=== PATIENT | female | born 1975 | race Caucasian/White ===

== ENCOUNTER 2019-11-19 06:47 | Outpatient (CLI) | payer MEDICARE, MEDICAID, SELFPAY ==
[2019-11-19 08:00] LABS: Cholesterol 189 mg/dL (0-200); HDL Direct 72 mg/dL; Triglycerides 141 mg/dL (<150)
[2019-11-19 08:11] LABS: LDL Cholesterol Direct 95 mg/dL
[2019-11-19 08:58] LABS: Free T4 Free Thyroxine 1.19 ng/mL (0.78-2.19)
== END 2019-11-19 06:48 | disposition home or self-care (01) ==
PROVIDERS: PCP Internal Medicine; Visit Provider Internal Medicine
DX: E03.9 Hypothyroidism, unspecified (principal)
CPT/HCPCS: 36415; 80061; 84439; 84443

== ENCOUNTER 2020-02-21 06:44 | Outpatient (CLI) | payer MEDICARE, MEDICAID, SELFPAY ==
--- NOTE | 2020-02-21 07:00 | NEURO_ITS ---
TEST: ELECTROENCEPHALOGRAM DIAGNOSIS: SEIZURES PATIENT NUMBER: [id number] EEG NUMBER: [id number] RECORDING DATE: 02/21/20 CLINICAL HISTORY: Patient reports she has had seizures since she was a baby. CONDITION OF RECORDING: Awake, drowsy and sleep EEG DESCRIPTION: The whole record consists of diffused low to medium voltage 5- 7theta and mixed with intermittent 3-4hz delta activity and superimposed by low voltage beta activity. Bilateral symmetrical sleep activity is seen during sleep. Tracing is compromised with eyes fluttering artifact throughout the tracing. Photic stimulation produced poor drive. Nonparoxysmal. Nonfocal. Nonlateralizing. IMPRESSION: Abnormal record due to bi-hemispheric theta and delta activity with absence of normal background rhythms. The findings could be suggestive of underlying organic or metabolic encephalopathy. There is no evidence of any paroxysmal discharge. MTDD
[2020-02-21 08:51] LABS: Basophils Percent Auto 0.3 % (0.2-1.2); Eosinophils Percent Auto 0.5 % (0-4.4); Hemoglobin 13.2 g/dL (12.0-15.0); Immature Granulocyte Absolute 0.04 K/mm3 (0.00-0.031); Immature Granulocyte Percent A 0.5 % (0-0.5); Lymphocytes Absolute Auto 1.87 K/mm3 (0.9-3.2); Lymphocytes Percent Auto 24.5 % (18.3-44.2); Mean Corpuscular Volume 97.1 fl (80-100); Mean Platelet Volume 9.4 fl (7.4-10.4); Monocytes Absolute Auto 0.7 K/mm3 (0.1-0.6); Monocytes Percent Auto 9.4 % (2.6-8.5); Neutrophils Absolute Auto 4.9 K/mm3 (1.3-6.7); Neutrophils Percent Auto 64.8 % (45.5-73.1); Platelet Count Result 182 k/mm3 (150-375); Red Blood Count 4.12 M/mm3 (4.2-5.4); Red Cell Distribution Width 13.4 % (11.5-14.5); White Blood Count 7.6 K/mm3 (4.5-10.0)
[2020-02-21 09:03] LABS: Alanine Aminotransferase 8 U/L (4-35); Albumin Level 3.9 g/dL (3.5-5.1); Alkaline Phosphatase 71 U/L (38-126); Aspartate Amino Transferase 14 U/L (14-36); Bilirubin,Total 0.2 mg/dL (0.2-1.3); Blood Urea Nitrogen 18 mg/dL (7-17); Calcium 8.9 mg/dL (8.4-10.2); Carbon Dioxide 30 mmol/L (22-30); Chloride 106 mmol/L (98-107); Estimated Glomerular Filt Rate > 60; Glucose 86 mg/dL (65-105); Potassium 4.6 mmol/L (3.4-5.0); Sodium 141 mmol/L (137-145)
[2020-02-21 09:40] LABS: Valproic Acid 83.7 ug/mL (50-120)
[2020-02-21 10:42] LABS: Folic Acid 4.5 ng/mL (2.76->20)
[2020-02-24 07:12] LABS: Carbamazepine Tegretol 8.9 mcg/mL (4.0-12.0)
[2020-02-24 09:34] LABS: Vitamin B6 3.1 ng/mL (2.1-21.7)
== END 2020-02-21 06:45 | disposition home or self-care (01) ==
PROVIDERS: PCP Internal Medicine; Visit Provider Psychiatry & Neurology Neurology
DX: R56.9 Unspecified convulsions (principal); R94.01 Abnormal electroencephalogram [EEG]
CPT/HCPCS: 36415; 80053; 80156; 80164; 82607; 82746; 84207; 85025; 95816

== ENCOUNTER 2020-03-28 14:11 | Outpatient (CLI) | payer MEDICARE, MEDICAID, SELFPAY ==
--- NOTE | ~2020-03-28 | CT_ITS ---
EXAMINATION: CT brain wo con DATE: 03/28/2020 15:02 INDICATION: Seizure TECHNIQUE: Computed tomography (CT) of the head was performed without intravenous contrast. Sagittal and coronal reconstructions were performed. The mA was adjusted according to patient size. Iterative reconstruction technique was employed. The dose-length product was 605.33 mGy-cm. 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 There is chronic encephalomalacia in the r ight frontal lobe along the tract of a right frontal ventricular shunt with distal tip in the anterio r horn of the right lateral ventricle. There is a short residual retained shunt fragment in the left lateral ventricle. No acute intracranial hemorrhage, acute infarction or abnormal extra axial fluid c ollection. Ventricles remain normal in size and unchanged in configuration. Basal cisterns are patent . No mass/mass effect. The orbits, paranasal sinuses and mastoid air cells are normal. IMPRESSION: 1. Agenesis of the corpus callosum with no change in a right frontal ventricular shunt and retained s balbuena fragment at the left lateral ventricle. 2. No acute intracranial process. Reviewed, dictated and finalized at location A. IMPRESSION: 1. Agenesis of the corpus callosum with no change in a right frontal ventricula r shunt and retained shunt fragment at the left lateral ventricle. 2. No acute intracranial process.
== END 2020-03-28 14:12 | disposition home or self-care (01) ==
PROVIDERS: PCP Internal Medicine; Visit Provider Psychiatry & Neurology Neurology
DX: R56.9 Unspecified convulsions (principal)
CPT/HCPCS: 70450

== ENCOUNTER 2020-05-07 06:34 | Outpatient (CLI) | payer MEDICARE, MEDICAID, SELFPAY ==
[2020-05-07 07:36] LABS: Basophils Percent Auto 0.5 % (0.2-1.2); Eosinophils Absolute Auto 0.1 K/mm3 (0-0.3); Eosinophils Percent Auto 0.6 % (0-4.4); Hemoglobin 14.1 g/dL (12.0-15.0); Immature Granulocyte Absolute 0.04 K/mm3 (0.00-0.031); Immature Granulocyte Percent A 0.5 % (0-0.5); Lymphocytes Absolute Auto 2.24 K/mm3 (0.9-3.2); Lymphocytes Percent Auto 27.3 % (18.3-44.2); Mean Corpuscular HGB Conc 32.8 g/dl (32-36); Mean Corpuscular Hemoglobin 32.4 pg (26-34); Mean Corpuscular Volume 98.9 fl (80-100); Mean Platelet Volume 9.9 fl (7.4-10.4); Monocytes Absolute Auto 0.8 K/mm3 (0.1-0.6); Monocytes Percent Auto 9.8 % (2.6-8.5); Neutrophils Percent Auto 61.3 % (45.5-73.1); Platelet Count Result 151 k/mm3 (150-375); Red Blood Count 4.35 M/mm3 (4.2-5.4); Red Cell Distribution Width 13.2 % (11.5-14.5); White Blood Count 8.2 K/mm3 (4.5-10.0)
[2020-05-07 07:46] LABS: Alanine Aminotransferase 12 U/L (4-35); Albumin Level 3.9 g/dL (3.5-5.1); Alkaline Phosphatase 115 U/L (38-126); Anion Gap 10.1 mmol/L (7-16); Aspartate Amino Transferase 24 U/L (14-36); Bilirubin,Total 0.4 mg/dL (0.2-1.3); Blood Urea Nitrogen 17 mg/dL (7-17); Calcium 9.2 mg/dL (8.4-10.2); Carbon Dioxide 33 mmol/L (22-30); Chloride 101 mmol/L (98-107); Cholesterol 189 mg/dL (0-200); Estimated Glomerular Filt Rate > 60; Glucose 90 mg/dL (65-105); HDL Direct 72 mg/dL; Potassium 4.1 mmol/L (3.4-5.0); Sodium 140 mmol/L (137-145); Triglycerides 198 mg/dL (<150)
[2020-05-07 07:57] LABS: LDL Cholesterol Direct 71 mg/dL
[2020-05-07 08:23] LABS: Valproic Acid 111.1 ug/mL (50-120)
[2020-05-07 08:35] LABS: Free T4 Free Thyroxine 1.16 ng/mL (0.78-2.19)
[2020-05-07 08:55] LABS: Erythrocyte Sedimentation Rate 19 mm/hr (0-20)
[2020-05-12 06:56] LABS: Carbamazepine Tegretol 9.9 mcg/mL (4.0-12.0)
== END 2020-05-07 06:35 | disposition home or self-care (01) ==
PROVIDERS: PCP Internal Medicine; Visit Provider Internal Medicine
DX: G40.801 Other epilepsy, not intractable, with status epilepticus (principal); R53.83 Other fatigue; E03.9 Hypothyroidism, unspecified; R63.4 Abnormal weight loss
CPT/HCPCS: 36415; 80053; 80061; 80156; 80164; 82607; 82746; 84439; 84443; 85025; 85652

== ENCOUNTER 2020-06-04 10:36 | Outpatient (CLI) | payer MEDICARE, MEDICAID, SELFPAY ==
--- NOTE | ~2020-06-04 | XR_ITS ---
EXAMINATION: XR chest 2V DATE: 06/04/2020 11:11 INDICATION: Cough. Chest pain. TECHNIQUE: Frontal and lateral views of the chest were obtained. COMPARISON: None. FINDINGS: The chest demonstrates clear lungs without pneumonia, pleural effusion, or pneumothorax. Th e heart size is normal. Tubing overlies right neck and chest. There is anterior wedging of T12 verteb ral body, likely chronic. There is a compression fracture of T11. IMPRESSION: 1. No acute cardiopulmonary disease. 2. Compression fracture of T11, most likely chronic. Reviewed, dictated and finalized at location B.
== END 2020-06-04 10:37 | disposition home or self-care (01) ==
PROVIDERS: PCP Internal Medicine; Visit Provider Physician Assistant
DX: R05 Cough (principal); M48.54XA Collapsed vertebra, not elsewhere classified, thoracic region, initial encounter for fracture
CPT/HCPCS: 71046

== ENCOUNTER 2021-03-08 08:56 | Outpatient (CLI) | payer MEDICARE, MEDICAID, SELFPAY ==
--- NOTE | ~2021-03-08 | MM_ITS ---
EXAMINATION: MM screening mammo BI HISTORY: Screening mammogram TECHNIQUE: Craniocaudal and mediolateral oblique 3-D tomosynthesis images were obtained and synthetic 2-D images were generated. CAD analysis was submitted and interpreted. COMPARISON: 08/25/2019, 08/12/2018, 12/14/2014 bilateral digital screening mammogram examinations BREAST PARENCHYMAL COMPOSITION: The breasts are heterogeneously dense, which may obscure small masses . FINDINGS: Again noted is prominent calcification in the posterior right breast. There are bilateral mammographic asymmetries. Bilateral diagnostic mammography is recommended, with u ltrasound if required. IMPRESSION: 1. Incomplete; need additional imaging evaluation for bilateral mammographic asymmetries 2. Bilateral diagnostic mammography is recommended, with ultrasound if required BI-RADS Category 0: Incomplete: Needs additional imaging evaluation. Reviewed, dictated and finalized at location A. IMPRESSION: 1. Incomplete; need additional imaging evaluation for bilateral mammographic as ymmetries 2. Bilateral diagnostic mammography is recommended, with ultrasound if required BI-RADS Category 0: Incomplete: Needs additional imaging evaluation.
== END 2021-03-08 08:57 | disposition home or self-care (01) ==
PROVIDERS: PCP Internal Medicine; Visit Provider Obstetrics & Gynecology
DX: Z12.31 Encounter for screening mammogram for malignant neoplasm of breast (principal); R92.8 Other abnormal and inconclusive findings on diagnostic imaging of breast
CPT/HCPCS: 77067

== ENCOUNTER 2021-05-20 08:23 | Outpatient (CLI) | payer MEDICARE, MEDICAID, SELFPAY ==
[2021-05-20 09:30] LABS: Basophils Percent Auto 0.3 % (0.2-1.2); Eosinophils Percent Auto 0.1 % (0-4.4); Hemoglobin 11.5 g/dL (12.0-15.0); Immature Granulocyte Absolute 0.01 K/mm3 (0.00-0.031); Immature Granulocyte Percent A 0.1 % (0-0.5); Lymphocytes Absolute Auto 1.63 K/mm3 (0.9-3.2); Lymphocytes Percent Auto 24.4 % (18.3-44.2); Mean Corpuscular HGB Conc 31.1 g/dl (32-36); Mean Corpuscular Hemoglobin 31.7 pg (26-34); Mean Corpuscular Volume 101.9 fl (80-100); Mean Platelet Volume 9.6 fl (7.4-10.4); Monocytes Absolute Auto 0.6 K/mm3 (0.1-0.6); Monocytes Percent Auto 8.5 % (2.6-8.5); Neutrophils Absolute Auto 4.4 K/mm3 (1.3-6.7); Neutrophils Percent Auto 66.6 % (45.5-73.1); Platelet Count Result 246 k/mm3 (150-375); Red Blood Count 3.63 M/mm3 (4.2-5.4); Red Cell Distribution Width 14.2 % (11.5-14.5); White Blood Count 6.7 K/mm3 (4.5-10.0)
[2021-05-20 09:55] LABS: Erythrocyte Sedimentation Rate 36 mm/hr (0-20)
[2021-05-20 09:56] LABS: Cholesterol 222 mg/dL (0-200); HDL Direct 92 mg/dL; Triglycerides 196 mg/dL (<150)
[2021-05-20 10:07] LABS: LDL Cholesterol Direct 84 mg/dL
[2021-05-20 10:36] LABS: Iron 74 ug/dL (37-170)
[2021-05-20 10:41] LABS: Alanine Aminotransferase 8 U/L (4-35); Albumin Level 3.8 g/dL (3.5-5.1); Alkaline Phosphatase 104 U/L (38-126); Anion Gap 7 mmol/L (8-16); Aspartate Amino Transferase 18 U/L (14-36); Bilirubin,Total 0.1 mg/dL (0.2-1.3); Blood Urea Nitrogen 15 mg/dL (7-17); Calcium 9.2 mg/dL (8.4-10.2); Carbon Dioxide 28 mmol/L (22-30); Chloride 103 mmol/L (98-107); Estimated Glomerular Filt Rate > 60; Glucose 84 mg/dL (65-110); Potassium 3.9 mmol/L (3.4-5.0); Sodium 138 mmol/L (137-145)
[2021-05-20 10:44] LABS: Iron 80 ug/dL (37-170)
[2021-05-20 10:47] LABS: Percent Iron Saturation 24 % (20-50)
[2021-05-20 14:11] LABS: Free T4 Free Thyroxine 0.86 ng/mL (0.78-2.19)
[2021-05-20 16:00] LABS: Percent Iron Saturation 25 % (20-50)
[2021-05-20 19:31] LABS: Folic Acid 5.8 ng/mL (2.76->20)
[2021-05-23 09:28] LABS: Carbamazepine Tegretol 9.2 mcg/mL (4.0-12.0)
[2021-05-23 21:54] LABS: Anti Nuclear Antibody Pattern Nuclear, Speckled
== END 2021-05-20 08:24 | disposition home or self-care (01) ==
PROVIDERS: PCP Internal Medicine; Visit Provider Internal Medicine
DX: D64.9 Anemia, unspecified (principal); M79.10 Myalgia, unspecified site; E03.9 Hypothyroidism, unspecified; G40.802 Other epilepsy, not intractable, without status epilepticus
CPT/HCPCS: 36415; 80053; 80061; 80156; 80164; 82607; 82746; 83540; 83550; 84439; 84443; 85025; 85652; 86038; 86039

== ENCOUNTER 2021-06-04 11:01 | Emergency (ER) | payer MEDICARE, MEDICAID, SELFPAY ==
--- NOTE | ~2021-06-04 | XR_ITS ---
EXAMINATION: XR humerus LT DATE: 06/04/2021 12:07 INDICATION: Left upper arm pain and bruising post fall TECHNIQUE: AP, lateral and transthoracic lateral views of the left humerus were obtained. COMPARISON: Chest radiograph dated 06/04/20 FINDINGS: Acute transverse fracture to surgical neck of the proximal left humerus with 1 cm medial displacement consistent with a 2 part fracture. Spotty osteopenia at the proximal metaphyseal region of the humer us. No other fractures identified. Mild osteoarthritis at the left shoulder and elbow. Chronic T10 co mpression fracture with one fourth anterior vertebral body height loss. Anterior plate and screw fixa tion for mid to lower cervical anterior spinal fusion. Catheter tubing projecting across the anterior chest and extending into the abdomen consistent most likely representing a ventricular peritoneal sh unt. IMPRESSION: 1. 2 part fracture of the proximal left humerus with 1 cm medial displacement of a transverse fractur e to surgical neck. Reviewed, dictated and finalized at location B. IMPRESSION: 1. 2 part fracture of the proximal left humerus with 1 cm medial displacement o f a transverse fracture to surgical neck.
[2021-06-04 11:41] VITALS: BP 128/92; PULSE 62; RESP 16; TEMP 36.7; O2SAT 100
--- NOTE | 2021-06-04 12:08 | ED.UPPEXIN ---
HPI - Extremity Injury (Upper) General Chief Complaint: Extremity Injury, Upper Stated Complaint: left arm injury Time Seen by Provider: 06/04/21 11:38 Source: patient and family (mother) Mode of arrival: wheelchair Limitations: physical limitation History of Present Illness HPI narrative: This is a 45 year old female who presents for evaluation of left arm injury. PAtient is unable to give complete history due to cognitive impairment. Her mother is at bedside . She states patient last went to physical therapy on . She noticed on thursday that patient was complaining of left arm pain. She will only move arm by using her right arm. Her mother noticed that patient had bruising to her arm yesterday. She has been taking tylenol for her pain but her pain is not getting better. PAtient has abrasion to left forehead from the fall but she denies headache, nausea, vomiting. PAtient also denies neck pain. Patient has chronic left side paralysis Related Data Home Medications Medication Instructions Recorded Confirmed omega-3 fatty acids 1,000 mg 1,000 mg PO DAILY 01/15/21 05/22/21 capsule Allergies Allergy/AdvReac Type Severity Reaction Status Date / Time caffeine Allergy Severe dizzy Verified 05/20/21 09:46 guaifenesin [From Mucinex] Allergy Unknown unknown Verified 05/20/21 09:46 zonisamide Allergy Unknown Unknown Verified 05/20/21 09:46 Review of Systems Review of Systems: All systems reviewed & are unremarkable except as noted in HPI and below PMFSH Past Medical History Medical History (Updated 06/04/21 @ 15:58 by Lila Holland MD) Congenital hydrocephalus, unspecified Other epilepsy, not intractable, with status epilepticus Surgical History Surgical History (Updated 06/04/21 @ 12:20 by Lila Holland MD) 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 Family History Family History Father Family history of diabetes mellitus in first degree relative Diabetes mellitus Social History Social History Smoking status: Never smoker Second hand tobacco smoke exposure: No Alcohol intake: never Exam Const: General: no acute distress and alert HENMT: Other: small abrasion to left forehead Eyes: Pupils: Equal, round and reactive pupils present Neck: Lymphatic: no lymphadenopathy noted Resp: Effort & Inspection: normal respiratory effort and no retractions Auscultation: clear to auscultation bilaterally Cardio: Rate: regular rate Rhythm: regular rhythm Heart sounds: no murmurs Skin: Other: ecchymosis noted to left upper arm Extrem: Other: TTP left shoulder shoulder, unable to abduct, no deformity but there is bruising to lower upper arm, able to move hand and fingers distal, strong left radial pulse Psych: Mental Status: mental status grossly normal Affect: normal affect Course Reevaluation(s) Reevaluation #1: I discussed with patient's mother and she states she does not want to have to go to [facility] . She request I try a different orthopedic surgeon Date: 06/04/21 Time: 12:35 Reevaluation #2: I explained to patient's mother that our orthopedic surgeons recommended a different view to make sure their is no dislocation. Her family states she already made an appointment with ortho at [facility]. She states she is not going to [facility] or [place]. She is eager to leave Date: 06/04/21 Time: 14:51 Consultations Consultation #1: I spoke with Dr. New's nurse about patient's injury and xray. He states patient needs to be sent to [facility] for evaluation. Date: 06/04/21 Time: 12:30 Consultation #2: Dr. Daniels reviewed the xray. He recommends patient be referred or transfer to [place] as it may been repair due to displacement Date: 06/04/21 Time: 14:15 Consultation #3: Dr Finley of [facility] ortho states patient needs axillary view of xray before she can be dispo. Date: 06/04/21 Time: 15:02 Vit
[2021-06-04] MEDS: ONDANSETRON HCL ODT 4 MG TABLET PO (12:24)
[2021-06-04] MEDS: HYDROcodone/acetaminophen (*CRX) 5-325 MG TABLET 1 TAB PO (12:24)
[2021-06-04 12:54] VITALS: TEMP 36.7
--- NOTE | 2021-06-04 15:10 | PC.NURSE ---
Patient to radiology.
[2021-06-04 15:32] VITALS: BP 132/78; PULSE 87; RESP 18; O2SAT 98
== END 2021-06-04 16:23 | disposition home or self-care (01) ==
PROVIDERS: Emergency Provider General Practice; PCP Internal Medicine
DX: S42.212A Unspecified displaced fracture of surgical neck of left humerus, initial encounter for closed fracture (principal); S00.81XA Abrasion of other part of head, initial encounter; X58.XXXA Exposure to other specified factors, initial encounter
CPT/HCPCS: 73060; 99284; A9270

== ENCOUNTER 2022-04-23 11:26 | Outpatient (CLI) | payer MEDICARE, MEDICAID, SELFPAY ==
--- NOTE | ~2022-04-23 | US_ITS ---
EXAMINATION: US soft tissue abdomen DATE: 04/23/2022 11:57 INDICATION: Soft tissue lump at the left flank TECHNIQUE: Multiple grayscale and Doppler ultrasound images of the region of concern at the left flan k were obtained. COMPARISON: None FINDINGS/IMPRESSION: 6.1 x 5.1 x 1.7 cm ovoid hypoechoic mass within the deep subcutaneous fat at the region of concern wh ich is isoechoic with similar echogenicity and internal septated architecture as the surrounding fat which would be most consistent and statistically most likely to represent a lipoma. No other masses o r fluid collection is identified. Reviewed, dictated and finalized at location B.
== END 2022-04-23 11:27 | disposition home or self-care (01) ==
PROVIDERS: PCP Internal Medicine; Visit Provider Physician Assistant
DX: R19.09 Other intra-abdominal and pelvic swelling, mass and lump (principal)
CPT/HCPCS: 76705

== ENCOUNTER 2022-08-15 06:53 | Outpatient (CLI) | payer MEDICARE, MEDICAID, SELFPAY ==
[2022-08-15 08:12] LABS: Basophils Percent Auto 0.7 % (0.2-1.2); Eosinophils Percent Auto 0.9 % (0-4.4); Hematocrit 38.9 % (37.0-47.0); Hemoglobin 12.2 g/dL (12.0-15.0); Immature Granulocyte Absolute 0.07 K/mm3 (0.00-0.031); Immature Granulocyte Percent A 1.6 % (0-0.5); Lymphocytes Absolute Auto 2.34 K/mm3 (0.9-3.2); Lymphocytes Percent Auto 54.4 % (18.3-44.2); Mean Corpuscular HGB Conc 31.4 g/dl (32-36); Mean Corpuscular Hemoglobin 31.9 pg (26-34); Mean Corpuscular Volume 101.6 fl (80-100); Monocytes Absolute Auto 0.3 K/mm3 (0.1-0.6); Monocytes Percent Auto 7.9 % (2.6-8.5); Neutrophils Absolute Auto 1.5 K/mm3 (1.3-6.7); Neutrophils Percent Auto 34.5 % (45.5-73.1); Platelet Count Result 162 k/mm3 (150-375); Red Blood Count 3.83 M/mm3 (4.2-5.4); Red Cell Distribution Width 14.4 % (11.5-14.5); White Blood Count 4.3 K/mm3 (4.5-10.0)
[2022-08-15 08:24] LABS: Potassium 4.1 mmol/L (3.4-5.0)
[2022-08-15 08:25] LABS: Alanine Aminotransferase 9 U/L (6-35); Albumin Level 3.4 g/dL (3.5-5.1); Alkaline Phosphatase 77 U/L (38-126); Anion Gap 7 mmol/L (8-16); Aspartate Amino Transferase 21 U/L (14-36); Bilirubin,Total 0.3 mg/dL (0.2-1.3); Blood Urea Nitrogen 19 mg/dL (7-17); Calcium 8.6 mg/dL (8.4-10.2); Carbon Dioxide 33 mmol/L (22-30); Chloride 105 mmol/L (98-107); Cholesterol 188 mg/dL (0-200); Estimated Glomerular Filt Rate > 60; Glucose 75 mg/dL (65-110); HDL Direct 79 mg/dL; Sodium 145 mmol/L (137-145); Triglycerides 206 mg/dL (<150)
[2022-08-15 08:36] LABS: LDL Cholesterol Direct 56 mg/dL
[2022-08-15 09:29] LABS: Free T4 Free Thyroxine 0.82 ng/mL (0.78-2.19)
[2022-08-15 09:31] LABS: Folic Acid 3.2 ng/mL (2.76->20)
== END 2022-08-15 06:54 | disposition home or self-care (01) ==
PROVIDERS: PCP Internal Medicine; Visit Provider Internal Medicine
DX: R74.8 Abnormal levels of other serum enzymes (principal); R53.83 Other fatigue; E03.9 Hypothyroidism, unspecified
CPT/HCPCS: 36415; 80053; 80061; 82607; 82746; 84439; 84443; 85025

== ENCOUNTER 2022-09-01 08:09 | Outpatient (CLI) | payer MEDICARE, MEDICAID, SELFPAY ==
--- NOTE | 2022-09-01 10:02 | WPDNEUROLOGY ---
Neurology EEG Report General Information Date of Study: 09/01/22 TEST Routine EEG DIAGNOSIS Epilepsy CONDITION OF RECORDING Awake and drowsy EEG NUMBER [id number] CLINICAL HISTORY Patient is mentally and physically disabled. She reports having grand mal seizures since she was a baby. She recently had a seizure that resulted in her falling and hitting her head. EEG DESCRIPTION During the awake state there is no well defined posterior dominant rhythm or anterior-posterior gradient. The recording is continuous. During the wake state the background consists of mostly diffuse delta range activity with bifrontal predominance. With drowsiness the delta range activity becomes more generalized. Normal sleep architecture was not visualized. Photic stimulation did not elicit any abnormal photoparoxysmal response. There were occasional epileptiform discharges originating from the left frontotemporal region (F3, F7, C3, T3). There were no electrographic seizures noted during the recording. IMPRESSION This is an abnormal routine EEG during awake and drowsy state due to the presence of predominantly bifrontal slowing and lack of well defined posterior dominant rhythm, as well as epileptiform features originating from the left frontotemporal region. These findings may be suggestive of focal as well as generalized cerebral dysfunction indicative of encephalopathy, and decreased threshold to have seizure from a focal onset mechanism.
== END 2022-09-01 08:10 | disposition home or self-care (01) ==
LOC: ANHNEURO 08:11
PROVIDERS: PCP Internal Medicine; Visit Provider Psychiatry & Neurology Neurology
DX: G40.909 Epilepsy, unspecified, not intractable, without status epilepticus (principal); R94.01 Abnormal electroencephalogram [EEG]
CPT/HCPCS: 95816

== ENCOUNTER 2022-10-04 17:07 | Inpatient (IN) | payer MEDICARE, MEDICAID, SELFPAY ==
[2022-10-04] VITALS (26 sets, daily range): BP systolic 105–165; BP diastolic 76–106; PULSE 89–106; RESP 13–24; TEMP 36.4; O2SAT 95–100
--- NOTE | ~2022-10-04 | XR_ITS ---
EXAM: XR humerus LT DATE: 10/05/2022 15:17 HISTORY: left arm pain . COMPARISON: 06/04/2021. FINDINGS: Decreased mineralization. Old proximal left humeral fracture, healed in slight deformity N o acute fracture or dislocation. No lytic or blastic lesion. Mild scattered degenerative change. No e rosion or periosteal change. Soft tissues within normal limits. IMPRESSION: No acute osseous finding in the left humerus. Reviewed, dictated and finalized at location K. N CHAIN PULLER
--- NOTE | ~2022-10-04 | XR_ITS ---
EXAMINATION: XR abdomen/kub 1V DATE: 10/09/2022 17:57 INDICATION: Vomiting. TECHNIQUE: A supine view of the abdomen on 2 radiographs was obtained. COMPARISON: CT abdomen and pelvis 10/04/2022 FINDINGS: There are no dilated loops of bowel. There is a paucity of stool in the colon. A ventriculo peritoneal shunt is noted. IMPRESSION: 1. Normal bowel gas pattern. Reviewed, dictated and finalized at location A. STERED RESPIRATORY TECHNICIAN
--- NOTE | ~2022-10-04 | XR_ITS ---
EXAMINATION: XR chest 2V DATE: 10/13/2022 10:42 INDICATION: Shortness of breath. TECHNIQUE: Frontal and lateral views of the chest were obtained. COMPARISON: Chest single view 10/09/2022, CT abdomen and pelvis 10/13/22 FINDINGS: The lung volumes are small. There are small pleural effusions. There is mild atelectasis at left lung base. No pneumothorax. The heart size is normal. There are changes of anterior fusion proc edure in cervical spine. A left-sided ventriculoperitoneal shunt is noted. There is retained tubing i n right chest wall. There is an old healed fracture of proximal left humerus. IMPRESSION: 1. Small pleural effusions. Reviewed, dictated and finalized at location A. IL LINK ANALYST IMPRESSION: 1. Small pleural effusions.
--- NOTE | ~2022-10-04 | CT_ITS ---
EXAMINATION: CT abdomen pelvis wo/w con DATE: 10/13/2022 10:33 INDICATION: Hematuria. TECHNIQUE: Computed tomography (CT) of the abdomen and pelvis was performed without and with intraven ous contrast using a total of 130 mL Omnipaque-350 intravenous contrast with a double-bolus technique for simultaneous opacification of the renal parenchyma and renal collecting system. Automated exposu re control and iterative reconstruction technique were employed. The dose-length product was 942.74 m Gy-cm. COMPARISON: CT abdomen and pelvis 10/11/2022 FINDINGS: The visualized portions of the lung bases demonstrate mild atelectasis. There are small pleural effus ions. The heart size is normal. No pericardial effusion. There is a small sliding hiatal hernia conta ining ascites. The liver, gallbladder, spleen, pancreas, adrenal glands, and kidneys are normal. Ther e is no urolithiasis. The ureters are well opacified and are normal. The bladder is normal. There are no dilated loops of bowel. The appendix is normal. There is a small volume of ascites. A ventriculop eritoneal shunt is noted. There is wall thickening of multiple loops of jejunum. Body wall edema is n oted. There is a 4.9 x 4.3 x 2.4 cm subcutaneous lipoma in left lateral body wall. There is moderate lumbar spondylosis. There is a chronic compression fracture of T10. IMPRESSION: 1. No etiology for hematuria. 2. Small pleural effusions. 3. Small volume of ascites. 4. Small sliding hiatal hernia containing ascites. 5. Wall thickening of multiple loops of jejunum, consistent with interstitial edema or less likely en teritis. Reviewed, dictated and finalized at location A. ONAL LOSS PREVENTION MANAGER IMPRESSION: 1. No etiology for hematuria. 2. Small pleural effusions. 3. Small volume of ascites. 4. Small sliding hiatal hernia containing ascites. 5. Wall thickening of multiple loops of jejunum, consistent with interstitial e fritz or less likely enteritis.
--- NOTE | ~2022-10-04 | CT_ITS ---
EXAMINATION: CT facial & cervical spine wo DATE: 10/04/2022 19:58 INDICATION: fall with facial contusion TECHNIQUE: Computed tomography (CT) of the maxillofacial region and cervical spine was performed with out intravenous contrast. Automated exposure control and iterative reconstruction technique were empl oyed. The dose-length product was 133.47 mGy-cm. COMPARISON: None FINDINGS: CERVICAL: Vertebral Body Alignment: Intact. Craniocervical and atlantoaxial alignment: Moderate degenerative change. Alignment intact. Osseous structures/fracture: No evidence of a lytic or blastic process in the visualized spine. No e vidence of acute fracture. ACDF spanning C4-C7, with intact hardware and interbody devices. Cervical soft tissues: The paraspinal soft tissues planes are maintained. Degenerative changes: Multilevel degenerative disc disease and facet arthropathy. No severe central c anal or neural foraminal narrowing.. FACE: Soft Tissues: No significant superficial soft tissue swelling. Facial bones: Mild flattening and irregularity of the anterior nasal bones, otherwise no acute fract ure. No lytic or blastic process. Eyes: The globes are intact. The soft tissue planes of the orbits are maintained. Paranasal Sinuses: The visualized aerated spaces are clear. Foreign Bodies: No radiopaque foreign bodies. Other Findings: None. IMPRESSION: No acute fracture or traumatic malalignment in the cervical spine. Mild flattening and irregularity o f the anterior nasal bones, correlate with pain/point tenderness, otherwise no acute facial bone frac ture. Reviewed, dictated and finalized at location K. LLURGICAL ANALYST IMPRESSION: No acute fracture or traumatic malalignment in the cervical spine. Mild flatten ing and irregularity of the anterior nasal bones, correlate with pain/point ten derness, otherwise no acute facial bone fracture.
--- NOTE | ~2022-10-04 | XR_ITS ---
EXAMINATION: XR abdomen/kub 1V INDICATION: Vomiting TECHNIQUE: Supine views of the abdomen were obtained on 2 radiographs. COMPARISON: None FINDINGS: Ventriculoperitoneal shunt catheter tubing courses over the left hemithorax and coils in th e left abdomen. There are no dilated loops of bowel. No free intraperitoneal gas is identified. The v isualized lung bases are clear. IMPRESSION: 1. No radiographic correlate for the patient's symptoms. Reviewed, dictated and finalized at location B. ATRIC SPORTS MEDICINE SPECIALIST
--- NOTE | ~2022-10-04 | XR_ITS ---
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 Lungs remain clear, without focal consolidation or pleural effusion. Cardiomediastinal silhouette is stable. Bones and soft tissues are unremarkable. Impression: Clear lungs. LAUNDRY PRICING CLERK shunt Reviewed, dictated and finalized at [facility]. & OWNER Impression: Clear lungs. LAUNDRY PRICING CLERK shunt
--- NOTE | ~2022-10-04 | CT_ITS ---
EXAMINATION: CT abdomen pelvis w con DATE: 10/04/2022 22:55 INDICATION: Confusion. Possible sepsis. TECHNIQUE: Computed tomography (CT) of the abdomen and pelvis was performed with 100 mL Omnipaque-350 intravenous contrast. Automated exposure control and iterative reconstruction technique were employe d. The dose-length product was 398.26 mGy-cm. COMPARISON: None FINDINGS: Patchy groundglass opacities in the right lower lobe concerning for aspiration or pneumonia. No geogr aphic groundglass opacities in the left lower lobe and lingula with similar differential but also inc luding atelectasis. Heart size is normal. No pericardial effusion. Small amount of ascites in the abd omen and pelvis with additional small amount of ascites along side a small sliding-type hiatal hernia . Liver, gallbladder, spleen, pancreas, bilateral adrenal glands and kidneys are normal. Likely left- sided ventriculoperitoneal shunt extending caudally along the anterior left chest wall and coils in t he intraperitoneal space in the left hemipelvis. Additional likely older and discontinuous retained v entriculoperitoneal shunt catheter tubing at the right side of the anterior chest wall with distal ti p of the tubes remain in the subcutaneous tissues in the second extending into the peritoneal cavity anterior to the caudal tip of the liver. Moderate amount stool in the distal colon. Normal small ernesto l and appendix. Bladder and bilateral adnexa are unremarkable. 1.5 cm likely uterine fibroid. No absc ess or free intraperitoneal gas. Moderate thoracic and moderate to severe lower lumbar spondylosis. C hronic T10 compression fracture and Schmorl's node along the superior endplate of T11. IMPRESSION: 1. Groundglass opacities at the bilateral lung bases with more patchy appearance in the right lower l obe which is suspicious for aspiration or pneumonia. 2. Small amount of nonspecific ascites. 3. 1.5 cm uterine fibroid. Reviewed, dictated and finalized at location A. ORK SYSTEMS OPERATOR IMPRESSION: 1. Groundglass opacities at the bilateral lung bases with more patchy appearanc e in the right lower lobe which is suspicious for aspiration or pneumonia. 2. Small amount of nonspecific ascites. 3. 1.5 cm uterine fibroid.
--- NOTE | ~2022-10-04 | XR_ITS ---
EXAM: XR knee RT 2V DATE: 10/06/2022 13:04 HISTORY: pain and swelling, right knee . COMPARISON: None available. FINDINGS: Decreased mineralization. No fracture or dislocation. No lytic or blastic lesion. Mild tri compartmental osteoarthritis. No erosion or periosteal change. Soft tissues within normal limits. IMPRESSION: No acute osseous finding in the right knee. Reviewed, dictated and finalized at location K. CTOR STYLE
--- NOTE | ~2022-10-04 | CT_ITS ---
EXAMINATION: CT abdomen pelvis wo con DATE: 10/11/2022 16:03 INDICATION: possible kidney stone TECHNIQUE: Computed tomography (CT) of the abdomen and pelvis was performed without intravenous contr ast. Automated exposure control and iterative reconstruction technique were employed. The dose-length product was 233.93 mGy-cm. COMPARISON: 08/04/2022. FINDINGS: Lower thorax: Small bilateral pleural effusions. Bibasilar atelectasis, greater on the left. Motion a rtifact. Liver: Normal. Biliary/Gallbladder: Gallbladder is collapsed. No bile duct dilation. Pancreas: No mass or duct dilation. Spleen: Normal. Adrenals:No mass. Kidneys: No mass, stone, or hydronephrosis. GI tract: No small or large bowel dilation. Normal appendix. Mesentery/Peritoneum: No free air or mass. Small volume ascites. Retroperitoneum: No mass. Pelvis: Pelvic organs are within normal limits. Soft Tissues: Diffuse subcutaneous edema. Multiple shunt tubes in the anterior abdominal wall. Bones: No acute osseous finding. IMPRESSION: Small bilateral pleural effusions with adjacent atelectasis/consolidation. Small volume ascites. Diff use subcutaneous edema in the trunk. No kidney stone detected. Reviewed, dictated and finalized at location K. IC PHYSICIAN IMPRESSION: Small bilateral pleural effusions with adjacent atelectasis/consolidation. Smal l volume ascites. Diffuse subcutaneous edema in the trunk. No kidney stone dete cted.
--- NOTE | ~2022-10-04 | XR_ITS ---
EXAMINATION: XR chest 1V portable DATE: 10/05/2022 00:12 INDICATION: Possible pneumonia TECHNIQUE: frontal view of the chest was obtained. COMPARISON: Chest radiograph dated 06/04/[address] dated 10/04/2022 FINDINGS: The patchy groundglass opacities evident at the basilar right lower lobe and concerning for pneumonia on prior CT are indiscernible on the provided radiographs. No other airspace opacities, pulmonary ed suzie, pleural effusion or pneumothorax. The cardiomediastinal silhouette is normal. Bilateral cranioca udally directed catheter tubing extending from the base of the neck across the left and right hemitho races into the visualized left and right abdomen likely reflecting ventriculoperitoneal shunts. The c atheter tubing on the right appears discontinuous and is likely more chronic with suggestion of some associated calcification. Excreted contrast from the earlier CT opacifies the bilateral renal collect ing systems. IMPRESSION: 1. No evident acute cardiopulmonary disease. The subtle opacities in the basilar right lower lobe see n on prior CT and concerning for pneumonia are indiscernible on the current study. Reviewed, dictated and finalized at location A. CT OF REAL ESTATE IMPRESSION: 1. No evident acute cardiopulmonary disease. The subtle opacities in the basila r right lower lobe seen on prior CT and concerning for pneumonia are indiscerni ble on the current study.
--- NOTE | ~2022-10-04 | XR_ITS ---
MODIFIED ESOPHAGRAM HISTORY: Dysphagia. TECHNIQUE: Modified barium esophagram was performed on 10/05/2022. I administered fluoroscopy and per formed the exam with speech pathologist. Patient was seated for lateral fluoroscopic imaging for ing estion of thin liquids, pudding, solids and quantified amounts, followed by thin liquids in uncontrol led amounts. This was recorded on tape. A single fluoroscopic spot image was also recorded. The DAP f or this procedure was 0.769 Gycm2. The amount of fluoroscopy time used during this procedure was 1.1 minutes. FINDINGS: Oral stage: Adequate function. Pharyngeal stage: Adequate function. Cervical/esophageal stage: Adequate function. IMPRESSION: Patient tolerated regular consistency oral feedings in the upright position. Please [place] with speech pathologist findings and specific feeding recommendations. Reviewed, dictated and finalized at location A. INTERPRETIVE SPECIALIST IMPRESSION: Patient tolerated regular consistency oral feedings in the upright position. Please correlate with speech pathologist findings and specific feedi ng recommendations.
--- NOTE | ~2022-10-04 | US_ITS ---
EXAMINATION: US pelvic complete DATE: 10/10/2022 15:20 INDICATION: Postmenopausal bleeding TECHNIQUE: Multiple transabdominal sonographic images of the pelvis were obtained. COMPARISON: CT, 10/04/2022 FINDINGS: The uterus measures 6.3 x 2 x 4.3 cm. There is an 11 mm intramural hypoechoic area of the u terine fundus which appears to correspond to the CT finding in question. The endometrial complex brenden ures 2 mm. The ovaries are not visualized however no adnexal abnormality is seen. There is a moderate volume of free fluid in the pelvis. IMPRESSION: 1. 11 mm hypoechoic area of the uterine fundus likely reflecting a small intramural fibroid. Reviewed, dictated and finalized at location B. LATOR ATTENDANT IMPRESSION: 1. 11 mm hypoechoic area of the uterine fundus likely reflecting a small intram ural fibroid.
--- NOTE | ~2022-10-04 | CT_ITS ---
EXAMINATION: CT brain wo con DATE: 10/04/2022 19:58 INDICATION: confusion, frequent fall recently, bruise to R side of face . TECHNIQUE: Computed tomography (CT) of the head was performed without intravenous contrast. The mA wa s adjusted according to patient size. Iterative reconstruction technique was employed. The dose-lengt h product was 756.67 mGy-cm. COMPARISON: 03/28/2020. FINDINGS: Exam limited by motion No acute intracranial hemorrhage or extra-axial fluid collection. No hydrocephalus, mass, or herniation. No acute ischemic infarct. Unremarkable dural venous sinus attenuation. No acute osseous abnormality. The aerated spaces are clear. Left parietal approach EQUIPMENT INSTALLATION PROFESSIONAL shunt terminating over the midline ventricles. Retained shunt fragment in t he left lateral ventricle. Right frontal encephalomalacia. Agenesis of the corpus callosum. IMPRESSION: Severely motion limited examination. Within that constraint, no definite acute intracranial process. Reviewed, dictated and finalized at location K. RING AND EVENTS MANAGER
[2022-10-04 18:15] LABS: Basophils Percent Auto 0.4 % (0.2-1.2); Hematocrit 44.1 % (37.0-47.0); Hemoglobin 14.6 g/dL (12.0-15.0); Immature Granulocyte Absolute 0.09 K/mm3 (0.00-0.031); Immature Platelet Fraction Pct 5.8 % (0.9-11.2); Lymphocytes Absolute Auto 1.68 K/mm3 (0.9-3.2); Lymphocytes Percent Auto 18.2 % (18.3-44.2); Mean Corpuscular HGB Conc 33.1 g/dl (32-36); Mean Corpuscular Hemoglobin 31.8 pg (26-34); Mean Corpuscular Volume 96.1 fl (80-100); Mean Platelet Volume 10.2 fl (7.4-10.4); Monocytes Absolute Auto 1.4 K/mm3 (0.1-0.6); Monocytes Percent Auto 15.6 % (2.6-8.5); Neutrophils Percent Auto 64.8 % (45.5-73.1); Platelet Count Result 102 k/mm3 (150-375); Red Blood Count 4.59 M/mm3 (4.2-5.4); Red Cell Distribution Width 13.8 % (11.5-14.5); White Blood Count 9.2 K/mm3 (4.5-10.0)
[2022-10-04 18:24] LABS: Alanine Aminotransferase 13 U/L (6-35); Albumin Level 3.8 g/dL (3.5-5.1); Alkaline Phosphatase 88 U/L (38-126); Anion Gap 7 mmol/L (8-16); Aspartate Amino Transferase 29 U/L (14-36); Bilirubin,Total 0.4 mg/dL (0.2-1.3); Blood Urea Nitrogen 27 mg/dL (7-17); Carbon Dioxide 32 mmol/L (22-30); Chloride 91 mmol/L (98-107); Estimated CRCL calculation 48 ml/min; Estimated Glomerular Filt Rate > 60; Glucose 113 mg/dL (65-110); Potassium 4.2 mmol/L (3.4-5.0); Sodium 130 mmol/L (137-145)
--- NOTE | 2022-10-04 19:26 | ED.GENADULT ---
HPI - General Adult General Chief complaint: Weakness Stated complaint: UTI? Time Seen by Provider: 10/04/22 19:14 History of Present Illness HPI narrative: 47-year-old female with history of seizure, hydrocephalus, shunt malfunction, frequent fall presented the emergency department for evaluation of change in mental status. Family states that approximately 3 weeks ago patient had follow-up with Dr. Robb and patient was started on Keppra. Patient had decreased mental status after starting the Keppra so after 1 week the Keppra was stopped. Family states that over the last 2 weeks she has had continuing declining mental function. Per states that the patient does have frequent falls. Patient does have multiple bruises. Mother states that the patient has gone from 4 months. Nonverbal within a single day. At this time patient is responsive but is nonverbal. Related Data Home Medications Medication Instructions Recorded Confirmed omega-3 fatty acids 1,000 mg 1,000 mg PO DAILY 01/15/21 10/05/22 capsule (Fish Oil Concentrate) mecobalamin (vitamin B12) 1,000 1,000 mcg PO DAILY 08/22/22 10/05/22 mcg chewable tablet (B12 Active) ciprofloxacin HCl 0.3 % eye drops 1 drp ophthalmic (eye) Q4H PRN Eye 10/05/22 10/05/22 (Ciloxan) Irritation fluticasone propionate 50 2 spray intranasal DAILY PRN 10/05/22 10/05/22 mcg/actuation nasal Allergy Symptoms spray,suspension (Flonase Allergy Relief) Allergies Allergy/AdvReac Type Severity Reaction Status Date / Time caffeine Allergy Severe dizzy Verified 08/22/22 10:31 guaifenesin [From Mucinex] Allergy Unknown unknown Verified 08/22/22 10:31 zonisamide Allergy Unknown Unknown Verified 08/22/22 10:31 Review of Systems Review of Systems: ROS unobtainable: Yes unobtainable due to mental status PMFSH Past Medical History Medical History (Updated 10/05/22 @ 07:37 by Edita Lamas DO) Agenesis of corpus callosum Congenital hydrocephalus, unspecified Esophageal reflux disease Other epilepsy, not intractable, with status epilepticus Pure hypercholesterolemia Surgical History Surgical History H/O Spinal surgery Hx of brain surgery 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 She lives with her mother. She can ambulate with a walker or otherwise uses a wheelchair. Smoking status: Never smoker Second hand tobacco smoke exposure: No Alcohol intake: never Lack of Transportation: No Lack of Food: Never True Current Housing: I Have Housing Concerned About Future Housing: No Difficulty Paying Gas/Electric Bills: YES Difficulty Paying for Meds: No Currently Unemployed: No Education: High School Diploma/GED Difficulty w/ Childcare or Family Care: No Spiritual care concerns: No Exam Narrative: APPEARANCE: No distress but nonverbal HEAD: normocephalic, right-sided facial contusion with ecchymosis EYES: PERRLA/EOMI, conjunctivae clear. NOSE: Normal no drainage EARS:TMS clear with good light reflex. THROAT: Pharynx clear, no exudate. NECK: Supple. No adenopathy, no masses. RESPIRATORY: Airway patent, respirations nonlabored. Clear to auscultation bilaterally, no rales, rhonchi, wheezing. CARDIOVASCULAR: Regular rate and rhythm without murmurs rubs or gallops. ABDOMINAL: Soft, nontender, nondistended, normal bowel sounds MUSCULOSKELETAL: Moves all extremities. Strength/ROM intact, No edema, No calf tenderness. NEURO: Alert. Moves lower legs spontaneously SKIN: Warm, dry. Normal Color Course Course Emergency Course: Patient has had a change in her mental status over the last few weeks. Mother reports that patient has also chahal
[2022-10-04] MEDS: SODIUM CHLORIDE 0.9% IV 1,000 ML 999 ML IV CONT (20:44)
[2022-10-04] MEDS: carBAMazepine 200 MG TABLET 400 MG PO (20:46)
[2022-10-04] MEDS: DIVALPROEX SODIUM DR 250 MG TABEC 1000 MG PO (20:46)
[2022-10-04 20:52] LABS: Appearance Urine Clear (Clear); Bilirubin Urine 2+ (Negative); Blood Urine Negative (Negative); Glucose Urine UA Negative (Negative); Ketones Urine 1+ mg/dL (Negative); Leukocyte Esterase Ur Negative LEU/UL (Negative); Nitrate Urine Positive (Negative); Protein Urine 1+ mg/dL (Negative); Specific Grav Ur >= 1.030 (1.001-1.035); pH Urine 6.5 (5.0-9.0)
[2022-10-04 20:56] LABS: Mucus Urine Rare /lpf; WBC Urine 0-3 /hpf
[2022-10-04 21:09] LABS: Add Urine Microscopic? YES; Color Urine Dark Orange (Yellow)
[2022-10-04 21:20] LABS: Influenza A QL RT-PCR Negative (Negative); Influenza B QL RT-PCR Negative (Negative); RSV RNA, RT-PCR Negative (Negative); SARS-CoV-2 RNA PCR Negative
[2022-10-05] VITALS (25 sets, daily range): BP systolic 95–124; BP diastolic 60–101; PULSE 70–88; RESP 13–24; TEMP 36.4–36.6; O2SAT 95–100; BMI 22.1
[2022-10-05] MEDS: metroNIDAZOLE 500 MG/ISO 100ML 500 MG/100 ML BAG 100 MG IVPB (01:21)
--- NOTE | 2022-10-05 04:37 | ADMGEN ---
This patient, Christi Azevedo, was admitted to 2 Medical Room 242-01. Patient/family oriented to hospital policies and general routines including ID bracelet, bed and alarms, visiting hours, pain management, procedures, bathroom and other care routines, personal items, smoking policy, room service/diet, and visiting hours. Information on how to activate the Rapid Response Team has been discussed. Patient/Family are encouraged to report perceived risks to care and to ask questions if they do not understand what they are told or what they should do.
--- NOTE | 2022-10-05 04:37 | PC.NURSE ---
0430 ATTEMPTED TO CALL MOTHER/GUARDIAN TO COMPLETE ADMISSION. NO ANSWER LEFT MESSAGE WITH INSTRUCTIONS TO CALL BACK. WILL ATTEMPT AGAIN BEFORE SHIFT ENDS
--- NOTE | 2022-10-05 04:59 | PC.NURSE ---
PT HAS HANDWRITTEN MED LIST FROM MOTHER. LIST ONLY INCLUDES 5 MEDICATIONS. COULD NOT REACH MOTHER TO CONFIRM THE REST OF THE MEDICATIONS ON THE LIST. STILL WAITING ON HER TO RETURN MY PHONE CALL.
[2022-10-05] MEDS: SODIUM CHLORIDE 0.9% IV 1,000 ML 100 ML IV CONT ×2 (05:21→20:35)
--- NOTE | 2022-10-05 05:36 | PC.NURSE ---
0536 ATTEMPTED TO CALL MOTHER AGAIN TO COMPLETE ADMISSION. CALL WENT STRAIGHT TO VOICEMAIL
--- NOTE | 2022-10-05 07:00 | PM.IMHP ---
H&P: HPI History of Present Illness Date/Time: 10/05/22 07:00 Chief Complaint: Increased weakness, unable to talk Narrative: 47-year-old female with past medical history of hyperlipidemia, hydrocephalus BSA/AML COMPLIANCE OFFICER shunt and seizure disorder who presented to the ER via private vehicle due to increased weakness and change in her mental status. Source of information is from ER records only as the nursing staff as the patient's mother went home and has not answer calls from multiple staff members. The patient is alert and answers yes or no questions but states that she does not know where she is or what the month it is. She denies complaints but is having active coughing. ER note states that approximately 3 weeks ago the patient had a follow-up with Dr. Robb when the patient was started on Keppra. After she was started on Keppra she had decreased in her mental status. They stopped the Keppra 2 weeks ago but she has had continued decline. The patient has had any increase in number of falls over recent months. In the ER the patient was alert with open her eyes but was nonverbal. At the time of my evaluation the patient is slow to respond but does say yes and no in shakes her head yes and no to questions. The patient has chronic extension of bilateral upper extremities with flexion contractures at the wrist and increased tone. During conversation with the patient she seemed to have moments where her visual gaze drips upward when she is not responsive for 10-20 seconds. At other times her eyes longer to the right for 1 or 2 seconds there was no waste missed tonic clonic activity. The patient is chronically incontinent of urine. She denies having any pain. The patient has no grimacing or discomfort on palpation of abdomen chest or back. She is able to shrug her shoulders and was able to weakly lift her right arm and squeeze my hand with right hand. She was following simple commands. Review of Systems Review of Systems: Meaningful review of systems was unobtainable due to the patient's baseline intellectual disability and cognitive deficits. [facility] Past Medical History Medical History (Updated 10/05/22 @ 07:47 by Edita Lamas DO) Agenesis of corpus callosum Congenital hydrocephalus, unspecified Esophageal reflux disease Other epilepsy, not intractable, with status epilepticus Pure hypercholesterolemia Surgical History Surgical History H/O Spinal surgery Hx of brain surgery S/P BSA/AML COMPLIANCE OFFICER shunt Family History Family History Father Family history of diabetes mellitus in first degree relative Diabetes mellitus Social History Social History (Updated 10/05/22 @ 07:38 by Edita Lamas DO) Social History: The patient is disabled. She lives with her mother. She can ambulate with a walker or otherwise uses a wheelchair. Smoking status: Never smoker Second hand tobacco smoke exposure: No Alcohol intake: never Lack of Transportation: No Lack of Food: Never True Current Housing: I Have Housing Concerned About Future Housing: No Difficulty Paying Gas/Electric Bills: YES Difficulty Paying for Meds: No Currently Unemployed: No Education: High School Diploma/GED Difficulty w/ Childcare or Family Care: No Spiritual care concerns: No Meds Home Medications and Allergies Home Medications Medication Instructions Recorded Confirmed Type loratadine 10 mg tablet 10 mg PO DAILY #30 tabs 06/04/20 08/22/22 Rx omega-3 fatty acids 1,000 mg 1,000 mg PO DAILY 01/15/21 08/22/22 History capsule (Fish Oil Concentrate) levothyroxine 50 mcg tablet 50 mcg PO DAILY #90 tabs 06/18/22 10/05/22 Rx mecobalamin (vitamin B12) 1,000 1,000 mcg PO DAILY 08/22/22 08/22/22 History mcg chewable tablet atorvastatin 20 mg tablet 20 mg PO DAILY #90 tabs 09/16/22 10/05/22 Rx carbamazepine 200 mg tablet 200 mg PO .COMPLEX #90
[2022-10-05 08:38] LABS: Basophils Percent Auto 0.6 % (0.2-1.2); Hematocrit 34.2 % (37.0-47.0); Hemoglobin 11.1 g/dL (12.0-15.0); Immature Granulocyte Absolute 0.08 K/mm3 (0.00-0.031); Immature Granulocyte Percent A 1.6 % (0-0.5); Immature Platelet Fraction Pct 6.1 % (0.9-11.2); Lymphocytes Absolute Auto 1.43 K/mm3 (0.9-3.2); Lymphocytes Percent Auto 28.1 % (18.3-44.2); Mean Corpuscular HGB Conc 32.5 g/dl (32-36); Mean Corpuscular Hemoglobin 31.6 pg (26-34); Mean Corpuscular Volume 97.4 fl (80-100); Mean Platelet Volume 10.5 fl (7.4-10.4); Monocytes Absolute Auto 0.5 K/mm3 (0.1-0.6); Neutrophils Percent Auto 59.7 % (45.5-73.1); Platelet Count Result 77 k/mm3 (150-375); Red Blood Count 3.51 M/mm3 (4.2-5.4); Red Cell Distribution Width 14.1 % (11.5-14.5); White Blood Count 5.1 K/mm3 (4.5-10.0)
[2022-10-05] MEDS: CYANOCOBALAMIN 1,000 MCG TABLET 1000 MCG PO (10:21)
[2022-10-05] MEDS: LORATADINE 10 MG TABLET PO (10:21)
[2022-10-05] MEDS: ATORVASTATIN 20 MG TABLET PO (10:21)
[2022-10-05] MEDS: OMEGA 3 POLYUNSAT FATTY ACIDS 1 GM CAP PO (10:21)
[2022-10-05] MEDS: carBAMazepine 200 MG TABLET 600 MG PO ×2 (10:22→20:41)
[2022-10-05] MEDS: LEVOTHYROXINE SODIUM 50 MCG TABLET PO (10:22)
[2022-10-05] MEDS: PANTOPRAZOLE 40 MG TABLET PO (10:24)
[2022-10-05] MEDS: ENOXAPARIN 40 MG/0.4 ML SYRINGE SUB-Q (10:24)
--- NOTE | 2022-10-05 12:47 | PM.IMPN ---
Progress Note: A&P Assessment and Plan (1) Altered mental state: Qualifiers: Altered mental status type: unspecified Qualified Code(s): R41.82 - Altered mental status, unspecified Code(s): R41.82 - Altered mental status, unspecified Status: Acute (2) Abnormal urinalysis: Code(s): R82.90 - Unspecified abnormal findings in urine Status: Acute (3) Pneumonia: Qualifiers: Pneumonia type: aspiration pneumonia Aspiration pneumonia type: unspecified Laterality: bilateral Lung location: lower lobe of lung Qualified Code(s): J69.0 - Pneumonitis due to inhalation of food and vomit Code(s): J18.9 - Pneumonia, unspecified organism Status: Acute (4) Seizure disorder: Code(s): G40.909 - Epilepsy, unspecified, not intractable, without status epilepticus Status: Acute Plan The patient has altered mental status is unclear if the patient is having changes in her mental status due to acute infection verses breakthrough seizure. Patient does have evidence of bilateral lower lobe infiltrates on her CT of the abdomen pelvis. She does have a cough at the time of my evaluation in some crackles on exam. Given her altered mental status and history of seizures she is certainly a increased risk for aspiration pneumonia. The patient was given Rocephin and Flagyl in the ER and his ER provider was concerned that the patient may have a UTI given she had positive nitrates. The patient is chronically incontinent urine in the rest of her UA does not overly suggest UTI and CT does not mention any bladder wall thickening. At this time will change the patient's antibiotic therapy to Unasyn to more adequately target anaerobes. This would also cover common urinary tract pathogens. Urine cultures pending. Will add blood cultures at this time. Given that the patient may be having some breakthrough seizures especially with the patient having variable responsiveness at the time of my evaluation with I deviation I am concerned the patient may be having some breakthrough partial seizures. Neurology was consulted in the ER and the patient's Depakote was increased to 1 g twice daily. Will resume the patient's home carbamazepine. Patient has been admitted as observation status. 10/05/2022 interval history: patient remains clinically stable unfortunately unable to provide any review of symptom, her mother is present in the room, UA analysis suspicious for UTI, patient is empirically treated with ampicillin will follow-up on culture, patient had been taking Tegretol and valproic acid no levels are done recently mother is concerned will do levels of these medications, patient CT scan of the head did not show any acute injury. will continue to monitor patient be seen by neurologist and further recommendation to follow. 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 Source of information is from ER records only as the nursing staff as the patient's mother went home and has not answer calls from multiple staff members.? The patient is alert and answers yes or no questions but states that she does not know where she is or what the month it is.? She denies complaints but is having active coughing.? ER note states that approximately 3 weeks ago the patient had a follow-up with Dr. Robb when the patient was started on Keppra.? After she was started on Keppra she had decreased in her mental status.? They stopped the Keppra 2 weeks ago but she has had continued decline.? The patient has had any increase in number of falls over recent months.? In the ER the patient was alert with open her eyes but was nonverbal.? At the time of my evaluation the patient is slow to respond bu
[2022-10-05 14:19] LABS: Valproic Acid 68.4 ug/mL (50-120)
--- NOTE | 2022-10-05 14:30 | PCSTNOTE ---
Patient seen for modified barium swallow study. Trials of thin liquids, pureed, mixed, and solid consistencies presented. Trace residue in pyriform sinuses with liquids. Patient has difficulty with saliva management resulting in drooling, but this is a stable and ongoing condition. Patient needs to be fed or assisted with eating. No aspiration or penetrated observed. Recommendation: minced/moist diet (level 5) and thin liquids. Swallowing precaution recommendations posted in chart. No speech therapy recommended. Thank you for the referral of this patient.
[2022-10-05] MEDS: carBAMazepine 200 MG TABLET 400 MG PO ×2 (16:34→19:22)
[2022-10-05] MEDS: AMPICILLIN SULB 3 GM/NS 100 ML 3 GM/100 ML VIAL IVPB ×3 (16:34→23:18)
[2022-10-05] MEDS: DIVALPROEX SODIUM DR 250 MG TABEC 1000 MG PO (17:23)
[2022-10-05] MEDS: DIVALPROEX SODIUM DR 250 MG TABEC 1500 MG PO (20:41)
[2022-10-06] VITALS (9 sets, daily range): BP systolic 103–119; BP diastolic 51–65; PULSE 57–91; RESP 12–20; TEMP 36.7–37; O2SAT 95–97
[2022-10-06] MEDS: AMPICILLIN SULB 3 GM/NS 100 ML 3 GM/100 ML VIAL IVPB ×4 (05:32→23:27)
[2022-10-06] MEDS: DIVALPROEX SODIUM DR 250 MG TABEC 1000 MG PO ×2 (05:33→18:15)
[2022-10-06] MEDS: carBAMazepine 200 MG TABLET 600 MG PO ×2 (05:34→20:34)
[2022-10-06] MEDS: LEVOTHYROXINE SODIUM 50 MCG TABLET PO (05:34)
[2022-10-06 05:51] LABS: Hematocrit 31.5 % (37.0-47.0); Hemoglobin 10.2 g/dL (12.0-15.0); Immature Platelet Fraction Pct 5.7 % (0.9-11.2); Mean Corpuscular HGB Conc 32.4 g/dl (32-36); Mean Corpuscular Hemoglobin 32.1 pg (26-34); Mean Corpuscular Volume 99.1 fl (80-100); Mean Platelet Volume 10.8 fl (7.4-10.4); Platelet Count Result 72 k/mm3 (150-375); Red Blood Count 3.18 M/mm3 (4.2-5.4); Red Cell Distribution Width 14.2 % (11.5-14.5); White Blood Count 3.4 K/mm3 (4.5-10.0)
[2022-10-06 05:57] LABS: Anion Gap 2 mmol/L (8-16); Blood Urea Nitrogen 18 mg/dL (7-17); Calcium 7.8 mg/dL (8.4-10.2); Carbon Dioxide 32 mmol/L (22-30); Chloride 102 mmol/L (98-107); Estimated CRCL calculation 86 ml/min; Estimated Glomerular Filt Rate > 60; Glucose 84 mg/dL (65-110); Magnesium 1.8 mg/dL (1.6-2.3); Potassium 3.7 mmol/L (3.4-5.0); Sodium 136 mmol/L (137-145)
[2022-10-06] MEDS: FLUTICASONE PROPIONATE 0.05% NA SPR 16 GM BTL (*BKC) 2 SPRAY NASAL (09:23)
[2022-10-06] MEDS: PANTOPRAZOLE 40 MG TABLET PO (09:23)
[2022-10-06] MEDS: LORATADINE 10 MG TABLET PO (09:23)
[2022-10-06] MEDS: OMEGA 3 POLYUNSAT FATTY ACIDS 1 GM CAP PO (09:23)
[2022-10-06] MEDS: CYANOCOBALAMIN 1,000 MCG TABLET 1000 MCG PO (09:23)
[2022-10-06] MEDS: ATORVASTATIN 20 MG TABLET PO (09:23)
--- NOTE | 2022-10-06 11:54 | PM.IMPN ---
Progress Note: A&P Assessment and Plan (1) Altered mental state: Qualifiers: Altered mental status type: unspecified Qualified Code(s): R41.82 - Altered mental status, unspecified Code(s): R41.82 - Altered mental status, unspecified Status: Acute (2) Abnormal urinalysis: Code(s): R82.90 - Unspecified abnormal findings in urine Status: Acute (3) Pneumonia: Qualifiers: Pneumonia type: aspiration pneumonia Aspiration pneumonia type: unspecified Laterality: bilateral Lung location: lower lobe of lung Qualified Code(s): J69.0 - Pneumonitis due to inhalation of food and vomit Code(s): J18.9 - Pneumonia, unspecified organism Status: Acute (4) Seizure disorder: Code(s): G40.909 - Epilepsy, unspecified, not intractable, without status epilepticus Status: Acute Plan The patient has altered mental status is unclear if the patient is having changes in her mental status due to acute infection verses breakthrough seizure. Patient does have evidence of bilateral lower lobe infiltrates on her CT of the abdomen pelvis. She does have a cough at the time of my evaluation in some crackles on exam. Given her altered mental status and history of seizures she is certainly a increased risk for aspiration pneumonia. The patient was given Rocephin and Flagyl in the ER and his ER provider was concerned that the patient may have a UTI given she had positive nitrates. The patient is chronically incontinent urine in the rest of her UA does not overly suggest UTI and CT does not mention any bladder wall thickening. At this time will change the patient's antibiotic therapy to Unasyn to more adequately target anaerobes. This would also cover common urinary tract pathogens. Urine cultures pending. Will add blood cultures at this time. Given that the patient may be having some breakthrough seizures especially with the patient having variable responsiveness at the time of my evaluation with I deviation I am concerned the patient may be having some breakthrough partial seizures. Neurology was consulted in the ER and the patient's Depakote was increased to 1 g twice daily. Will resume the patient's home carbamazepine. Patient has been admitted as observation status. 10/06/2022 interval history: patient remains clinically stable unfortunately unable to provide any review of symptom, her mother is present in the room, UA analysis suspicious for UTI, patient is empirically treated with ampicillin, urine culture no growth so far, blood culture is pending, patient had been taking Tegretol and valproic acid no levels are done recently mother is concerned will do levels of these medications, valproic acid levels are normal and Tegretol levels are pending, patient CT scan of the head did not show any acute injury. will continue to monitor patient be seen by neurologist and further recommendation to follow. Subjective Date/time seen: 10/06/22 11:54 10/06/2022 interval history: patient remains clinically stable unfortunately unable to provide any review of symptom, her mother is present in the room, UA analysis suspicious for UTI, patient is empirically treated with ampicillin, urine culture no growth so far, blood culture is pending, patient had been taking Tegretol and valproic acid no levels are done recently mother is concerned will do levels of these medications, valproic acid levels are normal and Tegretol levels are pending, patient CT scan of the head did not show any acute injury. will continue to monitor patient be seen by neurologist and further recommendation to follow. Review of Systems Review of Systems: ROS unobtainable: Yes unobtainable due to medical condition Exam Narrative: Patient is comfortable, NAD HEENT: eyes are clear and none icteric LUNGS: normal respiratory effort ABD: not distended Lower extremities: no edema SKIN: nonjaundiced Neuro: grossly intact. Object
--- NOTE | 2022-10-06 12:17 | PC.NURSE ---
call to pharm for missing tegretol dose due at [id number]
--- NOTE | 2022-10-06 12:22 | WPDNEURCNPN ---
Assessment and Plan Assessment and plan (1) Seizure disorder: Code(s): G40.909 - Epilepsy, unspecified, not intractable, without status epilepticus Status: Acute (2) Congenital hydrocephalus, unspecified: Code(s): Q03.9 - Congenital hydrocephalus, unspecified Status: Acute (3) Shunt malfunction: Code(s): T85.618A - Breakdown (mechanical) of other specified internal prosthetic devices, implants and grafts, initial encounter Status: Acute (4) Weakness of both lower extremities: Code(s): R29.898 - Other symptoms and signs involving the musculoskeletal system Status: Acute Plan 1. UTI documented during this hospitalization 2. Aspiration pneumonia 3. Epilepsy 4. Nonfunctioning shunt with history of hydrocephalus 5 recent history of frequent seizures for which medication was added with subsequently discontinued but at present she is taking 2 anticonvulsants that is Depakote and carbamazepine adjustment will be made accordingly she has been taken off the levetiracetam Consult date: 10/06/22 HPI: Christi Azevedo is a 47 year old female admitted to the hospital through the emergency room for the complaints of change in the mental status in addition to the ongoing history of recent initiation and subsequently discontinuation of the Keppra for the better control of the cyst frequent seizures though patient had been taking valproic acid and carbamazepine. Initially patient has ongoing diagnosis of hydrocephalus with shunt but also shunt malfunction. 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 Has undergone spinal surgeries and also shunt surgeries. He does not drink or smoke and initial examination was consistent with her ability to move all 4 extremities. On initial evaluation in the ER she was afebrile with respiration of 22 per minute blood pressure 138/99 on room air with pulse ox 97, routine lab normal except sodium of 130 and his studies for influenza a and B an RSV as well as starts COVID negative, CT of the head with no acute bleed or hydrocephalus Review of Systems Review of Systems: All systems reviewed & are unremarkable except as noted in HPI and below PMFSH Past Medical History Medical History (Updated 10/06/22 @ 12:31 by Elmer Robb MD) Agenesis of corpus callosum Congenital hydrocephalus, unspecified Esophageal reflux disease Other epilepsy, not intractable, with status epilepticus Pure hypercholesterolemia Surgical History Surgical History H/O Spinal surgery Hx of brain surgery S/P [employer] 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 She lives with her mother. She can ambulate with a walker or otherwise uses a wheelchair. Smoking status: Never smoker Second hand tobacco smoke exposure: No Alcohol intake: never Lack of Transportation: No Lack of Food: Never True Current Housing: I Have Housing Concerned About Future Housing: No Difficulty Paying Gas/Electric Bills: YES Difficulty Paying for Meds: No Currently Unemployed: No Education: High School Diploma/GED Difficulty w/ Childcare or Family Care: No Spiritual care concerns: No Meds Home Medications and Allergies Home Medications Medication Instructions Recorded Confirmed Type loratadine 10 mg tablet 10 mg PO DAILY #30 tabs 06/04/20 10/05/22 Rx omega-3 fatty acids 1,000 mg 1,000 mg PO DAILY 01/15/21 10/05/22 History capsule (Fish Oil Concentrate) levothyroxine 50 mcg tablet 50 mcg PO DAILY #90 tabs 06/18/22 10/05/22 Rx mecobalamin (vitamin B12) 1
[2022-10-06] MEDS: carBAMazepine 200 MG TABLET 400 MG PO ×2 (12:29→18:14)
[2022-10-06] MEDS: SODIUM CHLORIDE 0.9% IV 1,000 ML 100 ML IV CONT ×2 (18:17→20:34)
[2022-10-06] MEDS: DIVALPROEX SODIUM DR 250 MG TABEC 1500 MG PO (20:35)
[2022-10-07] VITALS (9 sets, daily range): BP systolic 98–123; BP diastolic 51–66; PULSE 61–101; RESP 12–18; TEMP 36.4–36.9; O2SAT 94–100
[2022-10-07] MEDS: AMPICILLIN SULB 3 GM/NS 100 ML 3 GM/100 ML VIAL IVPB ×3 (05:21→17:32)
[2022-10-07] MEDS: DIVALPROEX SODIUM DR 250 MG TABEC 1000 MG PO ×2 (05:34→16:22)
[2022-10-07] MEDS: carBAMazepine 200 MG TABLET 600 MG PO ×2 (05:34→20:28)
[2022-10-07] MEDS: LEVOTHYROXINE SODIUM 50 MCG TABLET PO (05:34)
[2022-10-07 06:10] LABS: Hematocrit 31.8 % (37.0-47.0); Hemoglobin 10.3 g/dL (12.0-15.0); Immature Platelet Fraction Pct 6.5 % (0.9-11.2); Mean Corpuscular HGB Conc 32.4 g/dl (32-36); Mean Corpuscular Hemoglobin 32.5 pg (26-34); Mean Corpuscular Volume 100.3 fl (80-100); Mean Platelet Volume 10.7 fl (7.4-10.4); Platelet Count Result 73 k/mm3 (150-375); Red Blood Count 3.17 M/mm3 (4.2-5.4); Red Cell Distribution Width 14.7 % (11.5-14.5); White Blood Count 3.7 K/mm3 (4.5-10.0)
[2022-10-07 06:19] LABS: Anion Gap 0 mmol/L (8-16); Blood Urea Nitrogen 13 mg/dL (7-17); Calcium 7.6 mg/dL (8.4-10.2); Carbon Dioxide 32 mmol/L (22-30); Chloride 108 mmol/L (98-107); Estimated CRCL calculation 86 ml/min; Estimated Glomerular Filt Rate > 60; Glucose 79 mg/dL (65-110); Magnesium 1.7 mg/dL (1.6-2.3); Potassium 3.5 mmol/L (3.4-5.0); Sodium 140 mmol/L (137-145)
[2022-10-07] MEDS: ATORVASTATIN 20 MG TABLET PO (08:18)
[2022-10-07] MEDS: CYANOCOBALAMIN 1,000 MCG TABLET 1000 MCG PO (08:18)
[2022-10-07] MEDS: LORATADINE 10 MG TABLET PO (08:19)
[2022-10-07] MEDS: PANTOPRAZOLE 40 MG TABLET PO (08:19)
[2022-10-07] MEDS: OMEGA 3 POLYUNSAT FATTY ACIDS 1 GM CAP PO (08:19)
--- NOTE | 2022-10-07 08:37 | PC.NURSE ---
Platelets 73,000. Lovenox held per order to hold for platelets <100,000.
[2022-10-07] MEDS: SODIUM CHLORIDE 0.9% IV 1,000 ML 100 ML IV CONT ×2 (09:09→20:27)
[2022-10-07] MEDS: carBAMazepine 200 MG TABLET 400 MG PO ×2 (11:53→16:22)
[2022-10-07] MEDS: FLUTICASONE PROPIONATE 0.05% NA SPR 16 GM BTL (*BKC) 2 SPRAY NASAL (16:23)
--- NOTE | 2022-10-07 17:47 | PM.IMPN ---
Progress Note: A&P Assessment and Plan (1) Altered mental state: Qualifiers: Altered mental status type: unspecified Qualified Code(s): R41.82 - Altered mental status, unspecified Code(s): R41.82 - Altered mental status, unspecified Status: Acute (2) Abnormal urinalysis: Code(s): R82.90 - Unspecified abnormal findings in urine Status: Acute (3) Pneumonia: Qualifiers: Aspiration pneumonia type: unspecified Laterality: bilateral Lung location: lower lobe of lung Pneumonia type: aspiration pneumonia Qualified Code(s): J69.0 - Pneumonitis due to inhalation of food and vomit Code(s): J18.9 - Pneumonia, unspecified organism Status: Acute (4) Seizure disorder: Code(s): G40.909 - Epilepsy, unspecified, not intractable, without status epilepticus Status: Acute Plan The patient has altered mental status is unclear if the patient is having changes in her mental status due to acute infection verses breakthrough seizure. Patient does have evidence of bilateral lower lobe infiltrates on her CT of the abdomen pelvis. She does have a cough at the time of my evaluation in some crackles on exam. Given her altered mental status and history of seizures she is certainly a increased risk for aspiration pneumonia. The patient was given Rocephin and Flagyl in the ER and his ER provider was concerned that the patient may have a UTI given she had positive nitrates. The patient is chronically incontinent urine in the rest of her UA does not overly suggest UTI and CT does not mention any bladder wall thickening. At this time will change the patient's antibiotic therapy to Unasyn to more adequately target anaerobes. This would also cover common urinary tract pathogens. Urine cultures pending. Will add blood cultures at this time. Given that the patient may be having some breakthrough seizures especially with the patient having variable responsiveness at the time of my evaluation with I deviation I am concerned the patient may be having some breakthrough partial seizures. Neurology was consulted in the ER and the patient's Depakote was increased to 1 g twice daily. Will resume the patient's home carbamazepine. Patient has been admitted as observation status. 10/07/2022 interval history: patient remains clinically stable unfortunately unable to provide any review of symptom, her mother is present in the room, UA analysis suspicious for UTI, patient is empirically treated with ampicillin, urine culture no growth so far, blood culture is pending, patient had been taking Tegretol and valproic acid no levels are done recently mother is concerned will do levels of these medications, valproic acid levels are normal and Tegretol levels are pending, patient CT scan of the head did not show any acute injury. patient was seen by neurologist and EEG is ordered, patient is more interactive and talktive, however mother stats she normally walks at home, has not been able to walk here, will have PT/OT to work with the patient, will continue to monitor patient will be seen by neurologist and further recommendation to follow. Subjective Date/time seen: 10/07/22 17:47 The patient has altered mental status is unclear if the patient is having changes in her mental status due to acute infection verses breakthrough seizure. Patient does have evidence of bilateral lower lobe infiltrates on her CT of the abdomen pelvis. She does have a cough at the time of my evaluation in some crackles on exam. Given her altered mental status and history of seizures she is certainly a increased risk for aspiration pneumonia. The patient was given Rocephin and Flagyl in the ER and his ER provider was concerned that the patient may have a UTI given she had positive nitrates. The patient is chronically incontinent urine in the rest of her UA does not overly suggest UTI and CT does not mention any bladder wall thickening. At this jewel
[2022-10-07] MEDS: DIVALPROEX SODIUM DR 250 MG TABEC 1500 MG PO (20:29)
[2022-10-08] VITALS (9 sets, daily range): BP systolic 100–105; BP diastolic 55–62; PULSE 55–75; RESP 17–18; TEMP 36.1–36.7; O2SAT 93–100; BMI 11.0
[2022-10-08] MEDS: AMPICILLIN SULB 3 GM/NS 100 ML 3 GM/100 ML VIAL IVPB ×5 (00:01→23:57)
[2022-10-08] MEDS: carBAMazepine 200 MG TABLET 600 MG PO ×2 (05:50→21:34)
[2022-10-08] MEDS: LEVOTHYROXINE SODIUM 50 MCG TABLET PO (05:51)
[2022-10-08] MEDS: DIVALPROEX SODIUM DR 250 MG TABEC 1000 MG PO ×2 (05:51→16:34)
[2022-10-08] MEDS: SODIUM CHLORIDE 0.9% IV 1,000 ML 100 ML IV CONT ×2 (05:53→17:35)
[2022-10-08 05:56] LABS: Hematocrit 30.2 % (37.0-47.0); Hemoglobin 9.6 g/dL (12.0-15.0); Immature Platelet Fraction Pct 5.1 % (0.9-11.2); Mean Corpuscular HGB Conc 31.8 g/dl (32-36); Mean Corpuscular Hemoglobin 31.6 pg (26-34); Mean Corpuscular Volume 99.3 fl (80-100); Mean Platelet Volume 10.3 fl (7.4-10.4); Platelet Count Result 62 k/mm3 (150-375); Red Blood Count 3.04 M/mm3 (4.2-5.4); Red Cell Distribution Width 14.8 % (11.5-14.5); White Blood Count 3.9 K/mm3 (4.5-10.0)
[2022-10-08 06:05] LABS: Anion Gap -2 mmol/L (8-16); Blood Urea Nitrogen 10 mg/dL (7-17); Calcium 7.2 mg/dL (8.4-10.2); Carbon Dioxide 29 mmol/L (22-30); Chloride 108 mmol/L (98-107); Estimated CRCL calculation 104 ml/min; Estimated Glomerular Filt Rate > 60; Glucose 78 mg/dL (65-110); Magnesium 1.6 mg/dL (1.6-2.3); Potassium 3.4 mmol/L (3.4-5.0); Sodium 135 mmol/L (137-145)
[2022-10-08] MEDS: ATORVASTATIN 20 MG TABLET PO (09:38)
[2022-10-08] MEDS: OMEGA 3 POLYUNSAT FATTY ACIDS 1 GM CAP PO (09:38)
[2022-10-08] MEDS: PANTOPRAZOLE 40 MG TABLET PO (09:39)
[2022-10-08] MEDS: CYANOCOBALAMIN 1,000 MCG TABLET 1000 MCG PO (09:39)
[2022-10-08] MEDS: ENOXAPARIN 40 MG/0.4 ML SYRINGE SUB-Q (09:39)
[2022-10-08] MEDS: LORATADINE 10 MG TABLET PO (09:39)
[2022-10-08] MEDS: FLUTICASONE PROPIONATE 0.05% NA SPR 16 GM BTL (*BKC) 2 SPRAY NASAL (09:40)
[2022-10-08] MEDS: ONDANSETRON INJ 4 MG/2 ML VIAL IV PUSH (12:13)
[2022-10-08] MEDS: POTASSIUM CHLORIDE 20 MEQ PACKET (FOR LIQUID) 40 MEQ PO (12:39)
[2022-10-08] MEDS: MAGNESIUM OXIDE 400 MG TABLET PO (12:40)
[2022-10-08] MEDS: carBAMazepine 200 MG TABLET 400 MG PO ×2 (12:40→16:33)
--- NOTE | 2022-10-08 16:21 | PM.IMPN ---
Progress Note: A&P Assessment and Plan (1) Altered mental state: Qualifiers: Altered mental status type: unspecified Qualified Code(s): R41.82 - Altered mental status, unspecified Code(s): R41.82 - Altered mental status, unspecified Status: Acute (2) Abnormal urinalysis: Code(s): R82.90 - Unspecified abnormal findings in urine Status: Acute (3) Pneumonia: Qualifiers: Pneumonia type: aspiration pneumonia Aspiration pneumonia type: unspecified Laterality: bilateral Lung location: lower lobe of lung Qualified Code(s): J69.0 - Pneumonitis due to inhalation of food and vomit Code(s): J18.9 - Pneumonia, unspecified organism Status: Acute (4) Seizure disorder: Code(s): G40.909 - Epilepsy, unspecified, not intractable, without status epilepticus Status: Acute Plan The patient has altered mental status is unclear if the patient is having changes in her mental status due to acute infection verses breakthrough seizure. Patient does have evidence of bilateral lower lobe infiltrates on her CT of the abdomen pelvis. She does have a cough at the time of my evaluation in some crackles on exam. Given her altered mental status and history of seizures she is certainly a increased risk for aspiration pneumonia. The patient was given Rocephin and Flagyl in the ER and his ER provider was concerned that the patient may have a UTI given she had positive nitrates. The patient is chronically incontinent urine in the rest of her UA does not overly suggest UTI and CT does not mention any bladder wall thickening. At this time will change the patient's antibiotic therapy to Unasyn to more adequately target anaerobes. This would also cover common urinary tract pathogens. Urine cultures pending. Will add blood cultures at this time. Given that the patient may be having some breakthrough seizures especially with the patient having variable responsiveness at the time of my evaluation with I deviation I am concerned the patient may be having some breakthrough partial seizures. Neurology was consulted in the ER and the patient's Depakote was increased to 1 g twice daily. Will resume the patient's home carbamazepine. Patient has been admitted as observation status. 10/08/2022 interval history: patient remains clinically stable unfortunately unable to provide any review of symptom, her mother is present in the room, UA analysis suspicious for UTI, patient is empirically treated with ampicillin, urine culture no growth so far, blood culture is pending, patient had been taking Tegretol and valproic acid no levels are done recently mother is concerned will do levels of these medications, valproic acid levels are normal and Tegretol levels are pending, patient CT scan of the head did not show any acute injury. patient was seen by neurologist and EEG is ordered, patient is more interactive and talktive, however mother stats she normally walks at home, has not been able to walk here, will have PT/OT to work with the patient, upon arrival chest x-ray was suspicious for pneumonia patient is being treated with Unasyn, repeat chest x-ray, will continue to monitor patient will be seen by neurologist and further recommendation to follow. Subjective Date/time seen: 10/08/22 16:21 The patient has altered mental status is unclear if the patient is having changes in her mental status due to acute infection verses breakthrough seizure. Patient does have evidence of bilateral lower lobe infiltrates on her CT of the abdomen pelvis. She does have a cough at the time of my evaluation in some crackles on exam. Given her altered mental status and history of seizures she is certainly a increased risk for aspiration pneumonia. The patient was given Rocephin and Flagyl in the ER and his ER provider was concerned that the patient may have a UTI given she had positive nitrates. The patient is chronically incontinent urine in the
[2022-10-08] MEDS: DIVALPROEX SODIUM DR 250 MG TABEC 1500 MG PO (21:34)
[2022-10-09] VITALS (9 sets, daily range): BP systolic 115–151; BP diastolic 77–89; PULSE 80–115; RESP 17–18; TEMP 36.2–36.9; O2SAT 90–100
[2022-10-09] MEDS: SODIUM CHLORIDE 0.9% IV 1,000 ML 100 ML IV CONT ×2 (03:25→16:08)
[2022-10-09] MEDS: ONDANSETRON INJ 4 MG/2 ML VIAL IV PUSH ×2 (04:46→12:21)
[2022-10-09 06:12] LABS: Hematocrit 42.5 % (37.0-47.0); Hemoglobin 13.6 g/dL (12.0-15.0); Immature Platelet Fraction Pct 4.2 % (0.9-11.2); Mean Corpuscular Hemoglobin 32.2 pg (26-34); Mean Corpuscular Volume 100.5 fl (80-100); Mean Platelet Volume 9.8 fl (7.4-10.4); Platelet Count Result 140 k/mm3 (150-375); Red Blood Count 4.23 M/mm3 (4.2-5.4); Red Cell Distribution Width 15.1 % (11.5-14.5); White Blood Count 8.3 K/mm3 (4.5-10.0)
[2022-10-09] MEDS: LEVOTHYROXINE SODIUM 50 MCG TABLET PO (06:13)
[2022-10-09] MEDS: AMPICILLIN SULB 3 GM/NS 100 ML 3 GM/100 ML VIAL IVPB ×3 (06:13→17:43)
[2022-10-09] MEDS: carBAMazepine 200 MG TABLET 600 MG PO ×2 (06:13→21:13)
[2022-10-09] MEDS: DIVALPROEX SODIUM DR 250 MG TABEC 1000 MG PO ×2 (06:13→16:09)
[2022-10-09 06:20] LABS: Anion Gap 2 mmol/L (8-16); Blood Urea Nitrogen 6 mg/dL (7-17); Calcium 8.1 mg/dL (8.4-10.2); Carbon Dioxide 35 mmol/L (22-30); Chloride 108 mmol/L (98-107); Estimated CRCL calculation 104 ml/min; Estimated Glomerular Filt Rate > 60; Glucose 95 mg/dL (65-110); Magnesium 1.6 mg/dL (1.6-2.3); Potassium 3.6 mmol/L (3.4-5.0); Sodium 145 mmol/L (137-145)
[2022-10-09] MEDS: FLUTICASONE PROPIONATE 0.05% NA SPR 16 GM BTL (*BKC) 2 SPRAY NASAL (09:20)
[2022-10-09] MEDS: ENOXAPARIN 40 MG/0.4 ML SYRINGE SUB-Q (09:20)
[2022-10-09] MEDS: PANTOPRAZOLE 40 MG TABLET PO (12:24)
[2022-10-09] MEDS: carBAMazepine 200 MG TABLET 400 MG PO ×2 (12:25→16:09)
[2022-10-09] MEDS: ATORVASTATIN 20 MG TABLET PO (12:25)
[2022-10-09] MEDS: MAGNESIUM OXIDE 400 MG TABLET PO (12:25)
[2022-10-09] MEDS: CYANOCOBALAMIN 1,000 MCG TABLET 1000 MCG PO (12:25)
[2022-10-09] MEDS: OMEGA 3 POLYUNSAT FATTY ACIDS 1 GM CAP PO (12:25)
[2022-10-09] MEDS: LORATADINE 10 MG TABLET PO (12:25)
--- NOTE | 2022-10-09 12:27 | WPDNEUROPN ---
Subjective Date/time seen: 10/09/22 12:27 Interval history: 47 years old admitted to the hospital for the ongoing history of epilepsy with the recurrence of the generalized seizures in addition to the history of underlying congenital hydrocephalus with shunt malfunction and additional complaints of weakness of both lower extremities. During the hospitalization she has been found to have urinary tract infection and being treated accordingly. She was taken off the Keppra which was making her behave somewhat abnormal but since the admission she has been continued and carbamazepine 200 mg tablet 3223 in addition to divalproex 500 mg she has been completely taken off the Keppra that is levetiracetam Review of Systems Review of Systems: All systems reviewed & are unremarkable except as noted in HPI and below Exam Narrative: on today's visit she is complaining of mild discomfort because most of the time she stays in the bed as per the conversation with the nurse she has been taken off the bed and has been ambulated as well her speech remains hesitant but she is able to follow the verbal commands appropriately and there is no change otherwise in a neurological finding her heart regular lungs clear abdomen is soft she was encouraged to involve any therapy and continue the medication as such Objective Data Vital Signs Vital Signs: Vital Signs - 24 hr 10/08/22 16:00 10/08/22 16:24 10/08/22 21:37 Temperature 36.1 C L 36.7 C Pulse Rate 75 74 71 Respiratory Rate 18 17 Blood Pressure 105/55 L 100/60 Pulse Oximetry 95 93 10/08/22 20:00 10/09/22 00:00 10/09/22 04:00 Temperature Pulse Rate 66 85 84 Respiratory Rate Blood Pressure Pulse Oximetry 10/09/22 05:38 Temperature 36.7 C Pulse Rate 91 Respiratory Rate 17 Blood Pressure 150/89 H Pulse Oximetry 92 Intake/Output Intake/Output: Intake & Output 10/06/22 10/07/22 10/08/22 10/09/22 23:59 23:59 23:59 23:59 Intake Total 3800 2810 3360 1560 Output Total 40 Balance 3760 2810 3360 1560 Meds/Results Medications: Active Medications Generic Name Dose Route Start Last Admin Trade Name Freq PRN Reason Stop Dose Admin Acetaminophen 1,000 mg 10/09/22 11:08 Acetaminophen 500 Mg Tablet PO Q6H PRN Pain Atorvastatin Calcium 20 mg 10/05/22 09:00 10/09/22 12:25 Atorvastatin 20 Mg Tablet PO 20 mg DAILY ISAEL Administration Carbamazepine 400 mg 10/05/22 11:30 10/09/22 12:25 Carbamazepine 200 Mg Tablet PO 400 mg BID@1130,1630 ISAEL Administration Carbamazepine 600 mg 10/05/22 07:35 10/09/22 06:13 Carbamazepine 200 Mg Tablet PO 600 mg BID@0630,2130 ISAEL Administration Cyanocobalamin 1,000 mcg 10/05/22 09:00 10/09/22 12:25 Cyanocobalamin 1,000 Mcg Tablet PO 11/04/22 08:59 1,000 mcg DAILY ISAEL Administration Divalproex Sodium 1,000 mg 10/05/22 17:20 10/09/22 06:[address] 250 Mg Tabec PO 1,000 mg 0630,1630 ISAEL Administration Divalproex Sodium 1,500 mg 10/05/22 21:30 10/08/22 21:[address] 250 Mg Tabec PO 1,500 mg 0 ISAEL Administration Enoxaparin Sodium 40 mg 10/05/22 09:00 10/09/22 09:20 Enoxaparin 40 Mg/0.4 Ml Syringe SUB-Q 40 mg DAILY ISAEL Administration Fish Oil 1 gm 10/05/22 09:00 10/09/22 12:25 [place] 3 Polyunsat Fatty Acids 1 Gm Cap PO 1 gm DAILY ISAEL Administration Fluticasone Propionate 2 spray 10/07/22 16:00 10/09/22 09:20 Fluticasone Propionate 0.05% Na Spr 16 Gm Btl (*Bkc) NASAL 2 spray DAILY ISAEL Administration Sodium Chloride 1,000 mls @ 100 mls/hr 10/05/22 00:15 10/09/22 03:25 Normal Saline Iv IV CONT 100 mls/hr .Q10H ISAEL Administration Ampicillin Sodium/Sulbactam Sodium 3 gm in 100 mls @ 200 mls/hr 10/05/22 12:00 10/09/22 12:22 Unasyn 3 Gm/Ns 100 Ml IVPB 200 mls/hr Q6HR ISAEL Administration Levothyroxine Sodium 50 mcg 10/05/22 06:30 10/09/22 06:13 Levothyroxine Sodium 50 Mcg Tab
--- NOTE | 2022-10-09 18:30 | PM.IMPN ---
Progress Note: A&P Assessment and Plan (1) Altered mental state: Qualifiers: Altered mental status type: unspecified Qualified Code(s): R41.82 - Altered mental status, unspecified Code(s): R41.82 - Altered mental status, unspecified Status: Acute (2) Abnormal urinalysis: Code(s): R82.90 - Unspecified abnormal findings in urine Status: Acute (3) Pneumonia: Qualifiers: Aspiration pneumonia type: unspecified Laterality: bilateral Lung location: lower lobe of lung Pneumonia type: aspiration pneumonia Qualified Code(s): J69.0 - Pneumonitis due to inhalation of food and vomit Code(s): J18.9 - Pneumonia, unspecified organism Status: Acute (4) Seizure disorder: Code(s): G40.909 - Epilepsy, unspecified, not intractable, without status epilepticus Status: Acute Plan The patient has altered mental status is unclear if the patient is having changes in her mental status due to acute infection verses breakthrough seizure. Patient does have evidence of bilateral lower lobe infiltrates on her CT of the abdomen pelvis. She does have a cough at the time of my evaluation in some crackles on exam. Given her altered mental status and history of seizures she is certainly a increased risk for aspiration pneumonia. The patient was given Rocephin and Flagyl in the ER and his ER provider was concerned that the patient may have a UTI given she had positive nitrates. The patient is chronically incontinent urine in the rest of her UA does not overly suggest UTI and CT does not mention any bladder wall thickening. At this time will change the patient's antibiotic therapy to Unasyn to more adequately target anaerobes. This would also cover common urinary tract pathogens. Urine cultures pending. Will add blood cultures at this time. Given that the patient may be having some breakthrough seizures especially with the patient having variable responsiveness at the time of my evaluation with I deviation I am concerned the patient may be having some breakthrough partial seizures. Neurology was consulted in the ER and the patient's Depakote was increased to 1 g twice daily. Will resume the patient's home carbamazepine. Patient has been admitted as observation status. 10/09/2022 interval history: patient remains clinically stable unfortunately unable to provide any review of symptom, her mother is present in the room, UA analysis suspicious for UTI, patient is empirically treated with ampicillin, urine culture no growth so far, blood culture is pending, patient had been taking Tegretol and valproic acid no levels are done recently mother is concerned will do levels of these medications, valproic acid levels are normal and Tegretol levels are pending, patient CT scan of the head did not show any acute injury. patient was seen by neurologist and EEG is ordered, patient is more interactive and talktive, however mother stats she normally walks at home, has not been able to walk here, will have PT/OT to work with the patient, upon arrival chest x-ray was suspicious for pneumonia patient is being treated with Unasyn, repeat chest x-ray today shows clear lungs, urine and blood culture clear, will stop abx, will continue to monitor, today patient is vomiting suspect due to congestion as her mother had been giving psuedophd, will give 30mg q6 as needed, patient will be seen by neurologist and further recommendation to follow. Subjective Date/time seen: 10/09/22 18:30 10/09/2022 interval history: patient remains clinically stable unfortunately unable to provide any review of symptom, her mother is present in the room, UA analysis suspicious for UTI, patient is empirically treated with ampicillin, urine culture no growth so far, blood culture is pending, patient had been taking Tegretol and valproic acid no levels are done recently mother is concerned will do levels of these medications, valproic acid levels are nor
[2022-10-09 20:40] LABS: Legionella pneumophila Ag Ur Not Detected (Not Detected)
[2022-10-09] MEDS: PSEUDOEPHEDRINE HCL 30 MG TABLET PO (21:12)
[2022-10-09] MEDS: DIVALPROEX SODIUM DR 250 MG TABEC 1500 MG PO (21:13)
[2022-10-10] VITALS (9 sets, daily range): BP systolic 96–112; BP diastolic 45–63; PULSE 64–92; RESP 18; TEMP 35.9–36.5; O2SAT 93–97
[2022-10-10] MEDS: AMPICILLIN SULB 3 GM/NS 100 ML 3 GM/100 ML VIAL IVPB ×4 (00:19→18:30)
[2022-10-10] MEDS: SODIUM CHLORIDE 0.9% IV 1,000 ML 100 ML IV CONT ×2 (03:26→18:31)
[2022-10-10 05:57] LABS: Hematocrit 31.9 % (37.0-47.0); Hemoglobin 10.1 g/dL (12.0-15.0); Immature Platelet Fraction Pct 4.3 % (0.9-11.2); Mean Corpuscular HGB Conc 31.7 g/dl (32-36); Mean Corpuscular Hemoglobin 32.5 pg (26-34); Mean Corpuscular Volume 102.6 fl (80-100); Mean Platelet Volume 9.7 fl (7.4-10.4); Platelet Count Result 96 k/mm3 (150-375); Red Blood Count 3.11 M/mm3 (4.2-5.4); Red Cell Distribution Width 15.7 % (11.5-14.5); White Blood Count 5.3 K/mm3 (4.5-10.0)
[2022-10-10] MEDS: DIVALPROEX SODIUM DR 250 MG TABEC 1000 MG PO ×2 (06:05→18:28)
[2022-10-10] MEDS: LEVOTHYROXINE SODIUM 50 MCG TABLET PO (06:05)
[2022-10-10] MEDS: carBAMazepine 200 MG TABLET 600 MG PO ×2 (06:05→22:13)
[2022-10-10 06:09] LABS: Anion Gap -1 mmol/L (8-16); Blood Urea Nitrogen 4 mg/dL (7-17); Calcium 7.4 mg/dL (8.4-10.2); Carbon Dioxide 36 mmol/L (22-30); Chloride 107 mmol/L (98-107); Estimated CRCL calculation 104 ml/min; Estimated Glomerular Filt Rate > 60; Glucose 73 mg/dL (65-110); Magnesium 1.6 mg/dL (1.6-2.3); Potassium 3.4 mmol/L (3.4-5.0); Sodium 142 mmol/L (137-145)
[2022-10-10] MEDS: ONDANSETRON INJ 4 MG/2 ML VIAL IV PUSH (09:53)
[2022-10-10] MEDS: PSEUDOEPHEDRINE HCL 30 MG TABLET PO (09:54)
[2022-10-10] MEDS: MAGNESIUM OXIDE 400 MG TABLET PO (09:54)
[2022-10-10] MEDS: PANTOPRAZOLE 40 MG TABLET PO (09:55)
[2022-10-10] MEDS: FLUTICASONE PROPIONATE 0.05% NA SPR 16 GM BTL (*BKC) 2 SPRAY NASAL (09:55)
[2022-10-10] MEDS: CYANOCOBALAMIN 1,000 MCG TABLET 1000 MCG PO (09:55)
[2022-10-10] MEDS: OMEGA 3 POLYUNSAT FATTY ACIDS 1 GM CAP PO (09:55)
[2022-10-10] MEDS: LORATADINE 10 MG TABLET PO (09:55)
[2022-10-10] MEDS: ATORVASTATIN 20 MG TABLET PO (09:55)
[2022-10-10] MEDS: ENOXAPARIN 40 MG/0.4 ML SYRINGE SUB-Q (09:55)
[2022-10-10] MEDS: carBAMazepine 200 MG TABLET 400 MG PO ×2 (12:13→18:28)
--- NOTE | 2022-10-10 12:36 | WPDCN ---
Assessment and Plan Assessment and plan (1) Vaginal bleeding: Code(s): N93.9 - Abnormal uterine and vaginal bleeding, unspecified Status: Acute Assessment and Plan: On examination the blood does not appear to be vaginal but appears to be in the patient's urine. As discussed with the patient's mother, I will order a pelvic ultrasound abdominal views only to look at the uterus further. In addition I will order an LH and FSH to verify menopausal status. HPI Data of Consult Date/Time: 10/10/22 12:36 Requesting Physician: Edita Lamas DO Primary Care Provider: Nikunj Sow DO Family Provider: Pao Lorenzo Consult Narrative Reason for consult: vaginal bleeding Narrative: Christi Azevedo is a 47 year old female who is 2 years postmenopausal per mother. Staff saw bleeding on her diaper this morning and was concerned for vaginal bleeding therefore I was consulted. Patient's intramural director who was her mother states the patient has not had a cycle and to years or more. In addition prior to that the patient has had irregular cycles throughout her entire life. Patient sees Pao Lorenzo for gynecological care in [place]. [facility] Past Medical History Medical History (Updated 10/10/22 @ 12:42 by Ora Pfeiffer MD) Agenesis of corpus callosum Congenital hydrocephalus, unspecified Esophageal reflux disease Other epilepsy, not intractable, with status epilepticus Pure hypercholesterolemia Surgical History Surgical History H/O Spinal surgery Hx of brain surgery S/P [employer]PER[employer]OR shunt Family History Family History Father Family history of diabetes mellitus in first degree relative Diabetes mellitus Social History Social History (Updated 10/05/22 @ 07:38 by Edita Lamas DO) Social History: The patient is disabled. She lives with her mother. She can ambulate with a walker or otherwise uses a wheelchair. Smoking status: Never smoker Second hand tobacco smoke exposure: No Alcohol intake: never Lack of Transportation: No Lack of Food: Never True Current Housing: I Have Housing Concerned About Future Housing: No Difficulty Paying Gas/Electric Bills: YES Difficulty Paying for Meds: No Currently Unemployed: No Education: High School Diploma/GED Difficulty w/ Childcare or Family Care: No Spiritual care concerns: No Meds Home Medications and Allergies Home Medications Medication Instructions Recorded Confirmed Type loratadine 10 mg tablet 10 mg PO DAILY #30 tabs 06/04/20 10/05/22 Rx omega-3 fatty acids 1,000 mg 1,000 mg PO DAILY 01/15/21 10/05/22 History capsule (Fish Oil Concentrate) levothyroxine 50 mcg tablet 50 mcg PO DAILY #90 tabs 06/18/22 10/05/22 Rx mecobalamin (vitamin B12) 1,000 1,000 mcg PO DAILY 08/22/22 10/05/22 History mcg chewable tablet (B12 Active) atorvastatin 20 mg tablet 20 mg PO DAILY #90 tabs 09/16/22 10/05/22 Rx carbamazepine 200 mg tablet 200 mg PO .COMPLEX #900 tabs 09/16/22 10/05/22 Rx divalproex 500 mg tablet,delayed 500 mg PO DIRECTED #630 tabs 09/16/22 10/05/22 Rx release (Depakote) omeprazole 40 mg capsule,delayed 40 mg PO DAILY #90 caps 09/16/22 10/05/22 Rx release ciprofloxacin HCl 0.3 % eye drops 1 drp ophthalmic (eye) Q4H PRN Eye 10/05/22 10/05/22 History (Ciloxan) Irritation fluticasone propionate 50 2 spray intranasal DAILY PRN 10/05/22 10/05/22 History mcg/actuation nasal Allergy Symptoms spray,suspension (Flonase Allergy Relief) Allergies Allergy/AdvReac Type Severity Reaction Status Date / Time caffeine Allergy Severe dizzy Verified 08/22/22 10:31 guaifenesin [From Mucinex] Allergy Unknown unknown Verified 08/22/22 10:31 zonisamide Allergy Unknown Unknown Verified 08/22/22 10:31 Vital Signs Vital Signs - 24 hr 10/09/22 14:00 10/09/22 19:59 10/09/22 16:00 Temperur
--- NOTE | 2022-10-10 14:06 | WPDNEUROLOGY ---
Neurology EEG Report General Information Date of Study: 10/09/22 TEST eeg DIAGNOSIS seizures CONDITION OF RECORDING drowsy and sleep EEG NUMBER [id number] CLINICAL HISTORY patient is not sure why she is here in the hospital. Denies any loss of consciousness. Patient is physically and mentally disabled. Has a shunt in left side of the head around the T5 electrode EEG DESCRIPTION background rhythm consists of low to medium voltage 3 to 4 hertz per 2nd delta activity with no mark posterior gradient and also with no evidence of any paroxysmal activity. Hyperventilation not done. Photic stimulation not done. Non paroxysmal. Nonfocal. Nonlateralizing. IMPRESSION Abnormal record due to the presence of bihemispheric slow activity without evidence of any paroxysmal discharge throughout the tracing. These abnormalities are suggestive of underlying organic or metabolic encephalopathy or postictal state clinical correlation recommended there is no evidence of any active seizure discharge
[2022-10-10 15:04] LABS: Add Urine Microscopic? YES; Appearance Urine Clear (Clear); Bilirubin Urine Negative (Negative); Blood Urine 1+ (Negative); Color Urine Yellow (Yellow); Glucose Urine UA Negative (Negative); Ketones Urine Trace mg/dL (Negative); Leukocyte Esterase Ur Negative LEU/UL (Negative); Nitrate Urine Positive (Negative); Protein Urine Negative (Negative); Urobilinogen Urine 0.2 mg/dL (<2.0); pH Urine 6.5 (5.0-9.0)
[2022-10-10 15:11] LABS: Mucus Urine Rare /lpf; Squamous Epithelial Cell Urine Rare /hpf (Few); WBC Urine 0-3 /hpf
--- NOTE | 2022-10-10 17:46 | PM.IMPN ---
Progress Note: A&P Assessment and Plan (1) Altered mental state: Qualifiers: Altered mental status type: unspecified Qualified Code(s): R41.82 - Altered mental status, unspecified Code(s): R41.82 - Altered mental status, unspecified Status: Acute (2) Abnormal urinalysis: Code(s): R82.90 - Unspecified abnormal findings in urine Status: Acute (3) Pneumonia: Qualifiers: Aspiration pneumonia type: unspecified Laterality: bilateral Lung location: lower lobe of lung Pneumonia type: aspiration pneumonia Qualified Code(s): J69.0 - Pneumonitis due to inhalation of food and vomit Code(s): J18.9 - Pneumonia, unspecified organism Status: Acute (4) Seizure disorder: Code(s): G40.909 - Epilepsy, unspecified, not intractable, without status epilepticus Status: Acute Plan The patient has altered mental status is unclear if the patient is having changes in her mental status due to acute infection verses breakthrough seizure. Patient does have evidence of bilateral lower lobe infiltrates on her CT of the abdomen pelvis. She does have a cough at the time of my evaluation in some crackles on exam. Given her altered mental status and history of seizures she is certainly a increased risk for aspiration pneumonia. The patient was given Rocephin and Flagyl in the ER and his ER provider was concerned that the patient may have a UTI given she had positive nitrates. The patient is chronically incontinent urine in the rest of her UA does not overly suggest UTI and CT does not mention any bladder wall thickening. At this time will change the patient's antibiotic therapy to Unasyn to more adequately target anaerobes. This would also cover common urinary tract pathogens. Urine cultures pending. Will add blood cultures at this time. Given that the patient may be having some breakthrough seizures especially with the patient having variable responsiveness at the time of my evaluation with I deviation I am concerned the patient may be having some breakthrough partial seizures. Neurology was consulted in the ER and the patient's Depakote was increased to 1 g twice daily. Will resume the patient's home carbamazepine. Patient has been admitted as observation status. 10/10/2022 interval history: patient remains clinically stable unfortunately unable to provide any review of symptom, her mother is present in the room, UA analysis suspicious for UTI, patient is empirically treated with ampicillin, urine culture no growth so far, blood culture is pending, patient had been taking Tegretol and valproic acid no levels are done recently mother is concerned will do levels of these medications, valproic acid levels are normal and Tegretol levels are pending, patient CT scan of the head did not show any acute injury. patient was seen by neurologist and EEG is ordered, patient is more interactive and talktive, however mother stats she normally walks at home, has not been able to walk here, will have PT/OT to work with the patient, upon arrival chest x-ray was suspicious for pneumonia patient is being treated with Unasyn, repeat chest x-ray showed clear lungs, urine and blood culture clear, stopped abx, today patient had vomiting suspect due to congestion, mother stated had been giving psuedophd, will give 30mg q6 as needed, today again patient worked with PT and was not able to ambulate as her mother had expected to do her ADL, will need PT at home or got acute rehab, also patient had pelvic bleeding, will have PENSION AGENT to evaluate, will collect urine for further evaluation, patient will be seen by neurologist and further recommendation to follow. Subjective Date/time seen: 10/10/22 17:46 10/10/2022 interval history: patient remains clinically stable unfortunately unable to provide any review of symptom, her mother is present in the room, UA analysis suspicious for UTI, patient is empirically treated with ampicillin,
[2022-10-10] MEDS: DIVALPROEX SODIUM DR 250 MG TABEC 1500 MG PO (22:13)
[2022-10-10 22:40] LABS: Carbamazepine Tegretol 9.7 mcg/mL (4.0-12.0)
[2022-10-11] VITALS (9 sets, daily range): BP systolic 98–118; BP diastolic 48–92; PULSE 63–99; RESP 18; TEMP 36–36.4; O2SAT 96–98
[2022-10-11] MEDS: AMPICILLIN SULB 3 GM/NS 100 ML 3 GM/100 ML VIAL IVPB ×4 (00:29→17:27)
[2022-10-11] MEDS: LEVOTHYROXINE SODIUM 50 MCG TABLET PO (05:38)
[2022-10-11] MEDS: carBAMazepine 200 MG TABLET 600 MG PO ×2 (05:38→21:42)
[2022-10-11] MEDS: DIVALPROEX SODIUM DR 250 MG TABEC 1000 MG PO ×2 (05:39→16:30)
[2022-10-11 05:58] LABS: Hematocrit 31.7 % (37.0-47.0); Hemoglobin 9.8 g/dL (12.0-15.0); Immature Platelet Fraction Pct 3.9 % (0.9-11.2); Mean Corpuscular HGB Conc 30.9 g/dl (32-36); Mean Corpuscular Hemoglobin 31.8 pg (26-34); Mean Corpuscular Volume 102.9 fl (80-100); Mean Platelet Volume 9.8 fl (7.4-10.4); Platelet Count Result 111 k/mm3 (150-375); Red Blood Count 3.08 M/mm3 (4.2-5.4); White Blood Count 5.3 K/mm3 (4.5-10.0)
[2022-10-11 06:10] LABS: Anion Gap 0 mmol/L (8-16); Blood Urea Nitrogen 8 mg/dL (7-17); Calcium 7.6 mg/dL (8.4-10.2); Carbon Dioxide 35 mmol/L (22-30); Chloride 106 mmol/L (98-107); Estimated CRCL calculation 86 ml/min; Estimated Glomerular Filt Rate > 60; Glucose 70 mg/dL (65-110); Magnesium 1.7 mg/dL (1.6-2.3); Potassium 3.3 mmol/L (3.4-5.0); Sodium 141 mmol/L (137-145)
[2022-10-11] MEDS: SODIUM CHLORIDE 0.9% IV 1,000 ML 100 ML IV CONT ×2 (06:46→23:54)
[2022-10-11] MEDS: OMEGA 3 POLYUNSAT FATTY ACIDS 1 GM CAP PO (09:26)
[2022-10-11] MEDS: CYANOCOBALAMIN 1,000 MCG TABLET 1000 MCG PO (09:26)
[2022-10-11] MEDS: LORATADINE 10 MG TABLET PO (09:26)
[2022-10-11] MEDS: MAGNESIUM OXIDE 400 MG TABLET PO (09:26)
[2022-10-11] MEDS: PANTOPRAZOLE 40 MG TABLET PO (09:26)
[2022-10-11] MEDS: ATORVASTATIN 20 MG TABLET PO (09:26)
[2022-10-11] MEDS: FLUTICASONE PROPIONATE 0.05% NA SPR 16 GM BTL (*BKC) 2 SPRAY NASAL (09:27)
[2022-10-11] MEDS: POTASSIUM CHLORIDE 20 MEQ PACKET (FOR LIQUID) 40 MEQ PO (09:28)
[2022-10-11] MEDS: PSEUDOEPHEDRINE HCL 30 MG TABLET PO (09:34)
--- NOTE | 2022-10-11 10:46 | PM.GYNPNOP ---
WINDING OPERATOR - A/P Assessment and plan (1) Vaginal bleeding: Code(s): N93.9 - Abnormal uterine and vaginal bleeding, unspecified Status: Acute Assessment and Plan: very doubtful if bleeding is vaginal pelvic u/s normal for post menopause with endometrium at 2 mm LH/FSH drawn but pending follow up in office or with Dr. Lorenzo for well care will sign off Time Spent With Patient Time: Total time spent is greater than 50% in coordination of care (as documented) at patient's floor/unit and/or counseling patient: Time with patient: less than 15 minutes WINDING OPERATOR- PN:Subj Post-Op Subjective Date/time seen: 10/11/22 10:46 Interval history: no ob/gyn physician complaints mother at bedside WINDING OPERATOR - PN: Obj Data Vital Signs Vital Signs: Vital Signs - 24 hr 10/10/22 14:00 10/10/22 12:00 10/10/22 16:00 Temperature 97.7 F Pulse Rate 92 81 76 Respiratory Rate 18 Blood Pressure 112/45 L Pulse Oximetry 97 Oxygen Delivery 10/10/22 21:09 10/10/22 20:00 10/11/22 00:00 Temperature 96.8 F L Pulse Rate 85 72 69 Respiratory Rate 18 Blood Pressure 103/63 Pulse Oximetry 96 Oxygen Delivery 10/10/22 22:00 10/11/22 04:44 10/11/22 04:00 Temperature 96.8 F L Pulse Rate 73 63 Respiratory Rate 18 Blood Pressure 112/65 Pulse Oximetry 96 Oxygen Delivery Room Air Intake/Output Intake/Output: Intake & Output 10/08/22 10/09/22 10/10/22 10/11/22 23:59 23:59 23:59 23:59 Intake Total 3360 3388 3540 1200 Output Total 200 200 100 Balance 3360 3188 3340 1100 Meds/Results Medications: Active Medications Generic Name Dose Route Start Last Admin Trade Name Freq PRN Reason Stop Dose Admin Acetaminophen 1,000 mg 10/09/22 11:08 Acetaminophen 500 Mg Tablet PO Q6H PRN Pain Atorvastatin Calcium 20 mg 10/05/22 09:00 10/11/22 09:26 Atorvastatin 20 Mg Tablet PO 20 mg DAILY ISAEL Administration Carbamazepine 400 mg 10/05/22 11:30 10/10/22 18:28 Carbamazepine 200 Mg Tablet PO 400 mg BID@1130,1630 ISAEL Administration Carbamazepine 600 mg 10/05/22 07:35 10/11/22 05:38 Carbamazepine 200 Mg Tablet PO 600 mg BID@0630,2130 ISAEL Administration Cyanocobalamin 1,000 mcg 10/05/22 09:00 10/11/22 09:26 Cyanocobalamin 1,000 Mcg Tablet PO 11/04/22 08:59 1,000 mcg DAILY ISAEL Administration Divalproex Sodium 1,000 mg 10/05/22 17:20 10/11/22 05:[address] 250 Mg Tabec PO 1,000 mg 0630,1630 ISAEL Administration Divalproex Sodium 1,500 mg 10/05/22 21:30 10/10/22 22:[address] 250 Mg Tabec PO 1,500 mg 2129 ISAEL Administration Enoxaparin Sodium 40 mg 10/05/22 09:00 10/11/22 09:53 Enoxaparin 40 Mg/0.4 Ml Syringe SUB-Q Not Given DAILY ISAEL Fish Oil 1 gm 10/05/22 09:00 10/11/22 09:26 [place] 3 Polyunsat Fatty Acids 1 Gm Cap PO 1 gm DAILY ISAEL Administration Fluticasone Propionate 2 spray 10/07/22 16:00 10/11/22 09:27 Fluticasone Propionate 0.05% Na Spr 16 Gm Btl (*Bkc) NASAL 2 spray DAILY ISAEL Administration Sodium Chloride 1,000 mls @ 100 mls/hr 10/05/22 00:15 10/11/22 06:46 Normal Saline Iv IV CONT 100 mls/hr .Q10H ISAEL Administration Ampicillin Sodium/Sulbactam Sodium 3 gm in 100 mls @ 200 mls/hr 10/05/22 12:00 10/11/22 06:34 Unasyn 3 Gm/Ns 100 Ml IVPB Infused Q6HR ISAEL Infusion Levothyroxine Sodium 50 mcg 10/05/22 06:30 10/11/22 05:38 Levothyroxine Sodium 50 Mcg Tablet PO 50 mcg DAILY@0630 ISAEL Administration Loratadine 10 mg 10/05/22 09:00 10/11/22 09:26 Loratadine 10 Mg Tablet PO 10 mg DAILY ISAEL Administration Magnesium Oxide 400 mg 10/08/22 10:00 10/11/22 09:27 Magnesium Oxide 400 Mg Tablet PO Not Given QAM ISAEL Magnesium Oxide 400 mg 10/11/22 09:00 10/11/22 09:26 Magnesium Oxide 400 Mg Tablet PO 400 mg QAM ON LICENSE OF [facility] Administration Ondansetron HCl 4 mg 10/08/22 11:54 10/10/22 09:53 Ondansetron Inj 4 Mg/2 Ml Vial IV PUSH
[2022-10-11] MEDS: carBAMazepine 200 MG TABLET 400 MG PO ×2 (12:11→16:30)
[2022-10-11 15:23] LABS: Iron 73 ug/dL (37-170)
[2022-10-11 15:32] LABS: Percent Iron Saturation 33 % (20-50)
[2022-10-11 16:29] LABS: Folic Acid 2.4 ng/mL (2.76->20)
--- NOTE | 2022-10-11 18:32 | PM.IMPN ---
Progress Note: A&P Assessment and Plan (1) Altered mental state: Qualifiers: Altered mental status type: unspecified Qualified Code(s): R41.82 - Altered mental status, unspecified Code(s): R41.82 - Altered mental status, unspecified Status: Acute (2) Abnormal urinalysis: Code(s): R82.90 - Unspecified abnormal findings in urine Status: Acute (3) Pneumonia: Qualifiers: Pneumonia type: aspiration pneumonia Aspiration pneumonia type: unspecified Laterality: bilateral Lung location: lower lobe of lung Qualified Code(s): J69.0 - Pneumonitis due to inhalation of food and vomit Code(s): J18.9 - Pneumonia, unspecified organism Status: Acute (4) Seizure disorder: Code(s): G40.909 - Epilepsy, unspecified, not intractable, without status epilepticus Status: Acute Plan The patient has altered mental status is unclear if the patient is having changes in her mental status due to acute infection verses breakthrough seizure. Patient does have evidence of bilateral lower lobe infiltrates on her CT of the abdomen pelvis. She does have a cough at the time of my evaluation in some crackles on exam. Given her altered mental status and history of seizures she is certainly a increased risk for aspiration pneumonia. The patient was given Rocephin and Flagyl in the ER and his ER provider was concerned that the patient may have a UTI given she had positive nitrates. The patient is chronically incontinent urine in the rest of her UA does not overly suggest UTI and CT does not mention any bladder wall thickening. At this time will change the patient's antibiotic therapy to Unasyn to more adequately target anaerobes. This would also cover common urinary tract pathogens. Urine cultures pending. Will add blood cultures at this time. Given that the patient may be having some breakthrough seizures especially with the patient having variable responsiveness at the time of my evaluation with I deviation I am concerned the patient may be having some breakthrough partial seizures. Neurology was consulted in the ER and the patient's Depakote was increased to 1 g twice daily. Will resume the patient's home carbamazepine. Patient has been admitted as observation status. 10/11/2022 interval history: patient remains clinically stable unfortunately unable to provide any review of symptom, her mother is present in the room, UA analysis suspicious for UTI, patient is empirically treated with ampicillin, urine culture no growth so far, blood culture is pending, patient had been taking Tegretol and valproic acid no levels are done recently mother is concerned will do levels of these medications, valproic acid levels are normal and Tegretol levels are pending, patient CT scan of the head did not show any acute injury. patient was seen by neurologist and EEG is ordered, patient is more interactive and talktive, however mother stats she normally walks at home, has not been able to walk here, will have PT/OT to work with the patient, upon arrival chest x-ray was suspicious for pneumonia patient is being treated with Unasyn, repeat chest x-ray showed clear lungs, urine and blood culture clear, stopped abx, patient had vomiting suspect due to congestion, mother stated had been giving psuedophd, will give 30mg q6 as needed, again patient worked with PT and was not able to ambulate as her mother had expected to do her ADL, will need PT at home or got acute rehab, also patient had pelvic bleeding, had SHIFT MGR to evaluation, suspect hematuria, ordered pelvic US which showed uterine fibroid, today patient stats there is long history of kidney stone in the family to further evaluate hematuria CT scan of abdomen and pelvic was ordred and negative to kidney stones, will collect urine for further evaluation, patient will be seen by neurologist and further recommendation to follow. Subjective Date/time seen: 10/11/22 18:32
[2022-10-11] MEDS: DIVALPROEX SODIUM DR 250 MG TABEC 1500 MG PO (21:42)
[2022-10-12] VITALS (10 sets, daily range): BP systolic 93–110; BP diastolic 49–60; PULSE 52–100; RESP 14–17; TEMP 36.1–36.6; O2SAT 93–100
[2022-10-12] MEDS: AMPICILLIN SULB 3 GM/NS 100 ML 3 GM/100 ML VIAL IVPB ×2 (00:01→05:47)
[2022-10-12] MEDS: carBAMazepine 200 MG TABLET 600 MG PO ×2 (05:48→20:36)
[2022-10-12] MEDS: LEVOTHYROXINE SODIUM 50 MCG TABLET PO (05:48)
[2022-10-12] MEDS: DIVALPROEX SODIUM DR 250 MG TABEC 1000 MG PO ×2 (05:48→17:32)
[2022-10-12 08:07] LABS: Hematocrit 36.7 % (37.0-47.0); Hemoglobin 11.5 g/dL (12.0-15.0); Immature Platelet Fraction Pct 4.2 % (0.9-11.2); Mean Corpuscular HGB Conc 31.3 g/dl (32-36); Mean Corpuscular Hemoglobin 32.4 pg (26-34); Mean Corpuscular Volume 103.4 fl (80-100); Mean Platelet Volume 9.4 fl (7.4-10.4); Platelet Count Result 148 k/mm3 (150-375); Red Blood Count 3.55 M/mm3 (4.2-5.4); Red Cell Distribution Width 16.2 % (11.5-14.5); White Blood Count 5.6 K/mm3 (4.5-10.0)
[2022-10-12 08:20] LABS: Anion Gap 1 mmol/L (8-16); Blood Urea Nitrogen 8 mg/dL (7-17); Calcium 8.2 mg/dL (8.4-10.2); Carbon Dioxide 36 mmol/L (22-30); Chloride 108 mmol/L (98-107); Estimated CRCL calculation 86 ml/min; Estimated Glomerular Filt Rate > 60; Glucose 79 mg/dL (65-110); Magnesium 1.7 mg/dL (1.6-2.3); Potassium 4.2 mmol/L (3.4-5.0); Sodium 145 mmol/L (137-145)
[2022-10-12] MEDS: ENOXAPARIN 40 MG/0.4 ML SYRINGE SUB-Q (08:25)
[2022-10-12] MEDS: CYANOCOBALAMIN 1,000 MCG TABLET 1000 MCG PO (08:25)
[2022-10-12] MEDS: ATORVASTATIN 20 MG TABLET PO (08:25)
[2022-10-12] MEDS: OMEGA 3 POLYUNSAT FATTY ACIDS 1 GM CAP PO (08:26)
[2022-10-12] MEDS: MAGNESIUM OXIDE 400 MG TABLET PO (08:26)
[2022-10-12] MEDS: LORATADINE 10 MG TABLET PO (08:26)
[2022-10-12] MEDS: PANTOPRAZOLE 40 MG TABLET PO (08:26)
[2022-10-12] MEDS: FLUTICASONE PROPIONATE 0.05% NA SPR 16 GM BTL (*BKC) 2 SPRAY NASAL (08:26)
--- NOTE | 2022-10-12 09:36 | PM.IMPN ---
Progress Note: A&P Assessment and Plan (1) Altered mental state: Qualifiers: Altered mental status type: unspecified Qualified Code(s): R41.82 - Altered mental status, unspecified Code(s): R41.82 - Altered mental status, unspecified Status: Acute Assessment and Plan: Appears resolved? 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 Trial dose of Lasix 40 mg IV x1 today DC IV fluids (3) Abnormal urinalysis: Code(s): R82.90 - Unspecified abnormal findings in urine Status: Acute Assessment and Plan: Urine culture came back negative, will discontinue Unasyn (4) Seizure disorder: Code(s): G40.909 - Epilepsy, unspecified, not intractable, without status epilepticus Status: Acute Assessment and Plan: Appreciate neurology consultation, see above for details (5) Hematuria: Code(s): R31.9 - Hematuria, unspecified Status: Acute Assessment and Plan: obgyn workup showed questionable vaginal bleeding likely secondary to hematuria as opposed to pelvic etiology, Urology consult pending (6) Pleural effusion: Code(s): J90 - Pleural effusion, not elsewhere classified Status: Acute Assessment and Plan: Pleural effusions noted on CT scan with possible associated atelectasis versus consolidation, no signs of pneumonia clinically, will get incentive spirometer to bedside (7) Fibroid: Code(s): D21.9 - Benign neoplasm of connective and other soft tissue, unspecified Status: Acute Assessment and Plan: Fibroid noted on pelvic ultrasound, can be followed up outpatient Plan DVT prophylaxis with SCDs GI prophylaxis with PPI Code status full code Subjective Date/time seen: 10/12/22 09:36 Interval history: No overnight events noted. No chest pain or shortness of breath. No nausea, vomiting or diarrhea. No fevers or chills. Review of Systems Review of Systems: 12 point review of systems was assessed and was negative except as noted in the HPI Exam Narrative: General: No acute distress, alert and oriented per baseline HEENT: Atraumatic, normocephalic, mucous membranes moist CV: Regular rate and rhythm, S1, S2 Lungs: Clear to auscultation bilaterally, no rales or crackles noted, no wheezes, good air entry Abdomen: Soft, nontender, nondistended Extremities: Normal to inspection, bilateral nonpitting lymphedema noted Skin: No rashes noted, no lesions or wounds seen Psych: Euthymic, normal affect Objective Data Vital Signs Vital Signs: Vital Signs - 24 hr 10/11/22 13:34 10/11/22 12:00 10/11/22 16:00 Temperature 97.5 F L Pulse Rate 95 99 94 Respiratory Rate 18 Blood Pressure 118/92 H Pulse Oximetry 98 Oxygen Delivery 10/11/22 19:26 10/11/22 21:40 10/11/22 20:00 Temperature 97.2 F L Pulse Rate 72 75 Respiratory Rate 18 Blood Pressure 98/48 L Pulse Oximetry 98 Oxygen Delivery Room Air 10/12/22 00:00 10/12/22 03:55 10/12/22 04:00 Temperature 97.6 F Pulse Rate 65 66 52 L Respiratory Rate 17 Blood Pressure 98/53 L Pulse Oximetry 95 Oxygen Delivery Intake/Output Intake/Output: Intake & Output 10/09/22 10/10/22 10/11/22 10/12/22 23:59 23:59 23:59 23:59 Intake Total 3388 3540 3240 440 Output Total 200 200 3
--- NOTE | 2022-10-12 10:34 | WPDURCON ---
Assessment and Plan Assessment and plan (1) Hematuria: Code(s): R31.9 - Hematuria, unspecified Status: Acute Assessment and Plan: 47F with PMH of hydrocephalus QUALITY ASSISTANT shunt and seizure disorder admitted for AMS/weakness noted to have likely hematuria, with negative CT non con for stones. Plan - Recommend straight cath specimen to repeat UA/urine culture for signs of UTI due to equivocal UA yesterday and patient's incontinence. If signs of UTI, treat with antibiotics. - PVR to ensure emptying appropriately. - Recommend a CT urogram to rule out any upper tract abnormalities which could be causing this. - If UA / urine culture negative, will also likely require an outpatient cystoscopy to complete hematuria work up. - Will continue to follow. Urology Consult Note HPI Date Seen: 10/12/22 Requesting Physician: Edita Lamas DO Primary Care Provider: Nikunj Sow DO Consult Narrative Narrative: Christi Azevedo is a 47 year old female past medical history of hyperlipidemia, hydrocephalus QUALITY ASSISTANT shunt and seizure disorder admitted for AMS and weakness with possible UTI, with urology consultation for hematuria. Patient did have some concerns for a UTI with a UA a two days ago that was nitrite positive, but urine culture prior to this was negative. However, patient did have some gross hematuria noted by team yesterday. Nursing staff states no hematuria noted today. She did have a CT noncon which did not show signs of stones. Cr wnl, WBC wnl. Cement Mixer consulted and after a pelvic US only noted fibroids, deemed unlikely to be vaginal bleeding. FORMERLY [facility], [facility] Past Medical History Medical History (Updated 10/12/22 @ 09:57 by Dilia Fisher DO) Agenesis of corpus callosum Congenital hydrocephalus, unspecified Esophageal reflux disease Other epilepsy, not intractable, with status epilepticus Pure hypercholesterolemia Surgical History Surgical History H/O Spinal surgery Hx of brain surgery S/P QUALITY ASSISTANT shunt Family History Family History Father Family history of diabetes mellitus in first degree relative Diabetes mellitus Social History Social History (Updated 10/05/22 @ 07:38 by Edita Lamas DO) Social History: The patient is disabled. She lives with her mother. She can ambulate with a walker or otherwise uses a wheelchair. Smoking status: Never smoker Second hand tobacco smoke exposure: No Alcohol intake: never Lack of Transportation: No Lack of Food: Never True Current Housing: I Have Housing Concerned About Future Housing: No Difficulty Paying Gas/Electric Bills: YES Difficulty Paying for Meds: No Currently Unemployed: No Education: High School Diploma/GED Difficulty w/ Childcare or Family Care: No Spiritual care concerns: No Meds Home Medications and Allergies Home Medications Medication Instructions Recorded Confirmed Type loratadine 10 mg tablet 10 mg PO DAILY #30 tabs 06/04/20 10/05/22 Rx omega-3 fatty acids 1,000 mg 1,000 mg PO DAILY 01/15/21 10/05/22 History capsule (Fish Oil Concentrate) levothyroxine 50 mcg tablet 50 mcg PO DAILY #90 tabs 06/18/22 10/05/22 Rx mecobalamin (vitamin B12) 1,000 1,000 mcg PO DAILY 08/22/22 10/05/22 History mcg chewable tablet (B12 Active) atorvastatin 20 mg tablet 20 mg PO DAILY #90 tabs 09/16/22 10/05/22 Rx carbamazepine 200 mg tablet 200 mg PO .COMPLEX #900 tabs 09/16/22 10/05/22 Rx divalproex 500 mg tablet,delayed 500 mg PO DIRECTED #630 tabs 09/16/22 10/05/22 Rx release (Depakote) omeprazole 40 mg capsule,delayed 40 mg PO DAILY #90 caps 09/16/22 10/05/22 Rx release ciprofloxacin HCl 0.3 % eye drops 1 drp ophthalmic (eye) Q4H PRN Eye 10/05/22 10/05/22 History (Ciloxan) Irritation fluticasone propionate 50 2 spray intranasal DAILY PRN 10/05/22 10/05/22 History mcg/actuation nasal Allergy Symptoms s
[2022-10-12] MEDS: carBAMazepine 200 MG TABLET 400 MG PO ×2 (11:51→17:31)
[2022-10-12] MEDS: FUROSEMIDE INJ 40 MG/4 ML VIAL IV PUSH (11:52)
--- NOTE | 2022-10-12 14:04 | WPDNEUROPN ---
Subjective Date/time seen: 10/12/22 14:04 Interval history: Patient had an EEG on October 09, 2022 which was abnormal due to the presence of bihemispheric slow activity but there was no active paroxysmal discharge throughout the tracing again these abnormalities are suggestive of underlying organic a metabolic encephalopathy or postictal state patient has been receiving divalproex 500 mg in addition to the carbamazepine as previously, she was taken off the levetiracetam and has made her improved significantly treatment will be continued as such and her neurological examination is essentially unchanged Objective Data Vital Signs Vital Signs: Vital Signs - 24 hr 10/11/22 16:00 10/11/22 19:26 10/11/22 21:40 Temperature 36.2 C L Pulse Rate 94 72 Respiratory Rate 18 Blood Pressure 98/48 L Pulse Oximetry 98 Oxygen Delivery Room Air 10/11/22 20:00 10/12/22 00:00 10/12/22 03:55 Temperature 36.4 C Pulse Rate 75 65 66 Respiratory Rate 17 Blood Pressure 98/53 L Pulse Oximetry 95 Oxygen Delivery 10/12/22 04:00 10/12/22 08:00 10/12/22 11:53 Temperature Pulse Rate 52 L 81 Respiratory Rate Blood Pressure 110/60 Pulse Oximetry Oxygen Delivery 10/12/22 12:00 Temperature Pulse Rate 68 Respiratory Rate Blood Pressure Pulse Oximetry Oxygen Delivery Intake/Output Intake/Output: Intake & Output 10/09/22 10/10/22 10/11/22 10/12/22 23:59 23:59 23:59 23:59 Intake Total 3388 3540 3240 680 Output Total 200 200 300 340 Balance 3188 3340 2940 340 Meds/Results Medications: Active Medications Generic Name Dose Route Start Last Admin Trade Name Freq PRN Reason Stop Dose Admin Acetaminophen 1,000 mg 10/09/22 11:08 Acetaminophen 500 Mg Tablet PO Q6H PRN Pain Atorvastatin Calcium 20 mg 10/05/22 09:00 10/12/22 08:25 Atorvastatin 20 Mg Tablet PO 20 mg DAILY ISAEL Administration Carbamazepine 400 mg 10/05/22 11:30 10/12/22 11:51 Carbamazepine 200 Mg Tablet PO 400 mg BID@1130,1630 ISAEL Administration Carbamazepine 600 mg 10/05/22 07:35 10/12/22 05:48 Carbamazepine 200 Mg Tablet PO 600 mg BID@0630,2130 ISAEL Administration Cyanocobalamin 1,000 mcg 10/05/22 09:00 10/12/22 08:25 Cyanocobalamin 1,000 Mcg Tablet PO 11/04/22 08:59 1,000 mcg DAILY ISAEL Administration Divalproex Sodium 1,000 mg 10/05/22 17:20 10/12/22 05:[address] 250 Mg Tabec PO 1,000 mg 0630,1630 ISAEL Administration Divalproex Sodium 1,500 mg 10/05/22 21:30 10/11/22 21:[address] 250 Mg Tabec PO 1,500 mg 2130 ISAEL Administration Enoxaparin Sodium 40 mg 10/05/22 09:00 10/12/22 08:25 Enoxaparin 40 Mg/0.4 Ml Syringe SUB-Q 40 mg DAILY ISAEL Administration Fish Oil 1 gm 10/05/22 09:00 10/12/22 08:26 [place] 3 Polyunsat Fatty Acids 1 Gm Cap PO 1 gm DAILY ISAEL Administration Fluticasone Propionate 2 spray 10/07/22 16:00 10/12/22 08:26 Fluticasone Propionate 0.05% Na Spr 16 Gm Btl (*Bkc) NASAL 2 spray DAILY ISAEL Administration Levothyroxine Sodium 50 mcg 10/05/22 06:30 10/12/22 05:48 Levothyroxine Sodium 50 Mcg Tablet PO 50 mcg DAILY@0630 ISAEL Administration Loratadine 10 mg 10/05/22 09:00 10/12/22 08:26 Loratadine 10 Mg Tablet PO 10 mg DAILY ISAEL Administration Magnesium Oxide 400 mg 10/08/22 10:00 10/12/22 08:26 Magnesium Oxide 400 Mg Tablet PO 400 mg QAM ISAEL Administration Ondansetron HCl 4 mg 10/08/22 11:54 10/10/22 09:53 Ondansetron Inj 4 Mg/2 Ml Vial IV PUSH 4 mg Q6H PRN Administration Nausea And Vomiting Pantoprazole Sodium 40 mg 10/05/22 09:00 10/12/22 08:26 Pantoprazole 40 Mg Tablet PO 11/04/22 08:59 40 mg DAILY ISAEL Administration Pseudoephedrine HCl 30 mg 10/09/22 18:28 10/11/22 09:34 Pseudoephedrine Hcl 30 Mg Tablet PO 30 mg Q4H PRN Administration Congestion Radiology Results: ITS Impressio
[2022-10-12 15:59] LABS: Add Urine Microscopic? NO; Appearance Urine Clear (Clear); Bilirubin Urine Negative (Negative); Blood Urine Negative (Negative); Color Urine Yellow (Yellow); Glucose Urine UA Negative (Negative); Ketones Urine Negative (Negative); Leukocyte Esterase Ur Negative LEU/UL (Negative); Nitrate Urine Negative (Negative); Protein Urine Negative (Negative); Specific Grav Ur 1.015 (1.001-1.035); Urobilinogen Urine 0.2 mg/dL (<2.0)
[2022-10-12] MEDS: DIVALPROEX SODIUM DR 250 MG TABEC 1500 MG PO (20:36)
[2022-10-13] VITALS: PULSE 58
[2022-10-13 04:00] VITALS: PULSE 56
[2022-10-13] MEDS: carBAMazepine 200 MG TABLET 600 MG PO (05:31)
[2022-10-13] MEDS: DIVALPROEX SODIUM DR 250 MG TABEC 1000 MG PO (05:31)
[2022-10-13] MEDS: LEVOTHYROXINE SODIUM 50 MCG TABLET PO (05:31)
[2022-10-13 05:41] LABS: Anion Gap -3 mmol/L (8-16); Blood Urea Nitrogen 8 mg/dL (7-17); Calcium 7.5 mg/dL (8.4-10.2); Carbon Dioxide 39 mmol/L (22-30); Chloride 101 mmol/L (98-107); Estimated CRCL calculation 104 ml/min; Estimated Glomerular Filt Rate > 60; Glucose 70 mg/dL (65-110); Magnesium 1.7 mg/dL (1.6-2.3); Potassium 3.8 mmol/L (3.4-5.0); Sodium 137 mmol/L (137-145)
[2022-10-13 05:47] LABS: Hematocrit 29.7 % (37.0-47.0); Hemoglobin 9.3 g/dL (12.0-15.0); Immature Platelet Fraction Pct 5.4 % (0.9-11.2); Mean Corpuscular HGB Conc 31.3 g/dl (32-36); Mean Corpuscular Hemoglobin 32.6 pg (26-34); Mean Corpuscular Volume 104.2 fl (80-100); Mean Platelet Volume 10.1 fl (7.4-10.4); Platelet Count Result 113 k/mm3 (150-375); Red Blood Count 2.85 M/mm3 (4.2-5.4); Red Cell Distribution Width 16.1 % (11.5-14.5); White Blood Count 4.6 K/mm3 (4.5-10.0)
[2022-10-13 08:00] VITALS: PULSE 70
--- NOTE | 2022-10-13 08:09 | PM.IMPN ---
Progress Note: A&P Assessment and Plan (1) Altered mental state: Qualifiers: Altered mental status type: unspecified Qualified Code(s): R41.82 - Altered mental status, unspecified Code(s): R41.82 - Altered mental status, unspecified Status: Acute Assessment and Plan: Appears resolved? Will need to discuss baseline with family Unsure of etiology, could be secondary to UTI versus breakthrough seizures, neuro consult appreciated Patient does have history of hydrocephalus status post CANE LOADER shunt Urine and blood cultures negative for infection Valproic acid and Tegretol levels within normal limits EEG did not show active seizures, suggested underlying organic or metabolic encephalopathy versus postictal state (2) Ascites: Code(s): R18.8 - Other ascites Status: Acute Assessment and Plan: Unsure of etiology, LFTs and liver within normal limits, also with some dependent edema of the trunk, could be component of anasarca when coupled with pleural effusions? Lasix given yesterday, repeat CXR pending (3) Abnormal urinalysis: Code(s): R82.90 - Unspecified abnormal findings in urine Status: Acute Assessment and Plan: Urine culture came back negative, will discontinue Unasyn repeat UA neg for infection or hematuria (4) Seizure disorder: Code(s): G40.909 - Epilepsy, unspecified, not intractable, without status epilepticus Status: Acute Assessment and Plan: Appreciate neurology consultation, see above for details (5) Hematuria: Code(s): R31.9 - Hematuria, unspecified Status: Acute Assessment and Plan: obgyn workup showed questionable vaginal bleeding likely secondary to hematuria as opposed to pelvic etiology, Urology consult rec Ct urogram, repeat UA showed resolution of hematuria, would rec f/u outpatient with repeat UA in 2 weeks to confirm resolution (6) Pleural effusion: Code(s): J90 - Pleural effusion, not elsewhere classified Status: Acute Assessment and Plan: Pleural effusions noted on CT scan with possible associated atelectasis versus consolidation, no signs of pneumonia clinically, will get incentive spirometer to bedside Repeat CXR pending (7) Fibroid: Code(s): D21.9 - Benign neoplasm of connective and other soft tissue, unspecified Status: Acute Assessment and Plan: Fibroid noted on pelvic ultrasound, can be followed up outpatient Plan DVT prophylaxis with SCDs GI prophylaxis with PPI Code status full code Subjective Date/time seen: 10/13/22 08:09 Exam Narrative: General: No acute distress, alert and oriented per baseline HEENT: Atraumatic, normocephalic, mucous membranes moist CV: Regular rate and rhythm, S1, S2 Lungs: Clear to auscultation bilaterally, no rales or crackles noted, no wheezes, good air entry Abdomen: Soft, nontender, nondistended Extremities: Normal to inspection, bilateral nonpitting lymphedema noted Skin: No rashes noted, no lesions or wounds seen Psych: Euthymic, normal affect Objective Data Vital Signs Vital Signs: Vital Signs - 24 hr 10/12/22 11:53 10/12/22 12:00 10/12/22 14:00 Temperature 97.0 F L Pulse Rate 68 83 Respiratory Rate 16 Blood Pressure 110/60 102/55 L Pulse Oximetry 100 10/12/22 16:00 10/12/22 20:07 10/12/22 20:00 Temperature 97.8 F Pulse Rate 72 100 71 Respiratory Rate 14 Blood Pressure 93/49 L Pulse Oximetry 93 10/13/22 00:00 10/13/22 04:00 Temperature Pulse Rate 58 L 56 L Respiratory Rate Blood Pressure Pulse Oximetry Intake/Output Intake/Output: Intake & Output 10/10/22 10/11/22 10/12/22 10/13/22 23:59 23:59 23:59 23:59 Intake Total 3540 3240 800 Output Total 200 300 840 Balance 3340 2940 -40 Meds/Results Medications: Active Medications Generic Name Dose Route Start Last Admin Trade Name Freq PRN Reason Stop Dose Admin Acetaminophen 1,000 mg
[2022-10-13] MEDS: ATORVASTATIN 20 MG TABLET PO (08:23)
[2022-10-13] MEDS: CYANOCOBALAMIN 1,000 MCG TABLET 1000 MCG PO (08:24)
[2022-10-13] MEDS: ENOXAPARIN 40 MG/0.4 ML SYRINGE SUB-Q (08:24)
[2022-10-13] MEDS: FLUTICASONE PROPIONATE 0.05% NA SPR 16 GM BTL (*BKC) 2 SPRAY NASAL (08:24)
[2022-10-13] MEDS: LORATADINE 10 MG TABLET PO (08:25)
[2022-10-13] MEDS: MAGNESIUM OXIDE 400 MG TABLET PO (08:25)
[2022-10-13] MEDS: PANTOPRAZOLE 40 MG TABLET PO (08:26)
[2022-10-13] MEDS: OMEGA 3 POLYUNSAT FATTY ACIDS 1 GM CAP PO (08:26)
--- NOTE | 2022-10-13 09:36 | PCNWS ---
Weekly nutritional screen. Patient is tolerating current Regular diet with adequate intake 50-100% of meals plus Ensure compact BID. No weight loss reported. No nutritional needs at this time.
--- NOTE | 2022-10-13 11:23 | PM.DS ---
DS: Admitting Diagnosis Discharge Date 10/13/2022 Admitting Diagnosis Altered mental status DS: Discharge Diagnosis Discharge Diagnosis (1) Altered mental state: Qualifiers: Altered mental status type: unspecified Qualified Code(s): R41.82 - Altered mental status, unspecified Code(s): R41.82 - Altered mental status, unspecified Status: Acute Assessment and Plan: Appears resolved? 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 Lasix given yesterday, repeat CXR pending (3) Abnormal urinalysis: Code(s): R82.90 - Unspecified abnormal findings in urine Status: Acute Assessment and Plan: Urine culture came back negative, will discontinue Unasyn repeat UA neg for infection or hematuria (4) Seizure disorder: Code(s): G40.909 - Epilepsy, unspecified, not intractable, without status epilepticus Status: Acute Assessment and Plan: Appreciate neurology consultation, see above for details (5) Hematuria: Code(s): R31.9 - Hematuria, unspecified Status: Acute Assessment and Plan: obgyn workup showed questionable vaginal bleeding likely secondary to hematuria as opposed to pelvic etiology, Urology consult rec Ct urogram, repeat UA showed resolution of hematuria, would rec f/u outpatient with repeat UA in 2 weeks to confirm resolution (6) Pleural effusion: Code(s): J90 - Pleural effusion, not elsewhere classified Status: Acute Assessment and Plan: Pleural effusions noted on CT scan with possible associated atelectasis versus consolidation, no signs of pneumonia clinically, will get incentive spirometer to bedside Repeat CXR pending (7) Fibroid: Code(s): D21.9 - Benign neoplasm of connective and other soft tissue, unspecified Status: Acute Assessment and Plan: Fibroid noted on pelvic ultrasound, can be followed up outpatient Plan DVT prophylaxis with SCDs GI prophylaxis with PPI Code status full code DS: Summary Hospital Course Hospital Course: 47-year-old female with past medical history significant for hyperlipidemia, hydrocephalus with PATIENT ACCOUNTS MANAGER shunt and seizure disorder presented to the ER with altered mental status. There was concern for aspiration pneumonia due to abnormality noted on CT scan and therefore patient was started on Rocephin and Flagyl. Urinalysis was abnormal with positive nitrates and incontinence as well as hematuria. Rocephin will cover possible infection. Follow-up urine culture. Hospitalist changed antibiotics from Rocephin and Flagyl to Unasyn. Neurology was consulted. Home antiepileptic medication levels were checked and were within normal limits. Due to continued hematuria concerning for vaginal bleeding, Ob Gyne was consulted. They did find a fibroid but no etiology for bleeding. Urology was then consulted and repeat urinalysis showed no hematuria. They recommend following up outpatient for possible cystoscopy. Patient had an EEG that was mildly abnormal. Neurology recommended continuing carbamazepine as well as Depakote. She is to remain off Keppra as this was discontinued due to confusion in the past. Patient was back to baseline mentation. All blood and urine cultures came back negative for any infection. Antibiotics were discontinued and patient was d
[2022-10-13] MEDS: carBAMazepine 200 MG TABLET 400 MG PO (11:45)
[2022-10-13 11:55] VITALS: BP 109/72; PULSE 73; RESP 16; TEMP 36.4; O2SAT 96
[2022-10-13 12:00] VITALS: PULSE 73
[2022-10-13 14:12] LABS: FSH 26.5 mIU/mL (***); LH 28.5 mIU/mL (***)
[2022-10-15 00:37] LABS: Pneumococcal Antigen Urine Not Detected (Not Detected)
== END 2022-10-13 15:08 | disposition home health service (06) | DRG 101 ==
LOC: ANHED 19:47 → ANH2MED 10-05 03:16
PROVIDERS: Emergency Medicine; Family Medicine; Obstetrics & Gynecology Gynecology; Urology; Admitting Provider Internal Medicine; Emergency Provider Emergency Medicine; PCP Internal Medicine; Visit Provider Student in an Organized Health Care Education/Training Program
DX: G40.909 Epilepsy, unspecified, not intractable, without status epilepticus (principal); R18.8 Other ascites; J90 Pleural effusion, not elsewhere classified; E78.5 Hyperlipidemia, unspecified; R31.9 Hematuria, unspecified; D21.9 Benign neoplasm of connective and other soft tissue, unspecified; Z20.822 Contact with and (suspected) exposure to COVID-19; Z79.899 Other long term (current) drug therapy; Z88.3 Allergy status to other anti-infective agents
CPT/HCPCS: 36415; 51701; 70450; 70486; 71045; 71046; 72125; 73060; 73560; 74018; 74176; 74177; 74178; 76856; 80048; 80053; 80156; 80164; 81001; 81003; 81025; 82607; 82728; 82746; 83001; 83002; 83540; 83550; 83735; 85025; 85027; 85055; 86738; 87040; 87086; 87449; 87637; 87899; 92523; 92610; 92611; 95816; 96361; 96365; 96366; 96367; 96372; 96375; 97110; 97162; 97165; 97530; 97535; 99285; A9270; G0378; J0295; J0696; J1650; J1940; J2405; J7030; Q9967

== ENCOUNTER 2022-10-22 06:53 | Outpatient (CLI) | payer MEDICARE, MEDICAID, SELFPAY ==
[2022-10-22 07:35] LABS: Appearance Urine Clear (Clear); Bilirubin Urine 1+ (Negative); Blood Urine Negative (Negative); Color Urine Yellow (Yellow); Glucose Urine UA Negative (Negative); Ketones Urine 1+ mg/dL (Negative); Leukocyte Esterase Ur 2+ LEU/UL (Negative); Nitrate Urine Negative (Negative); Protein Urine 1+ mg/dL (Negative); Urobilinogen Urine 0.2 mg/dL (<2.0)
[2022-10-22 07:48] LABS: Bacteria Urine Trace /hpf; Mucus Urine Rare /lpf; Squamous Epithelial Cell Urine Few /hpf (Few); WBC Urine 31-50 /hpf
[2022-10-22 07:57] LABS: Add Urine Microscopic? YES
== END 2022-10-22 06:54 | disposition home or self-care (01) ==
PROVIDERS: PCP Internal Medicine; Visit Provider Internal Medicine
DX: R30.0 Dysuria (principal)
CPT/HCPCS: 81001; 87077; 87086; 87186

== ENCOUNTER 2022-11-18 16:19 | Inpatient (IN) | payer MEDICARE, MEDICAID, SELFPAY ==
--- NOTE | ~2022-11-18 | CT_ITS ---
EXAMINATION: CT abdomen pelvis w con DATE: 11/18/2022 22:20 INDICATION: Bruising over the flank concerning for hematoma. TECHNIQUE: Computed tomography (CT) of the abdomen and pelvis was performed with 100 mL Omnipaque-350 intravenous contrast. Automated exposure control and iterative reconstruction technique were employe d. The dose-length product was 349.42 mGy-cm. COMPARISON: 10/13/2022 FINDINGS: Tree-in-bud opacities at the basilar left lower lobe consistent with pneumonia. Right lung bases elisabeth r. Heart size is normal. No pericardial or pleural effusion. Small sliding-type hiatal hernia contain ing a small amount of ascites. Liver, gallbladder, spleen, pancreas, bilateral adrenal glands and kid neys are normal. Again seen is a ventriculoperitoneal shunt which is coiled in the deep pelvis where there is an additional small amount of ascites. Bowels including the appendix are normal. Bladder is normal. 1.6 cm uterine fibroid. No abscess or free intraperitoneal gas. No pathologically enlarged ab dominal or pelvic lymphadenopathy. Again seen is a 5.2 x 4.7 x 2.1 cm lipoma at the left lateral abdo chanel wall along the infracostal margin. No evident retroperitoneal or body wall hematoma. Moderate l umbar and lower thoracic spondylosis. Chronic T10 compression fracture. IMPRESSION: 1. No evident hematoma or acute intra-abdominal/pelvic process. 2. Ventriculoperitoneal shunt with small amount of ascites in the deep pelvis as well as along side a small sliding-type hiatal hernia. Reviewed, dictated and finalized at location A. SHOVELER IMPRESSION: 1. No evident hematoma or acute intra-abdominal/pelvic process. 2. Ventriculoperitoneal shunt with small amount of ascites in the deep pelvis a s well as along side a small sliding-type hiatal hernia.
--- NOTE | ~2022-11-18 | CT_ITS ---
EXAMINATION: CT brain wo con, CT facial bones wo con DATE: 11/18/2022 20:37 INDICATION: Head injury post fall. Altered mental status. TECHNIQUE: 1. Computed tomography (CT) of the head was performed without intravenous contrast. Sagittal and tiffanie nal reconstructions were performed. The mA was adjusted according to patient size. Iterative reconstr uction technique was employed. The dose-length product was 1210.67 280.22 (accession [id number]) mGy-cm. 2. CT of the maxillofacial bones was performed without intravenous contrast. Sagittal and coronal rec onstructions were performed. Automated exposure control and iterative reconstruction technique were e mployed. The dose-length product was 280.22 mGy-cm. COMPARISON: head CT dated 10/04/2022 and 03/28/2020 FINDINGS: Head CT: No fracture. Again seen is congenital agenesis of the corpus callosum with apparent communication bet ween the lateral ventricles and the subarachnoid spaces along the falx. There is chronic encephalomal acia in the right frontal lobe along the tract of a prior, since removed right frontal ventricular sh unt. No interval change in the new left parietal ventricular peritoneal shunt with distal tip along t he midline of the left lateral ventricle. Unchanged short residual retained shunt fragment in the lef t lateral ventricle. No acute intracranial hemorrhage, acute infarction or abnormal extra axial fluid collection. Ventricles remain normal in size and unchanged in configuration. Basal cisterns are amezquita nt. No mass/mass effect. The mastoid air cells are normal. Facial bone CT: New mild subcutaneous soft tissue swelling in the right malar region. Unchanged subcutaneous scarring at the left malar region. Chronic fracture with angulation at the tip of the left nasal bone, unchan ged since the most recent CT but new since 06/07/2012. No acute maxillofacial fractures identified. Sp ecifically the frias of the orbits and paranasal sinuses, the mandible, zygomatic arches and pterygoi d plates are intact. The orbits are normal. Mild mucosal thickening in the left frontoethmoidal reces s. Partially visualized anterior spinal fusion with interbody fusion device and anterior plate-screw fixation at 4 C5. IMPRESSION: 1. Agenesis of the corpus callosum with no change in a right parietal ventricular shunt and retained shunt fragment at the left lateral ventricle. 2. No calvarial fracture or acute intracranial process. 3. No acute maxillofacial fractures. Reviewed, dictated and finalized at location A. ION PLATE ROLLER HAND IMPRESSION: 1. Agenesis of the corpus callosum with no change in a right parietal ventricul ar shunt and retained shunt fragment at the left lateral ventricle. 2. No calvarial fracture or acute intracranial process. 3. No acute maxillofacial fractures.
--- NOTE | ~2022-11-18 | XR_ITS ---
XR chest 1V portable DATE: 11/23/2022 06:12 INDICATION: Pneumonia TECHNIQUE: Portable AP view on November 23, 2022 at 0602 hours COMPARISON: October 13, 2022 AP and lateral views FINDINGS: Heart size appears borderline, not optimally evaluated on AP projection because of magnific ation. Minimal atelectasis or infiltrate is suggested at the left lung base. The lungs otherwise appear elisabeth r. No pleural effusion or pulmonary vascular congestion or pneumothorax is detected. Old healed left humeral surgical neck fracture. Osteopenia. Ventriculoperitoneal shunt catheter tubing overlies left neck, chest and abdomen. Probable abandoned or retained shunt tubing overlying the right chest. Status post anterior cervical spine surgical fusion. IMPRESSION: Possible mild atelectasis at the left lung base Borderline heart size Left ventricular peritoneal shunt Reviewed, dictated and finalized at location A. OR MASTER SCHEDULER
--- NOTE | ~2022-11-18 | US_ITS ---
EXAMINATION: US abdomen complete DATE: 11/26/2022 18:26 INDICATION: pancytopenia, spleen visualization TECHNIQUE: Multiple grayscale and Doppler ultrasound images of the abdomen were obtained. COMPARISON: CT abdomen and pelvis to 723. FINDINGS: The visualized portions of the pancreas are normal. The liver is normal with normal echogen icity and echotexture. 0.3 cm right lobe hemangioma. No surface nodularity. Normal hepatopetal flow i n the main portal vein. The gallbladder is contracted. The common bile duct measures 4 mm. There was no sonographic Rowan sign. The visualized portions of the aorta and inferior vena cava are normal. The right kidney measures 9.4 x 4.8 x 4.9. The left kidney measures 9.7 x 5.9 x 5.5. The kidneys demo nstrate normal parenchymal echogenicity. There is no hydronephrosis. The spleen is normal in appearan ce and measures 8.7 cm. Small volume pleural fluid collections. IMPRESSION: Contracted gallbladder, not well evaluated. Small bilateral pleural effusions. Otherwise unremarkable abdominal sonogram findings. Reviewed, dictated and finalized at location K. MACY STUDENT
[2022-11-18 16:22] VITALS: BP 155/81; PULSE 98; RESP 16; TEMP 36.7; O2SAT 100
--- NOTE | 2022-11-18 16:27 | ECG_ITS ---
Measurements Intervals [place] Rate: 104 P: 27 MO: 162 QRS: 18 QRSD: 82 T: 9 QT: 288 QTc: 380 Interpretive Statements SINUS TACHYCARDIA BASELINE ARTIFACT LOW-VOLTAGE QRS IN PRECORDIAL LEADS BORDERLINE ECG NO PREVIOUS ECG AVAILABLE FOR COMPARISON Electronically Signed On 11-19-2022 15:06:50 HEALTH INFORMATION SPECIALIST by Camacho Castro M.D.
[2022-11-18 16:41] LABS: Basophils Percent Auto 0.2 % (0.2-1.2); Hematocrit 41.8 % (37.0-47.0); Hemoglobin 13.6 g/dL (12.0-15.0); Immature Granulocyte Absolute 0.06 K/mm3 (0.00-0.031); Immature Granulocyte Percent A 0.7 % (0-0.5); Immature Platelet Fraction Pct 5.4 % (0.9-11.2); Lymphocytes Absolute Auto 1.69 K/mm3 (0.9-3.2); Lymphocytes Percent Auto 18.9 % (18.3-44.2); Mean Corpuscular HGB Conc 32.5 g/dl (32-36); Mean Corpuscular Hemoglobin 32.8 pg (26-34); Mean Corpuscular Volume 100.7 fl (80-100); Monocytes Absolute Auto 0.9 K/mm3 (0.1-0.6); Monocytes Percent Auto 10.5 % (2.6-8.5); Neutrophils Absolute Auto 6.2 K/mm3 (1.3-6.7); Neutrophils Percent Auto 69.7 % (45.5-73.1); Platelet Count Result 161 k/mm3 (150-375); Red Blood Count 4.15 M/mm3 (4.2-5.4); Red Cell Distribution Width 14.9 % (11.5-14.5); White Blood Count 8.9 K/mm3 (4.5-10.0)
[2022-11-18 16:50] LABS: Alanine Aminotransferase 14 U/L (6-35); Albumin Level 3.4 g/dL (3.5-5.1); Alkaline Phosphatase 95 U/L (38-126); Anion Gap 4 mmol/L (8-16); Aspartate Amino Transferase 34 U/L (14-36); Bilirubin,Total 0.5 mg/dL (0.2-1.3); Blood Urea Nitrogen 16 mg/dL (7-17); Calcium 8.8 mg/dL (8.4-10.2); Carbon Dioxide 34 mmol/L (22-30); Chloride 98 mmol/L (98-107); Estimated CRCL calculation 73 ml/min; Estimated Glomerular Filt Rate > 60; Glucose 104 mg/dL (65-110); Sodium 136 mmol/L (137-145)
[2022-11-18 16:51] LABS: Prothrombin Time 12.9 Seconds (11.1-14.7)
[2022-11-18 16:52] LABS: Partial Thromboplastin Time 32.7 SECONDS (22.3-36.8)
--- NOTE | 2022-11-18 20:27 | ED.AMS ---
HPI - Altered Mental Status General Chief Complaint: Altered Mental Status <Pao Aparicio PA-C - Last Filed: 11/18/22 23:00> Stated Complaint: unable to walk or talk <Pao Aparicio PA-C - Last Filed: 11/18/22 23:00> Time Seen by Provider: 11/18/22 20:12 <Pao Aparicio PA-C - Last Filed: 11/18/22 23:00> History of Present Illness HPI narrative: Patient is a 47-year-old female with a history of agenesis of the corpus callosum, congenital hydrocephalus status post HOSE SUSPENDER CUTTER shunt placement, seizure disorder here for evaluation of altered mental status. History obtained from mother given patient's mental status. She tells me she was admitted to the hospital about 1 month ago for altered mental status that was ultimately attributed to a UTI. She was discharged to rehab facility and was doing well. She was discharged from the rehab facility a week ago, since discharge mother states that she has declined. She is not eating or drinking as she normally does. She is not talking as much and has been lethargic over the past several days. Mother has had difficulty helping patient with ADLs. Contacted neurologist and specialist who recommended ED eval for admission, likely rehab placement again. Patient denies any pain. <Pao Aparicio PA-C - Last Filed: 11/18/22 23:00> Related Data Home Medications: Home Medications Medication Instructions Recorded Confirmed omega-3 fatty acids 1,000 mg 1,000 mg PO DAILY 01/15/21 11/19/22 capsule (Fish Oil Concentrate) mecobalamin (vitamin B12) 1,000 1,000 mcg PO DAILY 08/22/22 11/19/22 mcg chewable tablet (B12 Active) acetaminophen 650 mg tablet 650 mg PO Q6H PRN Pain 10/30/22 11/19/22 enoxaparin 40 mg/0.4 mL 40 mg subcut DAILY 10/30/22 11/19/22 subcutaneous syringe (Lovenox) <TA Cabrera Last Filed: 11/18/22 23:00> Allergies/Adverse Reactions: Allergies Allergy/AdvReac Type Severity Reaction Status Date / Time caffeine Allergy Severe dizzy Verified 10/20/22 10:38 guaifenesin [From Mucinex] Allergy Unknown unknown Verified 10/20/22 10:38 zonisamide Allergy Unknown Unknown Verified 10/20/22 10:38 chocolate flavor Allergy Unknown Verified 10/26/22 16:11 <Pao Aparicio PA-C - Last Filed: 11/18/22 23:00> Review of Systems Review of Systems: ROS unobtainable: Yes unobtainable due to mental status <Pao Aparicio PA-C - Last Filed: 11/18/22 23:00> [facility] Past Medical History Medical History: Medical History (Updated 11/19/22 @ 00:27 by Vanessa Horton MD) Agenesis of corpus callosum Congenital hydrocephalus, unspecified Esophageal reflux disease Other epilepsy, not intractable, with status epilepticus Pure hypercholesterolemia <Pao Aparicio PA-C - Last Filed: 11/18/22 23:00> Surgical History Surgical History: Surgical History H/O Spinal surgery Hx of brain surgery S/P HOSE SUSPENDER CUTTER shunt <Pao Aparicio PA-C - Last Filed: 11/18/22 23:00> Family History Family History: Family History Father Family history of diabetes mellitus in first degree relative Diabetes mellitus <Pao Aparicio PA-C - Last Filed: 11/18/22 23:00> Social History Social History: Social History Social History: The patient is disabled. She lives with her mother. She can ambulate with a walker or otherwise uses a wheelchair. Smoking status: Never smoker Second hand tobacco smoke exposure: No Alcohol intake: never Substance use: never Lack of Transportation: No Lack of Food: Never True Current Housing: I Have Housing Concerned About Future Housing: No Difficulty Paying Gas/Electric Bills: YES Difficulty Paying for Meds: No Currently Unemployed: No Education: High School Dipl
[2022-11-18 21:13] LABS: Appearance Urine Clear (Clear); Bilirubin Urine 1+ (Negative); Blood Urine Negative (Negative); Color Urine Amber (Yellow); Glucose Urine UA Negative (Negative); Ketones Urine Trace mg/dL (Negative); Leukocyte Esterase Ur Negative LEU/UL (Negative); Nitrate Urine Negative (Negative); Protein Urine Negative (Negative); Specific Grav Ur 1.015 (1.001-1.035)
[2022-11-18] MEDS: DIVALPROEX SODIUM ER 500 MG TAB.24H 1000 MG PO (21:28)
[2022-11-18 21:32] LABS: Mucus Urine Rare /lpf; RBC Urine 0-2 /hpf (0-2); WBC Urine 0-3 /hpf
[2022-11-18 21:36] LABS: Add Urine Microscopic? YES
--- NOTE | 2022-11-18 22:46 | PM.IMHP ---
H&P: HPI History of Present Illness Date/Time: 11/18/22 22:46 Chief Complaint: Generalized weakness Narrative: This is a 47-year-old female with past medical history significant for hydrocephalus, a lesvia of corpus callosum, epilepsy, hypothyroidism, PATIENT SERVICE SPECIALIST shunt in place. Patient recently treated at [facility] for altered mental status discharge to rehabilitation facility from which she was discharged home however according to mother patient has been very weak and has fallen at home she was brought to the emergency room for evaluation. Patient is unable to give any history. Preliminary workup was significant for CT of the abdomen and pelvis was reported as: FINDINGS: Tree-in-bud opacities at the basilar left lower lobe consistent with pneumonia. Right lung bases clear. Heart size is normal. No pericardial or pleural effusion. Small sliding-type hiatal hernia containing a small amount of ascites. Liver, gallbladder, spleen, pancreas, bilateral adrenal glands and kidneys are normal. Again seen is a ventriculoperitoneal shunt which is coiled in the deep pelvis where there is an additional small amount of ascites. Bowels including the appendix are normal. Bladder is normal. 1.6 cm uterine fibroid. No abscess or free intraperitoneal gas. No pathologically enlarged abdominal or pelvic lymphadenopathy. Again seen is a 5.2 x 4.7 x 2.1 cm lipoma at the left lateral abdominal wall along the infracostal margin. No evident retroperitoneal or body wall hematoma. Moderate lumbar and lower thoracic spondylosis. Chronic T10 compression fracture. IMPRESSION: 1. No evident hematoma or acute intra-abdominal/pelvic process. 2. Ventriculoperitoneal shunt with small amount of ascites in the deep pelvis as well as along side a small sliding-type hiatal hernia. Patient is been admitted for further evaluation management and treatment. Review of Systems Review of Systems: ROS unobtainable: Yes unobtainable due to medical condition (Intellectual disability) and unobtainable due to mental status (Obtundation) [facility] Past Medical History Medical History (Updated 11/19/22 @ 00:27 by Vanessa Horton MD) Agenesis of corpus callosum Congenital hydrocephalus, unspecified Esophageal reflux disease Other epilepsy, not intractable, with status epilepticus Pure hypercholesterolemia Surgical History Surgical History H/O Spinal surgery Hx of brain surgery S/P PATIENT SERVICE SPECIALIST shunt Family History Family History Father Family history of diabetes mellitus in first degree relative Diabetes mellitus Social History Social History Social History: The patient is disabled. She lives with her mother. She can ambulate with a walker or otherwise uses a wheelchair. Smoking status: Never smoker Second hand tobacco smoke exposure: No Alcohol intake: never Substance use: never Lack of Transportation: No Lack of Food: Never True Current Housing: I Have Housing Concerned About Future Housing: No Difficulty Paying Gas/Electric Bills: YES Difficulty Paying for Meds: No Currently Unemployed: No Education: High School Diploma/GED Difficulty w/ Childcare or Family Care: No Spiritual care concerns: No Meds Home Medications and Allergies Home Medications Medication Instructions Recorded Confirmed Type loratadine 10 mg tablet 10 mg PO DAILY #30 tabs 06/04/20 11/19/22 Rx omega-3 fatty acids 1,000 mg 1,000 mg PO DAILY 01/15/21 11/19/22 History capsule (Fish Oil Concentrate) levothyroxine 50 mcg tablet 50 mcg PO DAILY #90 tabs 06/18/22 11/19/22 Rx mecobalamin (vitamin B12) 1,000 1,000 mcg PO DAILY 08/22/22 11/19/22 History mcg chewable tablet (B12 Active) atorvastatin 20 mg tablet 20 mg PO DAILY #90 tabs 09/16/22 11/19/22 Rx carbamazepine 200 mg tablet 200 mg PO .COMPLEX #
[2022-11-18 22:58] LABS: Valproic Acid 128.8 ug/mL (50-120)
[2022-11-18 23:41] VITALS: PULSE 104; RESP 20; O2SAT 95
[2022-11-18 23:44] LABS: Influenza A QL RT-PCR Negative (Negative); Influenza B QL RT-PCR Negative (Negative); SARS-CoV-2 RNA PCR Negative
[2022-11-19] VITALS (8 sets, daily range): BP systolic 86–102; BP diastolic 50–64; PULSE 102–108; RESP 16–22; TEMP 37–38.8; O2SAT 97–99
--- NOTE | 2022-11-19 00:25 | PC.NURSE ---
Patient arrived on 3 Med-Surg at 00:26 on 11/19/2022
[2022-11-19] MEDS: DIVALPROEX SODIUM DR 250 MG TABEC 1000 MG PO (05:43)
[2022-11-19] MEDS: carBAMazepine 200 MG TABLET 600 MG PO (05:43)
[2022-11-19] MEDS: LEVOTHYROXINE SODIUM 50 MCG TABLET PO (05:44)
[2022-11-19] MEDS: ENOXAPARIN 40 MG/0.4 ML SYRINGE SUB-Q (08:01)
--- NOTE | 2022-11-19 09:15 | PM.IMPN ---
Progress Note: A&P Assessment and Plan (1) Pneumonia: Code(s): J18.9 - Pneumonia, unspecified organism Status: Acute Assessment and Plan: Chest xray indicated PNA Initially started on vanc, cefepime, and azithomycin Allergic reaction noted with vanco, DC'd at this time Changed to ceftriaxone and vanco WBC stable at 4.8 Could be a HCAP as she was just released from rehab Sputum culture if able Blood cultures (2) Seizure disorder: Code(s): G40.909 - Epilepsy, unspecified, not intractable, without status epilepticus Status: Acute Assessment and Plan: arrived with complaints of unresponsive behavior and confusion valproic acid level 128.8, carbamazepine pending neurology consulted concern for absence seizures this time as patient does seem to be going in an out Continue anti seizure medications Continue to monitor (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 - Congenital malformations of corpus callosum Status: Acute Assessment and Plan: Unchanged (4) Congenital hydrocephalus, unspecified: Code(s): Q03.9 - Congenital hydrocephalus, unspecified Status: Acute Assessment and Plan: Status post EXPLOSIVE OPERATOR BOMB shunt (5) Intellectual developmental disorder, profound: Code(s): F73 - Profound intellectual disabilities Status: Acute Assessment and Plan: Supportive care chronic stable Time Spent With Patient Time: 52 minutes Time with patient: Greater than 35 minutes Subjective Date/time seen: 11/19/22 09:15 Interval history: 11/19/2215 Patient was lying in bed. Patient was responsive and answering questions. Patient can follow commands. Mother was also in the room. Mother stated that the patient was just very unresponsive yesterday, She did not know who the mother was or what was going on. While in the room the patient was able to answer all the mother's questions including her name, date of , location, and situation. Patient has not been eating and has been extremely weak. Patient has also had notable cough. Mother also stated that the patient has been having some delayed responses. The mother also knows that the patient will eat however it takes her really long time to swallow. She stated that she will take very small sips of water or fluids and when she takes big steps it takes her quite a long time to swallow it before she fully swallows. patient denies any current pain, nausea, vomiting, diarrhea constipation. She does have some pleuritic chest pain when you push on her chest. She denies any shortness of breath. She does have a cough that is productive however will not spit out the sputum. Last bowel movement was Thursday. Was called back by the nurse around 12:30 for evaluation of red man syndrome and possible absence seizures. Patient did respond somewhat however her eyes were rolling in the back of her head and she does seem not to be able to hold her head up. She denies being tired. Will give her 1 dose of Ativan once. Also gave her 50 of Benadryl and famotidine for the allergic reaction. Vancomycin has been DC at this time 11/18/22? 22:46 This is a 47-year-old female with past medical history significant for hydrocephalus, a lesvia of corpus callosum, epilepsy, hypothyroidism, EXPLOSIVE OPERATOR BOMB shunt in place.? Patient recently treated at [facility] for altered mental status discharge to rehabilitation facility from which she was discharged home however according to mother patient has been very weak and has fallen at home she was brought to the emergency room for evaluation.? Patient is unable to give any history.? Review of Systems Review of Systems: ROS unobtainable: Yes unobtainable due to medical condition (Intellectual disability) and unobtainable due to mental status (Obtundation) Exam Narrative: General: well-nourished, ill-
[2022-11-19] MEDS: FERROUS SULFATE 324 MG TABLET PO (09:56)
[2022-11-19] MEDS: LORATADINE 10 MG TABLET PO (09:56)
[2022-11-19] MEDS: ATORVASTATIN 20 MG TABLET PO (09:56)
[2022-11-19] MEDS: CYANOCOBALAMIN 1,000 MCG TABLET 1000 MCG PO (09:56)
[2022-11-19] MEDS: PANTOPRAZOLE 40 MG TABLET PO (09:57)
[2022-11-19] MEDS: OMEGA 3 POLYUNSAT FATTY ACIDS 1 GM CAP PO (09:57)
[2022-11-19 11:19] LABS: Basophils Percent Auto 0.4 % (0.2-1.2); Hemoglobin 13.2 g/dL (12.0-15.0); Immature Granulocyte Absolute 0.06 K/mm3 (0.00-0.031); Immature Granulocyte Percent A 1.2 % (0-0.5); Immature Platelet Fraction Pct 5.8 % (0.9-11.2); Lymphocytes Absolute Auto 0.45 K/mm3 (0.9-3.2); Lymphocytes Percent Auto 9.3 % (18.3-44.2); Mean Corpuscular Hemoglobin 33.2 pg (26-34); Mean Corpuscular Volume 100.8 fl (80-100); Mean Platelet Volume 9.9 fl (7.4-10.4); Monocytes Absolute Auto 0.1 K/mm3 (0.1-0.6); Monocytes Percent Auto 1.9 % (2.6-8.5); Neutrophils Absolute Auto 4.2 K/mm3 (1.3-6.7); Neutrophils Percent Auto 87.2 % (45.5-73.1); Platelet Count Result 110 k/mm3 (150-375); Red Blood Count 3.97 M/mm3 (4.2-5.4); Red Cell Distribution Width 15.3 % (11.5-14.5); White Blood Count 4.8 K/mm3 (4.5-10.0)
[2022-11-19 11:27] LABS: Alanine Aminotransferase 12 U/L (6-35); Albumin Level 3.3 g/dL (3.5-5.1); Alkaline Phosphatase 90 U/L (38-126); Anion Gap 5 mmol/L (8-16); Aspartate Amino Transferase 28 U/L (14-36); Bilirubin,Total 0.5 mg/dL (0.2-1.3); Blood Urea Nitrogen 13 mg/dL (7-17); Calcium 8.9 mg/dL (8.4-10.2); Carbon Dioxide 33 mmol/L (22-30); Chloride 94 mmol/L (98-107); Estimated CRCL calculation 73 ml/min; Estimated Glomerular Filt Rate > 60; Glucose 83 mg/dL (65-110); Magnesium 1.7 mg/dL (1.6-2.3); Potassium 4.2 mmol/L (3.4-5.0); Sodium 132 mmol/L (137-145)
[2022-11-19] MEDS: carBAMazepine 200 MG TABLET 400 MG PO (11:57)
[2022-11-19] MEDS: ACETAMINOPHEN 325 MG TABLET 650 MG BY MOUTH (12:24)
[2022-11-19] MEDS: LORazepam INJ (*CRX) 2 MG/ML VIAL 0.5 MG IV PUSH (12:46)
[2022-11-19] MEDS: diphenhydrAMINE HCl INJ 50 MG/ML VIAL IV PUSH (12:50)
--- NOTE | 2022-11-19 13:01 | WPDNEURCNPN ---
Assessment and Plan Assessment and plan (1) Agenesis of corpus callosum: Code(s): Q04.0 - Congenital malformations of corpus callosum Status: Acute (2) Intellectual disability: Code(s): F79 - Unspecified intellectual disabilities Status: Acute (3) Seizure disorder: Code(s): G40.909 - Epilepsy, unspecified, not intractable, without status epilepticus Status: Acute (4) Congenital hydrocephalus, unspecified: Code(s): Q03.9 - Congenital hydrocephalus, unspecified Status: Acute Plan 1 static brain lesion that is agenesis of corpus callosum and status post shunt for the hydrocephalus 2. Intractable seizure disorder 3. High valproic acid level which will be held to improve the drowsiness and also will obtain the EEG to rule out the possibility of epilepsy continuum Consult date: 11/19/22 HPI: Christi Azevedo is a 47 year old female for the complaints of change in the mental status with inability to walk or talk and the long-term history of agenesis of the corpus callosum with congenital hydrocephalus for which she has undergone the placement of CLINICAL LAW PROFESSOR shunt and residual seizure disorder which are rather intractable with frequent change in the mental status she does have ongoing history of frequent UTI and during her previous hospitalization was treated accordingly and then transferred to the rehab facility from where she was discharged only a week ago reportedly she was not eating or drinking as usual and was becoming increasingly lethargic mother had specific difficulties in helping with the ADLs. Her outpatient medications included anticonvulsants in addition she has multiple allergies particularly including zonisamide anticonvulsant she does have a history of esophageal reflex disease as well has undergone spinal surgery brain surgery CLINICAL LAW PROFESSOR shunt she is obviously never a smoker never alcohol intaker, her initial evaluation revealed blood pressure 155/81 otherwise she was afebrile and her CBC was normal so as the electrolytes except the borderline sodium of 136 UA was negative and her valproic acid level was 128.8 serology for influenza AB and stars were negative initial CT of the abdomen and pelvis with contrast was negative for hematoma and ventriculoperitoneal shunt with a small amount of ascites in the deep pelvis was noted, CT scan of the head documented agenesis of the corpus callosum with no change in right parietal ventricular shunt and x-ray chest was read as tree in bud opacities at the basilar left lower lobe consistent with the pneumonia Review of Systems Review of Systems: All systems reviewed & are unremarkable except as noted in HPI and below PMFSH Past Medical History Medical History (Updated 11/19/22 @ 00:27 by Vanessa Horton MD) Agenesis of corpus callosum Congenital hydrocephalus, unspecified Esophageal reflux disease Other epilepsy, not intractable, with status epilepticus Pure hypercholesterolemia Surgical History Surgical History H/O Spinal surgery Hx of brain surgery S/P CLINICAL LAW PROFESSOR shunt Family History Family History Father Family history of diabetes mellitus in first degree relative Diabetes mellitus Social History Social History Social History: The patient is disabled. She lives with her mother. She can ambulate with a walker or otherwise uses a wheelchair. Smoking status: Never smoker Second hand tobacco smoke exposure: No Alcohol intake: never Substance use: never Lack of Transportation: No Lack of Food: Never True Current Housing: I Have Housing Concerned About Future Housing: No Difficulty Paying Gas/Electric Bills: YES Difficulty Paying for Meds: No Currently Unemployed: No Education: High School Diploma/GED Difficulty w/ Childcare or Family Care: No Spiritual
--- NOTE | 2022-11-19 14:00 | PCSTNOTE ---
Bedside Evaluation not to be completed today as nurse reports patient is too lethargic to safely participate. Will attempt in the morning.
[2022-11-19] MEDS: MAGNESIUM SULF 2 GM/WATER 50ML 2 GM/50 ML BAG IVPB (14:03)
--- NOTE | 2022-11-19 14:06 | PC.NURSE ---
1215 Patient skin red and warm to touch temp 101.9. Karine turned off and Singh Harper NUTRITION PROGRAM INSTRUCTOR notified. Karine added to allergy list
--- NOTE | 2022-11-19 14:11 | PC.NURSE ---
1230 Pt having periods where her eyes rolling back in head and moments where she is out. Singh Harper PERSONALIZED LIVING MANAGER NURSE notified he is coming up to see patient.
--- NOTE | 2022-11-19 14:13 | PC.NURSE ---
1413 Singh Harper ALKYLATION OPERATOR notified of bp 86/64, pt arouses to name, will monitor.
--- NOTE | 2022-11-19 14:15 | PCOTNOTE ---
Attempted to see patient for OT evaluation. RN reporting that the patient had a seizure today and that it would be more appropriate to try her tomorrow. Will continue to attempt.
[2022-11-19] MEDS: FAMOTIDINE 20 MG/2 ML VIAL IV PUSH (14:43)
[2022-11-19] MEDS: LACTATED RINGERS 500 ML 999 ML IV CONT (15:49)
--- NOTE | 2022-11-19 17:12 | PC.NURSE ---
Dr Robb notified of pt having seizure activity earlier and ativan given. notified of pt unable to take po dinner seizure meds and is lethargicfrom iv ativan and benadryl.
[2022-11-19] MEDS: VALPROIC ACID INJ 500 MG in DEXTROSE 5% 100 ML 105 MG IVPB (23:41)
[2022-11-20 04:15] VITALS: BP 90/64; PULSE 104; RESP 16; TEMP 37.2; O2SAT 100
[2022-11-20 05:15] VITALS: BP 94/64
[2022-11-20] MEDS: VALPROIC ACID INJ 500 MG in DEXTROSE 5% 100 ML 105 MG IVPB (05:37)
[2022-11-20 06:07] LABS: Hematocrit 35.7 % (37.0-47.0); Hemoglobin 11.9 g/dL (12.0-15.0); Immature Platelet Fraction Pct 5.2 % (0.9-11.2); Mean Corpuscular HGB Conc 33.3 g/dl (32-36); Mean Corpuscular Hemoglobin 33.2 pg (26-34); Mean Corpuscular Volume 99.7 fl (80-100); Mean Platelet Volume 10.2 fl (7.4-10.4); Platelet Count Result 86 k/mm3 (150-375); Red Blood Count 3.58 M/mm3 (4.2-5.4); Red Cell Distribution Width 15.1 % (11.5-14.5)
[2022-11-20 06:22] LABS: Alanine Aminotransferase 11 U/L (6-35); Albumin Level 2.7 g/dL (3.5-5.1); Alkaline Phosphatase 56 U/L (38-126); Anion Gap 1 mmol/L (8-16); Aspartate Amino Transferase 28 U/L (14-36); Bilirubin,Total 0.5 mg/dL (0.2-1.3); Blood Urea Nitrogen 16 mg/dL (7-17); Calcium 7.9 mg/dL (8.4-10.2); Carbon Dioxide 31 mmol/L (22-30); Chloride 96 mmol/L (98-107); Estimated CRCL calculation 63 ml/min; Estimated Glomerular Filt Rate > 60; Glucose 74 mg/dL (65-110); Magnesium 2.3 mg/dL (1.6-2.3); Potassium 4.2 mmol/L (3.4-5.0); Sodium 128 mmol/L (137-145)
[2022-11-20 06:52] LABS: Band Neutrophils Percent 27 % (0-6); Hypochromasia 2+ (NORMAL); Lymphocytes Absolute Manual 0.52 K/mm3 (1.1-4.5); Monocytes Absolute Manual 0.12 K/mm3 (0.1-0.90); Monocytes Percent Manual 3 % (3-9); Neutrophils Absolute Manual 3.36 K/mm3 (1.7-7.2); Neutrophils Percent Manual 57 % (46-73); Schistocytes None Seen (NORMAL); Total Cells Counted 100
--- NOTE | 2022-11-20 09:08 | PCSTNOTE ---
Please refer to the Bedside Swallow Evaluation in the EMR. Please note, silent aspiration cannot be ruled out at bedside.
--- NOTE | 2022-11-20 09:15 | PM.IMPN ---
Progress Note: A&P Assessment and Plan (1) Pneumonia: Code(s): J18.9 - Pneumonia, unspecified organism Status: Acute Assessment and Plan: Chest xray indicated PNA Initially started on vanc, cefepime, and azithomycin Allergic reaction noted with vanco, DC'd at this time Changed to ceftriaxone and vanco WBC stable at 4.0 Could be a HCAP as she was just released from rehab Sputum culture if able Blood cultures (2) Seizure disorder: Code(s): G40.909 - Epilepsy, unspecified, not intractable, without status epilepticus Status: Acute Assessment and Plan: arrived with complaints of unresponsive behavior and confusion valproic acid level 128.8, carbamazepine pending 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 - Congenital malformations of corpus callosum Status: Acute Assessment and Plan: Unchanged (4) Congenital hydrocephalus, unspecified: Code(s): Q03.9 - Congenital hydrocephalus, unspecified Status: Acute Assessment and Plan: Status post LOCK UP WORKER shunt (5) Intellectual developmental disorder, profound: Code(s): F73 - Profound intellectual disabilities Status: Acute Assessment and Plan: Supportive care chronic stable Plan spoke with the mother about plan of care, and updated her on current care Time Spent With Patient Time: 52 minutes Time with patient: Greater than 35 minutes Subjective Date/time seen: 11/20/22914 Interval history: 11/20/22914 Patient seems to be doing well today. She did answer all of my questions and alert oriented. She did know where she was but she knew her name, date of , her mom's name, and the year. She did eat most of her breakfast and swallowed fine. Dominique came did the study today and stated that she was okay. Currently patient denies any chest pain, shortness a breath, nausea, vomiting, diarrhea or constipation. Patient does seem to feel better and is talking a lot better. 11/19/22914 Patient was lying in bed. Patient was responsive and answering questions. Patient can follow commands. Mother was also in the room. Mother stated that the patient was just very unresponsive yesterday, She did not know who the mother was or what was going on. While in the room the patient was able to answer all the mother's questions including her name, date of , location, and situation. Patient has not been eating and has been extremely weak. Patient has also had notable cough. Mother also stated that the patient has been having some delayed responses. The mother also knows that the patient will eat however it takes her really long time to swallow. She stated that she will take very small sips of water or fluids and when she takes big steps it takes her quite a long time to swallow it before she fully swallows. patient denies any current pain, nausea, vomiting, diarrhea constipation. She does have some pleuritic chest pain when you push on her chest. She denies any shortness of breath. She does have a cough that is productive however will not spit out the sputum. Last bowel movement was Thursday. Was called back by the nurse around 12:30 for evaluation of red man syndrome and possible absence seizures. Patient did respond somewhat however her eyes were rolling in the back of her head and she does seem not to be able to hold her head up. She denies being tired. Will give her 1 dose of Ativan once. Also gave her 50 of Benadryl and famotidine for the estephanie
--- NOTE | 2022-11-20 09:15 | P.PNIM_ITS ---
Progress Note: A&P Assessment and Plan (1) Pneumonia: Code(s): J18.9 - Pneumonia, unspecified organism Status: Acute Assessment and Plan: * Chest xray indicated PNA * Initially started on vanc, cefepime, and azithomycin * Allergic reaction noted with vanco, DC'd at this time * Changed to ceftriaxone and vanco * WBC stable at 4.0 * Could be a HCAP as she was just released from rehab * Sputum culture if able * Blood cultures (2) Seizure disorder: Code(s): G40.909 - Epilepsy, unspecified, not intractable, without status epilepticus Status: Acute Assessment and Plan: * arrived with complaints of unresponsive behavior and confusion * valproic acid level 128.8, carbamazepine pending 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 - Congenital malformations of corpus callosum Status: Acute Assessment and Plan: * Unchanged (4) Congenital hydrocephalus, unspecified: Code(s): Q03.9 - Congenital hydrocephalus, unspecified Status: Acute Assessment and Plan: * Status post AGENT shunt (5) Intellectual developmental disorder, profound: Code(s): F73 - Profound intellectual disabilities Status: Acute Assessment and Plan: * Supportive care * chronic * stable Plan spoke with the mother about plan of care, and updated her on current care Time Spent With Patient Time: 52 minutes Time with patient: Greater than 35 minutes Subjective Date/time seen: 11/20/22914 Interval history: 11/20/22914 Patient seems to be doing well today. She did answer all of my questions and alert oriented. She did know where she was but she knew her name, date of , her mom's name, and the year. She did eat most of her breakfast and swallowed fine. Dominique came did the study today and stated that she was okay. Currently patient denies any chest pain, shortness a breath, nausea, vomiting, diarrhea or constipation. Patient does seem to feel better and is talking a lot better. 11/19/22 [id number] Patient was lying in bed. Patient was responsive and answering questions. Patient can follow commands. Mother was also in the room. Mother stated that the patient was just very unresponsive yesterday, She did not know who the mother was or what was going on. While in the room the patient was able to answer all the mother's questions including her name, date of , location, and situation. Patient has not been eating and has been extremely weak. Patient has also had notable cough. Mother also stated that the patient has been having some delayed responses. The mother also knows that the patient will eat however it takes her really long time to swallow. She stated that she will take very small sips of water or fluids and when she takes big steps it takes her quite a long time to swallow it before she fully swallows. patient denies any current pain, nausea, vomiting, diarrhea constipation. She does have some pleuritic chest pain when you push on her chest. She denies a
[2022-11-20] MEDS: LORATADINE 10 MG TABLET PO (09:40)
[2022-11-20] MEDS: CYANOCOBALAMIN 1,000 MCG TABLET 1000 MCG PO (09:40)
[2022-11-20] MEDS: OMEGA 3 POLYUNSAT FATTY ACIDS 1 GM CAP PO (09:40)
[2022-11-20] MEDS: ATORVASTATIN 20 MG TABLET PO (09:40)
[2022-11-20] MEDS: FERROUS SULFATE 324 MG TABLET PO ×2 (09:41→17:45)
[2022-11-20] MEDS: PANTOPRAZOLE 40 MG TABLET PO ×2 (09:41→17:44)
[2022-11-20] MEDS: SODIUM CHLORIDE 0.9% IV 1,000 ML 75 ML IV CONT ×2 (09:53→23:44)
--- NOTE | 2022-11-20 10:08 | WPDNEUROLOGY ---
Neurology EEG Report General Information Date of Study: 11/20/22 TEST eeg DIAGNOSIS Altered mental status CONDITION OF RECORDING drowsy EEG NUMBER [id number] CLINICAL HISTORY patient is mentally challenged and physically handicapped was unable to give any history. EEG DESCRIPTION Old record consists of low to medium voltage 1 to 2 hertz per 2nd delta activity admixed with poorly organized low voltage 15 to 18 hertz per 2nd beta activity. There is no mark posterior gradient. Hyperventilation not done. Photic stimulation not done. Non paroxysmal. Nonfocal. Nonlateralizing. IMPRESSION Abnormal record due to the absence of the normal background rhythm and bihemispheric slow activity but there is no evidence of any paroxysmal activity throughout the tracing. Clinical correlation recommended this tracing could be compatible with either postictal status or bihemispheric dysfunction
[2022-11-20 11:56] LABS: NT Pro B Type Natriuretic Pept 589 pg/mL (19.9-100)
--- NOTE | 2022-11-20 11:58 | WPDNEUROPN ---
Subjective Date/time seen: 11/20/22 11:58 Interval history: 47 years old female admitted to the hospital for the 1. Agenesis of the corpus callosum 2. Intellectual disability 3. Seizure disorder 4. Congenital hydrocephalus 5. History of shunt in the past and 6. Excessive drowsiness and sleepiness raising the possibility of recurrent seizures versus drug above therapeutic level, evaluation up until now had documented her to have mild hyponatremia with glucose of 134, calcium 7.9 with BNP of 589 and albumin only 2.7 with total protein of 5.0, valproic acid 128.8 on November 18, 2022 compared to 68.4 in September of 2022, subsequent to the documentation of above therapeutic range of valproic acid level her nighttime dosage was decreased from 1000 to 500 mg of valproic acid this morning she is awake alert able to follow all the verbal commands appropriately her mother happened to be in the room at the bedside was only concern about her difficulties in ambulation with weakness in the lower extremities but patient has ongoing physical therapy 3 times a week at home which can be continued and she can be observed for another 24 to 48 hours before she is discharged on the present anticonvulsant Objective Data Vital Signs Vital Signs: Vital Signs - 24 hr 11/19/22 12:24 11/19/22 14:51 11/19/22 16:22 Temperature 38.8 C H 37.3 C Pulse Rate 108 H Respiratory Rate 22 H Blood Pressure 86/57 L 90/50 L Pulse Oximetry 97 Oxygen Delivery 11/19/22 17:10 11/19/22 17:57 11/19/22 21:17 Temperature 37.3 C Pulse Rate 102 H Respiratory Rate 16 Blood Pressure 92/64 L 98/64 L 90/55 L Pulse Oximetry 99 Oxygen Delivery 11/19/22 20:00 11/20/22 04:15 11/20/22 05:15 Temperature 37.2 C Pulse Rate 104 H Respiratory Rate 16 Blood Pressure 90/64 L 94/64 L Pulse Oximetry 100 Oxygen Delivery Room Air Intake/Output Intake/Output: Intake & Output 11/17/22 11/18/22 11/19/22 11/20/22 23:59 23:59 23:59 23:59 Intake Total 520 341 Balance 520 341 Meds/Results Medications: Active Medications Generic Name Dose Route Start Last Admin Trade Name Freq PRN Reason Stop Dose Admin Acetaminophen 650 mg 11/19/22 02:54 11/19/22 12:24 Acetaminophen 325 Mg Tablet BY MOUTH 650 mg Q6H PRN Administration Pain Rated 1-3 Atorvastatin Calcium 20 mg 11/19/22 09:00 11/20/22 09:40 Atorvastatin 20 Mg Tablet PO 20 mg DAILY ISAEL Administration Carbamazepine 600 mg 11/19/22 06:30 11/20/22 05:33 Carbamazepine 200 Mg Tablet PO Not Given 0630,2130 [facility] Carbamazepine 400 mg 11/19/22 11:30 11/19/22 17:13 Carbamazepine 200 Mg Tablet PO Not Given 1130,1630 [facility] Cyanocobalamin 1,000 mcg 11/19/22 09:00 11/20/22 09:40 Cyanocobalamin 1,000 Mcg Tablet PO 1,000 mcg QAM ISAEL Administration Divalproex Sodium 1,000 mg 11/19/22 06:30 11/19/22 17:[address] 250 Mg Tabec PO Not Given 0630,1630 [facility] Divalproex Sodium 1,000 mg 11/19/22 21:30 11/19/22 22:[address] 250 Mg Tabec PO Not Given 2130 [facility] Ferrous Sulfate 324 mg 11/19/22 08:00 11/20/22 09:41 Ferrous Sulfate 324 Mg Tablet PO 324 mg BIDWM ISAEL Administration Fish Oil 1 gm 11/19/22 09:00 11/20/22 09:40 [place] 3 Polyunsat Fatty Acids 1 Gm Cap PO 1 gm DAILY ISAEL Administration Azithromycin 500 mg in 250 mls @ 250 mls/hr 11/20/22 02:00 11/20/22 02:31 Zithromax IVPB 250 mls/hr Q24H ISAEL Administration Ceftriaxone Sodium/Dextrose 1 gm in 50 mls @ 100 mls/hr 11/19/22 14:00 11/19/22 15:28 Rocephin 1 Gm/D5w 50 Ml IVPB Infused Q24H ISAEL Infusion Sodium Chloride 1,000 mls @ 75 mls/hr 11/20/22 08:50 11/20/22 09:53 Normal Saline Iv IV CONT 75 mls/hr .[id number] ISAEL Administration Levothyroxine Sodium 50 mcg 11/19/22 06:30 11/20/22 05:33 Levothyroxine Sodium 50 Mcg Tablet PO Not Given DAILY@0630 [facility] Loratadine 10 mg 11/19/22 09:00 02
[2022-11-20] MEDS: carBAMazepine 200 MG TABLET 400 MG PO ×2 (12:30→17:44)
[2022-11-20 13:35] VITALS: BP 98/56; PULSE 79; RESP 18; TEMP 36.8; O2SAT 100
[2022-11-20] MEDS: DIVALPROEX SODIUM DR 250 MG TABEC 1000 MG PO ×2 (17:44→21:33)
[2022-11-20 20:00] VITALS: RESP 18; O2SAT 100
[2022-11-20] MEDS: carBAMazepine 200 MG TABLET 600 MG PO (21:33)
[2022-11-20 22:00] VITALS: BP 98/43; PULSE 57; RESP 14; TEMP 36.8; O2SAT 98
[2022-11-21] MEDS: carBAMazepine 200 MG TABLET 600 MG PO ×2 (05:35→23:11)
[2022-11-21] MEDS: DIVALPROEX SODIUM DR 250 MG TABEC 1000 MG PO ×2 (05:35→16:01)
[2022-11-21] MEDS: LEVOTHYROXINE SODIUM 50 MCG TABLET PO (05:36)
[2022-11-21 06:00] VITALS: BP 94/57; PULSE 80; RESP 16; TEMP 36.6; O2SAT 92
[2022-11-21 06:38] LABS: Basophils Percent Auto 0.6 % (0.2-1.2); Hematocrit 33.1 % (37.0-47.0); Hemoglobin 10.9 g/dL (12.0-15.0); Immature Granulocyte Absolute 0.04 K/mm3 (0.00-0.031); Immature Granulocyte Percent A 1.3 % (0-0.5); Immature Platelet Fraction Pct 6.1 % (0.9-11.2); Lymphocytes Absolute Auto 1.25 K/mm3 (0.9-3.2); Lymphocytes Percent Auto 40.6 % (18.3-44.2); Mean Corpuscular HGB Conc 32.9 g/dl (32-36); Mean Corpuscular Hemoglobin 32.6 pg (26-34); Mean Corpuscular Volume 99.1 fl (80-100); Monocytes Absolute Auto 0.3 K/mm3 (0.1-0.6); Neutrophils Absolute Auto 1.4 K/mm3 (1.3-6.7); Neutrophils Percent Auto 45.5 % (45.5-73.1); Platelet Count Result 64 k/mm3 (150-375); Red Blood Count 3.34 M/mm3 (4.2-5.4); Red Cell Distribution Width 14.7 % (11.5-14.5); White Blood Count 3.1 K/mm3 (4.5-10.0)
[2022-11-21 06:48] LABS: Alanine Aminotransferase 14 U/L (6-35); Albumin Level 2.7 g/dL (3.5-5.1); Alkaline Phosphatase 48 U/L (38-126); Anion Gap 2 mmol/L (8-16); Aspartate Amino Transferase 45 U/L (14-36); Bilirubin,Total 0.4 mg/dL (0.2-1.3); Blood Urea Nitrogen 14 mg/dL (7-17); Calcium 7.9 mg/dL (8.4-10.2); Carbon Dioxide 30 mmol/L (22-30); Chloride 101 mmol/L (98-107); Estimated CRCL calculation 86 ml/min; Estimated Glomerular Filt Rate > 60; Glucose 75 mg/dL (65-110); Potassium 4.4 mmol/L (3.4-5.0); Sodium 133 mmol/L (137-145)
[2022-11-21] MEDS: OMEGA 3 POLYUNSAT FATTY ACIDS 1 GM CAP PO (08:43)
[2022-11-21] MEDS: ATORVASTATIN 20 MG TABLET PO (08:43)
[2022-11-21] MEDS: PANTOPRAZOLE 40 MG TABLET PO ×2 (08:43→16:02)
[2022-11-21] MEDS: ACETAMINOPHEN 325 MG TABLET 650 MG BY MOUTH (08:43)
[2022-11-21] MEDS: CYANOCOBALAMIN 1,000 MCG TABLET 1000 MCG PO (08:43)
[2022-11-21] MEDS: LORATADINE 10 MG TABLET PO (08:44)
[2022-11-21] MEDS: FERROUS SULFATE 324 MG TABLET PO ×2 (08:44→16:02)
--- NOTE | 2022-11-21 10:30 | P.PNIM_ITS ---
Progress Note: A&P Assessment and Plan (1) Pneumonia: Code(s): J18.9 - Pneumonia, unspecified organism Status: Acute Assessment and Plan: * Chest xray indicated PNA * Initially started on vanc, cefepime, and azithomycin * Allergic reaction noted with vanco, DC'd at this time * Changed to ceftriaxone and vanco * WBC stable at 3.1 * Could be a HCAP as she was just released from rehab * Sputum culture if able * Blood cultures (2) Seizure disorder: Code(s): G40.909 - Epilepsy, unspecified, not intractable, without status epilepticus Status: Acute Assessment and Plan: * arrived with complaints of unresponsive behavior and confusion * valproic acid level 128.8, carbamazepine pending 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 - Congenital malformations of corpus callosum Status: Acute Assessment and Plan: * Unchanged (4) Congenital hydrocephalus, unspecified: Code(s): Q03.9 - Congenital hydrocephalus, unspecified Status: Acute Assessment and Plan: * Status post TITLE VEHICLE SERVICE ATTENDANT shunt (5) Intellectual developmental disorder, profound: Code(s): F73 - Profound intellectual disabilities Status: Acute Assessment and Plan: * Supportive care * chronic * stable Plan spoke with the mother about plan of care, and updated her on current care in great depth concern for further mental status changes Time Spent With Patient Time: 54 minutes Time with patient: Greater than 35 minutes Subjective Date/time seen: 11/21/22 1030 Interval history: 11/21/22 103 Patient is very lethargic and only responds minimally. She denies any chest pain, She does appear to be confused. Dr. Robb is going to get other labs. Mom think that the patient is off from her baseline. PT did get the patient up and to the chair. 11/20/22 0915 Patient seems to be doing well today. She did answer all of my questions and alert oriented. She did know where she was but she knew her name, date of , her mom's name, and the year. She did eat most of her breakfast and swallowed fine. Dominique robert did the study today and stated that she was okay. Currently patient denies any chest pain, shortness a breath, nausea, vomiting, diarrhea or constipation. Patient does seem to feel better and is talking a lot better. 11/19/22 0915 Patient was lying in bed. Patient was responsive and answering questions. Patient can follow commands. Mother was also in the room. Mother stated that the patient was just very unresponsive yesterday, She did not know who the mother was or what was going on. While in the room the patient was able to answer all the mother's questions including her name, date of , location, and situation. Patient has not been eating and has been extremely weak. Patient has also had notable cough. Mother also stated that the patient has been having some delayed responses. The mother also knows that the patient will eat however it takes her r
--- NOTE | 2022-11-21 10:30 | PM.IMPN ---
Progress Note: A&P Assessment and Plan (1) Pneumonia: Code(s): J18.9 - Pneumonia, unspecified organism Status: Acute Assessment and Plan: Chest xray indicated PNA Initially started on vanc, cefepime, and azithomycin Allergic reaction noted with vanco, DC'd at this time Changed to ceftriaxone and vanco WBC stable at 3.1 Could be a HCAP as she was just released from rehab Sputum culture if able Blood cultures (2) Seizure disorder: Code(s): G40.909 - Epilepsy, unspecified, not intractable, without status epilepticus Status: Acute Assessment and Plan: arrived with complaints of unresponsive behavior and confusion valproic acid level 128.8, carbamazepine pending 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 - Congenital malformations of corpus callosum Status: Acute Assessment and Plan: Unchanged (4) Congenital hydrocephalus, unspecified: Code(s): Q03.9 - Congenital hydrocephalus, unspecified Status: Acute Assessment and Plan: Status post TARIFF EXPERT shunt (5) Intellectual developmental disorder, profound: Code(s): F73 - Profound intellectual disabilities Status: Acute Assessment and Plan: Supportive care chronic stable Plan spoke with the mother about plan of care, and updated her on current care in great depth concern for further mental status changes Time Spent With Patient Time: 54 minutes Time with patient: Greater than 35 minutes Subjective Date/time seen: 11/21/221029 Interval history: 11/21/22 103 Patient is very lethargic and only responds minimally. She denies any chest pain, She does appear to be confused. Dr. Robb is going to get other labs. Mom think that the patient is off from her baseline. PT did get the patient up and to the chair. 11/20/22 0915 Patient seems to be doing well today. She did answer all of my questions and alert oriented. She did know where she was but she knew her name, date of , her mom's name, and the year. She did eat most of her breakfast and swallowed fine. Dominique robert did the study today and stated that she was okay. Currently patient denies any chest pain, shortness a breath, nausea, vomiting, diarrhea or constipation. Patient does seem to feel better and is talking a lot better. 11/19/22 0915 Patient was lying in bed. Patient was responsive and answering questions. Patient can follow commands. Mother was also in the room. Mother stated that the patient was just very unresponsive yesterday, She did not know who the mother was or what was going on. While in the room the patient was able to answer all the mother's questions including her name, date of , location, and situation. Patient has not been eating and has been extremely weak. Patient has also had notable cough. Mother also stated that the patient has been having some delayed responses. The mother also knows that the patient will eat however it takes her really long time to swallow. She stated that she will take very small sips of water or fluids and when she takes big steps it takes her quite a long time to swallow it before she fully swallows. patient denies any current pain, nausea, vomiting, diarrhea constipation. She does have some pleuritic chest pain when you push on her chest. She denies any shortness of breath. She does have a cough that is productive however will not spit out the sputum. Last bowel movement was Thursday. Was called back by the nurse delisa
[2022-11-21] MEDS: carBAMazepine 200 MG TABLET 400 MG PO ×2 (11:23→16:02)
[2022-11-21 14:00] VITALS: PULSE 65; RESP 12; TEMP 36.4; O2SAT 100
--- NOTE | 2022-11-21 14:39 | WPDNEUROPN ---
Subjective Date/time seen: 11/21/22 14:39 Interval history: 47 years old with seizure disorder, agenesis of the corpus callosum, congenital hydrocephalus with history of shunt admitted to the hospital for the excessive drowsiness raising the possibility of recurrent seizures but with documented above therapeutic range of valproic acid level vents the dosage was decreased and since that time she has been more awake more alert able to communicate though her basic disability remains the same at present she is taking the medication Exam Narrative: on exam today she is awake alert following the verbal commands appropriately able to look around in both direction horizontally move the head from side to side and follows the instructions discussed with the nurse about the dosage Objective Data Vital Signs Vital Signs: Vital Signs - 24 hr 11/20/22 20:00 11/20/22 22:00 11/21/22 06:00 Temperature 36.8 C 36.6 C Pulse Rate 57 L 80 Respiratory Rate 18 14 16 Blood Pressure 98/43 L 94/57 L Pulse Oximetry 100 98 92 Oxygen Delivery Room Air 11/21/22 08:00 11/21/22 10:37 Temperature Pulse Rate Respiratory Rate Blood Pressure Pulse Oximetry Oxygen Delivery Room Air Room Air Intake/Output Intake/Output: Intake & Output 11/18/22 11/19/22 11/20/22 11/21/22 23:59 23:59 23:59 23:59 Intake Total 520 2507 1050 Balance 520 2507 1050 Meds/Results Medications: Active Medications Generic Name Dose Route Start Last Admin Trade Name Freq PRN Reason Stop Dose Admin Acetaminophen 650 mg 11/19/22 02:54 11/21/22 08:43 Acetaminophen 325 Mg Tablet BY MOUTH 650 mg Q6H PRN Administration Pain Rated 1-3 Atorvastatin Calcium 20 mg 11/19/22 09:00 11/21/22 08:43 Atorvastatin 20 Mg Tablet PO 20 mg DAILY ISAEL Administration Carbamazepine 600 mg 11/19/22 06:30 11/21/22 05:35 Carbamazepine 200 Mg Tablet PO 600 mg 0630,2130 ISAEL Administration Carbamazepine 400 mg 11/19/22 11:30 11/21/22 11:23 Carbamazepine 200 Mg Tablet PO 400 mg 1130,1630 ISAEL Administration Cyanocobalamin 1,000 mcg 11/19/22 09:00 11/21/22 08:43 Cyanocobalamin 1,000 Mcg Tablet PO 1,000 mcg QAM ISAEL Administration Divalproex Sodium 1,000 mg 11/19/22 06:30 11/21/22 05:[address] 250 Mg Tabec PO 1,000 mg 0630,1630 ISAEL Administration Divalproex Sodium 1,000 mg 11/19/22 21:30 11/20/22 21:[address] 250 Mg Tabec PO 1,000 mg 2130 ISAEL Administration Ferrous Sulfate 324 mg 11/19/22 08:00 11/21/22 08:44 Ferrous Sulfate 324 Mg Tablet PO 324 mg BIDWM ISAEL Administration Fish Oil 1 gm 11/19/22 09:00 11/21/22 08:43 [place] 3 Polyunsat Fatty Acids 1 Gm Cap PO 1 gm DAILY ISAEL Administration Azithromycin 500 mg in 250 mls @ 250 mls/hr 11/20/22 02:00 11/21/22 01:03 Zithromax IVPB 250 mls/hr Q24H ISAEL Administration Ceftriaxone Sodium/Dextrose 1 gm in 50 mls @ 100 mls/hr 11/19/22 14:00 11/21/22 14:08 Rocephin 1 Gm/D5w 50 Ml IVPB 100 mls/hr Q24H ISAEL Administration Sodium Chloride 500 mls @ 999 mls/hr 11/21/22 14:21 Normal Saline Iv IV CONT 11/21/22 14:51 .Q31M ONE Sodium Chloride 1,000 mls @ 100 mls/hr 11/21/22 14:25 Normal Saline Iv IV CONT .Q10H ISAEL Albumin Human 100 mls @ 60 mls/hr 11/21/22 14:26 Albutein IVPB 11/21/22 16:05 ONCE ONE Levothyroxine Sodium 50 mcg 11/19/22 06:30 11/21/22 05:36 Levothyroxine Sodium 50 Mcg Tablet PO 50 mcg DAILY@0630 ISAEL Administration Loratadine 10 mg 11/19/22 09:00 11/21/22 08:44 Loratadine 10 Mg Tablet PO 10 mg DAILY ISAEL Administration Pantoprazole Sodium 40 mg 11/19/22 09:00 11/21/22 08:43 Pantoprazole 40 Mg Tablet PO 40 mg BID ISAEL Administration Radiology Results: ITS Impressions Face CT 11/18/22 20:40 IMPRESSION: 1. Agenesis of the corpus callosum with no change in a right parietal ventricular shunt and ramona
[2022-11-21] MEDS: SODIUM CHLORIDE 0.9% IV 500 ML IV CONT (15:30)
[2022-11-21] MEDS: ALBUMIN HUMAN 25% 25 GM/100 ML 100 ML IVPB (16:00)
[2022-11-21] MEDS: SODIUM CHLORIDE 0.9% IV 1,000 ML 100 ML IV CONT (16:01)
[2022-11-21 22:00] VITALS: BP 92/67; PULSE 67; RESP 14; TEMP 36.1; O2SAT 98
[2022-11-21] MEDS: DIVALPROEX SODIUM DR 250 MG TABEC 750 MG PO (23:58)
[2022-11-22] MEDS: SODIUM CHLORIDE 0.9% IV 1,000 ML 100 ML IV CONT ×2 (02:27→15:14)
[2022-11-22 05:53] VITALS: BP 103/71; PULSE 74; RESP 14; TEMP 35.9; O2SAT 100
[2022-11-22 06:05] LABS: Basophils Percent Auto 0.6 % (0.2-1.2); Eosinophils Percent Auto 0.9 % (0-4.4); Hematocrit 31.6 % (37.0-47.0); Hemoglobin 10.3 g/dL (12.0-15.0); Immature Granulocyte Absolute 0.14 K/mm3 (0.00-0.031); Immature Granulocyte Percent A 4.2 % (0-0.5); Immature Platelet Fraction Pct 8.6 % (0.9-11.2); Lymphocytes Percent Auto 38.9 % (18.3-44.2); Mean Corpuscular HGB Conc 32.6 g/dl (32-36); Mean Corpuscular Hemoglobin 33.6 pg (26-34); Mean Corpuscular Volume 102.9 fl (80-100); Monocytes Absolute Auto 0.3 K/mm3 (0.1-0.6); Monocytes Percent Auto 9.3 % (2.6-8.5); Neutrophils Absolute Auto 1.5 K/mm3 (1.3-6.7); Neutrophils Percent Auto 46.1 % (45.5-73.1); Nucleated Red Blood Cells Perc 0.6 % (0.0-0.2); Platelet Count Result 48 k/mm3 (150-375); Red Blood Count 3.07 M/mm3 (4.2-5.4); Red Cell Distribution Width 14.9 % (11.5-14.5); White Blood Count 3.3 K/mm3 (4.5-10.0)
[2022-11-22 06:16] LABS: Potassium 4.3 mmol/L (3.4-5.0)
[2022-11-22 06:18] LABS: Alanine Aminotransferase 12 U/L (6-35); Albumin Level 2.8 g/dL (3.5-5.1); Alkaline Phosphatase 49 U/L (38-126); Anion Gap -1 mmol/L (8-16); Aspartate Amino Transferase 31 U/L (14-36); Bilirubin,Total 0.3 mg/dL (0.2-1.3); Blood Urea Nitrogen 9 mg/dL (7-17); Carbon Dioxide 33 mmol/L (22-30); Chloride 103 mmol/L (98-107); Estimated CRCL calculation 86 ml/min; Estimated Glomerular Filt Rate > 60; Glucose 72 mg/dL (65-110); Magnesium 1.8 mg/dL (1.6-2.3); Sodium 135 mmol/L (137-145)
[2022-11-22 07:02] LABS: Valproic Acid 105.6 ug/mL (50-120)
[2022-11-22] MEDS: DIVALPROEX SODIUM DR 250 MG TABEC 1000 MG PO ×3 (07:08→20:32)
[2022-11-22] MEDS: carBAMazepine 200 MG TABLET 600 MG PO ×2 (07:09→20:31)
[2022-11-22] MEDS: LEVOTHYROXINE SODIUM 50 MCG TABLET PO (07:09)
[2022-11-22] MEDS: FERROUS SULFATE 324 MG TABLET PO ×2 (08:36→17:24)
[2022-11-22] MEDS: CYANOCOBALAMIN 1,000 MCG TABLET 1000 MCG PO (08:36)
[2022-11-22] MEDS: PANTOPRAZOLE 40 MG TABLET PO ×2 (08:36→17:24)
[2022-11-22] MEDS: ATORVASTATIN 20 MG TABLET PO (08:37)
[2022-11-22] MEDS: LORATADINE 10 MG TABLET PO (08:37)
[2022-11-22] MEDS: OMEGA 3 POLYUNSAT FATTY ACIDS 1 GM CAP PO (08:37)
[2022-11-22] MEDS: ACETAMINOPHEN 325 MG TABLET 650 MG BY MOUTH (10:45)
[2022-11-22] MEDS: carBAMazepine 200 MG TABLET 400 MG PO ×2 (10:45→17:24)
[2022-11-22] MEDS: MAGNESIUM SULF 2 GM/WATER 50ML 2 GM/50 ML BAG IVPB (10:46)
--- NOTE | 2022-11-22 12:30 | P.PNIM_ITS ---
Progress Note: A&P Assessment and Plan (1) Pneumonia: Code(s): J18.9 - Pneumonia, unspecified organism Status: Acute Assessment and Plan: * Chest xray indicated PNA * Initially started on vanc, cefepime, and azithomycin * Allergic reaction noted with vanco, DC'd at this time * Changed to ceftriaxone and vanco * WBC stable at 3.3 * Could be a HCAP as she was just released from rehab * Sputum culture if able * Blood cultures (2) Seizure disorder: Code(s): G40.909 - Epilepsy, unspecified, not intractable, without status epilepticus Status: Acute Assessment and Plan: * arrived with complaints of unresponsive behavior and confusion * valproic acid level 105.6, carbamazepine pending * Repeat for pork acid level is better today. 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 - Congenital malformations of corpus callosum Status: Acute Assessment and Plan: * Unchanged (4) Congenital hydrocephalus, unspecified: Code(s): Q03.9 - Congenital hydrocephalus, unspecified Status: Acute Assessment and Plan: * Status post FOREIGN BANKNOTE TELLER TRADER shunt (5) Intellectual developmental disorder, profound: Code(s): F73 - Profound intellectual disabilities Status: Acute Assessment and Plan: * Supportive care * chronic * stable (6) Hypotension: Code(s): I95.9 - Hypotension, unspecified Status: Acute Assessment and Plan: * BP is 103/71 * Currently getting IV fluids * could be related to dehydration * adjust therapy as indicated Time Spent With Patient Time: 48 minutes Time with patient: Greater than 35 minutes Subjective Date/time seen: 11/22/22 1230 Interval history: 11/22/22 123 Patient was sitting in the chair she was feeding herself. Mom was also present and stated that she felt like she was doing a lot better. Mom is more nervous to take her home due to the fact that she has not ambulated at all. She is also concerned does have the patient fall she is unable to get her up. The patient appears to be comfortable and did deny any chest pain, shortness of breath, nausea, vomiting, diarrhea or constipation. Will help the nurse to get patient up out of bed and try to walk. Mom would like to explore the options of rehab. Patient is also having stable blood pressures. Will repeat chest x-ray in the a.m. 11/21/22 1030 Patient is very lethargic and only responds minimally. She denies any chest pain, She does appear to be confused. Dr. Robb is going to get other labs. Mom think that the patient is off from her baseline. PT did get the patient up and to the chair. 11/20/22 0915 Patient seems to be doing well today. She did answer all of my questions and alert oriented. She did know where she was but she knew her name, date of , her mom's name, and the year. She did eat most of her breakfast and swallowed fine. Dominique robert did the study today and stated that she was
--- NOTE | 2022-11-22 12:30 | PM.IMPN ---
Progress Note: A&P Assessment and Plan (1) Pneumonia: Code(s): J18.9 - Pneumonia, unspecified organism Status: Acute Assessment and Plan: Chest xray indicated PNA Initially started on vanc, cefepime, and azithomycin Allergic reaction noted with vanco, DC'd at this time Changed to ceftriaxone and vanco WBC stable at 3.3 Could be a HCAP as she was just released from rehab Sputum culture if able Blood cultures (2) Seizure disorder: Code(s): G40.909 - Epilepsy, unspecified, not intractable, without status epilepticus Status: Acute Assessment and Plan: arrived with complaints of unresponsive behavior and confusion valproic acid level 105.6, carbamazepine pending Repeat for pork acid level is better today. 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 - Congenital malformations of corpus callosum Status: Acute Assessment and Plan: Unchanged (4) Congenital hydrocephalus, unspecified: Code(s): Q03.9 - Congenital hydrocephalus, unspecified Status: Acute Assessment and Plan: Status post EMERGENCY DISPATCHER shunt (5) Intellectual developmental disorder, profound: Code(s): F73 - Profound intellectual disabilities Status: Acute Assessment and Plan: Supportive care chronic stable (6) Hypotension: Code(s): I95.9 - Hypotension, unspecified Status: Acute Assessment and Plan: BP is 103/71 Currently getting IV fluids could be related to dehydration adjust therapy as indicated Time Spent With Patient Time: 48 minutes Time with patient: Greater than 35 minutes Subjective Date/time seen: 11/22/22 1230 Interval history: 11/22/221229 Patient was sitting in the chair she was feeding herself. Mom was also present and stated that she felt like she was doing a lot better. Mom is more nervous to take her home due to the fact that she has not ambulated at all. She is also concerned does have the patient fall she is unable to get her up. The patient appears to be comfortable and did deny any chest pain, shortness of breath, nausea, vomiting, diarrhea or constipation. Will help the nurse to get patient up out of bed and try to walk. Mom would like to explore the options of rehab. Patient is also having stable blood pressures. Will repeat chest x-ray in the a.m. 11/21/22 1030 Patient is very lethargic and only responds minimally. She denies any chest pain, She does appear to be confused. Dr. Robb is going to get other labs. Mom think that the patient is off from her baseline. PT did get the patient up and to the chair. 11/20/22914 Patient seems to be doing well today. She did answer all of my questions and alert oriented. She did know where she was but she knew her name, date of , her mom's name, and the year. She did eat most of her breakfast and swallowed fine. Dominique came did the study today and stated that she was okay. Currently patient denies any chest pain, shortness a breath, nausea, vomiting, diarrhea or constipation. Patient does seem to feel better and is talking a lot better. 11/19/22914 Patient was lying in bed. Patient was responsive and answering questions. Patient can follow commands. Mother was also in the room. Mother stated that the patient was just very unresponsive yesterday, She did not know who the mother was or what was going on. While in the room the patient was able to answer all the mother's questions including her name, d
[2022-11-22 12:31] LABS: Carbamazepine Tegretol 6.7 mcg/mL (4.0-12.0)
[2022-11-22 14:00] VITALS: BP 125/72; PULSE 72; RESP 16; TEMP 35.6; O2SAT 96
[2022-11-22 20:00] VITALS: PULSE 72; RESP 16; O2SAT 96
[2022-11-22 21:43] VITALS: BP 84/58; PULSE 62; RESP 13; TEMP 36.5; O2SAT 100
[2022-11-23] MEDS: SODIUM CHLORIDE 0.9% IV 1,000 ML 100 ML IV CONT ×2 (02:38→14:41)
[2022-11-23 05:45] VITALS: BP 85/54; PULSE 57; RESP 14; TEMP 36.1; O2SAT 95
[2022-11-23] MEDS: carBAMazepine 200 MG TABLET 600 MG PO ×2 (06:29→20:32)
[2022-11-23] MEDS: DIVALPROEX SODIUM DR 250 MG TABEC 1000 MG PO ×3 (06:30→21:30)
[2022-11-23] MEDS: LEVOTHYROXINE SODIUM 50 MCG TABLET PO (06:30)
[2022-11-23 06:39] LABS: Basophils Percent Auto 1.4 % (0.2-1.2); Hematocrit 30.9 % (37.0-47.0); Hemoglobin 9.9 g/dL (12.0-15.0); Immature Granulocyte Absolute 0.15 K/mm3 (0.00-0.031); Immature Granulocyte Percent A 5.2 % (0-0.5); Immature Platelet Fraction Pct 9.6 % (0.9-11.2); Lymphocytes Absolute Auto 1.43 K/mm3 (0.9-3.2); Lymphocytes Percent Auto 49.5 % (18.3-44.2); Mean Corpuscular Hemoglobin 32.7 pg (26-34); Mean Platelet Volume 11.3 fl (7.4-10.4); Monocytes Absolute Auto 0.3 K/mm3 (0.1-0.6); Neutrophils Percent Auto 33.9 % (45.5-73.1); Platelet Count Result 47 k/mm3 (150-375); Red Blood Count 3.03 M/mm3 (4.2-5.4); White Blood Count 2.9 K/mm3 (4.5-10.0)
[2022-11-23] MEDS: SODIUM CHLORIDE 0.9% IV 250 ML IV CONT ×2 (07:03→08:09)
[2022-11-23 07:05] LABS: Alanine Aminotransferase 10 U/L (6-35); Albumin Level 2.5 g/dL (3.5-5.1); Alkaline Phosphatase 55 U/L (38-126); Anion Gap -1 mmol/L (8-16); Aspartate Amino Transferase 24 U/L (14-36); Bilirubin,Total 0.3 mg/dL (0.2-1.3); Blood Urea Nitrogen 11 mg/dL (7-17); Calcium 7.7 mg/dL (8.4-10.2); Carbon Dioxide 31 mmol/L (22-30); Chloride 104 mmol/L (98-107); Estimated CRCL calculation 86 ml/min; Estimated Glomerular Filt Rate > 60; Glucose 68 mg/dL (65-110); Potassium 4.1 mmol/L (3.4-5.0); Sodium 134 mmol/L (137-145)
[2022-11-23] MEDS: LORATADINE 10 MG TABLET PO (08:08)
[2022-11-23] MEDS: ATORVASTATIN 20 MG TABLET PO (08:08)
[2022-11-23] MEDS: OMEGA 3 POLYUNSAT FATTY ACIDS 1 GM CAP PO (08:08)
[2022-11-23] MEDS: PANTOPRAZOLE 40 MG TABLET PO ×2 (08:08→17:10)
[2022-11-23] MEDS: CYANOCOBALAMIN 1,000 MCG TABLET 1000 MCG PO (08:08)
[2022-11-23] MEDS: ACETAMINOPHEN 325 MG TABLET 650 MG BY MOUTH (08:08)
[2022-11-23] MEDS: FERROUS SULFATE 324 MG TABLET PO ×2 (08:08→17:10)
[2022-11-23 08:25] VITALS: BMI 10.0
[2022-11-23 08:45] LABS: Reticulocyte Hemoglobin Conten 29.9 pg (28.2-35.7); Reticulocyte Percent 2.21 % (0.7-4.3); Reticulocytes Absolute 0.07 B/L (32.2-175.7)
[2022-11-23 09:10] LABS: CRP 2.4 mg/dL (<1.0)
[2022-11-23 09:22] LABS: Iron 81 ug/dL (37-170)
[2022-11-23 09:23] LABS: Lactate Dehydrogenase 161 U/L (120-246)
[2022-11-23 09:32] LABS: Percent Iron Saturation 36 % (20-50)
[2022-11-23 09:33] LABS: Transferrin 138 mg/dL (206-381)
[2022-11-23 09:34] LABS: Prothrombin Time 12.7 Seconds (11.1-14.7)
[2022-11-23 09:36] LABS: Partial Thromboplastin Time 34.7 SECONDS (22.3-36.8)
[2022-11-23 09:46] LABS: Erythrocyte Sedimentation Rate 13 mm/hr (0-20)
--- NOTE | 2022-11-23 10:00 | P.PNIM_ITS ---
Progress Note: A&P Assessment and Plan (1) Pancytopenia: Code(s): D61.818 - Other pancytopenia Status: Acute Assessment and Plan: * WBC, H/H, PLT all trending down * PT/INR 12.7/1.0, PTT 34.7, anemia labs iron 81, TIBC 223,% saturation 36, transferrin 138, ferritin 108, B12 915, folate 2.9, absolute retic count 0.07 * Could be secondary to the infection, development or...? * Consider hematology consult * Continue to trend labs (2) Hypotension: Code(s): I95.9 - Hypotension, unspecified Status: Acute Assessment and Plan: * BP is 85/54 * give one dose of albumin * Currently getting IV fluids, received bolus overnight * could be related to dehydration * adjust therapy as indicated (3) Pneumonia: Code(s): J18.9 - Pneumonia, unspecified organism Status: Acute Assessment and Plan: * Chest xray indicated PNA * Initially started on vanc, cefepime, and azithomycin * Allergic reaction noted with vancoGENESIS'kemi at this time * Changed to ceftriaxone and vanco * WBC stable at 3.3 * Could be a HCAP as she was just released from rehab * Sputum culture if able * Blood cultures * repeat chest xray is pending * Start mucinex (4) Seizure disorder: Code(s): G40.909 - Epilepsy, unspecified, not intractable, without status epilepticus Status: Acute Assessment and Plan: * arrived with complaints of unresponsive behavior and confusion * valproic acid level 105.6, carbamazepine 6.7 * Repeat for pork acid level is better today. 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 - Congenital malformations of corpus callosum Status: Acute Assessment and Plan: * Unchanged (6) Congenital hydrocephalus, unspecified: Code(s): Q03.9 - Congenital hydrocephalus, unspecified Status: Acute Assessment and Plan: * Status post DIRECTOR UNIVERSITY shunt (7) Intellectual developmental disorder, profound: Code(s): F73 - Profound intellectual disabilities Status: Acute Assessment and Plan: * Supportive care * chronic * stable Time Spent With Patient Time: 54 minutes Time with patient: Greater than 35 minutes Subjective Date/time seen: 11/23/22 1000 Interval history: 11/23/22 1000 patient is lying comfortably in bed. Patient does appear to be lethargic today. Blood pressure did appear to be low in the 80s systolically. Did give patient some albumin and fluids. She denies any pain currently however she does not seem as active as she was yesterday. It is also noted the patient does have panocytopenia, workup has been started, awaiting labs. 11/22/22 1230 Patient was sitting in the chair she was feeding herself. Mom was also present and stated that she felt like she was doing a lot better. Mom is more nervous to take her home due to the fact that she has not ambulated at all. She is also concerned does have the patient fall s
--- NOTE | 2022-11-23 10:00 | PM.IMPN ---
Progress Note: A&P Assessment and Plan (1) Pancytopenia: Code(s): D61.818 - Other pancytopenia Status: Acute Assessment and Plan: WBC, H/H, PLT all trending down PT/INR 12.7/1.0, PTT 34.7, anemia labs iron 81, TIBC 223,% saturation 36, transferrin 138, ferritin 108, B12 915, folate 2.9, absolute retic count 0.07 Could be secondary to the infection, development or...? Consider hematology consult Continue to trend labs (2) Hypotension: Code(s): I95.9 - Hypotension, unspecified Status: Acute Assessment and Plan: BP is 85/54 give one dose of albumin Currently getting IV fluids, received bolus overnight could be related to dehydration adjust therapy as indicated (3) Pneumonia: Code(s): J18.9 - Pneumonia, unspecified organism Status: Acute Assessment and Plan: Chest xray indicated PNA Initially started on vanc, cefepime, and azithomycin Allergic reaction noted with vanco, DC'd at this time Changed to ceftriaxone and vanco WBC stable at 3.3 Could be a HCAP as she was just released from rehab Sputum culture if able Blood cultures repeat chest xray is pending Start mucinex (4) Seizure disorder: Code(s): G40.909 - Epilepsy, unspecified, not intractable, without status epilepticus Status: Acute Assessment and Plan: arrived with complaints of unresponsive behavior and confusion valproic acid level 105.6, carbamazepine 6.7 Repeat for pork acid level is better today. 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.0 - Congenital malformations of corpus callosum Status: Acute Assessment and Plan: Unchanged (6) Congenital hydrocephalus, unspecified: Code(s): Q03.9 - Congenital hydrocephalus, unspecified Status: Acute Assessment and Plan: Status post PARLIAMENTARY ARCHIVIST shunt (7) Intellectual developmental disorder, profound: Code(s): F73 - Profound intellectual disabilities Status: Acute Assessment and Plan: Supportive care chronic stable Time Spent With Patient Time: 54 minutes Time with patient: Greater than 35 minutes Subjective Date/time seen: 11/23/22 1000 Interval history: 11/23/22 1000 patient is lying comfortably in bed. Patient does appear to be lethargic today. Blood pressure did appear to be low in the 80s systolically. Did give patient some albumin and fluids. She denies any pain currently however she does not seem as active as she was yesterday. It is also noted the patient does have panocytopenia, workup has been started, awaiting labs. 11/22/22 1230 Patient was sitting in the chair she was feeding herself. Mom was also present and stated that she felt like she was doing a lot better. Mom is more nervous to take her home due to the fact that she has not ambulated at all. She is also concerned does have the patient fall she is unable to get her up. The patient appears to be comfortable and did deny any chest pain, shortness of breath, nausea, vomiting, diarrhea or constipation. Will help the nurse to get patient up out of bed and try to walk. Mom would like to explore the options of rehab. Patient is also having stable blood pressures. Will repeat chest x-ray in the a.m. 11/21/22 1030 Patient is very lethargic and only responds minimally. She denies any chest pain, She does appear to be confused. Dr. Robb is going to get other labs. Mom think that the patient is off from her baseline. PT did get the
[2022-11-23] MEDS: ALBUMIN HUMAN 25% 25 GM/100 ML 100 ML IVPB (10:07)
[2022-11-23 10:31] LABS: Folic Acid 2.9 ng/mL (2.76->20)
--- NOTE | 2022-11-23 10:58 | WPDNEUROPN ---
Subjective Date/time seen: 11/23/22 10:58 Interval history: 47 years old with seizure disorder, agenesis of the corpus callosum congenital hydrocephalus with history of shunt had been admitted to the hospital through the emergency room for the complaints of excessive sleepiness when she was found to have these therapeutic range level of valproic acid and the dosage was decreased accordingly since that time she has been gradually becoming more alert more communicative and more cooperative treatment is to be continued as such and her examination has remained unchanged. Objective Data Vital Signs Vital Signs: Vital Signs - 24 hr 11/22/22 14:00 11/22/22 20:00 11/22/22 21:43 Temperature 35.6 C L 36.5 C Pulse Rate 72 72 62 Respiratory Rate 16 16 13 Blood Pressure 125/72 84/58 L Pulse Oximetry 96 96 100 Oxygen Delivery Room Air 11/23/22 05:45 11/23/22 08:00 Temperature 36.1 C L Pulse Rate 57 L Respiratory Rate 14 Blood Pressure 85/54 L Pulse Oximetry 95 Oxygen Delivery Room Air Intake/Output Intake/Output: Intake & Output 11/20/22 11/21/22 11/22/22 11/23/22 23:59 23:59 23:59 23:59 Intake Total 2507 2580 3426 2118 Balance 2507 2580 3426 2118 Meds/Results Medications: Active Medications Generic Name Dose Route Start Last Admin Trade Name Freq PRN Reason Stop Dose Admin Acetaminophen 650 mg 11/19/22 02:54 11/23/22 08:08 Acetaminophen 325 Mg Tablet BY MOUTH 650 mg Q6H PRN Administration Pain Rated 1-3 Atorvastatin Calcium 20 mg 11/19/22 09:00 11/23/22 08:08 Atorvastatin 20 Mg Tablet PO 20 mg DAILY ISAEL Administration Carbamazepine 600 mg 11/19/22 06:30 11/23/22 06:29 Carbamazepine 200 Mg Tablet PO 600 mg 0630,2130 ISAEL Administration Carbamazepine 400 mg 11/19/22 11:30 11/22/22 17:24 Carbamazepine 200 Mg Tablet PO 400 mg 1130,1630 ISAEL Administration Cyanocobalamin 1,000 mcg 11/19/22 09:00 11/23/22 08:08 Cyanocobalamin 1,000 Mcg Tablet PO 1,000 mcg QAM ISAEL Administration Divalproex Sodium 1,000 mg 11/19/22 06:30 11/23/22 06:[address] 250 Mg Tabec PO 1,000 mg 0630,1630 ISAEL Administration Divalproex Sodium 1,000 mg 11/19/22 21:30 11/22/22 20:[address] 250 Mg Tabec PO 1,000 mg 2130 ISAEL Administration Ferrous Sulfate 324 mg 11/19/22 08:00 11/23/22 08:08 Ferrous Sulfate 324 Mg Tablet PO 324 mg BIDWM ISAEL Administration Fish Oil 1 gm 11/19/22 09:00 11/23/22 08:08 [place] 3 Polyunsat Fatty Acids 1 Gm Cap PO 1 gm DAILY ISAEL Administration Guaifenesin/Dextromethorphan 1 tab 11/23/22 21:00 Guaifenesin 600 Mg/Dextromethorphan 30 Mg Sr Tab 12 Hr PO Q12HR ISAEL Azithromycin 500 mg in 250 mls @ 250 mls/hr 11/20/22 02:00 11/23/22 02:15 Zithromax IVPB Infused Q24H ISAEL Infusion Ceftriaxone Sodium/Dextrose 1 gm in 50 mls @ 100 mls/hr 11/19/22 14:00 11/22/22 15:57 Rocephin 1 Gm/D5w 50 Ml IVPB Infused Q24H ISAEL Infusion Sodium Chloride 1,000 mls @ 100 mls/hr 11/21/22 14:25 11/23/22 09:00 Normal Saline Iv IV CONT 0 mls/hr .Q10H ISAEL Infusion Levothyroxine Sodium 50 mcg 11/19/22 06:30 11/23/22 06:30 Levothyroxine Sodium 50 Mcg Tablet PO 50 mcg DAILY@0630 ISAEL Administration Loratadine 10 mg 11/19/22 09:00 11/23/22 08:08 Loratadine 10 Mg Tablet PO 10 mg DAILY ISAEL Administration Pantoprazole Sodium 40 mg 11/19/22 09:00 11/23/22 08:08 Pantoprazole 40 Mg Tablet PO 40 mg BID ISAEL Administration Radiology Results: ITS Impressions Face CT 11/18/22 20:40 IMPRESSION: 1. Agenesis of the corpus callosum with no change in a right parietal ventricular shunt and retained shunt fragment at the left lateral ventricle. 2. No calvarial fracture or acute intracranial process. 3. No acute maxillofacial fractures. Head CT 02/07/23 20:40
[2022-11-23] MEDS: carBAMazepine 200 MG TABLET 400 MG PO ×2 (11:38→17:10)
[2022-11-23 14:00] VITALS: BP 94/62; PULSE 64; RESP 18; TEMP 35.8; O2SAT 97
[2022-11-23 16:46] LABS: Free T4 Free Thyroxine Reflex 1.04 ng/dL (0.78-2.19)
[2022-11-23 19:19] LABS: Total Triiodothyronine (T3) 0.75 NG/ML (0.97-1.69)
[2022-11-23] MEDS: guaiFENesin 600 MG/DEXTROMETHORPHAN 30 MG SR TAB 12 HR 1 TAB PO (20:32)
[2022-11-23 20:55] VITALS: BP 102/66; PULSE 66; RESP 18; TEMP 36.6; O2SAT 98
[2022-11-24] MEDS: SODIUM CHLORIDE 0.9% IV 1,000 ML 100 ML IV CONT ×3 (01:32→23:11)
[2022-11-24] MEDS: DIVALPROEX SODIUM DR 250 MG TABEC 1000 MG PO ×4 (05:52→21:27)
[2022-11-24] MEDS: LEVOTHYROXINE SODIUM 50 MCG TABLET PO (05:52)
[2022-11-24] MEDS: carBAMazepine 200 MG TABLET 600 MG PO ×2 (05:53→21:19)
[2022-11-24 05:58] VITALS: BP 97/70; PULSE 60; RESP 16; TEMP 36.3; O2SAT 97
[2022-11-24 08:06] LABS: Hematocrit 31.5 % (37.0-47.0); Hemoglobin 10.2 g/dL (12.0-15.0); Immature Platelet Fraction Pct 9.5 % (0.9-11.2); Mean Corpuscular HGB Conc 32.4 g/dl (32-36); Mean Corpuscular Hemoglobin 33.3 pg (26-34); Mean Corpuscular Volume 102.9 fl (80-100); Mean Platelet Volume 10.6 fl (7.4-10.4); Platelet Count Result 61 k/mm3 (150-375); Red Blood Count 3.06 M/mm3 (4.2-5.4); White Blood Count 3.9 K/mm3 (4.5-10.0)
[2022-11-24 08:12] LABS: Anion Gap -1 mmol/L (8-16); Blood Urea Nitrogen 10 mg/dL (7-17); Carbon Dioxide 34 mmol/L (22-30); Chloride 101 mmol/L (98-107); Estimated CRCL calculation 104 ml/min; Estimated Glomerular Filt Rate > 60; Glucose 72 mg/dL (65-110); Potassium 4.2 mmol/L (3.4-5.0); Sodium 134 mmol/L (137-145)
[2022-11-24] MEDS: PANTOPRAZOLE 40 MG TABLET PO ×2 (08:23→16:34)
[2022-11-24] MEDS: FERROUS SULFATE 324 MG TABLET PO ×2 (08:23→16:34)
[2022-11-24] MEDS: OMEGA 3 POLYUNSAT FATTY ACIDS 1 GM CAP PO (08:23)
[2022-11-24] MEDS: guaiFENesin 600 MG/DEXTROMETHORPHAN 30 MG SR TAB 12 HR 1 TAB PO ×2 (08:23→21:20)
[2022-11-24] MEDS: CYANOCOBALAMIN 1,000 MCG TABLET 1000 MCG PO (08:23)
[2022-11-24] MEDS: LORATADINE 10 MG TABLET PO (08:23)
[2022-11-24] MEDS: ATORVASTATIN 20 MG TABLET PO (08:24)
[2022-11-24 10:25] LABS: IFOB Positive Control Positive; Immunochemical Fecal Occult Bl Negative (N)
[2022-11-24] MEDS: carBAMazepine 200 MG TABLET 400 MG PO ×2 (10:32→16:34)
--- NOTE | 2022-11-24 12:54 | P.PNIM_ITS ---
Progress Note: A&P Assessment and Plan (1) Pancytopenia: Code(s): D61.818 - Other pancytopenia Status: Acute Assessment and Plan: * WBC, H/H, PLT all trending down * PT/INR 12.7/1.0, PTT 34.7, anemia labs iron 81, TIBC 223,% saturation 36, transferrin 138, ferritin 108, B12 915, folate 2.9, absolute retic count 0.07 * Could be secondary to the infection, development, medication induced, etc. * Hematology consulted * Continue to trend labs (2) Hypotension: Code(s): I95.9 - Hypotension, unspecified Status: Acute Assessment and Plan: pt given one dose of albumin * Currently getting IV fluids * could be related to dehydration * adjust therapy as indicated (3) Pneumonia: Code(s): J18.9 - Pneumonia, unspecified organism Status: Acute Assessment and Plan: * CT abdomen and pelvis indicated pneumonia on 11/18/22 * Initially started on vanc, cefepime, and azithomycin * Allergic reaction noted with vanco, DC'd at this time * Changed to ceftriaxone and vanco * WBC stable * Could be a HCAP as she was just released from rehab * Sputum culture if able * Blood cultures no growth to date * Chest Xray on 11/23/22 revealed possible mild atelectasis at the left lung base * Pt started on Mucinex due to increased secretions. (4) Seizure disorder: Code(s): G40.909 - Epilepsy, unspecified, not intractable, without status epilepticus Status: Acute Assessment and Plan: * arrived with complaints of unresponsive behavior and confusion * valproic acid level 105.6, carbamazepine 6.7 * Repeat for pork acid level is better today. 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 Patient's mother is at bedside. Patient's mom stated that she had brought her daughter in to the hospital due to noticing increased lethargy and describing her as a limp noodle. Patient's mom stated that she has seen some improvement since she has been in the hospital. Patient has had cough for several ones with sputum production although patient swelling moves sputum. Patient has had increased UTIs with past several months and her mother is unsure why this is happening. Patient denies shortness of breath, chills, rigors, nausea, vomiting, pain with urination, and fever. Review of Systems Review of Systems: All systems reviewed & are unremarkable except as noted in HPI and below
--- NOTE | 2022-11-24 12:54 | PM.IMPN ---
Progress Note: A&P Assessment and Plan (1) Pancytopenia: Code(s): D61.818 - Other pancytopenia Status: Acute Assessment and Plan: WBC, H/H, PLT all trending down PT/INR 12.7/1.0, PTT 34.7, anemia labs iron 81, TIBC 223,% saturation 36, transferrin 138, ferritin 108, B12 915, folate 2.9, absolute retic count 0.07 Could be secondary to the infection, development, medication induced, etc. Hematology consulted Continue to trend labs (2) Hypotension: Code(s): I95.9 - Hypotension, unspecified Status: Acute Assessment and Plan: pt given one dose of albumin Currently getting IV fluids could be related to dehydration adjust therapy as indicated (3) Pneumonia: Code(s): J18.9 - Pneumonia, unspecified organism Status: Acute Assessment and Plan: CT abdomen and pelvis indicated pneumonia on 11/18/22 Initially started on vanc, cefepime, and azithomycin Allergic reaction noted with vanco, DC'd at this time Changed to ceftriaxone and vanco WBC stable Could be a HCAP as she was just released from rehab Sputum culture if able Blood cultures no growth to date Chest Xray on 11/23/22 revealed possible mild atelectasis at the left lung base Pt started on Mucinex due to increased secretions. (4) Seizure disorder: Code(s): G40.909 - Epilepsy, unspecified, not intractable, without status epilepticus Status: Acute Assessment and Plan: arrived with complaints of unresponsive behavior and confusion valproic acid level 105.6, carbamazepine 6.7 Repeat for pork acid level is better today. 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 Status: Acute Assessment and Plan: Unchanged (6) Congenital hydrocephalus, unspecified: Code(s): Q03.9 - Congenital hydrocephalus, unspecified Status: Acute Assessment and Plan: Status post SNOW REMOVER shunt (7) Intellectual developmental disorder, profound: Code(s): F73 - Profound intellectual disabilities Status: Acute Assessment and Plan: Supportive care chronic stable Subjective Date/time seen: 11/24/22 12:54 Interval history: Patient lying in bed appearing drowsy when I enter the room. Patient's mother is at bedside. Patient's mom stated that she had brought her daughter in to the hospital due to noticing increased lethargy and describing her as a limp noodle. Patient's mom stated that she has seen some improvement since she has been in the hospital. Patient has had cough for several ones with sputum production although patient swelling moves sputum. Patient has had increased UTIs with past several months and her mother is unsure why this is happening. Patient denies shortness of breath, chills, rigors, nausea, vomiting, pain with urination, and fever. Review of Systems Review of Systems: All systems reviewed & are unremarkable except as noted in HPI and below Exam Narrative: GENERAL: Comfortable, no acute distress, tired appearing HENMT: moist mucous membranes EYES: EOM intact b/l NECK: no lymphadenopathy RESPIRATORY: clear to auscultation CARDIO: RRR GI: soft, nontender, bowel sounds present SKIN: no rashes EXTREMITIES: no edema, redness or tenderness Objective Data Vital Signs Vital Signs: Vital Signs - 24 hr 11/23/22 14:00 11/23/22 19:53 11/23/22 20:55 Temperature 96.4 F L 97.9 F Pulse Rate 64 66 Respiratory Rate 18 18 Blood Pressure 94/62 L 102/66 Pulse Oximetry 97 98 Oxygen Delivery Room Air
--- NOTE | 2022-11-24 13:15 | PCNFU ---
Nutrition Follow-Up Complete: Moderate malnutrition related to chronic illness, loss of appetite, possible swallowing issue as evidenced by weight loss 7.5% /3 months, poor intake, swallow evaluation ordered. Goal:Adequate PO intake at least 75% meals and supplements - Goal being met Pt current nutrition is Heart healthy diet. Ensure Compact TID. Nutrition recommendation: Continue with current diet order and supplements Last recorded weight is 48 kg. Bowel Motility: Last BM 11/20/22 Labs Reviewed:Hgb 10.2, Hct 31.5, Alb 2.5, Na 134, Cre 0.4 Meds Noted: Depakote, protonix Skin: Bruises Additional Notes: Agree with current diet and supplements orders. Continue orders. Monitoring weights, labs, intakes, swallow ability, supplement tolerance Follow up in 5 days
[2022-11-24 14:00] VITALS: BP 86/60; PULSE 69; RESP 22; TEMP 35.6; O2SAT 100
[2022-11-24 14:18] VITALS: BP 105/70
[2022-11-24 21:46] VITALS: BP 99/43; PULSE 62; RESP 14; TEMP 36.4; O2SAT 97
[2022-11-25] MEDS: LEVOTHYROXINE SODIUM 50 MCG TABLET PO (05:35)
[2022-11-25] MEDS: carBAMazepine 200 MG TABLET 600 MG PO ×2 (05:36→20:30)
[2022-11-25 05:48] VITALS: BP 89/47; PULSE 58; RESP 14; TEMP 36.7; O2SAT 100
[2022-11-25 07:54] LABS: Basophils Percent Auto 1.3 % (0.2-1.2); Eosinophils Absolute Auto 0.1 K/mm3 (0-0.3); Eosinophils Percent Auto 3.5 % (0-4.4); Hematocrit 27.7 % (37.0-47.0); Immature Granulocyte Absolute 0.15 K/mm3 (0.00-0.031); Immature Granulocyte Percent A 4.7 % (0-0.5); Immature Platelet Fraction Pct 7.5 % (0.9-11.2); Lymphocytes Absolute Auto 1.31 K/mm3 (0.9-3.2); Lymphocytes Percent Auto 41.5 % (18.3-44.2); Mean Corpuscular HGB Conc 32.5 g/dl (32-36); Mean Corpuscular Hemoglobin 32.7 pg (26-34); Mean Corpuscular Volume 100.7 fl (80-100); Mean Platelet Volume 11.4 fl (7.4-10.4); Monocytes Absolute Auto 0.6 K/mm3 (0.1-0.6); Platelet Count Result 57 k/mm3 (150-375); Red Blood Count 2.75 M/mm3 (4.2-5.4); Red Cell Distribution Width 15.3 % (11.5-14.5); White Blood Count 3.2 K/mm3 (4.5-10.0)
[2022-11-25 08:05] LABS: Alanine Aminotransferase 9 U/L (6-35); Albumin Level 2.2 g/dL (3.5-5.1); Alkaline Phosphatase 35 U/L (38-126); Anion Gap 0 mmol/L (8-16); Aspartate Amino Transferase 25 U/L (14-36); Bilirubin,Total 0.4 mg/dL (0.2-1.3); Blood Urea Nitrogen 12 mg/dL (7-17); Calcium 7.4 mg/dL (8.4-10.2); Carbon Dioxide 32 mmol/L (22-30); Chloride 106 mmol/L (98-107); Estimated CRCL calculation 104 ml/min; Estimated Glomerular Filt Rate > 60; Glucose 69 mg/dL (65-110); Potassium 4.3 mmol/L (3.4-5.0); Sodium 138 mmol/L (137-145)
[2022-11-25] MEDS: guaiFENesin 600 MG/DEXTROMETHORPHAN 30 MG SR TAB 12 HR 1 TAB PO ×2 (08:34→20:31)
[2022-11-25] MEDS: PANTOPRAZOLE 40 MG TABLET PO ×2 (08:34→16:59)
[2022-11-25] MEDS: OMEGA 3 POLYUNSAT FATTY ACIDS 1 GM CAP PO (08:34)
[2022-11-25] MEDS: CYANOCOBALAMIN 1,000 MCG TABLET 1000 MCG PO (08:34)
[2022-11-25] MEDS: ATORVASTATIN 20 MG TABLET PO (08:34)
[2022-11-25] MEDS: LORATADINE 10 MG TABLET PO (08:35)
[2022-11-25] MEDS: SODIUM CHLORIDE 0.9% IV 1,000 ML 100 ML IV CONT ×2 (08:43→18:40)
[2022-11-25] MEDS: ACETAMINOPHEN 325 MG TABLET 650 MG BY MOUTH (08:50)
[2022-11-25] MEDS: FERROUS SULFATE 324 MG TABLET PO ×2 (09:33→16:59)
[2022-11-25] MEDS: CEFDINIR 300 MG CAPSULE PO ×2 (10:57→22:30)
[2022-11-25] MEDS: carBAMazepine 200 MG TABLET 400 MG PO ×2 (10:57→16:58)
[2022-11-25 14:00] VITALS: BP 99/70; PULSE 67; RESP 20; TEMP 36.1; O2SAT 99
--- NOTE | 2022-11-25 14:14 | P.PNIM_ITS ---
Progress Note: A&P Assessment and Plan (1) Pancytopenia: Code(s): D61.818 - Other pancytopenia Status: Acute Assessment and Plan: It does appear the patient has had history of pancytopenia in the past. Discuss ed this with the family and family wants hematology to be involved in patient's care. Carbamazepine could be causative agent of patient's pancytopenia. * WBC, H/H, PLT all trending down * PT/INR 12.7/1.0, PTT 34.7, anemia labs iron 81, TIBC 223,% saturation 36, transferrin 138, ferritin 108, B12 915, folate 2.9, absolute retic count 0.07 * Could be secondary to the infection, development, medication induced, etc. * Hematology consulted * Continue to trend labs (2) Hypotension: Code(s): I95.9 - Hypotension, unspecified Status: Acute Assessment and Plan: pt given one dose of albumin * Currently getting IV fluids * could be related to dehydration * adjust therapy as indicated (3) Pneumonia: Code(s): J18.9 - Pneumonia, unspecified organism Status: Acute Assessment and Plan: * CT abdomen and pelvis indicated pneumonia on 11/18/22 * Initially started on vanc, cefepime, and azithomycin * Allergic reaction noted with GENESIS lovell'kemi at this time * Changed to ceftriaxone and vanco * WBC stable * Could be a HCAP as she was just released from rehab * Sputum culture if able * Blood cultures no growth to date * Chest Xray on 11/23/22 revealed possible mild atelectasis at the left lung base * Pt started on Mucinex due to decreased secretions. (4) Seizure disorder: Code(s): G40.909 - Epilepsy, unspecified, not intractable, without status epilepticus Status: Acute Assessment and Plan: * arrived with complaints of unresponsive behavior and confusion * valproic acid level 105.6, carbamazepine 6.7 * Repeat for pork acid level is better today. 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 Status: Acute Assessment and Plan: * Unchanged (6) Congenital hydrocephalus, unspecified: Code(s): Q03.9 - Congenital hydrocephalus, unspecified Status: Acute Assessment and Plan: * Status post BALANCER shunt (7) Intellectual developmental disorder, profound: Code(s): F73 - Profound intellectual disabilities Status: Acute Assessment and Plan: * Supportive care * chronic * stable Time Spent With Patient Time with patient: 25 - 35 minutes Subjective Date/time seen: 11/25/22 14:14 Interval history: Patient appeared to be doing much better today and sitting up in bed talking. Patient's family friend in the room today with her mother and consented that we talk freely in the room. Patient denies fevers, chills, shortness of breath, chest pain, nausea vomiting. Patient did state that she has some burning with urination and wet cough is still present. Review of Systems Review of Systems: All systems reviewed & are unremarkable except as noted in HPI and below
--- NOTE | 2022-11-25 14:14 | PM.IMPN ---
Progress Note: A&P Assessment and Plan (1) Pancytopenia: Code(s): D61.818 - Other pancytopenia Status: Acute Assessment and Plan: It does appear the patient has had history of pancytopenia in the past. Discussed this with the family and family wants hematology to be involved in patient's care. Carbamazepine could be causative agent of patient's pancytopenia. WBC, H/H, PLT all trending down PT/INR 12.7/1.0, PTT 34.7, anemia labs iron 81, TIBC 223,% saturation 36, transferrin 138, ferritin 108, B12 915, folate 2.9, absolute retic count 0.07 Could be secondary to the infection, development, medication induced, etc. Hematology consulted Continue to trend labs (2) Hypotension: Code(s): I95.9 - Hypotension, unspecified Status: Acute Assessment and Plan: pt given one dose of albumin Currently getting IV fluids could be related to dehydration adjust therapy as indicated (3) Pneumonia: Code(s): J18.9 - Pneumonia, unspecified organism Status: Acute Assessment and Plan: CT abdomen and pelvis indicated pneumonia on 11/18/22 Initially started on vanc, cefepime, and azithomycin Allergic reaction noted with vanco, DC'd at this time Changed to ceftriaxone and vanco WBC stable Could be a HCAP as she was just released from rehab Sputum culture if able Blood cultures no growth to date Chest Xray on 11/23/22 revealed possible mild atelectasis at the left lung base Pt started on Mucinex due to decreased secretions. (4) Seizure disorder: Code(s): G40.909 - Epilepsy, unspecified, not intractable, without status epilepticus Status: Acute Assessment and Plan: arrived with complaints of unresponsive behavior and confusion valproic acid level 105.6, carbamazepine 6.7 Repeat for pork acid level is better today. 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 Patient's family friend in the room today with her mother and consented that we talk freely in the room. Patient denies fevers, chills, shortness of breath, chest pain, nausea vomiting. Patient did state that she has some burning with urination and wet cough is still present. Review of Systems Review of Systems: All systems reviewed & are unremarkable except as noted in HPI and below Exam Narrative: GENERAL: Comfortable, no acute distress, alert HENMT: moist mucous membranes EYES: EOM intact b/l NECK: no lymphadenopathy RESPIRATORY: clear to auscultation CARDIO: RRR GI: soft, nontender, bowel sounds present SKIN: no rashes EXTREMITIES: no edema, redness or tenderness Objective Data Vital Signs Vital Signs: Vital Signs - 24 hr 11/24/22 14:18 11/24/22 21:46 11/25/22 05:48 Temperature 97.6 F 98.0 F Pulse Rate 62 58 L Respiratory Rate 14 14 Blood Pressure 105/70 99/43 L 89/47 L Pulse Oximetry 97 100 Intake/Output
[2022-11-25 14:42] LABS: Creatinine Urine 54.8 mg/dL; Urea Random Urine 418 MG/DL
[2022-11-25 14:46] LABS: Sodium Urine Random 203 meq/L
[2022-11-25 15:01] LABS: Appearance Urine Clear (Clear); Bilirubin Urine Negative (Negative); Blood Urine Negative (Negative); Color Urine Yellow (Yellow); Glucose Urine UA Negative (Negative); Ketones Urine Negative (Negative); Leukocyte Esterase Ur Negative LEU/UL (Negative); Nitrate Urine Negative (Negative); Protein Urine Negative (Negative); Urobilinogen Urine 0.2 mg/dL (<2.0)
[2022-11-25 15:05] LABS: Add Urine Microscopic? NO
--- NOTE | 2022-11-25 15:53 | PCSTNOTE ---
Please refer to the Bedside Swallow Evaluation in the EMR. Please note, silent aspiration cannot be ruled out at bedside.
[2022-11-25] MEDS: DIVALPROEX SODIUM DR 250 MG TABEC 1000 MG PO ×3 (16:59→20:35)
--- NOTE | 2022-11-25 18:52 | PDONCCN ---
HPI - Date of Consult Date/Time: 11/25/22 18:52 Requesting Physician: Vanessa Horton MD Primary Care Provider: Nikunj Sow, DO - Consult Narrative Reason for consult: Pancytopenia Narrative: Christi Azevedo is a 47 year old female with history of hydrocephalus, epilepsy, hypothyroidism and status post BANQUET STEWARD shunt in placement. Came into the hospital with mental status changes from the rehab facility. She was also complaining of generalized weakness. She has been on carbamazepine for long time for her seizure disorder. Patient had CT abdomen and pelvis was performed that showed no evidence of hematoma or intra-abdominal/pelvic process. There was BANQUET STEWARD shunt with small amount of ascites in the pelvis with sliding hiatal hernia. Her labs on admission showed normal WBC count of 8.9 drop down to 3.2. Hemoglobin was normal at 13.6 now down to 9.0. Platelet count was [id number] now down to 57,000. Patient is on carbamazepine as well as Depakote for seizure prophylaxis. She denies any bleeding and bruising. Denies any fevers and chills. No other new complaints. Review of Systems - Review of Systems All systems reviewed & are unremarkable except as noted in [facility] and [facility] Medical History: Medical History (Last Updated 11/19/22 @ 00:27 by Vanessa Horton MD) Agenesis of corpus callosum Congenital hydrocephalus, unspecified Esophageal reflux disease Other epilepsy, not intractable, with status epilepticus Pure hypercholesterolemia Surgical History: Surgical History (Last Reviewed 11/18/22 @ 20:30 by Pao Aparicio PA-C) H/O Spinal surgery Hx of brain surgery S/P BANQUET STEWARD shunt Family History: Family History (Last Reviewed 10/26/22 @ 18:11 by Jack Martinez MD) Father Family history of diabetes mellitus in first degree relative Diabetes mellitus - Social History Social History: Social History (Last Reviewed 10/26/22 @ 18:11 by Jack Martinez MD) Alcohol Use: Alcohol intake: never Substance Use: Substance use: never Others: Spiritual care concerns: No Smoking Status: Smoking status: Never smoker Second hand tobacco smoke exposure: No Social Determinants of Health: Has the Lack of Transportation Kept You From Medical Appointments or From Getting Medications?: No Within the Past 12 Months, Were You Worried Whether Your Food Would Run Out Before You Got Money to Buy More?: Never True What is Your Housing Situation Today?: I Have Housing Are You Worried That in the Next 2 Months, You May Not Have Your Own Housing to Live In?: No Do You Have Trouble Paying Your Heating Or Electricity Bill?: Yes Do You Have Trouble Paying For Medicines?: No Are You Currently Unemployed and Looking for Work?: No Highest Level of Education Completed: High School Diploma/GED Do You Have Trouble With Childcare or the Care of a Family Member?: No Exam - Vital Signs Vital Signs - 24 hr 11/24/22 21:46 11/25/22 05:48 11/25/22 14:00 Temperature 36.4 C 36.7 C 36.1 C L Pulse Rate 62 58 L 67 Respiratory Rate 14 14 20 Blood Pressure 99/43 L 89/47 L 99/70 L Pulse Oximetry 97 100 99 - Exam HEENT: EOMI, PERRLA, mucous membranes moist and pink Neck: supple. No: JVD Lungs: clear to auscultation, normal air movement Heart: no murmurs, gallops, or rubs, regular rhythm, regular rate Abdomen: abdomen soft, non-distended, normal bowel sounds Extremities: normal pulses Integumentary: no abnormalities Neurological: normal gait, normal speech Psychological: mental status NL, mood NL (There is a bruise on the right side of the face) - Lab Results Laboratory Last Values WBC 3.2 K/mm3 (4.5-10.0) L 11/25/22 07:45 RBC 2.75 M/mm3 (4.2-5.4) L 11/25/22 07:45 Hgb 9.0 g/dL (12.0-15.0) L 11/25/22 07:45 Hct 27.7 % (37.0-47.0) L 11/25/22 07:45 MCV 100.7 fl (80-100) H 11/25/22 07:45 MCH 32.7 pg (26-34) 02
[2022-11-25 21:56] VITALS: BP 96/53; PULSE 63; RESP 18; TEMP 36.1; O2SAT 97
[2022-11-26] MEDS: SODIUM CHLORIDE 0.9% IV 1,000 ML 100 ML IV CONT ×2 (05:12→16:12)
[2022-11-26] MEDS: LEVOTHYROXINE SODIUM 50 MCG TABLET PO (05:32)
[2022-11-26] MEDS: carBAMazepine 200 MG TABLET 600 MG PO ×2 (05:32→20:28)
[2022-11-26 05:35] VITALS: BP 92/59; PULSE 52; RESP 18; TEMP 36.6; O2SAT 98
[2022-11-26 08:17] LABS: Hematocrit 30.7 % (37.0-47.0); Hemoglobin 9.8 g/dL (12.0-15.0); Mean Corpuscular HGB Conc 31.9 g/dl (32-36); Mean Corpuscular Hemoglobin 32.5 pg (26-34); Mean Corpuscular Volume 101.7 fl (80-100); Mean Platelet Volume 11.1 fl (7.4-10.4); Platelet Count Result 75 k/mm3 (150-375); Red Blood Count 3.02 M/mm3 (4.2-5.4); Red Cell Distribution Width 15.4 % (11.5-14.5); White Blood Count 4.1 K/mm3 (4.5-10.0)
[2022-11-26 08:25] LABS: Alanine Aminotransferase 10 U/L (6-35); Albumin Level 2.7 g/dL (3.5-5.1); Alkaline Phosphatase 64 U/L (38-126); Anion Gap -4 mmol/L (8-16); Aspartate Amino Transferase 25 U/L (14-36); Bilirubin,Total 0.3 mg/dL (0.2-1.3); Blood Urea Nitrogen 15 mg/dL (7-17); Carbon Dioxide 37 mmol/L (22-30); Chloride 102 mmol/L (98-107); Estimated CRCL calculation 73 ml/min; Estimated Glomerular Filt Rate > 60; Glucose 74 mg/dL (65-110); Potassium 4.7 mmol/L (3.4-5.0); Sodium 135 mmol/L (137-145)
[2022-11-26 08:57] LABS: Atypical Lymphocytes Present; Band Neutrophils Percent 8 % (0-6); Eosinophils Absolute Manual 0.04 K/mm3 (0.02-0.5); Eosinophils Percent Manual 1 % (0-4); Lymphocytes Absolute Manual 2.25 K/mm3 (1.1-4.5); Metamyelocytes Percent 1 %; Monocytes Absolute Manual 0.32 K/mm3 (0.1-0.90); Monocytes Percent Manual 8 % (3-9); Neutrophils Absolute Manual 1.43 K/mm3 (1.7-7.2); Neutrophils Percent Manual 27 % (46-73); Ovalocytes 1+ (NORMAL); Platelet Estimate Adequate (Adequate); Schistocytes None Seen (NORMAL); Total Cells Counted 100
[2022-11-26] MEDS: OMEGA 3 POLYUNSAT FATTY ACIDS 1 GM CAP PO (08:57)
[2022-11-26 08:58] LABS: Hypochromasia 1+ (NORMAL)
[2022-11-26] MEDS: FERROUS SULFATE 324 MG TABLET PO ×2 (08:58→16:15)
[2022-11-26] MEDS: PANTOPRAZOLE 40 MG TABLET PO ×2 (08:59→16:15)
[2022-11-26] MEDS: LORATADINE 10 MG TABLET PO (08:59)
[2022-11-26] MEDS: ATORVASTATIN 20 MG TABLET PO (08:59)
[2022-11-26] MEDS: CYANOCOBALAMIN 1,000 MCG TABLET 1000 MCG PO (08:59)
[2022-11-26] MEDS: guaiFENesin 600 MG/DEXTROMETHORPHAN 30 MG SR TAB 12 HR 1 TAB PO ×2 (08:59→20:26)
[2022-11-26] MEDS: carBAMazepine 200 MG TABLET 400 MG PO ×2 (10:52→16:16)
[2022-11-26 14:00] VITALS: BP 104/60; PULSE 71; RESP 18; TEMP 36; O2SAT 97
--- NOTE | 2022-11-26 14:30 | P.PNIM_ITS ---
Progress Note: A&P Assessment and Plan (1) Pancytopenia: Code(s): D61.818 - Other pancytopenia Status: Acute Assessment and Plan: It does appear the patient has had history of pancytopenia in the past. Discuss ed this with the family and family wants hematology to be involved in patient's care. Carbamazepine could be causative agent of patient's pancytopenia. * WBC, H/H, PLT all trending down * PT/INR 12.7/1.0, PTT 34.7, anemia labs iron 81, TIBC 223,% saturation 36, transferrin 138, ferritin 108, B12 915, folate 2.9, absolute retic count 0.07 * Could be secondary to the infection, development, medication induced, etc. * Hematology consulted * Continue to trend labs * Patient plan for splenic ultrasound. Discussed case with Hematology. Patient will be cleared for discharge after splenic ultrasound completed. Most likely discharge tomorrow. Called pts mother and talked to her about plans moving forward. (2) Hypotension: Code(s): I95.9 - Hypotension, unspecified Status: Acute Assessment and Plan: pt given one dose of albumin * Currently getting IV fluids * could be related to dehydration * adjust therapy as indicated 11/26/22 * Pt with hx of hypotension * stable at this time. (3) Pneumonia: Code(s): J18.9 - Pneumonia, unspecified organism Status: Acute Assessment and Plan: * CT abdomen and pelvis indicated pneumonia on 11/18/22 * patient received ceftriaxone and vanc * WBC stable * Could be a HCAP as she was just released from rehab * Sputum culture if able * Blood cultures no growth to date * Chest Xray on 11/23/22 revealed possible mild atelectasis at the left lung base * Pt started on Mucinex due to decreased secretions. * Antibiotics transition to p.o. cefdinir and antibiotics discontinued on 11/25/22. (4) Seizure disorder: Code(s): G40.909 - Epilepsy, unspecified, not intractable, without status epilepticus Status: Acute Assessment and Plan: * arrived with complaints of unresponsive behavior and confusion * valproic acid level 105.6, carbamazepine 6.7 * Repeat for pork acid level is better today. 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 Patient waiting for splenic ultrasound today. After ultrasound is read and there are no abnormalities patient will be clear for discharge.
--- NOTE | 2022-11-26 14:30 | PM.IMPN ---
Progress Note: A&P Assessment and Plan (1) Pancytopenia: Code(s): D61.818 - Other pancytopenia Status: Acute Assessment and Plan: It does appear the patient has had history of pancytopenia in the past. Discussed this with the family and family wants hematology to be involved in patient's care. Carbamazepine could be causative agent of patient's pancytopenia. WBC, H/H, PLT all trending down PT/INR 12.7/1.0, PTT 34.7, anemia labs iron 81, TIBC 223,% saturation 36, transferrin 138, ferritin 108, B12 915, folate 2.9, absolute retic count 0.07 Could be secondary to the infection, development, medication induced, etc. Hematology consulted Continue to trend labs Patient plan for splenic ultrasound. Discussed case with Hematology. Patient will be cleared for discharge after splenic ultrasound completed. Most likely discharge tomorrow. Called pts mother and talked to her about plans moving forward. (2) Hypotension: Code(s): I95.9 - Hypotension, unspecified Status: Acute Assessment and Plan: pt given one dose of albumin Currently getting IV fluids could be related to dehydration adjust therapy as indicated 11/26/22 Pt with hx of hypotension stable at this time. (3) Pneumonia: Code(s): J18.9 - Pneumonia, unspecified organism Status: Acute Assessment and Plan: CT abdomen and pelvis indicated pneumonia on 11/18/22 patient received ceftriaxone and vanc WBC stable Could be a HCAP as she was just released from rehab Sputum culture if able Blood cultures no growth to date Chest Xray on 11/23/22 revealed possible mild atelectasis at the left lung base Pt started on Mucinex due to decreased secretions. Antibiotics transition to p.o. cefdinir and antibiotics discontinued on 11/25/22. (4) Seizure disorder: Code(s): G40.909 - Epilepsy, unspecified, not intractable, without status epilepticus Status: Acute Assessment and Plan: arrived with complaints of unresponsive behavior and confusion valproic acid level 105.6, carbamazepine 6.7 Repeat for pork acid level is better today. 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 Patient waiting for splenic ultrasound today. After ultrasound is read and there are no abnormalities patient will be clear for discharge. No new concerns at this time. Review of Systems Review of Systems: All systems reviewed & are unremarkable except as noted in HPI and below Exam Narrative: GENERAL: Comfortable, no acute distress, alert HENMT: moist mucous membranes EYES: EOM intact b/l NECK: no lymphadenopathy RESPIRATORY: clear to auscultation CARDIO: RRR GI: soft, nontender, bowel sounds present SKIN: no rashes EXTREMITIES: no edema, redness or tenderness Objective Data Vital Signs Vital Signs: Vital Signs - 24 hr 11/25/22 19:54 11/25/22 21:56 11/26/22 05:35 Temp
--- NOTE | 2022-11-26 14:31 | P.DS_ITS ---
DS: Admitting Diagnosis Discharge Date 11/26/22 Admitting Diagnosis Pneumonia DS: Discharge Diagnosis Discharge Diagnosis (1) Pancytopenia: Code(s): D61.818 - Other pancytopenia Status: Acute Assessment and Plan: It does appear the patient has had history of pancytopenia in the past. Discussed this with the family and family wants hematology to be involved in patient's care. Carbamazepine could be causative agent of patient's pancytopenia. * WBC, H/H, PLT all trending down * PT/INR 12.7/1.0, PTT 34.7, anemia labs iron 81, TIBC 223,% saturation 36, transferrin 138, ferritin 108, B12 915, folate 2.9, absolute retic count 0.07 * Could be secondary to the infection, development, medication induced, etc. * Hematology consulted * Continue to trend labs (2) Hypotension: Code(s): I95.9 - Hypotension, unspecified Status: Acute Assessment and Plan: pt given one dose of albumin * Currently getting IV fluids * could be related to dehydration * adjust therapy as indicated (3) Pneumonia: Code(s): J18.9 - Pneumonia, unspecified organism Status: Acute Assessment and Plan: * CT abdomen and pelvis indicated pneumonia on 11/18/22 * Patient treated with ceftriaxone and vanco for hospital-acquired pneumonia * WBC stable * Could be a HCAP as she was just released from rehab * unable to obtain sputum culture * Blood cultures negative * Chest Xray on 11/23/22 revealed possible mild atelectasis at the left lung base * Pt started on Mucinex due to decreased secretions. * (4) Seizure disorder: Code(s): G40.909 - Epilepsy, unspecified, not intractable, without status epilepticus Status: Acute Assessment and Plan: * arrived with complaints of unresponsive behavior and confusion * valproic acid level 105.6, carbamazepine 6.7 * Repeat for pork acid level is better today. 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 Status: Acute Assessment and Plan: * Unchanged (6) Congenital hydrocephalus, unspecified: Code(s): Q03.9 - Congenital hydrocephalus, unspecified Status: Acute Assessment and Plan: * Status post WATER FILTRATION TECHNICIAN shunt (7) Intellectual developmental disorder, profound: Code(s): F73 - Profound intellectual disabilities Status: Acute Assessment and Plan: * Supportive care * chronic * stable DS: Summary Hospital Course Reason for hospitalization: pneumonia Hospital Course: 47-year-old female with history of agenesis of the corpus callosum, congenital hydrocephalus status post WATER FILTRATION TECHNICIAN shunt placement and seizure disorder presented to the ED with evaluation of altered mental status. Patient recently admitted into the hospital about a month ago for altered mental status and treated for a UTI. patient's mother gave most of the history and she stated that patients eating and drinking had declined and she become more lethargic. CT of the abdomen pelvis revealed basilar left
--- NOTE | 2022-11-26 14:31 | PM.DS ---
DS: Admitting Diagnosis Discharge Date 11/26/22 Admitting Diagnosis Pneumonia DS: Discharge Diagnosis Discharge Diagnosis (1) Pancytopenia: Code(s): D61.818 - Other pancytopenia Status: Acute Assessment and Plan: It does appear the patient has had history of pancytopenia in the past. Discussed this with the family and family wants hematology to be involved in patient's care. Carbamazepine could be causative agent of patient's pancytopenia. WBC, H/H, PLT all trending down PT/INR 12.7/1.0, PTT 34.7, anemia labs iron 81, TIBC 223,% saturation 36, transferrin 138, ferritin 108, B12 915, folate 2.9, absolute retic count 0.07 Could be secondary to the infection, development, medication induced, etc. Hematology consulted Continue to trend labs (2) Hypotension: Code(s): I95.9 - Hypotension, unspecified Status: Acute Assessment and Plan: pt given one dose of albumin Currently getting IV fluids could be related to dehydration adjust therapy as indicated (3) Pneumonia: Code(s): J18.9 - Pneumonia, unspecified organism Status: Acute Assessment and Plan: CT abdomen and pelvis indicated pneumonia on 11/18/22 Patient treated with ceftriaxone and vanco for hospital-acquired pneumonia WBC stable Could be a HCAP as she was just released from rehab unable to obtain sputum culture Blood cultures negative Chest Xray on 11/23/22 revealed possible mild atelectasis at the left lung base Pt started on Mucinex due to decreased secretions. (4) Seizure disorder: Code(s): G40.909 - Epilepsy, unspecified, not intractable, without status epilepticus Status: Acute Assessment and Plan: arrived with complaints of unresponsive behavior and confusion valproic acid level 105.6, carbamazepine 6.7 Repeat for pork acid level is better today. 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 Status: Acute Assessment and Plan: Unchanged (6) Congenital hydrocephalus, unspecified: Code(s): Q03.9 - Congenital hydrocephalus, unspecified Status: Acute Assessment and Plan: Status post SLITTER AND CUTTER OPERATOR shunt (7) Intellectual developmental disorder, profound: Code(s): F73 - Profound intellectual disabilities Status: Acute Assessment and Plan: Supportive care chronic stable DS: Summary Hospital Course Reason for hospitalization: pneumonia Hospital Course: 47-year-old female with history of agenesis of the corpus callosum, congenital hydrocephalus status post SLITTER AND CUTTER OPERATOR shunt placement and seizure disorder presented to the ED with evaluation of altered mental status. Patient recently admitted into the hospital about a month ago for altered mental status and treated for a UTI. patient's mother gave most of the history and she stated that patients eating and drinking had declined and she become more lethargic. CT of the abdomen pelvis revealed basilar left lower lung pneumonia. patient was treated with hospital-acquired pneumonia due to recent discharge from rehab facility. Patient treated with ceftriaxone and vanc. Blood cultures negative. Neurology consulted due to patient's history of seizures. EEG performed in revealed absence seizure. Patient was found to have and above therapeutic dose range of valproic acid and her dosing was decreased from a 1500 mg to 1000 mg at night while in the hospital. patient slowly improved each day with antibiotic therapy and change of Depakote medication. Patient found to be
[2022-11-26] MEDS: DIVALPROEX SODIUM DR 250 MG TABEC 1000 MG PO ×2 (16:15→20:28)
[2022-11-26 21:22] VITALS: BP 84/42; PULSE 61; RESP 18; TEMP 36.2; O2SAT 100
[2022-11-27 04:50] VITALS: BP 93/49; PULSE 57; RESP 16; TEMP 36.3; O2SAT 97
[2022-11-27] MEDS: LEVOTHYROXINE SODIUM 50 MCG TABLET PO (05:59)
[2022-11-27] MEDS: carBAMazepine 200 MG TABLET 600 MG PO (05:59)
[2022-11-27] MEDS: DIVALPROEX SODIUM DR 250 MG TABEC 1000 MG PO ×2 (06:00→16:14)
[2022-11-27 08:02] LABS: Hematocrit 31.7 % (37.0-47.0); Hemoglobin 10.2 g/dL (12.0-15.0); Immature Platelet Fraction Pct 8.4 % (0.9-11.2); Mean Corpuscular HGB Conc 32.2 g/dl (32-36); Mean Corpuscular Hemoglobin 32.8 pg (26-34); Mean Corpuscular Volume 101.9 fl (80-100); Mean Platelet Volume 10.9 fl (7.4-10.4); Platelet Count Result 98 k/mm3 (150-375); Red Blood Count 3.11 M/mm3 (4.2-5.4); Red Cell Distribution Width 15.9 % (11.5-14.5); White Blood Count 4.4 K/mm3 (4.5-10.0)
[2022-11-27 08:17] LABS: Alanine Aminotransferase 10 U/L (6-35); Albumin Level 2.8 g/dL (3.5-5.1); Alkaline Phosphatase 69 U/L (38-126); Anion Gap -1 mmol/L (8-16); Aspartate Amino Transferase 29 U/L (14-36); Bilirubin,Total 0.3 mg/dL (0.2-1.3); Blood Urea Nitrogen 18 mg/dL (7-17); Calcium 8.3 mg/dL (8.4-10.2); Carbon Dioxide 37 mmol/L (22-30); Chloride 103 mmol/L (98-107); Estimated CRCL calculation 86 ml/min; Estimated Glomerular Filt Rate > 60; Glucose 78 mg/dL (65-110); Potassium 5.4 mmol/L (3.4-5.0); Sodium 139 mmol/L (137-145)
[2022-11-27] MEDS: OMEGA 3 POLYUNSAT FATTY ACIDS 1 GM CAP PO (08:34)
[2022-11-27] MEDS: FERROUS SULFATE 324 MG TABLET PO ×2 (08:36→16:16)
[2022-11-27] MEDS: ATORVASTATIN 20 MG TABLET PO (08:36)
[2022-11-27] MEDS: LORATADINE 10 MG TABLET PO (08:36)
[2022-11-27] MEDS: CYANOCOBALAMIN 1,000 MCG TABLET 1000 MCG PO (08:36)
[2022-11-27] MEDS: PANTOPRAZOLE 40 MG TABLET PO ×2 (08:36→16:17)
[2022-11-27] MEDS: guaiFENesin 600 MG/DEXTROMETHORPHAN 30 MG SR TAB 12 HR 1 TAB PO (08:36)
[2022-11-27] MEDS: carBAMazepine 200 MG TABLET 400 MG PO ×2 (12:36→16:15)
--- NOTE | 2022-11-27 13:43 | PC.NURSE ---
Patient accidently ripped IV out of finger. ROMAN Alcala ok with discontinuing fluids and not putting another IV in place due to possible discharge today. Waiting on insurance approval for placement.
--- NOTE | 2022-11-27 15:44 | P.DS_ITS ---
DS: Admitting Diagnosis Discharge Date 11/27/22 Admitting Diagnosis pneumonia DS: Discharge Diagnosis Discharge Diagnosis (1) Pancytopenia: Code(s): D61.818 - Other pancytopenia Status: Acute Assessment and Plan: It does appear the patient has had history of pancytopenia in the past. Discussed this with the family and family wants hematology to be involved in patient's care. Carbamazepine could be causative agent of patient's pancytopenia. * WBC, H/H, PLT all trending down * PT/INR 12.7/1.0, PTT 34.7, anemia labs iron 81, TIBC 223,% saturation 36, transferrin 138, ferritin 108, B12 915, folate 2.9, absolute retic count 0.07 * Could be secondary to the infection, development, medication induced, etc. * Hematology consulted * Continue to trend labs * Patient plan for splenic ultrasound. Discussed case with Hematology. Patient will be cleared for discharge after splenic ultrasound completed. Most likely discharge tomorrow. Called pts mother and talked to her about plans moving forward. (2) Hypotension: Code(s): I95.9 - Hypotension, unspecified Status: Acute Assessment and Plan: pt given one dose of albumin * Currently getting IV fluids * could be related to dehydration * adjust therapy as indicated 11/26/22 * Pt with hx of hypotension * stable at this time. (3) Pneumonia: Code(s): J18.9 - Pneumonia, unspecified organism Status: Acute Assessment and Plan: * CT abdomen and pelvis indicated pneumonia on 11/18/22 * patient received ceftriaxone and vanc * WBC stable * Could be a HCAP as she was just released from rehab * Sputum culture if able * Blood cultures no growth to date * Chest Xray on 11/23/22 revealed possible mild atelectasis at the left lung base * Pt started on Mucinex due to decreased secretions. * Antibiotics transition to p.o. cefdinir and antibiotics discontinued on 11/25/22. (4) Seizure disorder: Code(s): G40.909 - Epilepsy, unspecified, not intractable, without status epilepticus Status: Acute Assessment and Plan: * arrived with complaints of unresponsive behavior and confusion * valproic acid level 105.6, carbamazepine 6.7 * Repeat for pork acid level is better today. 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 Status: Acute Assessment and Plan: * Unchanged (6) Congenital hydrocephalus, unspecified: Code(s): Q03.9 - Congenital hydrocephalus, unspecified Status: Acute Assessment and Plan: * Status post MARKET INVESTIGATOR shunt (7) Intellectual developmental disorder, profound: Code(s): F73 - Profound intellectual disabilities Status: Acute Assessment and Plan: * Supportive care * chronic * stable DS: Summary Hospital Course Reason for hospitalization: pneumonia Hospital Course: 47-year-old female with history of agenesis of the corpus callosum, congenital hydrocephalus status post MARKET INVESTIGATOR shunt placement and seizu
--- NOTE | 2022-11-27 15:44 | PM.DS ---
DS: Admitting Diagnosis Discharge Date 11/27/22 Admitting Diagnosis pneumonia DS: Discharge Diagnosis Discharge Diagnosis (1) Pancytopenia: Code(s): D61.818 - Other pancytopenia Status: Acute Assessment and Plan: It does appear the patient has had history of pancytopenia in the past. Discussed this with the family and family wants hematology to be involved in patient's care. Carbamazepine could be causative agent of patient's pancytopenia. WBC, H/H, PLT all trending down PT/INR 12.7/1.0, PTT 34.7, anemia labs iron 81, TIBC 223,% saturation 36, transferrin 138, ferritin 108, B12 915, folate 2.9, absolute retic count 0.07 Could be secondary to the infection, development, medication induced, etc. Hematology consulted Continue to trend labs Patient plan for splenic ultrasound. Discussed case with Hematology. Patient will be cleared for discharge after splenic ultrasound completed. Most likely discharge tomorrow. Called pts mother and talked to her about plans moving forward. (2) Hypotension: Code(s): I95.9 - Hypotension, unspecified Status: Acute Assessment and Plan: pt given one dose of albumin Currently getting IV fluids could be related to dehydration adjust therapy as indicated 11/26/22 Pt with hx of hypotension stable at this time. (3) Pneumonia: Code(s): J18.9 - Pneumonia, unspecified organism Status: Acute Assessment and Plan: CT abdomen and pelvis indicated pneumonia on 11/18/22 patient received ceftriaxone and vanc WBC stable Could be a HCAP as she was just released from rehab Sputum culture if able Blood cultures no growth to date Chest Xray on 11/23/22 revealed possible mild atelectasis at the left lung base Pt started on Mucinex due to decreased secretions. Antibiotics transition to p.o. cefdinir and antibiotics discontinued on 11/25/22. (4) Seizure disorder: Code(s): G40.909 - Epilepsy, unspecified, not intractable, without status epilepticus Status: Acute Assessment and Plan: arrived with complaints of unresponsive behavior and confusion valproic acid level 105.6, carbamazepine 6.7 Repeat for pork acid level is better today. 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 Status: Acute Assessment and Plan: Unchanged (6) Congenital hydrocephalus, unspecified: Code(s): Q03.9 - Congenital hydrocephalus, unspecified Status: Acute Assessment and Plan: Status post DRUGLESS DOCTOR shunt (7) Intellectual developmental disorder, profound: Code(s): F73 - Profound intellectual disabilities Status: Acute Assessment and Plan: Supportive care chronic stable DS: Summary Hospital Course Reason for hospitalization: pneumonia Hospital Course: 47-year-old female with history of agenesis of the corpus callosum, congenital hydrocephalus status post DRUGLESS DOCTOR shunt placement and seizure disorder presented to the ED with evaluation of altered mental status. Patient recently admitted into the hospital about a month ago for altered mental status and treated for a UTI. patient's mother gave most of the history and she stated that patients eating and drinking had declined and she become more lethargic. CT of the abdomen pelvis revealed basilar left lower lung pneumonia. patient was treated with hospital-acquired pneumonia due to recent discharge from rehab facility. Patient treated with ceftriaxone and vanc. Blood cultures negative. Patient had a cough on presentation
--- NOTE | 2022-11-27 16:43 | PC.NURSE ---
attempted to call report twice to [facility] in [place] with no answer. Voicemail box is not set up. Unable to leave message.
--- NOTE | 2022-11-27 16:46 | PC.NURSE ---
Called report to Derrick WARE at [facility] in [place].
[2022-11-27 22:12] LABS: Osmolality, Urine 619 mOsm/kg (50-1200)
== END 2022-11-27 17:34 | DRG 193 ==
LOC: ANHED 21:54 → ANH3MEDSUR 23:40
PROVIDERS: Emergency Medicine; Nurse Practitioner; Psychiatry & Neurology Neurology; Admitting Provider Internal Medicine; Emergency Provider Physician Assistant; PCP Internal Medicine; Visit Provider Internal Medicine Critical Care Medicine
DX: J18.9 Pneumonia, unspecified organism (principal); Q04.0 Congenital malformations of corpus callosum; F73 Profound intellectual disabilities; G40.802 Other epilepsy, not intractable, without status epilepticus; D61.818 Other pancytopenia; E87.1 Hypo-osmolality and hyponatremia; Q03.9 Congenital hydrocephalus, unspecified; G40.A09 Absence epileptic syndrome, not intractable, without status epilepticus; R53.83 Other fatigue; I95.9 Hypotension, unspecified; L27.0 Generalized skin eruption due to drugs and medicaments taken internally; T36.8X5A Adverse effect of other systemic antibiotics, initial encounter; T42.6X5A Adverse effect of other antiepileptic and sedative-hypnotic drugs, initial encounter; Y95 Nosocomial condition; E78.00 Pure hypercholesterolemia, unspecified; K21.9 Gastro-esophageal reflux disease without esophagitis; Z20.822 Contact with and (suspected) exposure to COVID-19; Z91.81 History of falling; Z98.2 Presence of cerebrospinal fluid drainage device
CPT/HCPCS: 36415; 51701; 70450; 70486; 71045; 74177; 76700; 80048; 80053; 80156; 80164; 81001; 81003; 82274; 82570; 82607; 82728; 82746; 83540; 83550; 83615; 83735; 83880; 83935; 84300; 84439; 84443; 84466; 84480; 84540; 85025; 85027; 85046; 85055; 85610; 85652; 85730; 86140; 87040; 87636; 92610; 93005; 95816; 96361; 96365; 96366; 96367; 96372; 96375; 96376; 97110; 97161; 97166; 97530; 97535; 99285; A9270; G0378; J0456; J0692; J0696; J1200; J1650; J2060; J3370; J3475; J7030; J7040; J7050; J7120; P9047; Q9967

== ENCOUNTER 2022-12-19 14:41 | Outpatient (CLI) | payer MEDICARE, MEDICAID, SELFPAY ==
[2022-12-19 15:52] LABS: Basophils Percent Auto 0.4 % (0.2-1.2); Eosinophils Percent Auto 0.2 % (0-4.4); Hemoglobin 12.8 g/dL (12.0-15.0); Immature Granulocyte Absolute 0.05 K/mm3 (0.00-0.031); Lymphocytes Absolute Auto 1.49 K/mm3 (0.9-3.2); Mean Corpuscular HGB Conc 32.8 g/dl (32-36); Mean Corpuscular Hemoglobin 33.4 pg (26-34); Mean Corpuscular Volume 101.8 fl (80-100); Mean Platelet Volume 10.3 fl (7.4-10.4); Monocytes Absolute Auto 0.6 K/mm3 (0.1-0.6); Monocytes Percent Auto 11.1 % (2.6-8.5); Neutrophils Percent Auto 58.3 % (45.5-73.1); Platelet Count Result 160 k/mm3 (150-375); Red Blood Count 3.83 M/mm3 (4.2-5.4); Red Cell Distribution Width 14.7 % (11.5-14.5); White Blood Count 5.1 K/mm3 (4.5-10.0)
[2022-12-19 16:05] LABS: Alanine Aminotransferase 14 U/L (6-35); Alkaline Phosphatase 85 U/L (38-126); Anion Gap 6 mmol/L (8-16); Aspartate Amino Transferase 27 U/L (14-36); Bilirubin,Total 0.5 mg/dL (0.2-1.3); Blood Urea Nitrogen 15 mg/dL (7-17); Calcium 9.2 mg/dL (8.4-10.2); Carbon Dioxide 32 mmol/L (22-30); Chloride 100 mmol/L (98-107); Estimated Glomerular Filt Rate > 60; Glucose 99 mg/dL (65-110); Potassium 4.7 mmol/L (3.4-5.0); Sodium 138 mmol/L (137-145)
[2022-12-19 16:21] LABS: Free T4 Free Thyroxine 1.52 ng/mL (0.78-2.19)
[2022-12-19 17:05] LABS: Valproic Acid 126.7 ug/mL (50-120)
[2022-12-19 17:12] LABS: Folic Acid 6.5 ng/mL (2.76->20)
[2022-12-24 10:06] LABS: Carbamazepine Tegretol 10.5 mcg/mL (4.0-12.0); Carbamazepine Tegretol 9.8 mcg/mL (4.0-12.0)
== END 2022-12-19 14:42 | disposition home or self-care (01) ==
PROVIDERS: PCP Internal Medicine; Referring Provider Psychiatry & Neurology Neurology; Visit Provider Internal Medicine
DX: E55.9 Vitamin D deficiency, unspecified (principal); R53.83 Other fatigue; G40.909 Epilepsy, unspecified, not intractable, without status epilepticus; D64.9 Anemia, unspecified; E03.9 Hypothyroidism, unspecified
CPT/HCPCS: 36415; 80053; 80156; 80164; 82607; 82746; 84439; 84443; 85025

== ENCOUNTER 2023-02-06 00:18 | Day surgery (SDC) | payer MEDICARE, MEDICAID, SELFPAY ==
[2023-01-28 13:08] VITALS: BMI 19.1
--- NOTE | 2023-02-05 12:29 | WPDANESEPPF ---
Anes - Initial Pre Proc Eval Procedure: Operation Date: 02/06/23 10:00 Proposed Procedures p Colonoscopy - Prosper Thompson MD Date/Time: 02/05/23 12:29 Surgeon: Prosper Thompson MD Pre Op Diagnosis: melena Patient Data Age: 47 Gender: F Height: 1.55 m Weight: 45.9 kg Allergies Allergy/AdvReac Type Severity Reaction Status Date / Time caffeine Allergy Severe dizzy Verified 02/06/23 08:45 zonisamide Allergy Unknown Unknown Verified 02/06/23 08:45 chocolate flavor Allergy Unknown Verified 02/06/23 08:45 vancomycin Allergy Redness of Verified 02/06/23 08:45 Skin Home Medications Medication Instructions Recorded Confirmed Type omega-3 fatty acids 1,000 mg 1,000 mg PO DAILY 01/15/21 02/06/23 History capsule (Fish Oil Concentrate) levothyroxine 50 mcg tablet 50 mcg PO DAILY #90 tabs 06/18/22 02/06/23 Rx mecobalamin (vitamin B12) 1,000 1,000 mcg PO DAILY 08/22/22 02/06/23 History mcg chewable tablet (B12 Active) omeprazole 40 mg capsule,delayed 40 mg PO DAILY #90 caps 09/16/22 02/06/23 Rx release acetaminophen 650 mg tablet 650 mg PO Q6H PRN Pain 10/30/22 02/06/23 History dextromethorphan-guaifenesin 20 1 tablet PO Q4-6H PRN cough #30 11/27/22 02/06/23 Rx mg-400 mg tablet tabs ascorbate calcium (vitamin C) 500 500 mg PO DAILY 12/19/22 02/06/23 History mg tablet atorvastatin 40 mg tablet 40 mg PO DAILY 12/19/22 02/06/23 History carbamazepine 200 mg tablet 200 mg PO .COMPLEX #900 tabs 12/19/22 02/06/23 Rx divalproex 500 mg tablet,delayed 500 mg PO DIRECTED #630 tabs 12/19/22 02/06/23 Rx release (Depakote) ferrous sulfate 325 mg (65 mg 325 mg PO BID #60 tabs 12/19/22 02/06/23 Rx iron) tablet cranberry 400 mg capsule 400 mg PO BID 12/25/22 02/06/23 History loratadine 10 mg tablet 10 mg PO DAILY PRN Allergy Symptoms 01/28/23 02/06/23 History Patient hx anesthesia problems: none Family hx anesthesia problems: none Results Review: All pre-operative results and documents have been reviewed as part of the pre-operative evaluation. 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 She lives with her mother. She can ambulate with a walker or otherwise uses a wheelchair. Smoking status: Never smoker Second hand tobacco smoke exposure: No Alcohol intake: never Substance use: never Lack of Transportation: No Lack of Food: Sometimes True Current Housing: I Have Housing Concerned About Future Housing: No Difficulty Paying Gas/Electric Bills: YES Difficulty Paying for Meds: No Currently Unemployed: No Education: High School Diploma/GED Difficulty w/ Childcare or Family Care: No Living arrangements: with family Spiritual care concerns: No Anes - Eval Final PreProcedure Day of Procedure 02/05/23 12:29 Patient weight: normal Heart: regular rate and rhythm Lungs: clear to auscultation and normal air movement Airway: Mallampati scale class II Neurological: alert and oriented Last oral intake: >/= 8 hours ASA classification: III Emergent: no Anesthetic plan: proceed Anesthesia type and monitoring: general GIVS and standard monitoring Results Review: All pre-operative results and documents have been reviewed as part of the pre-operative eval
[2023-02-06 08:47] VITALS: BP 127/89; PULSE 79; RESP 16; TEMP 35.9; O2SAT 100
[2023-02-06] MEDS: LACTATED RINGERS 1,000 ML 150 ML IV CONT (09:24)
--- NOTE | 2023-02-06 09:33 | PM.HPGS ---
History of Present Illness History of Present Illness Consent: Risks, benefits, and alternatives have been discussed and questions answered. Patient agrees to proceed with procedure. Chief complaint: melena Narrative: Christi Azevedo is a 47 year old female here for first colonoscopy, had positive cologuard Review of Systems Review of Systems: ROS unobtainable: Yes unobtainable due to mental status Eyes: Eyes: Reports no additional eye complaints ENT: Denies dysphagia Cardiovascular: Cardiovascular: Denies chest pain Respiratory: Respiratory: Denies no additional respiratory complaints Gastrointestinal: Gastrointestinal: Denies no additional gastrointestinal complaints [facility] Past Medical History Medical History (Updated 02/06/23 @ 09:35 by Prosper Thompson MD) Agenesis of corpus callosum Congenital hydrocephalus, unspecified Esophageal reflux disease Other epilepsy, not intractable, with status epilepticus Positive colorectal cancer screening using Cologuard test Pure hypercholesterolemia Seizure disorder last one 01/14/23 Surgical History Surgical History H/O Spinal surgery Hx of brain surgery S/P SUPERVISOR DRYING AND SOFTENING shunt Family History Family History Father Family history of diabetes mellitus in first degree relative Diabetes mellitus Social History Social History Social History: The patient is disabled. She lives with her mother. She can ambulate with a walker or otherwise uses a wheelchair. Smoking status: Never smoker Second hand tobacco smoke exposure: No Alcohol intake: never Substance use: never Lack of Transportation: No Lack of Food: Sometimes True Current Housing: I Have Housing Concerned About Future Housing: No Difficulty Paying Gas/Electric Bills: YES Difficulty Paying for Meds: No Currently Unemployed: No Education: High School Diploma/GED Difficulty w/ Childcare or Family Care: No Living arrangements: with family Spiritual care concerns: No Meds Home Medications and Allergies Home Medications Medication Instructions Recorded Confirmed Type omega-3 fatty acids 1,000 mg 1,000 mg PO DAILY 01/15/21 02/06/23 History capsule (Fish Oil Concentrate) levothyroxine 50 mcg tablet 50 mcg PO DAILY #90 tabs 06/18/22 02/06/23 Rx mecobalamin (vitamin B12) 1,000 1,000 mcg PO DAILY 08/22/22 02/06/23 History mcg chewable tablet (B12 Active) omeprazole 40 mg capsule,delayed 40 mg PO DAILY #90 caps 09/16/22 02/06/23 Rx release acetaminophen 650 mg tablet 650 mg PO Q6H PRN Pain 10/30/22 02/06/23 History dextromethorphan-guaifenesin 20 1 tablet PO Q4-6H PRN cough #30 11/27/22 02/06/23 Rx mg-400 mg tablet tabs ascorbate calcium (vitamin C) 500 500 mg PO DAILY 12/19/22 02/06/23 History mg tablet atorvastatin 40 mg tablet 40 mg PO DAILY 12/19/22 02/06/23 History carbamazepine 200 mg tablet 200 mg PO .COMPLEX #900 tabs 12/19/22 02/06/23 Rx divalproex 500 mg tablet,delayed 500 mg PO DIRECTED #630 tabs 12/19/22 02/06/23 Rx release (Depakote) ferrous sulfate 325 mg (65 mg 325 mg PO BID #60 tabs 12/19/22 02/06/23 Rx iron) tablet cranberry 400 mg capsule 400 mg PO BID 12/25/22 02/06/23 History loratadine 10 mg tablet 10 mg PO DAILY PRN Allergy Symptoms 01/28/23 02/06/23 History Allergies Allergy/AdvReac Type Severity Reaction Status Date / Time caffeine Allergy Severe dizzy Verified 02/06/23 08:45 zonisamide Allergy Unknown Unknown Verified 02/06/23 08:45 chocolate flavor Allergy Unknown Verified 02/06/23 08:45 vancomycin Allergy Redness of Verified 02/06/23 08:45 Skin Vital Signs Vital Signs - 24 hr 02/06/23 08:47 Temperature 96.6 F L Pulse Rate 79 Respiratory Rate 16 Blood Pressure 127/89 Pulse Oximetry 100 Oxygen Delivery Room Air Exam Narrative: GENERAL: Comfor
[2023-02-06 09:58] VITALS: BP 90/51; PULSE 52; RESP 17; O2SAT 93
[2023-02-06 10:08] VITALS: BP 119/62; PULSE 58; RESP 22; O2SAT 100
[2023-02-06 10:18] VITALS: BP 132/55; PULSE 55; RESP 15; O2SAT 100
== END 2023-02-06 10:26 | disposition home or self-care (01) ==
PROVIDERS: PCP Internal Medicine; Visit Provider Internal Medicine Gastroenterology
PROC: 0DJD8ZZ Inspection of Lower Intestinal Tract, Via Natural or Artificial Opening Endoscopic (ICD-10-PCS; CPT 45378; principal; 2023-02-06 10:00)
DX: R19.5 Other fecal abnormalities (principal); D12.3 Benign neoplasm of transverse colon; K21.9 Gastro-esophageal reflux disease without esophagitis; F73 Profound intellectual disabilities; Q04.0 Congenital malformations of corpus callosum; Q03.9 Congenital hydrocephalus, unspecified; G40.909 Epilepsy, unspecified, not intractable, without status epilepticus; E78.00 Pure hypercholesterolemia, unspecified; Z98.2 Presence of cerebrospinal fluid drainage device
CPT/HCPCS: 45385; 88305; J2704; J7120

== ENCOUNTER 2023-02-15 12:31 | Emergency (ER) | payer MEDICARE, MEDICAID, SELFPAY ==
--- NOTE | ~2023-02-15 | CT_ITS ---
EXAMINATION: CT facial & cervical spine wo DATE: 02/15/2023 13:24 INDICATION: Head injury. TECHNIQUE: Computed tomography (CT) of the maxillofacial region and cervical spine was performed with out intravenous contrast. Automated exposure control and iterative reconstruction technique were empl oyed. The dose-length product was 121.26 mGy-cm. COMPARISON: Facial bone CT 11/18/2022 FINDINGS: MAXILLOFACIAL CT: There is a forehead hematoma. There is chronic fat stranding in the cheeks. The orbits are normal. Th ere are acute on chronic fractures of the nasal bones. There is rightward deviation of the nasal sept um with a fracture of the nasal septum. CERVICAL SPINE CT: There is cerumen in right external auditory canal. There is 6 degrees levocurvature of cervicothoraci c spine. There are changes of anterior fusion procedure from C4 to C7 with interbody devices and ante rior plate and screws. Vertebral body heights are normal. There is mildly decreased disc height at C3 -C4. The following disc levels are specifically discussed: C2-C3: There is mild right and moderate left uncovertebral joint osteoarthritis. There is severe righ t facet joint osteoarthritis. There is mild right neural foraminal stenosis. There is no central jerilyn l stenosis. C3-C4: There is severe bilateral uncovertebral joint osteoarthritis. There is moderate right and mild left facet joint osteoarthritis. There is mild bilateral neural foraminal stenosis. There is no cent ral canal stenosis. C4-C5: There is moderate bilateral uncovertebral joint hypertrophy. There is mild bilateral facet vero nt osteoarthritis. There is mild bilateral neural foraminal stenosis. There is mild central canal orlin nosis. C5-C6: There is mild bilateral uncovertebral joint hypertrophy. There is moderate right and mild left facet joint hypertrophy. There is mild right neural foraminal stenosis. There is no central canal st enosis. C6-C7: There is severe bilateral uncovertebral joint hypertrophy. There is mild bilateral facet joint hypertrophy. There is mild bilateral neural foraminal stenosis. There is mild central canal stenosis . C7-T1: There is no uncovertebral joint osteoarthritis. There is severe bilateral facet joint osteoart hritis. There is moderate right and mild left neural foraminal stenosis. There is no central canal st enosis. IMPRESSION: 1. Fractures of the nasal bones and nasal septum. 2. Anterior fusion procedure from C4 to C7. 3. Moderate cervical spondylosis. Reviewed, dictated and finalized at location A.
--- NOTE | ~2023-02-15 | CT_ITS ---
EXAMINATION: CT brain wo con DATE: 02/15/2023 13:24 INDICATION: Head injury. TECHNIQUE: Computed tomography (CT) of the head was performed without intravenous contrast. The mA wa s adjusted according to patient size. Iterative reconstruction technique was employed. The dose-lengt h product was 605.33 mGy-cm. COMPARISON: Head CT 11/18/2022 FINDINGS: There is partial agenesis of the corpus callosum. There is chronic encephalomalacia in post erior right frontal lobe and the right caudate nucleus. There is no intracranial hemorrhage, acute in farction, or abnormal intracranial mass lesion. The ventricles are not dilated and unchanged in size. There is a left parietal shunt catheter with tip in the lateral ventricles at the midline. The orbit s are normal. The paranasal sinuses are clear. The mastoid air cells are normal. There is a frontal s calp hematoma. There is retained old tubing in right head and neck. IMPRESSION: 1. 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 2. Partial agenesis of the corpus callosum. 3. Ventricles unchanged in size with shunt catheter in expected position. Reviewed, dictated and finalized at location A.
[2023-02-15 12:32] VITALS: BP 140/80; PULSE 101; RESP 16; TEMP 36.8; O2SAT 98
--- NOTE | 2023-02-15 13:00 | ED.HEATRA ---
HPI - Head Injury General Chief complaint: Head Injury Stated complaint: head injury, fall from bed Time Seen by Provider: 02/15/23 12:38 History of Present Illness HPI Narrative: Patient is a 47-year-old female who presents to the ER with a head injury. Patient has had a couple falls over the last 2 days. She has bruising to her left ear and left gnosticism from a fall yesterday. She was large swelling over her forehead and right eyebrow today for recall today. Has a laceration to her right nose as well as mild deformity of the nose. She has a small lower lip laceration. Denies loss of consciousness. She does take a baby aspirin. Patient has ambulatory difficulty due to chronic illness. She has a ventricular shunt in place. No headache or change in vision. Mother reports that the patient's physical therapy ended recently because she has not given her to go she is becoming weaker. Related Data Home Medications Medication Instructions Recorded Confirmed omega-3 fatty acids 1,000 mg 1,000 mg PO DAILY 01/15/21 02/06/23 capsule (Fish Oil Concentrate) mecobalamin (vitamin B12) 1,000 1,000 mcg PO DAILY 08/22/22 02/06/23 mcg chewable tablet (B12 Active) acetaminophen 650 mg tablet 650 mg PO Q6H PRN Pain 10/30/22 02/06/23 ascorbate calcium (vitamin C) 500 500 mg PO DAILY 12/19/22 02/06/23 mg tablet atorvastatin 40 mg tablet 40 mg PO DAILY 12/19/22 02/06/23 cranberry 400 mg capsule 400 mg PO BID 12/25/22 02/06/23 loratadine 10 mg tablet 10 mg PO DAILY PRN Allergy Symptoms 01/28/23 02/06/23 Allergies Allergy/AdvReac Type Severity Reaction Status Date / Time caffeine Allergy Severe dizzy Verified 02/06/23 08:45 zonisamide Allergy Unknown Unknown Verified 02/06/23 08:45 chocolate flavor Allergy Unknown Verified 02/06/23 08:45 vancomycin Allergy Redness of Verified 02/06/23 08:45 Skin Review of Systems Review of Systems: All systems reviewed & are unremarkable except as noted in HPI and below Constitutional: Constitutional: Denies chills, Denies fatigue and Denies fever(s) Eyes: Eyes: Denies change in vision Gastrointestinal: Gastrointestinal: Denies abdominal pain, Denies nausea and Denies vomiting Musculoskeletal: Musculoskeletal: Denies arthralgias and Denies joint swelling Integumentary/Breasts: Comments: Nasal laceration, contusions to the face. Neurologic: Denies syncope, Denies headache(s) and Denies focal weakness PMFSH Past Medical History Medical History (Updated 02/15/23 @ 16:17 by Mario Alberto Stover MD) Agenesis of corpus callosum Congenital hydrocephalus, unspecified Esophageal reflux disease Other epilepsy, not intractable, with status epilepticus Positive colorectal cancer screening using Cologuard test Pure hypercholesterolemia Seizure disorder last one 01/14/23 Surgical History Surgical History H/O Spinal surgery Hx of brain surgery S/P PIN SORTER AND BAGGER shunt Family History Family History Father Family history of diabetes mellitus in first degree relative Diabetes mellitus Social History Social History Social History: The patient is disabled. She lives with her mother. She can ambulate with a walker or otherwise uses a wheelchair. Smoking status: Never smoker Second hand tobacco smoke exposure: No Alcohol intake: never Substance use: never Lack of Transportation: No Lack of Food: Sometimes True Current Housing: I Have Housing Concerned About Future Housing: No Difficulty Paying Gas/Electric Bills: YES Difficulty Paying for Meds: No Currently Unemployed: No Education: High School Diploma/GED Difficulty w/ Childcare or Family Care: No Living arrangements: with family Spiritual care concerns: No Exam Narrative: GENERAL: Chronically ill-appearing, well-nourished, and in no acute distress. HEAD: Nor
[2023-02-15 13:07] LABS: Basophils Percent Auto 0.2 % (0.2-1.2); Eosinophils Percent Auto 0.3 % (0-4.4); Hematocrit 37.1 % (37.0-47.0); Immature Granulocyte Absolute 0.05 K/mm3 (0.00-0.031); Immature Granulocyte Percent A 0.8 % (0-0.5); Lymphocytes Absolute Auto 1.81 K/mm3 (0.9-3.2); Lymphocytes Percent Auto 27.2 % (18.3-44.2); Mean Corpuscular HGB Conc 32.3 g/dl (32-36); Mean Corpuscular Hemoglobin 33.3 pg (26-34); Mean Corpuscular Volume 103.1 fl (80-100); Mean Platelet Volume 9.3 fl (7.4-10.4); Monocytes Absolute Auto 0.6 K/mm3 (0.1-0.6); Monocytes Percent Auto 9.6 % (2.6-8.5); Neutrophils Absolute Auto 4.1 K/mm3 (1.3-6.7); Neutrophils Percent Auto 61.9 % (45.5-73.1); Platelet Count Result 158 k/mm3 (150-375); Red Cell Distribution Width 13.6 % (11.5-14.5); White Blood Count 6.7 K/mm3 (4.5-10.0)
[2023-02-15 13:20] LABS: INR 0.9; Prothrombin Time 12.7 Seconds (11.1-14.7)
[2023-02-15 13:23] LABS: Partial Thromboplastin Time 29.6 SECONDS (22.3-36.8)
[2023-02-15 13:29] LABS: Alanine Aminotransferase 18 U/L (6-35); Albumin Level 3.7 g/dL (3.5-5.1); Alkaline Phosphatase 89 U/L (38-126); Anion Gap 2 mmol/L (8-16); Aspartate Amino Transferase 34 U/L (14-36); Bilirubin,Total 0.5 mg/dL (0.2-1.3); Blood Urea Nitrogen 23 mg/dL (7-17); Calcium 8.8 mg/dL (8.4-10.2); Carbon Dioxide 34 mmol/L (22-30); Chloride 104 mmol/L (98-107); Estimated CRCL calculation 86 ml/min; Estimated Glomerular Filt Rate > 60; Glucose 116 mg/dL (65-110); Potassium 4.3 mmol/L (3.4-5.0); Sodium 140 mmol/L (137-145)
[2023-02-15 13:54] VITALS: BP 133/81; PULSE 80; RESP 18; O2SAT 100
[2023-02-15 14:16] LABS: Appearance Urine Clear (Clear); Bacteria Urine None Seen /hpf; Bilirubin Urine Negative (Negative); Blood Urine Negative (Negative); Color Urine Dark Yellow (Yellow); Glucose Urine UA Negative (Negative); Ketones Urine Trace mg/dL (Negative); Leukocyte Esterase Ur Trace LEU/UL (Negative); Need Manual Microscopic Reviewed; Nitrate Urine Negative (Negative); Non Pathogenic Casts 0-2; Protein Urine Negative (Negative); RBC Urine 0-2 /hpf (0-2); Squamous Epithelial Cell Urine None seen /hpf (Few); Urobilinogen Urine 0.2 mg/dL (<2.0); WBC Urine 0-5 /hpf
[2023-02-15 14:17] LABS: Add Urine Microscopic? YES
[2023-02-15 16:33] VITALS: BP 129/77; PULSE 75; RESP 18; O2SAT 97
== END 2023-02-15 16:35 | disposition home or self-care (01) ==
PROVIDERS: Emergency Provider Emergency Medicine; PCP Internal Medicine
DX: S02.2XXA Fracture of nasal bones, initial encounter for closed fracture (principal); S01.21XA Laceration without foreign body of nose, initial encounter; S00.83XA Contusion of other part of head, initial encounter; G40.801 Other epilepsy, not intractable, with status epilepticus; Q03.9 Congenital hydrocephalus, unspecified; Q04.0 Congenital malformations of corpus callosum; E78.00 Pure hypercholesterolemia, unspecified; K21.9 Gastro-esophageal reflux disease without esophagitis; Z98.2 Presence of cerebrospinal fluid drainage device; Z98.1 Arthrodesis status; Z79.82 Long term (current) use of aspirin; M47.812 Spondylosis without myelopathy or radiculopathy, cervical region; W06.XXXA Fall from bed, initial encounter
CPT/HCPCS: 12011; 36415; 70450; 70486; 72125; 80053; 81001; 85025; 85610; 85730; 99284

== ENCOUNTER 2023-07-22 06:46 | Outpatient (CLI) | payer MEDICARE, MEDICAID, SELFPAY ==
[2023-07-22 07:30] LABS: Basophils Percent Auto 0.4 % (0.2-1.2); Eosinophils Percent Auto 0.6 % (0-4.4); Hematocrit 42.8 % (37.0-47.0); Hemoglobin 14.1 g/dL (12.0-15.0); Immature Granulocyte Absolute 0.03 K/mm3 (0.00-0.031); Immature Granulocyte Percent A 0.6 % (0-0.5); Lymphocytes Absolute Auto 1.85 K/mm3 (0.9-3.2); Lymphocytes Percent Auto 39.5 % (18.3-44.2); Mean Corpuscular HGB Conc 32.9 g/dl (32-36); Mean Corpuscular Hemoglobin 33.6 pg (26-34); Mean Corpuscular Volume 101.9 fl (80-100); Mean Platelet Volume 9.3 fl (7.4-10.4); Monocytes Absolute Auto 0.4 K/mm3 (0.1-0.6); Monocytes Percent Auto 8.5 % (2.6-8.5); Neutrophils Absolute Auto 2.4 K/mm3 (1.3-6.7); Neutrophils Percent Auto 50.4 % (45.5-73.1); Platelet Count Result 190 k/mm3 (150-375); White Blood Count 4.7 K/mm3 (4.5-10.0)
[2023-07-22 07:39] LABS: Alanine Aminotransferase 23 U/L (6-35); Albumin Level 3.8 g/dL (3.5-5.1); Alkaline Phosphatase 74 U/L (38-126); Anion Gap 2 mmol/L (8-16); Aspartate Amino Transferase 33 U/L (14-36); Bilirubin,Total 0.4 mg/dL (0.2-1.3); Blood Urea Nitrogen 24 mg/dL (7-17); Calcium 9.6 mg/dL (8.4-10.2); Carbon Dioxide 33 mmol/L (22-30); Chloride 103 mmol/L (98-107); Cholesterol 209 mg/dL (0-200); Estimated Glomerular Filt Rate > 60; Glucose 86 mg/dL (65-110); HDL Direct 107 mg/dL; Potassium 5.1 mmol/L (3.4-5.0); Sodium 138 mmol/L (137-145); Triglycerides 191 mg/dL (<150)
[2023-07-22 07:45] LABS: Appearance Urine Cloudy (Clear); Bacteria Urine None Seen /hpf; Bilirubin Urine Negative (Negative); Blood Urine Negative (Negative); Color Urine Dark Yellow (Yellow); Glucose Urine UA Negative (Negative); Ketones Urine Trace mg/dL (Negative); Leukocyte Esterase Ur 1+ LEU/UL (NEGATIVE); Need Manual Microscopic Reviewed; Nitrate Urine Negative (Negative); Protein Urine Negative (Negative); RBC Urine 0-2 /hpf (0-2); Specific Grav Ur 1.032 (1.001-1.035); Squamous Epithelial Cell Urine Few /hpf (Few); Urobilinogen Urine 0.2 mg/dL (<2.0); WBC Urine 0-5 /hpf (0-3); pH Urine 5.5 (5.0-9.0)
[2023-07-22 07:50] LABS: LDL Cholesterol Direct 65 mg/dL
[2023-07-22 07:51] LABS: Valproic Acid 59.5 ug/mL (50-120)
[2023-07-22 07:51] LABS: Add Urine Microscopic? YES
[2023-07-22 08:00] LABS: Free T4 Free Thyroxine 0.89 ng/mL (0.78-2.19); Vitamin D 25 Hydroxy 19.8 ng/mL
[2023-07-25 07:19] LABS: Carbamazepine Tegretol 9.9 mcg/mL (4.0-12.0)
== END 2023-07-22 06:47 | disposition home or self-care (01) ==
LOC: ANHLAB 06:48
PROVIDERS: PCP Internal Medicine; Visit Provider Internal Medicine
DX: E78.5 Hyperlipidemia, unspecified (principal); D64.9 Anemia, unspecified; E03.9 Hypothyroidism, unspecified; E55.9 Vitamin D deficiency, unspecified; G40.909 Epilepsy, unspecified, not intractable, without status epilepticus; R53.83 Other fatigue
CPT/HCPCS: 36415; 80053; 80061; 80156; 80164; 81001; 82306; 84439; 84443; 85025

== ENCOUNTER 2023-09-08 09:14 | Outpatient (CLI) | payer MEDICARE, MEDICAID, SELFPAY ==
--- NOTE | ~2023-09-08 | XR_ITS ---
Left wrist Technique: PA, oblique, lateral, and ulnar deviation views were obtained. Clinical History: Pain COMPARISON: 10/25/2019 Findings: There is a suspected very subtle, transverse, nondisplaced fracture of the distal radial me taphyseal region. No intra-articular extension evident. Joint spaces are preserved. Soft tissues are unremarkable. Impression: Probable very subtle, transverse, nondisplaced fracture the distal radial metaphyseal region. Reviewed, dictated and finalized at location M. ITY WORKER Impression: Probable very subtle, transverse, nondisplaced fracture the distal radial metap hyseal region.
== END 2023-09-08 09:15 | disposition home or self-care (01) ==
PROVIDERS: PCP Internal Medicine; Visit Provider Physician Assistant
DX: M25.532 Pain in left wrist (principal)
CPT/HCPCS: 73110

== ENCOUNTER 2023-09-21 09:31 | Outpatient (CLI) | payer MEDICARE, MEDICAID, SELFPAY ==
[2023-09-21 09:46] LABS: Basophils Percent Auto 0.6 % (0.2-1.2); Eosinophils Percent Auto 0.3 % (0-4.4); Hematocrit 44.5 % (37.0-47.0); Hemoglobin 14.9 g/dL (12.0-15.0); Immature Granulocyte Absolute 0.01 K/mm3 (0.00-0.031); Immature Granulocyte Percent A 0.3 % (0-0.5); Lymphocytes Absolute Auto 0.97 K/mm3 (0.9-3.2); Lymphocytes Percent Auto 27.6 % (18.3-44.2); Mean Corpuscular HGB Conc 33.5 g/dl (32-36); Mean Corpuscular Hemoglobin 33.9 pg (26-34); Mean Corpuscular Volume 101.1 fl (80-100); Monocytes Absolute Auto 0.4 K/mm3 (0.1-0.6); Monocytes Percent Auto 10.2 % (2.6-8.5); Neutrophils Absolute Auto 2.2 K/mm3 (1.3-6.7); Platelet Count Result 189 k/mm3 (150-375); Red Cell Distribution Width 12.5 % (11.5-14.5); White Blood Count 3.5 K/mm3 (4.5-10.0)
[2023-09-21 09:50] LABS: Blood Urea Nitrogen 19 mg/dL (8-26); Carbon Dioxide 31 mmol/L (22-30); Chloride 100 mmol/L (98-109); Estimated Glomerular Filt Rate > 60; Glucose 74 mg/dL (70-105); Ionized Calcium (POC) 1.18 mmol/L (1.11-1.31); Potassium 4.6 mmol/L (3.5-4.9); Sodium 140 mmol/L (138-146)
== END 2023-09-21 09:32 | disposition home or self-care (01) ==
LOC: ANHLAB 09:34
PROVIDERS: PCP Internal Medicine; Visit Provider Internal Medicine Hematology & Oncology
DX: D75.838 Other thrombocytosis (principal)
CPT/HCPCS: 36415; 80047; 85025

== ENCOUNTER 2023-10-20 08:25 | Outpatient (CLI) | payer OTHER, MEDICAID, SELFPAY ==
--- NOTE | ~2023-10-20 | XR_ITS ---
XR wrist LT min 3V DATE: 10/20/2023 08:50 INDICATION: Distal left radial fracture. Limited range of motion. TECHNIQUE: 4 views COMPARISON: 09/08/2023 left wrist FINDINGS: There is a nondisplaced nonangulated distal radial metaphyseal fracture with periosteal new bone formation consistent with healing. Normal alignment at the wrist joint. No other fracture or dislocation is detected. IMPRESSION: Healing nondisplaced distal radial metaphyseal fracture Reviewed, dictated and finalized at location L. R PLANTATION MANAGER
== END 2023-10-20 08:26 | disposition home or self-care (01) ==
PROVIDERS: PCP Internal Medicine; Visit Provider Plastic Surgery
DX: S52.325A Nondisplaced transverse fracture of shaft of left radius, initial encounter for closed fracture (principal)
CPT/HCPCS: 73110

== ENCOUNTER 2023-11-10 06:48 | Outpatient (CLI) | payer OTHER, MEDICAID, SELFPAY ==
[2023-11-10 07:30] LABS: Anion Gap 4 mmol/L (8-16); Blood Urea Nitrogen 20 mg/dL (7-17); Calcium 9.1 mg/dL (8.4-10.2); Carbon Dioxide 33 mmol/L (22-30); Chloride 102 mmol/L (98-107); Estimated Glomerular Filt Rate > 60; Glucose 86 mg/dL (65-110); Potassium 4.1 mmol/L (3.4-5.0); Sodium 139 mmol/L (137-145)
== END 2023-11-10 06:49 | disposition home or self-care (01) ==
LOC: ANHLAB 06:49
PROVIDERS: PCP Internal Medicine; Visit Provider Physician Assistant
DX: E87.5 Hyperkalemia (principal)
CPT/HCPCS: 36415; 80048

== ENCOUNTER 2024-01-18 06:46 | Outpatient (CLI) | payer OTHER, MEDICAID, SELFPAY ==
[2024-01-18 07:39] LABS: Basophils Percent Auto 0.5 % (0.2-1.2); Eosinophils Absolute Auto 0.1 K/mm3 (0-0.3); Eosinophils Percent Auto 1.4 % (0-4.4); Hematocrit 43.5 % (37.0-47.0); Hemoglobin 14.3 g/dL (12.0-15.0); Immature Granulocyte Absolute 0.01 K/mm3 (0.00-0.031); Immature Granulocyte Percent A 0.2 % (0-0.5); Lymphocytes Absolute Auto 1.61 K/mm3 (0.9-3.2); Lymphocytes Percent Auto 38.9 % (18.3-44.2); Mean Corpuscular HGB Conc 32.9 g/dl (32-36); Mean Corpuscular Hemoglobin 33.2 pg (26-34); Mean Corpuscular Volume 100.9 fl (80-100); Mean Platelet Volume 9.6 fl (7.4-10.4); Monocytes Absolute Auto 0.4 K/mm3 (0.1-0.6); Monocytes Percent Auto 8.5 % (2.6-8.5); Neutrophils Absolute Auto 2.1 K/mm3 (1.3-6.7); Neutrophils Percent Auto 50.5 % (45.5-73.1); Platelet Count Result 188 k/mm3 (150-375); Red Blood Count 4.31 M/mm3 (4.2-5.4); Red Cell Distribution Width 12.3 % (11.5-14.5); White Blood Count 4.1 K/mm3 (4.5-10.0)
[2024-01-18 08:00] LABS: Alanine Aminotransferase 17 U/L (6-35); Albumin Level 4.2 g/dL (3.5-5.1); Alkaline Phosphatase 70 U/L (38-126); Anion Gap 1 mmol/L (4-12); Aspartate Amino Transferase 28 U/L (14-36); Bilirubin,Total 0.4 mg/dL (0.2-1.3); Blood Urea Nitrogen 20 mg/dL (7-17); Calcium 9.5 mg/dL (8.4-10.2); Carbon Dioxide 34 mmol/L (22-30); Chloride 101 mmol/L (98-107); Estimated Glomerular Filt Rate > 60; Glucose 83 mg/dL (65-110); Potassium 4.6 mmol/L (3.4-5.0); Sodium 136 mmol/L (137-145)
[2024-01-18 08:30] LABS: Valproic Acid 57.9 ug/mL (50-120)
[2024-01-18 08:58] LABS: Vitamin D 25 Hydroxy 20.2 ng/mL
[2024-01-18 09:03] LABS: Iron 122 ug/dL (37-170); Percent Iron Saturation 57 % (20-50)
== END 2024-01-18 06:47 | disposition home or self-care (01) ==
PROVIDERS: PCP Internal Medicine; Visit Provider Internal Medicine
DX: G40.909 Epilepsy, unspecified, not intractable, without status epilepticus (principal); E03.9 Hypothyroidism, unspecified; D64.9 Anemia, unspecified; I95.9 Hypotension, unspecified; E87.5 Hyperkalemia; E55.9 Vitamin D deficiency, unspecified
CPT/HCPCS: 36415; 80053; 80156; 80164; 82306; 83540; 83550; 84443; 85025

== ENCOUNTER 2024-03-28 09:21 | Outpatient (CLI) | payer OTHER, MEDICAID, SELFPAY ==
[2024-03-28 09:48] LABS: Basophils Percent Auto 0.4 % (0.2-1.2); Eosinophils Percent Auto 0.6 % (0-4.4); Hematocrit 40.7 % (37.0-47.0); Hemoglobin 13.5 g/dL (12.0-15.0); Immature Granulocyte Absolute 0.02 K/mm3 (0.00-0.031); Immature Granulocyte Percent A 0.4 % (0-0.5); Lymphocytes Absolute Auto 1.65 K/mm3 (0.9-3.2); Lymphocytes Percent Auto 31.4 % (18.3-44.2); Mean Corpuscular HGB Conc 33.2 g/dl (32-36); Mean Corpuscular Hemoglobin 33.3 pg (26-34); Mean Corpuscular Volume 100.5 fl (80-100); Mean Platelet Volume 9.1 fl (7.4-10.4); Monocytes Absolute Auto 0.6 K/mm3 (0.1-0.6); Monocytes Percent Auto 11.8 % (2.6-8.5); Neutrophils Absolute Auto 2.9 K/mm3 (1.3-6.7); Neutrophils Percent Auto 55.4 % (45.5-73.1); Platelet Count Result 166 k/mm3 (150-375); Red Blood Count 4.05 M/mm3 (4.2-5.4); Red Cell Distribution Width 12.5 % (11.5-14.5); White Blood Count 5.3 K/mm3 (4.5-10.0)
[2024-03-28 09:55] LABS: Blood Urea Nitrogen 23 mg/dL (8-26); Carbon Dioxide 32 mmol/L (22-30); Chloride 103 mmol/L (98-109); Estimated Glomerular Filt Rate > 60; Glucose 93 mg/dL (70-105); Ionized Calcium (POC) 1.25 mmol/L (1.11-1.31); Potassium 4.2 mmol/L (3.5-4.9); Sodium 141 mmol/L (138-146)
== END 2024-03-28 09:22 | disposition home or self-care (01) ==
LOC: ANHLAB 09:23
PROVIDERS: PCP Internal Medicine; Visit Provider Internal Medicine Hematology & Oncology
DX: D75.838 Other thrombocytosis (principal)
CPT/HCPCS: 36415; 80047; 85025

== ENCOUNTER 2024-06-07 13:47 | Emergency (ER) | payer OTHER, MEDICAID, SELFPAY ==
--- NOTE | ~2024-06-07 | XR_ITS ---
EXAMINATION: XR chest 2V DATE: 06/07/2024 19:07 INDICATION: Fever. TECHNIQUE: Frontal and lateral views of the chest were obtained. COMPARISON: Chest single view 11/23/2022 FINDINGS: There is no pneumonia, pleural effusion, or pneumothorax. The heart is normal. There are ch anges of anterior fusion procedure in cervical spine. There is old healed fracture of proximal left h umerus. A left-sided ventriculoperitoneal shunt is noted. There is old tubing in right chest. There i s a chronic compression fracture in lower thoracic spine. IMPRESSION: 1. No acute cardiopulmonary disease. Reviewed, dictated and finalized at location A.
--- NOTE | ~2024-06-07 | CT_ITS ---
EXAMINATION: CT brain wo con DATE: 06/07/2024 19:07 INDICATION: Head injury. TECHNIQUE: Computed tomography (CT) of the head was performed without intravenous contrast. The mA wa s adjusted according to patient size. Iterative reconstruction technique was employed. The dose-lengt h product was 605.33 mGy-cm. COMPARISON: Head CT 02/15/2023 FINDINGS: There is partial agenesis of the corpus callosum. There is chronic encephalomalacia in post erior right frontal lobe and the right caudate nucleus. There is no intracranial hemorrhage, acute in farction, or abnormal intracranial mass lesion. The lateral and third ventricles are enlarged and con tiguous with the superior interhemispheric fissure. The septum pellucidum is absent. The suprasellar cistern and prepontine cistern are smaller than on the prior exam. There is a left parietal shunt cat heter with tip in the lateral ventricles at the midline. The orbits are normal. The paranasal sinuses are clear. The mastoid air cells are normal. There is retained old tubing in right head and neck. IMPRESSION: 1. 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 2. Partial agenesis of the corpus callosum. 3. Interval enlargement of the lateral and third ventricles and contiguous superior interhemispheric fissure. Shunt catheter unchanged. Reviewed, dictated and finalized at location A. IMPRESSION: 1. 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 2. Partial agenesis of the corpus callosum. 3. Interval enlargement of the lateral and third ventricles and contiguous supe rior interhemispheric fissure. Shunt catheter unchanged.
[2024-06-07 15:11] VITALS: BP 123/86; PULSE 126; RESP 14; TEMP 38.3; O2SAT 97
--- NOTE | 2024-06-07 17:46 | ED.WOUNDLAC ---
HPI - Wound/Laceration General Chief Complaint: Wound/Laceration <Pao Dupont PA-C - Last Filed: 06/09/24 09:52> Stated Complaint: laceration laft ear <Pao Dupont PA-C - Last Filed: 06/09/24 09:52> Time Seen by Provider: 06/07/24 17:46 <Pao Dupont PA-C - Last Filed: 06/09/24 09:52> Focused HPI: This is a 48 year old female that presents to the ER for laceration to the left ear. Reports she tripped and fell. Hit her head. She did not lose consciousness. Sustained laceration to the left ear. Reports bleeding and pain to the area. Incidentally noted to be febrile. GENERAL: Well-appearing, well-nourished, and in no acute distress. HEAD: Normocephalic. Complex laceration to the left ear, through and through CHEST: Clear to auscultation. ?No respiratory distress. HEART: Regular rate and rhythm.? NEURO: ?Alert and oriented x3. Patient screened in triage and initial orders placed.? ?Additional care and disposition to be based upon?diagnostic testing and treatment. <Pao Dupont PA-C - Last Filed: 06/09/24 09:52> Focused HPI: This is a 48 year old female that presents to the ER for laceration to the left ear. Reports she tripped and fell. Hit her head. She did not lose consciousness. Sustained laceration to the left ear. Reports bleeding and pain to the area. Incidentally noted to be febrile. GENERAL: Well-appearing, well-nourished, and in no acute distress. HEAD: Normocephalic. Complex laceration to the left ear, through and through CHEST: Clear to auscultation. ?No respiratory distress. HEART: Regular rate and rhythm.? NEURO: ?Alert and oriented x3. Patient screened in triage and initial orders placed.? ?Additional care and disposition to be based upon?diagnostic testing and treatment. Agree with triage assessment, patient's left ear laceration does extend through the cartilage. Patient was noted to have a low-grade fever in triage, denies any respiratory illnesses including chest pain, shortness of breath, cough and denies any urinary symptoms including dysuria or hematuria. <Layne Guillermo MD - Last Filed: 06/07/24 21:33> Related Data Home Medications: Home Medications Medication Instructions Recorded Confirmed omega-3 fatty acids 1,000 mg 1,000 mg PO DAILY 01/15/21 09/14/23 capsule (Fish Oil Concentrate) mecobalamin (vitamin B12) 1,000 1,000 mcg PO DAILY 08/22/22 09/14/23 mcg chewable tablet (B12 Active) acetaminophen 650 mg tablet 650 mg PO Q6H PRN Pain 10/30/22 09/14/23 ascorbate calcium (vitamin C) 500 500 mg PO DAILY 12/19/22 09/14/23 mg tablet cranberry 400 mg capsule 400 mg PO BID 12/25/22 09/14/23 loratadine 10 mg tablet 10 mg PO DAILY PRN Allergy Symptoms 01/28/23 09/14/23 biotin 10,000 mcg chewable tablet mcg PO 06/12/23 09/14/23 (Hair, Skin and Nails (biotin)) <Pao Dupont PA-C - Last Filed: 06/09/24 09:52> Allergies/Adverse Reactions: Allergies Allergy/AdvReac Type Severity Reaction Status Date / Time caffeine Allergy Severe dizzy Verified 01/26/24 10:33 zonisamide Allergy Unknown Unknown Verified 01/26/24 10:33 chocolate flavor Allergy Unknown Verified 01/26/24 10:33 vancomycin Allergy Redness of Verified 01/26/24 10:33 Skin <Pao Dupont PA-C - Last Filed: 06/09/24 09:52> Review of Systems Review of Systems: All systems are reviewed and are negative unless stated otherwise in the HPI. <Layne Guillermo MD - Last Filed: 06/07/24 21:33> PMFSH Past Medical History Medical History: Medical History Agenesis of corpus callosum Congenital hydrocephalus, unspecified Esophageal reflux disease Other epilepsy, not intractable, with status epilepticus Positive colorectal cancer screening using Cologuard test Pure hypercholesterolemia Seizure disorder last one 01/14/23 <Pao Dupont PA-C - Last Filed: 06/09/24 09:52> Surgical History Surgical History:
[2024-06-07] MEDS: TETANUS,DIPHTHERIA,AC PERTUSSIS ADULT (0.5 ML) BOOSTRIX IM (17:57)
[2024-06-07] MEDS: ACETAMINOPHEN 500 MG TABLET 1000 MG PO (17:59)
[2024-06-07 18:14] LABS: Basophils Percent Auto 0.2 % (0.2-1.2); Eosinophils Percent Auto 0.1 % (0-4.4); Hematocrit 42.8 % (37.0-47.0); Hemoglobin 14.7 g/dL (12.0-15.0); Immature Granulocyte Absolute 0.03 K/mm3 (0.00-0.031); Immature Granulocyte Percent A 0.3 % (0-0.5); Lymphocytes Absolute Auto 1.36 K/mm3 (0.9-3.2); Lymphocytes Percent Auto 15.8 % (18.3-44.2); Mean Corpuscular HGB Conc 34.3 g/dl (32-36); Mean Corpuscular Volume 99.1 fl (80-100); Mean Platelet Volume 9.5 fl (7.4-10.4); Monocytes Absolute Auto 0.6 K/mm3 (0.1-0.6); Monocytes Percent Auto 6.9 % (2.6-8.5); Neutrophils Absolute Auto 6.6 K/mm3 (1.3-6.7); Neutrophils Percent Auto 76.7 % (45.5-73.1); Platelet Count Result 175 k/mm3 (150-375); Red Blood Count 4.32 M/mm3 (4.2-5.4); Red Cell Distribution Width 12.4 % (11.5-14.5); White Blood Count 8.6 K/mm3 (4.5-10.0)
[2024-06-07 18:26] LABS: Alanine Aminotransferase 19 U/L (6-35); Albumin Level 4.2 g/dL (3.5-5.1); Alkaline Phosphatase 67 U/L (38-126); Anion Gap 9 mmol/L (4-12); Aspartate Amino Transferase 36 U/L (14-36); Bilirubin,Total 0.3 mg/dL (0.2-1.3); Blood Urea Nitrogen 24 mg/dL (7-17); Calcium 9.4 mg/dL (8.4-10.2); Carbon Dioxide 29 mmol/L (22-30); Chloride 102 mmol/L (98-107); Estimated Glomerular Filt Rate > 60; Glucose 102 mg/dL (65-110); Potassium 4.5 mmol/L (3.4-5.0); Sodium 140 mmol/L (137-145)
[2024-06-07 18:52] LABS: Influenza A QL RT-PCR Negative (Negative); Influenza B QL RT-PCR Negative (Negative); RSV RNA, RT-PCR Negative (Negative); SARS-CoV-2 RNA PCR Negative (Negative)
[2024-06-07 20:09] LABS: Add Urine Microscopic? YES; Appearance Urine Clear (Clear); Bacteria Urine None Seen /hpf; Bilirubin Urine Negative (Negative); Blood Urine Negative (Negative); Color Urine Dark Yellow (Yellow); Glucose Urine UA Negative (Negative); Ketones Urine Trace mg/dL (Negative); Leukocyte Esterase Ur Trace LEU/UL (Negative); Nitrate Urine Negative (Negative); Non Pathogenic Casts 0-2; Protein Urine Negative (Negative); RBC Urine 0-2 /hpf (0-2); Specific Grav Ur 1.037 (1.001-1.035); Squamous Epithelial Cell Urine None Seen /hpf (Few); Urobilinogen Urine 0.2 mg/dL (<2.0); WBC Urine 0-5 /hpf (0-3); pH Urine 5.5 (5.0-9.0)
[2024-06-07 20:23] VITALS: BP 113/82; PULSE 104; RESP 17; O2SAT 96
[2024-06-07 21:41] VITALS: BP 120/76; PULSE 71; RESP 15; O2SAT 100
== END 2024-06-07 21:42 | disposition home or self-care (01) ==
PROVIDERS: Physician Assistant; Emergency Provider Emergency Medicine; PCP Internal Medicine
DX: S01.312A Laceration without foreign body of left ear, initial encounter (principal); Z23 Encounter for immunization; Z20.822 Contact with and (suspected) exposure to COVID-19; E78.00 Pure hypercholesterolemia, unspecified; G40.802 Other epilepsy, not intractable, without status epilepticus; Q04.0 Congenital malformations of corpus callosum; Q03.9 Congenital hydrocephalus, unspecified; K21.9 Gastro-esophageal reflux disease without esophagitis; Z98.2 Presence of cerebrospinal fluid drainage device; Z99.3 Dependence on wheelchair; Z79.899 Other long term (current) drug therapy; W01.0XXA Fall on same level from slipping, tripping and stumbling without subsequent striking against object, initial encounter
CPT/HCPCS: 12051; 36415; 70450; 71046; 80053; 81001; 85025; 87637; 90471; 90715; 99284; A9270

== ENCOUNTER 2024-07-08 13:35 | Outpatient (CLI) | payer OTHER, MEDICAID, SELFPAY ==
--- NOTE | ~2024-07-08 | MM_ITS ---
EXAMINATION: MM screening wilman BI w camille HISTORY: Screening TECHNIQUE: Craniocaudal and mediolateral oblique 3-D tomosynthesis images were obtained and synthetic 2-D images were generated. CAD analysis was submitted and interpreted. COMPARISON: Comparison to multiple prior studies sequentially, with oldest reviewed study dated 02/2015. BREAST PARENCHYMAL COMPOSITION: Not dense: There are scattered areas of fibroglandular density. FINDINGS: There is no evidence of suspicious mass, calcification, or architectural distortion to sugg est malignancy in either breast. There has been no suspicious interval change. IMPRESSION: 1. No mammographic evidence of malignancy. 2. Recommend routine screening mammography in one year. BI-RADS Category 1: Negative Reviewed, dictated and finalized at location B.
== END 2024-07-08 13:36 | disposition home or self-care (01) ==
LOC: ANHIMG 13:37
PROVIDERS: PCP Internal Medicine; Visit Provider Obstetrics & Gynecology
DX: Z12.31 Encounter for screening mammogram for malignant neoplasm of breast (principal)
CPT/HCPCS: 77063; 77067

== ENCOUNTER 2024-07-23 07:06 | Outpatient (CLI) | payer OTHER, MEDICAID, SELFPAY ==
[2024-07-23 08:12] LABS: Cholesterol 191 mg/dL (0-200); HDL Direct 82 mg/dL; Triglycerides 157 mg/dL (<150)
[2024-07-23 08:23] LABS: LDL Cholesterol Direct 63 mg/dL
[2024-07-23 08:55] LABS: Iron 126 ug/dL (37-170)
[2024-07-23 09:08] LABS: Percent Iron Saturation 61 % (20-50)
[2024-07-23 09:55] LABS: Vitamin D 25 Hydroxy 58.8 ng/mL
== END 2024-07-23 07:07 | disposition home or self-care (01) ==
PROVIDERS: PCP Internal Medicine; Visit Provider Internal Medicine
DX: D64.9 Anemia, unspecified (principal); E78.5 Hyperlipidemia, unspecified; E03.9 Hypothyroidism, unspecified; E55.9 Vitamin D deficiency, unspecified
CPT/HCPCS: 36415; 80061; 82306; 82728; 83540; 83550; 84443

== ENCOUNTER 2024-07-30 07:10 | Outpatient (CLI) | payer OTHER, MEDICAID, SELFPAY ==
[2024-07-30 09:50] LABS: Valproic Acid 70.5 ug/mL (50-120)
== END 2024-07-30 07:11 | disposition home or self-care (01) ==
PROVIDERS: PCP Internal Medicine; Visit Provider Internal Medicine
DX: G40.909 Epilepsy, unspecified, not intractable, without status epilepticus (principal)
CPT/HCPCS: 36415; 80156; 80164

== ENCOUNTER 2024-12-28 07:29 | Outpatient (CLI) | payer MEDICARE, MEDICAID, SELFPAY ==
--- OUTSIDE RECORDS SUMMARY | 2024-12-28 07:32 | XMS_ITS | Clinical Summary ---
Author Organization [facility] [employer] Address [address] [place] [address] Care Team Providers Care Press Officer Name Role Phone Nikunj Sow Kerry SMITH Primary Care Provider Morris Santana MD Unavailable [phone] Source Comments [facility],non-owned Affiliates and Associated Physician Practices is amultiple site organization consisting of ambulatory clinics and hospital sitesin [place], [place], [place] and [place]. This disclosure is being madepursuant to the Care Everywhere program and may not contain all information available regarding this patient. Last updated 18.[facility] Allergies Active Allergy Reactions Criticality Noted Date Comments Caffeine Dizziness Medium 08/30/2020 Chocolate Dizziness Low 08/20/2020 Guaifenesin Unknown Medium 08/20/2020 loopy Zonisamide Dizziness Medium 08/30/2020 Medications * Be aware that medications may not be up to date on this document. Alwaysverify current medications with the patient. Medication Sig Dispensed Refills Start Date End Date Status levothyroxine (SYNTHROID) 50 MCG tablet Take 50 mcg by mouth once daily 06/11/2020 Active atorvastatin (LIPITOR) 20 MG tablet Take 20 mg by mouth once daily 06/09/2020 Active fluticasone propionate (FLONASE) 50 MCG/ACT nasal spray Uledi 2 sprays into the nose once daily as needed 06/04/2020 Active carBAMazepine (TEGRETOL) 200 MG tablet Take 3 tablets by mouth 4 times daily 09/21/2020 Active Additional Information Patient taking differently: (No dose reported), Oral 4 TIMES DAILY,Takes 600 mg @ 6am and 9pm/ takes 400 mg @ 11am and 4pm, Reported on 04/19/[address] (DEPAKOTE) 500 MG tablet Take 2 tablets by mouth 2 times daily 09/21/2020 Active Additional Information Patient taking differently:1,000 mg Oral 2 TIMES DAILY,Takes 1000mg @ 0630 and 1630, Reported on 04/19/[address] (DEPAKOTE) 500 MG tablet Take 3 tablets by mouth at bedtime 09/21/2020 Active acetaminophen (TYLENOL) 325 MG tablet Take 2 tablets by mouth every 4 hours as needed Maximum allowable Acetaminophen amount = 4 Grams (4000 mg) / 24 hours. 10/21/2020 Active omeprazole (PRILOSEC) 40 MG capsule Take 1 capsule by mouth once daily 30 capsule 10/21/2020 Active loratadine (CLARITIN) 10 MG tablet Take 10 mg by mouth once daily 06/29/2020 Active HYDROcodone-aceta minophen (NORCO) 5-325 MG tablet Take 1 (one) tablet by mouth every 4 hours as needed 12 tablet 04/30/2021 Active Burlison-3 Fatty Acids (FISH OIL) 1000 MG capsule Active Active Problems Problem Noted Date Diagnosed Date Abdominal pain, RUQ (right upper quadrant) 10/17 S/P HEAD OF MERCHANDISE BUYING shunt 10/08/2020 Abnormal weight loss 09/19/2020 Malfunction of ventriculoperitoneal shunt 2019 Hydrocephalus 09/18/2020 Extremity numbness 09/18/2020 Resolved Problems Problem Noted Date Diagnosed Date Resolved Date Cervical spondylosis 04/29/2021 021 Cervical stenosis of spinal canal 04/29/2021 04/30/2021 Cervical spinal cord compression 04/29/2021 04/30/2021 Cervical stenosis of spine 04/29/2021 0 04/30/2021 Immunizations Name Administration Dates Next Due Ewaid Marka primary monovalent 12+ yr 0.5mL ,12/23/2020 Social History Tobacco Use Types Packs/Day Years Used Date Smoking Tobacco: Never Smokeless Tobacco: Never Alcohol Use Standard Drinks/Week Comments Never 0 (1 standard drink = 0.6 oz pur e alcohol) AUDIT-C Answer Date Recorded Q1: How often do you have a drink containing alc ohol? 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 Gender Identity Female 09/25/2020 10:15 AM MACHINE PROGRAMMER Sexual Orientation Not on file Last Filed Vital Signs Vital Sign Reading Time Taken Comments Blood Pressure 143/96 04/30/2021 9:33 AM CDT Pulse 94 04/30/2021 7:42 AM CDT Temperature 37.1 C (98.8 F) 04/30/2021 7:42 AM CDT Respiratory Rate 18 04/30/2021 7:42 AM CDT Oxygen Saturation 96% 04/30/2021 7:42 AM CDT Inhaled Oxygen Concentration - - Weight 52.2 kg (115 lb) 06/05/2021 7:58 AM CDT Height 154.9 cm (5' 1 ) 06/05/2021 7:58 AM CDT Body Mass Index 21.73 06/05/2021 7:58 AM CDT Plan of Treatment Health Maintenance Due Date Last Done Comments COLOGUARD (AGES 45-75) - COL ON CA SCREENING 1973 COLON MONITORING 1973 COLONOSCOPY - COLON CA SCREENING 1973 CT COLONOGRAPHY - COLON CA SCREENING 1973 Colorectal Cancer Screening 1973 FIT - COLON CA SCREENING 1973 FLEX SIG - COLON CA SCREENING 1973 MAMMOGRAM 1973 PAP SMEAR 1973 HIV SCREENING 1988 HEPATITIS C SCREENING 08/06/1991 DTAP/TDAP/TD VACCINES (1 - Tdap) 1992 HEPATITIS B VACCINE (1 of 3 - 19+ 3-dose series) 1992 PNEUMOCOCCAL VACCINE 50+ (1 of 1 - PCV) 2023 ZOSTER VACCINE (1 of 2) 2023 COVID-19 VACCINE (3 - 2023-2 5 season) 2024 01/20/2021, 12/23/2020 INFLUENZA VACCINE (#1) 2024 DEPRESSION SCREENING 10/12/2024 MEDICARE AWV CALENDAR YEAR 2024 HIB VACCINE Aged Out No longer eligi ble based on patient's age to complete this topic HPV VACCINE Aged Out No longer eligi ble based on patient's age to complete this topic MENINGOCOCCAL (Group B) VACCINE SHARED DECISION-MAKING Aged Out No longer eligible based on patient's age to complete this topic MENINGOCOCCAL GROUPS A/C/Y/W VACCINE Aged Out No longer eligible b ased on patient's age to complete this topic PNEUMOCOCCAL VACCINE Aged Out No long er eligible based on patient's age to complete this topic Medical Devices Implanted Type Area Lead Athlete Device Identifier Shelf Expiration Date Model / Serial / Lot Valve Shnt Rt Ang Bctsl Cath Cdmn Certas Implanted:Qty: 1 on 10/19/2020 by Mariano Cruz MD at [facility] Left: Ventricle Integra [employer] 06/11/2021 [id number] / / [id number] Demineralized Bone Matrix Implanted:Qty: 1 on 04/29/2021 by Mariano Cruz MD at [facility] N/A: Spine Cervical 02/11/2023 [id number] / [id number] / [place] Cervical Interbody Implanted:Qty: 1 on 04/29/2021 by Mariano Cruz MD at [facility] N/A: Spine Cervical 07/10/2025 [id number] / / [id number] Description:C6-7 [place] Cervical Interbody Implanted:Qty: 1 on 04/29/2021 by Mariano Cruz MD at [facility] N/A: Spine Cervical 03/28/202516 [id number] / / [id number] Description:C5-6 [place] Cervical Interbody Implanted:Qty: 1 on 04/29/2021 by Mariano Cruz MD at [facility] N/A: Spine Cervical 07/10/202516 [id number] / / [id number] 3 Description:C4-5 Plate 3 Lvl Spne Crv Ant 52.5mm Corey Vs Implanted:Qty: 1 on 04/29/2021 by Mariano Cruz MD at [facility] N/A: Spine Cervical Medtronic Sof[employer]or [employer] [id number] / / Screw 4mm 15mm Slf Drl Va Spne Crv Ant Implanted:Qty: 8 on 04/29/2021 by Mariano Cruz MD at [facility] N/A: Spine Cervical Medtronic Sofamor [employer] [id number] / / Explanted Type Area Lead Athlete Device Identifier Shelf Expiration Date Model / Serial / Lot Shunt Ns Strata Reg 120cm Csf Cath Ba Implanted:Qty: 1 on 09/19/2020 by Mariano Cruz MD at [facility] Explanted:Qty: 1 on 10/09/2020 at [facility] Right: Cranial Medtronic Neurological 10/12/2022 [id number] / / [id number] Medtronic Ventricular Catheter With Extra Length Gonzalez Implanted:Qty: 1 on 09/19/2020 by Mariano Cruz MD at [facility] Explanted:Qty: 1 on 10/09/2020 at [facility] Right: Cranial 02/08/2022 [id number] / / [id number] Advance Directives Documents on File Type Date Recorded 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 Adv Directive/Living Will/POA 05/02/2021 12:47 AM Adv Directive/Living Will/POA 08/30/2020 Mother POA * Full Code (Latest Code Status on File) Date Activated Date Inactivated Comments 10/09/2020 12:58 AM 10/21/2020 12:34 PM * Full Code Date Activated Date Inactivated Comments 09/19/2020 2:37 PM 09/21/2020 1:44 PM * Full Code Date Activated Date Inactivated Comments 09/18/2020 6:21 PM 09/19/2020 2:37 PM Care Teams Press Officer Relationship Specialty Start Date End Date Nikunj Sow DO [address] [place] [address] PCP - General 06/30/19 [place] [address] [address] [place] [address] Orthopedic Surgery 06/05/21
--- OUTSIDE RECORDS SUMMARY | 2024-12-28 07:32 | XMS_ITS | Clinical Summary ---
Author Organization [employer] [id number] [facility] Address [address] [place] [address] Care Team Providers Care Cover Seamer Name Role Phone Nikunj Sow DO Primary Care Provider [phone] Allergies Active Allergy Reactions Criticality Noted Date Comments Caffeine Dizziness Low 03/16/2023 Vancomycin Rash Low 03/16/2023 Zonisamide Dizziness Low 03/16/2023 Medications atorvastatin (LIPITOR) 20 mg tablet Take 20 mg by mouth daily at bedtime. 0 Active cyanocobalamin 1,000 mcg Tablet Take 1,000 mcg by mouth daily. Active divalproex (DEPAKOTE) 500 mg delayed release tablet Take 500 mg by mouth. 0 Active ferrous sulfate 325 mg (65 mg iron) tablet Take 325 mg by mouth 2 times daily. 3 Active fluticasone propionate (FLONASE) 50 mcg/spray Ethel, Suspension nasal inhaler Administer 2 Sprays in each nostril daily. 0 Active levothyroxine 50 mcg tablet Take 50 mcg by mouth daily before breakfast. 0 Active loratadine (CLARITIN) 10 mg tablet Take 10 mg by mouth daily. 0 Active HN-2-APJ-EPA-Fi sh Oil-Vit D3 300-1,000-1,000 mg-mg-unit Capsule Take by mouth. Activ e omeprazole (PriLOSEC) 40 mg Capsule, Delayed Release(E.C.) 1 Active carBAMazepine (TEGretol) 200 mg tablet Take 600 mg by mouth. 0 Active Cranberry Extract 200 mg Capsule Take by mouth. Activ e Cholecalciferol , Vitamin D3, 50 mcg (2,000 unit) Capsule Take by mouth. A ctive Active Problems No known active problems Encounters Date Type Department Care Team Description 12/17/2024 External Device Data [facility] ABSTRACTION Provider, Abstract 12/16/2024 External Device Data [facility] ABSTRACTION Provider, Abstract 12/14/2024 External Device Data [facility] ABSTRACTION Provider, Abstract 11/30/2024 External Device Data [facility] ABSTRACTION Provider, Abstract from Last 3 Months Family History Medical History Relation Name Comments Heart Disease Father Relation Name Status Comments Brother Alive Father Mother Alive Social History Tobacco Use Types Packs/Day Years Used Date Smoking Tobacco: Never Smokeless Tobacco: Never Tobacco Cessation:Counseling Given: Not Answered Alcohol Use Standard Drinks/Week Comments Never 0 (1 standard drink = 0.6 oz pur e alcohol) Comments Unknown Sex and Gender Information Value Date Recorded Sex Assigned at Not on file Legal Sex Female 1:41 PM CDT Gender Identity Not on file Sexual Orientation Not on file Last Filed Vital Signs Vital Sign Reading Time Taken Comments Blood Pressure 140/85 03/28/2024 9:52 AM CDT Pulse 83 03/28/2024 9:45 AM CDT Temperature 36.4 C (97.6 F) 03/28/2024 9:45 AM CDT Respiratory Rate 14 03/28/2024 9:45 AM CDT Oxygen Saturation 94% 03/28/2024 9:45 AM CDT Inhaled Oxygen Concentration - - Weight 58.5 kg (129 lb) 03/28/2024 9:45 AM CDT Height - - Body Mass Index - - Plan of Treatment Upcoming Encounters Date Type Department Care Team (Late st Contact Info) Description 03/29/2025 10:00 AM CDT Office Visit [facility] Oncology and Hematology - [place] [address] [facility] [facility] [address] [place] [address] Mitchel Desai MD [address] [facility] [address] [place] [address] Health Maintenance Due Date Last Done Comments DTAP/TDAP/TD VACCINES (1 - Tdap) 1992 HEPATITIS B VACCINES (1 of 3 - 19+ 3-dose series) 1992 CERVICAL CANCER SCREENING 2003 BREAST CANCER SCREENING 2013 COLORECTAL SCREENING 2018 Colorectal Cancer Screening 2018 FIT-DNA Q 3 years 2018 FIT/FOBT Q 1 year 2018 Flex Sig/CT Colonography Q 5 years 2018 ZOSTER VACCINE (1 of 2) 2023 INFLUENZA VACCINE (#1) 2024 0, 07/06/2019, 07/07/2017, Additional history exists PNEUMOCOCCAL VACCINE 0-49 YEARS Aged Out No longer eligible based on patient's age to complete this topic Insurance [place] Sub[place] Plan / Payer (Ef fective 2023-Present) Name:Christi Azevedo Relation to Subscriber:Self Name:Christi Azevedo Payer ID:Not on file Group ID:Not on file Type:Medicaid Address: [address] Advance Directives For more information, please contact: [phone] Documents on File Type Date Recorded 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
--- OUTSIDE RECORDS SUMMARY | 2024-12-28 07:33 | XMS_ITS | Encounter Summary ---
Author Organization [facility] Address [address] [place] [address] Care Team Providers Care Glass Decorator Name Role Phone Nikunj Sow DO Primary Care Provider [phone] Encounter Details Date Type Department Care Team (Late st Contact Info) Description 12/03/2020 Lab Requisition [facility] [address] [place] [address] [facility], External Provider [address] [place] [address] Social History Tobacco Use Types Packs/Day Years Used Date Smoking Tobacco: Never Assessed Comments Unknown Sex and Gender Information Value Date Recorded Sex Assigned at Not on file Legal Sex Female 1:41 PM CDT Gender Identity Not on file Sexual Orientation Not on file documented as of this encounter Plan of Treatment Upcoming Encounters Date Type Department Care Team (Late st Contact Info) Description 03/29/2025 10:00 AM CDT Office Visit [facility] Oncology and Hematology - [place] [address] [facility] [address] [place] [address] Mitchel Desai MD [address] [facility] [address] [place] [address] documented as of this encounter Procedures Procedure Name Priority Date/Time Associated Diagnosis Comments VALPROIC ACID LEVEL, TOTAL Stat 12/03/2020 2:59 PM LINE CONSTRUCTION SUPERVISOR CARBAMAZEPINE LEVEL Stat 12/03/2020 2 :59 PM LINE CONSTRUCTION SUPERVISOR documented in this encounter Results * CARBAMAZEPINE LEVEL (12/03/2020 2:59 PM LINE CONSTRUCTION SUPERVISOR) CARBAMAZEPINE LEVEL 9.3 4.0 - 12.0 ug/mL 12/03/2020 7:53 PM LINE CONSTRUCTION SUPERVISOR [facility] Blood Collection / Unknown 12/03/2020 2:59 PM LINE CONSTRUCTION SUPERVISOR 12/03/2020 3:00 PM LINE CONSTRUCTION SUPERVISOR Narrative [facility] - 12/03/2020 7:53 PM LINE CONSTRUCTION SUPERVISOR Carbamazepine Toxic Level = > 15.0 ug/mL External Provider [facility] CHEMISTRY ORDERABLES Fin al Result [facility]# [id number] [address] [place] [address] * (ABNORMAL) VALPROIC ACID LEVEL, TOTAL (12/03/2020 2:59 PM LINE CONSTRUCTION SUPERVISOR) VALPROIC ACID TOTAL 112.1(H) 50.0 - 100.0 ug/mL 12/03/2020 7:53 PM LINE CONSTRUCTION SUPERVISOR [facility] Comment: Valproic Acid Antiepileptic Control = 50 - 100 ug/mL Valproic Acid Manic Episode Control = 50 - 125 ug/mL Valproic Acid Toxic Level = >200 ug/mL Blood Collection / Unknown 12/03/2020 2:59 PM LINE CONSTRUCTION SUPERVISOR 12/03/2020 3:00 PM LINE CONSTRUCTION SUPERVISOR External Provider [facility] CHEMISTRY ORDERABLES Fin al Result [facility] CLIA# [id number] [address] [place] [address] documented in this encounter Visit Diagnoses Not on filedocumented in this encounter Care Teams Glass Decorator Relationship Specialty Start Date End Date Nikunj Sow DO [address] [facility] [address] [place] [address] PCP - General Internal Medicine 03/16/23 documented as of this encounter
--- OUTSIDE RECORDS SUMMARY | 2024-12-28 07:33 | XMS_ITS ---
Author Organization [facility] Care Team Providers Care Reading Efficiency Course Director Name Role Phone Zee Brandon Unavailable UnavailBroderick Tidwell Unavailable Unavailable Michelle Funes Unavailable Unavailable Allergies and adverse reactions Code CodeSystem Substance Reaction Severity StartDate Concern Status 28262 RXNORM Zonisamide Unknown 11/30/2022 active 70444 RXNORM Vancomycin Unknown 11/30/2022 active Chocolate Unknown 11/30/2022 active Caffeine Unknown 11/30/2022 active Care Team Name Role Address Phone Organization Dates Broderick Funes PCP [address] (Office): [facility] 11/30/2022 - 12/15/2022 Zee Brandon Attending Physician [address] (Office): : [facility] 11/30/2022 - 12/15/2022 Michelle Funes Attending Physician [address] (Office): : [facility] 11/30/2022 - 12/15/2022 Mental Status Section Date Assessment Total Score Description 12/15/2022 CAM 0 No delirium ind icated PHQ-9 06 mild depression 12/06/2022 BIMS 13 cognitively int act CAM 0 No delirium ind icated PHQ-9 06 mild depression Problems Problem # Description Date of onset Resolved Date Code CodeSystem Concern Status 1 VITAMIN D DEFICIENCY, UNSPECIFIED 12/02/[address] active 2 PNEUMONIA, UNSPECIFIED ORGANISM 12/01/2022 12/01/[address] completed 3 CONGENITAL HYDROCEPHALUS, UNSPECIFIED 11/30/[address] active 4 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 5 DYSPHAGIA, ORAL PHASE 11/30/[address] active 6 EPILEPSY, UNSPECIFIED, NOT INTRACTABLE, WITHOUT STATUS EPILEPTICUS 11/30/[address] active 7 GASTRO-ESOPHAGEAL REFLUX DISEASE WITHOUT ESOPHAGITIS 11/30/[address] active 8 HISTORY OF FALLING 11/30/[address] active 9 HYPERLIPIDEMIA, UNSPECIFIED 11/30/[address] active 10 HYPOTHYROIDISM, UNSPECIFIED 11/30/[address] active 11 OTHER ABNORMALITIES OF GAIT AND MOBILITY 11/30/[address] active 12 OTHER EPILEPSY, NOT INTRACTABLE, WITHOUT STATUS EPILEPTICUS 11/30/[address] active 13 PNEUMONIA, UNSPECIFIED ORGANISM 11/30/[address] active 14 PRESENCE OF CEREBROSPINAL FLUID DRAINAGE DEVICE 11/30/[address] active 15 PROFOUND INTELLECTUAL DISABILITIES 11/30/[address] active 16 UNSPECIFIED PROTEIN-CALORIE MALNUTRITION 11/30/[address] active 17 VITAMIN B12 DEFICIENCY ANEMIA, UNSPECIFIED 11/30/[address] active 18 WEAKNESS 11/30/[address] active Reason for Referral No Reasons for Referral Entered Social History Social History Observation Description Start Date End Date Code Code System Current Smoking Status Tobacco smoking consumption unknown 511307961 SNOMED CT Sex Assigned At Female 1975 62600-4 [facility] Vital Signs Code Code System Vitals Name Values and Units Timing Information 11455-2 LOINC Pain Level Value=0.0 12/15/2022 9279-1 LOINC Respiratory Rate Value=17.0 Units=/m in 12/12/2022 8462-4 [facility] Blood Pressure-Diastolic Value=74 Un its=mmHg 12/12/2022 8480-6 [facility] Blood Pressure-Systolic Mddfb=582 Un its=mmHg 12/12/2022 8310-5 [facility] Body Temperature Value=97.8 Units= F 12/12/2022 8867-4 [facility] Heart rate Value=66.0 Units=/min 12/2022 64750-2 [facility] O2 % BldC Oximetry Value=98.0 Units= % 12/12/2022 25699-5 INC Weight Qomlh=659.0 Units=Lbs 11/2022 8302-2 [facility] Height Value=61.0 Units=Inches 12/02/2022
--- OUTSIDE RECORDS SUMMARY | 2024-12-28 07:33 | XMS_ITS | Referral Summary ---
Author Organization [facility] Address [address] [place] [address] Care Team Providers Care Earth Observations Chief Scientist Name Role Phone Nikunj Sow MD Primary Care Provider [phone] Abner Layne MD Unavailable [phone] Allergies Active Allergy Reactions Criticality Noted Date Comments Caffeine Dizziness Medium 08/30/2020 Chocolate Dizziness Low 08/20/2020 Guaifenesin Unknown 08/20/2020 Zonisamide Dizziness,Unknown Medium 08/30/2020 Medications atorvastatin (LIPITOR) 20 mg tablet Take 1 tablet (20 mg total) by mouth nightly 0 Active carBAMazepine (TEGretol) 200 mg tablet Take 3 tablets (600 mg total) by mouth 4 (four) times a day QID as follows: 600mg/400mg/400 mg/600mg [address] (DEPAKOTE) 500 mg EC tablet Take 2 tablets (1,000 mg total) by mouth 3 (three) times a day 1000mg/1000mg/1 500mg 0 Active fluticasone propionate (FLONASE) 50 mcg/actuation nasal spray Administer 2 sprays into each nostril daily 0 Active levothyroxine (SYNTHROID) 50 mcg tablet Take 1 tablet (50 mcg total) by mouth daily before breakfast 0 Active loratadine (CLARITIN) 10 mg tablet Take 1 tablet (10 mg total) by mouth daily 0 Active acetaminophen (TYLENOL) 325 mg tablet Take 2 tablets (650 mg total) by mouth every 4 (four) hours as needed 1 Active docosahexaenoic acid-epa 120-180 mg capsule Take by mouth Active enoxaparin (LOVENOX) 40 mg/0.4 mL syringe 3 Active FeroSuL 325 mg (65 mg iron) tablet Take 1 tablet (325 mg total) by mouth 2 (two) times a day 3 Active furosemide (LASIX) 20 mg tablet Take 1 tablet (20 mg total) by mouth every morning 3 Active omeprazole (PriLOSEC) 40 mg capsule 3 Active ascorbic acid (VITAMIN C) 1,000 mg tablet Take 1 tablet (1,000 mg total) by mouth daily Active cyanocobalamin (Vitamin B-12) 1,000 mcg tabletIndicatio ns:Prevention of Vitamin B12 Deficiency Take 1 tablet (1,000 mcg total) by mouth daily Active pr-5-pfc-epa-fi sh oil-vit D3 300-1,000-1,000 mg-mg-unit capsule Take by mouth Active cranberry extract 200 mg capsule Take by mouth Active Active Problems Problem Noted Date Diagnosed Date Bilateral lower extremity edema 01/21/2023 Assessment & Plan (01/21/2023 12:43 PM CDT): Patient with chronic lower extremity edema, likely secondary to inactivity, feeding in the dependent position in wheelchair. No concern for DVT as this is a usp issue. Educated patient to utilize compression therapy, leg elevation. Follow-up in the office on as-needed basis Peripheral vascular disease 12/30/2022 Assessment & Plan (01/21/2023 12:42 PM CDT): Arterial Doppler performed on 01/12/2023 reveals no arterial occlusive disease bilateral lower extremities. Patient to follow-up in the office on as-needed basis Assessment & Plan (12/30/2022 10:45 PM CDT): Bilateral lower extremity edema noted on exam with bilateral lower extremity warm and well perfused. No signs of ischemia or evidence of ischemic ulcerations. Seen with Dr. Thor Layne. Plan: Obtain a lower extremity arterial Doppler and return in the next 2 weeks to discuss the results. 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 Dysphagia, oral phase 11/30/2022 Gastro-esophageal reflux disease without esophag itis 11/30/2022 Hyperlipidemia, unspecified 11/30/2022 Assessment & Plan (01/21/2023 12:39 PM CDT): Lipitor Hypothyroidism, unspecified 11/30/2022 Other abnormalities of gait and mobility 023 Pneumonia, unspecified organism 11/30/2022 Profound intellectual disabilities 11/30/2022 Unspecified protein-calorie malnutrition 023 Vitamin B12 deficiency anemia, unspecified 11/30 Weakness 11/30/2022 Abdominal pain, RUQ (right upper quadrant) 10/17 Abnormal weight loss 09/19/2020 Malfunction of ventriculoperitoneal shunt 2019 Extremity numbness 09/18/2020 Immunizations Immunization Administration Dates Next Due Influenza, Quadrivalent, Split, Intramuscular Influenza, Quadrivalent, Spl it, Preservative Free, Intramuscular 07/18/2020,07/07/2017 Influenza, Split 07/21/2018 Influenza, Trivalent, IM (MDV) 08/09/2014,2012 Influenza, Trivalent, Preservative Free, Intramu scular 07/07/2016,07/22/2015 Moderna SARS-CoV-2 Monovalent Vaccination (12+ Y RS) 01/20/2021,12/23/2020 Social History Tobacco Use Types Packs/Day Years Used Date Smoking Tobacco: Never Tobacco Cessation:Counseling Given: Not Answered Personal Safety Answer Date Recorded Getting School Help Needed Not on file 10/07 Comments Unknown Sex and Gender Information Value Date Recorded Sex Assigned at Not on file Legal Sex Female 7:50 PM METHODS ENGINEER Gender Identity Not on file Sexual Orientation Not on file Last Filed Vital Signs Vital Sign Reading Time Taken Comments Blood Pressure 101/63 01/21/2023 9:58 AM CDT Pulse 88 01/21/2023 9:58 AM CDT Temperature 37 C (98.6 F) 08/20/2020 9:04 AM METHODS ENGINEER Respiratory Rate 16 08/20/2020 3:30 PM METHODS ENGINEER Oxygen Saturation 98% 08/20/2020 3:30 PM METHODS ENGINEER Inhaled Oxygen Concentration - - Weight 49.9 kg (110 lb) 01/21/2023 9:58 AM CDT Height 154.9 cm (5' 1 ) 01/21/2023 9:58 AM CDT Body Mass Index 20.78 01/21/2023 9:58 AM CDT Plan of Treatment Not on file Insurance WELLC[employer] MEDICARE HMO IDPA [facility] MEDICARE SOLUTIONS MEDICARE SOLUTIONS [facility] Advance Directives For more information, please contact: [phone] Documents on File Type Date Recorded Patient Sprue Knocker Expl anation ADVANCE DIRECTIVE 08/20/2020 10:43 AM RNEATO Pike OF CONTRACT ADMINISTRATOR-MEDICAL Healthcare Agents on File Name Relationship Healthcare Agent Relationshi p Communication Lacie Bonds Health Care Agent Care Teams Earth Observations Chief Scientist Relationship Specialty Start Date End Date Nikunj Sow MD [address] [facility] [address] [place] [address] PCP - General Internal Medicine 08/03/20 Abner Layne MD [address] [facility] [address] [place] [address] Surgeon Vascular Surgery 01/19/23
--- OUTSIDE RECORDS SUMMARY | 2024-12-28 07:33 | XMS_ITS | Clinical Summary ---
Author Organization [facility] Address [address] [place] [address] Care Team Providers Care Console Manager Name Role Phone Nikunj Sow MD Primary Care Provider [phone] Abner Layne MD Unavailable [phone] Allergies Active Allergy Reactions Criticality Noted [...] (1,000 mcg total) by mouth daily Active ps-3-onj-epa-fi sh oil-vit D3 300-1,000-1,000 mg-mg-unit capsule Take by mouth Active cranberry extract 200 mg capsule Take by mouth Active Active Problems Problem Noted Date Diagnosed Date Bilateral lower extremity edema 01/21/2023 Assessment & Plan (01/21/2023 12:43 PM CDT): Patient with chronic lower extremity edema, likely secondary to inactivity, feeding in the dependent position in wheelchair. No concern for DVT as this is a snf issue. Educated patient to utilize compression therapy, [...] SARS-CoV-2 Monovalent Vaccination (12+ Y RS) 01/20/2021,12/23/2020 Surgical History Surgery Date Site/Laterality Comments VENTRICULOPERITONEAL SHUNT Medical History Medical History Date Comments Dandy Walker malformation (HCC) Seizures (HCC) Hydrocephalus (HCC) Vertigo Social History Tobacco Use Types Packs/Day Years Used Date Smoking Tobacco: Never Tobacco Cessation:Counseling Given: Not Answered Personal Safety Answer Date Recorded Getting School Help Needed Not on file 10/07 Comments Unknown Sex and Gender Information Value Date Recorded Sex Assigned at Not on file Legal Sex Female 7:50 PM COMPOUND SPECIALIST Gender Identity Not on file Sexual Orientation Not on file Obstetrics History Last Filed Vital Signs Vital Sign Reading Time Taken Comments Blood Pressure 101/63 01/21/2023 9:58 AM CDT Pulse 88 01/21/2023 9:58 AM CDT Temperature 37 C (98.6 F) 08/20/2020 9:04 AM COMPOUND SPECIALIST Respiratory Rate 16 08/20/2020 3:30 PM COMPOUND SPECIALIST Oxygen Saturation 98% 08/20/2020 3:30 PM COMPOUND SPECIALIST Inhaled Oxygen Concentration - - Weight 49.9 kg (110 lb) 01/21/2023 9:58 AM CDT Height 154.9 cm (5' 1 ) 01/21/2023 9:58 AM CDT Body Mass Index 20.78 01/21/2023 9:58 AM CDT Plan of Treatment Health Maintenance Due Date Last Done Comments Breast Cancer Screening-Mammogram 1975 Cervical Cancer Screening 1973 Colon Cancer Screening-Colonoscopy 1975 Depression Screening 1975 Hepatitis C Screening 1973 DTaP/Tdap/Td Vaccine (1 - Tdap) 1984 Hepatitis B Screening 1991 Regular Well Visit/Exam 18-64 1991 Zoster Vaccine (1 of 2) 2023 Covid-19 Vaccine (3 - season) 2024 01/20/2021, 12/23/2020 Influenza Vaccine (#1) 2024 0, 07/06/2019, 07/21/2018, Additional history exists Pneumococcal vaccine <65 Aged Out No longer eligible based on patient's age to complete this topic Insurance WELLCARE MEDICARE HMO IDMT (Work) [id number] MEDICARE [employer] MEDICARE SOLUTIONS IDPA Advance Directives For more information, please contact: [phone] Documents on File Type Date Recorded Patient Agriscience Instructor Expl anation ADVANCE DIRECTIVE 08/20/2020 10:43 AM RENATO Pike OF CROSS ROLLER-MEDICAL Healthcare Agents on File Name Relationship Healthcare Agent [facility] Communication Lacie Oconnell [facility] Health Care Agent Care Teams Console Manager Relationship Specialty Start Date End Date Nikunj Sow MD [address] [place] [address] PCP - General Internal Medicine 08/03/20 Abner Layne MD [address] [facility] [address] [place] [address] Surgeon Vascular Surgery 01/19/23
--- OUTSIDE RECORDS SUMMARY | 2024-12-28 07:33 | XMS_ITS | Clinical Summary ---
Author Organization [facility] Address [address] [place] [address] Care Team Providers Care Social Work Msw Name Role Phone Nikunj Sow MD Primary Care Provider [phone] Allergies Active Allergy Reactions Criticality Noted Date Comments Caffeine Dizziness 03/04/2021 Chocolate Dizziness 03/04/2021 Zonisamide Unknown 03/04/2021 Medications No known medications Family History Medical History Relation Comments Diabetes Father Kidney Disease Father Relation Status Comments Father Mother Alive Social History Tobacco Use Types Packs/Day Years Used Date Smoking Tobacco: Never Smokeless Tobacco: Never Alcohol Use Standard Drinks/Week Comments Never 0 (1 standard drink = 0.6 oz pur e alcohol) AUDIT-C Answer Date Recorded Q1: How often do you have a drink containing alc ohol? Never 03/04/2021 Average Number of Drinks Not on file 021 Frequency of Binge Drinking Not on file 02/10 Comments Unknown Sex and Gender Information Value Date Recorded Sex Assigned at Not on file Legal Sex Female 4:16 PM CDT Gender Identity Not on file Sexual Orientation Not on file Last Filed Vital Signs Vital Sign Reading Time Taken Comments Blood Pressure - - Pulse - - Temperature - - Respiratory Rate - - Oxygen Saturation - - Inhaled Oxygen Concentration - - Weight 50.8 kg (112 lb) 03/04/2021 2:36 PM CDT Height 154.9 cm (5' 1 ) 03/04/2021 2:36 PM CDT Body Mass Index 21.16 03/04/2021 2:36 PM CDT Plan of Treatment Health Maintenance Due Date Last Done Comments Cervical Cancer Screening Pa p Smear (Age 30 to 64) Every 3 Years 1973 Colorectal Cancer Screening Colonoscopy (10 Years) 1973 Annual Physical 1976 Hepatitis C 1991 DTaP, Tdap and Td Vaccines ( 1 - Tdap) 1992 Hepatitis B Vaccines (1 of 3 - 19+ 3-dose series) 1992 Cervical Cancer Screening Pa p with HPV Testing (Age 30 to 64) Every 5 Years 2003 Cervical Cancer Screening with HPV 2003 Mammogram Screening 2013 Zoster Vaccines (1 of 2) 2023 COVID-19 Vaccine (1 - 2023-2 5 season) 2024 Influenza Adult (#1) 2024 Meningococcal B Vaccine Aged Out No l onger eligible based on patient's age to complete this topic Meningococcal Vaccine Aged Out No matteo muriel eligible based on patient's age to complete this topic Pneumococcal Vaccine: Pediat rics (0 to 5 Years) and At-Risk Patients (6 to 64 Years) Aged Out No longer eligible b ased on patient's age to complete this topic RSV Immunizations Under 20 Months Aged Out No longer eligible based on patient's age to complete this topic Medical Devices Implanted Type Area Network Systems Administrator Device Identifier Shelf Expiration Date Model / Serial / Lot Brain Description:Shunt-numerous s urgeries Insurance MEDICAID DEPT OF [employer] [address] Care Teams Social Work Msw Relationship Specialty Start Date End Date Nikunj Sow MD [address] [place], [place] [id number] PCP - General INTERNAL MEDICINE 08/09/20
--- OUTSIDE RECORDS SUMMARY | 2024-12-28 07:33 | XMS_ITS | Encounter Summary ---
Author Organization [facility] Address [address] [place] [address] Care Team Providers Care Industrial Gas Fitter Name Role Phone Nikunj Sow MD Primary Care Provider [phone] Encounter Details Date Type Department Care Team (Late st Contact Info) Description 03/04/2021 Prep for Procedure [facility] Day [facility] [place], [place] [id number] Pepe Reddy MD [address] [id number] Social History Tobacco Use Types Packs/Day Years [...] on file Sexual Orientation Not on file COVID-19 Exposure Response Date Recorded In the last month, have you been in contact with someone who was confirmed or suspected to have Coronavirus / COVID-19? No / Unsure 03/04/2021 2:36 PM CDT documented as of this encounter Plan of Treatment Not on file documented as of this encounter Visit Diagnoses Diagnosis GERD (gastroesophageal reflux disease)- Primary Esophageal reflux documented in this encounter Care Teams Industrial Gas Fitter Relationship Specialty Start Date End Date Nikunj Sow MD [address] [place] [address] [place] [address] PCP - General INTERNAL MEDICINE 08/09/20 documented as of this encounter
--- NOTE | 2024-12-28 07:59 | ECHO_ITS ---
Patient Info Name: Christi Azevedo Age: 49 years : 1975 Gender: Female Ht: 60 in Wt: 125 lbs BSA: 1.56 m2 HR: 86 bpm BP: 122 / 87 mmHg Technical Quality: Good Exam Date: 12/28/2024 8:12 AM Exam Location: Echo Lab Patient Status: Outpatient Admit Date: 12/28/2024 Staff Ordering Physician: Elliot Mckeon DO Cause Analyst: Marta Jones RDCS Attending Provider: Elliot Mckeon DO Referring Physician: Mike CASTRO; Exam Type: CA echo doppler color flow Study Info Indications R60.9 - Edema, unspecified Complete two-dimensional, color flow and Doppler transthoracic echocardiogram is performed. Summary 1. Complete two-dimensional, color flow and Doppler transthoracic echocardiogram is performed. 2. Left ventricular chamber dimension is normal. 3. Left ventricular systolic function is normal, estimated at 60-65%. 4. The left ventricular diastolic function is grade I diastolic dysfunction. 5. E/e' 10 is mildly elevated. 6. Right ventricular chamber dimension is moderately enlarged. 7. Right ventricular systolic function is mildly reduced and with abnormal TAPSE 1.4 cm. 8. There is trace tricuspid valve regurgitation. 9. No pulmonary hypertension, estimated pulmonary arterial systolic pressure is 17 mmHg. Left Ventricle E/e' 10 is mildly elevated. Left ventricular chamber dimension is normal. Left ventricular systolic function is normal, estimated at 60-65%. The left ventricular diastolic function is grade I diastolic dysfunction. Right Ventricle Right ventricular systolic function is mildly reduced and with abnormal TAPSE 1.4 cm. Right ventricular chamber dimension is moderately enlarged. Left Atria Left atrial chamber dimension is normal. Right Atria Right atrial chamber dimension is normal. Aortic Valve The aortic valve is trileaflet. There is no aortic valve stenosis. There is no aortic valve regurgitation. Pulmonic Valve There is no pulmonic regurgitation. Mitral Valve There is no mitral valve stenosis. There is no mitral valve regurgitation. Tricuspid Valve There is trace tricuspid valve regurgitation. No pulmonary hypertension, estimated pulmonary arterial systolic pressure is 17 mmHg. Pericardium/Pleural There is no pericardial effusion. Inferior Vena Cava Normal inferior vena cava with >50% collapse upon inspiration consistent with normal right atrial pressure, 5 mmHg. Aorta The aortic root size at the sinus of Valsalva is normal. Left Ventricular Outflow Tract Name Value Normal LVOT 2D LVOT Diameter 1.8 cm LVOT Doppler LVOT Peak Gradient 3 mmHg LVOT Mean Gradient 2 mmHg LVOT VTI 16 cm LVOT VTI/AV VTI Ratio 0.8 LVOT Stroke Volume 41 ml LVOT CO 8.8 l/min LVOT CI 5.7 l/min/m2 Pulmonic Valve Name Value Normal PV Doppler PV Peak Gradient 2 mmHg Mitral Valve Name Value Normal MV Doppler MV Decel Yancey 433 cm/s2 MV PHT 47 ms MV Area (PHT) 4.6 cm2 4.0-5.0 MV Diastolic Function MV E Peak Velocity 71 cm/s MV A Peak Velocity 94 cm/s MV E/A 0.8 MV Decel Time 163 ms MV Annular TDI MV E/e' (Septal) 10.2 <=8.0 MV E/e' (Lateral) 11.4 <=8.0 MV E/e' (Average) 10.8 Tricuspid Valve Name Value Normal TV Regurgitation Doppler TR Peak Velocity 171 cm/s TR Peak Gradient 12 mmHg Estimated PAP/RSVP RA Pressure 5 mmHg <=5 PA Systolic Pressure 17 mmHg <36 RV Systolic Pressure 17 mmHg <36 Aorta Name Value Normal Ascending Aorta Ao Root Diameter (MM) 3.0 cm Ao Root Diam Index (MM) 1.9 cm/m2 Aortic Valve Name Value Normal AV Doppler AV Peak Velocity 100 cm/s AV Peak Gradient 4 mmHg AV Mean Gradient 3 mmHg AV VTI 20 cm AV Area (Cont Eq VTI) 2.0 cm2 >=3.0 AV Area (Cont Eq Sami) 2.1 cm2 AV Regurgitation 2D LVOT Area 2.5 cm2 Ventricles Name Value Normal LV Dimensions 2D/MM IVS Diastolic Thickness (2D) 1.0 cm 0.6-1.0 LVID Diastole (2D) 4.1 cm 3.8-5.2 LVIW Diastolic Thickness (2D) 0.9 cm 0.6-0.9 LVID Systole (2D) 2.3 cm 2.2-3.5 LVOT Diameter 1.8 cm LV Mass (2D Cubed) 123.78 g 67.00-162.00 LV Mass Index (2D Cubed) 79 g/m2 43-95 Relative Wall Thickness (2D) 0.44 LV Fractional Shortening/Ejection Fraction 2D/MM LV Fractional Shortening (2D) 43 % 27-45 LV EF (2D Teicholz) 75 % 54-74 LV Diastolic Volume (4C MOD) 61 ml LV EF (4C MOD) 67 % LV Diastolic Volume (2C MOD) 62 ml LV EF (2C MOD) 69 % LV Diastolic Volume (BP MOD) 63 ml 46-106 LV Diastolic Volume Index (BP MOD) 40 ml/m2 29-61 LV Systolic Volume (BP MOD) 19 ml 14-42 LV Systolic Volume Index (BP MOD) 12 ml/m2 8-24 LV EF (BP MOD) 69 % 54-74 LV Diastolic Length (4C) 6.1 cm LV Systolic Length (4C) 4.7 cm LV Stroke Volume (4C MOD) 41 ml Atria Name Value Normal LA Dimensions LA Dimension (MM) 2.9 cm 2.7-3.8 LA Volume (4C A-L) 20 ml LA Volume (BP A-L) 24 ml RA Dimensions RA Area (4C) 11.4 cm2 <=18.0 Report Signatures
== END 2024-12-28 07:30 | disposition home or self-care (01) ==
PROVIDERS: PCP Internal Medicine; Visit Provider Internal Medicine
DX: R94.31 Abnormal electrocardiogram [ECG] [EKG] (principal); R60.9 Edema, unspecified
CPT/HCPCS: 93306

== ENCOUNTER 2025-02-04 06:46 | Outpatient (CLI) | payer MEDICARE, MEDICAID, SELFPAY ==
--- OUTSIDE RECORDS SUMMARY | 2025-02-04 06:50 | XMS_ITS | Encounter Summary ---
Author Organization [facility] Address [address] [place] [address] Care Team Providers Care Director Of Research Name Role Phone Nikunj Sow MD Primary Care Provider [phone] Encounter Details Date Type Department Care Team (Late st Contact Info) Description 03/04/2021 Prep for Procedure [facility] One Day Services ONE [place], [place] [id number] Pepe Reddy MD [address] [id number] Social History Tobacco Use Types Packs/Day Years [...] PM CDT documented as of this encounter Functional Status documented as of this encounter Plan of Treatment Not on file documented as of this encounter Visit Diagnoses Diagnosis GERD (gastroesophageal reflux disease)- Primary Esophageal reflux documented in this encounter Care Teams Director Of Research Relationship Specialty Start Date End Date Nikunj Sow MD [address] [place] [address] [place] [address] PCP - General INTERNAL MEDICINE 08/09/20 documented as of this encounter
--- OUTSIDE RECORDS SUMMARY | 2025-02-04 06:50 | XMS_ITS | Clinical Summary ---
Author Organization [facility] [employer] Address [address] [facility] [place] [address] Care Team Providers Care Mountain Services Manager Name Role Phone Nikunj Sow Kerry SMITH Primary Care Provider Morris Santana MD Unavailable [phone] Source Comments [facility],non-owned Affiliates and Associated Physician Practices is amultiple site organization consisting of ambulatory clinics and hospital sitesin [place], [place], [place] and [place]. This disclosure is being madepursuant to the Care Everywhere program and may not contain all information available regarding this patient. Last updated 18.[facility] Allergies Active Allergy Reactions Criticality Noted Date Comments Caffeine Dizziness Medium 08/30/2020 Chocolate Dizziness Low 08/20/2020 Guaifenesin Unknown Medium 08/20/2020 loopy Zonisamide Dizziness Medium 08/30/2020 Medications * Be aware that medications may not be up to date on this document. Alwaysverify current medications with the patient. levothyroxine (SYNTHROID) 50 MCG tablet Take 50 mcg by mouth once daily 0 Active atorvastatin (LIPITOR) 20 MG tablet Take 20 mg by mouth once daily 0 Active fluticasone propionate (FLONASE) 50 MCG/ACT nasal spray [place] 2 sprays into the nose once daily as needed 0 Active carBAMazepine (TEGRETOL) 200 MG tablet Take 3 tablets by mouth 4 times daily 0 Active Additional Information Patient taking differently: (No dose reported), Oral 4 TIMES DAILY,Takes 600 mg @ 6am and 9pm/ takes 400 mg @ 11am and 4pm, Reported on 04/19/[address] (DEPAKOTE) 500 MG tablet Take 2 tablets by mouth 2 times daily 0 Active Additional Information Patient taking differently:1,000 mg Oral 2 TIMES DAILY,Takes 1000mg @ 0630 and 1630, Reported on 04/19/[address] (DEPAKOTE) 500 MG tablet Take 3 tablets by mouth at bedtime 0 Active acetaminophen (TYLENOL) 325 MG tablet Take 2 tablets by mouth every 4 hours as needed Maximum allowable Acetaminophen amount = 4 Grams (4000 mg) / 24 hours. 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 shunt 10/08/2020 Abnormal weight loss 09/19/2020 Malfunction of ventriculoperitoneal shunt 2019 Hydrocephalus 09/18/2020 Extremity numbness 09/18/2020 Resolved Problems Problem Noted Date Diagnosed Date Resolved Date Cervical spondylosis 04/29/2021 021 Cervical stenosis of spinal canal 04/29/2021 04/30/2021 Cervical spinal cord compression 04/29/2021 04/30/2021 Cervical stenosis of spine 04/29/2021 0 04/30/2021 Immunizations Immunization Administration Dates Next Due Carlos Floresa primary monovalent 12+ yr 0.5mL ,12/23/2020 Social [...] of Binge Drinking Not on file 05/2020 Comments No Sex and Gender Information Value Date Recorded Sex Assigned at Female 09/25/2020 10:15 AM PLANT CONTROLLER Legal Sex Female 4:07 AM CDT Gender Identity Female 09/25/2020 10:15 AM PLANT CONTROLLER Sexual Orientation Not on file Last Filed [...] - 2023-2 5 season) 2024 01/20/2021, 12/23/2020 DEPRESSION SCREENING 10/12/2024 MEDICARE AWV CALENDAR YEAR 2024 INFLUENZA VACCINE (Season Ended) 2025 HIB VACCINE Aged Out No longer eligi [...] this topic Medical Devices Implanted Type Area Log Rafter Device Identifier Shelf Expiration Date Model / Serial / Lot Valve Shnt Rt Ang Bctsl Cath Cdmn Certas Implanted:Qty: 1 on 10/19/2020 by Mariano Cruz MD at [facility] Left: Ventricle Integra Neurosciences 06/11/2021 [id number] / / [id number] Demineralized Bone Matrix Implanted:Qty: 1 on 04/29/2021 by Mariano Cruz MD at [facility] N/A: Spine Cervical 02/11/2023 [id number] / [id number] / [place] Cervical Interbody Implanted:Qty: 1 on 04/29/2021 by Mariano Cruz MD at [facility] N/A: Spine Cervical 07/10/2025 [id number] / / [id number] Description:C6-7 [place] Cervical Interbody Implanted:Qty: 1 on 04/29/2021 by Mariano Cruz MD at [facility] N/A: Spine Cervical 03/28/2025 [id number] / / [id number] 1 Description:C5-6 [place] Cervical Interbody Implanted:Qty: 1 on 04/29/2021 by Mariano Cruz MD at [facility] N/A: Spine Cervical 07/10/2025 [id number] / / [id number] 3 Description:C4-5 Plate 3 Lvl Spne Crv Ant 52.5mm Corey Vs Implanted:Qty: 1 on 04/29/2021 by Mariano Cruz MD at [facility] N/A: Spine Cervical Medtronic Sofamor Danek Inc [id number] / / Screw 4mm 15mm Slf Drl Va Spne Crv Ant Implanted:Qty: 8 on 04/29/2021 by Mariano Cruz MD at [facility] N/A: Spine Cervical Medtronic Sofamor Danek Inc [id number] / / Explanted Type Area Log Rafter Device Identifier Shelf Expiration Date Model / Serial / Lot Shunt Ns Strata Reg 120cm Csf Cath Ba Implanted:Qty: 1 on 09/19/2020 by Mariano Cruz MD at [facility] Explanted:Qty: 1 on 10/09/2020 at [facility] Right: Cranial Medtronic Neurological 10/12/2022 [id number] / / [id number] Medtronic Ventricular Catheter With Extra Length Gonzalez Implanted:Qty: 1 on 09/19/2020 by Mariano Cruz MD at [facility] Explanted:Qty: 1 on 10/09/2020 at [facility] Right: Cranial 02/08/2022 [id number] / / [id number] Insurance MEDICAID - OUT OF STATE Member Subscriber Plan / Payer (Ef fective for All Dates) Name:Christi Morgan Relation to Subscriber:Self Name:CHRISTI MORGAN Payer ID:Not on file Group ID:Not on file Type:Medicaid Address: [address] UHC MANAGED MEDICARE ADV [place] - [place] [facility] Advance Directives Documents on File Type Date Recorded Patient Tool Sharpener Expl anation Adv Directive/Living Will/POA 05/02/2021 12:47 AM Adv Directive/Living Will/POA 08/30/2020 Mother POA * Full Code (Latest Code Status on File) Date Activated Date Inactivated Comments 10/09/2020 12:58 AM 10/21/2020 12:34 PM * Full Code Date Activated Date Inactivated Comments 09/19/2020 2:37 PM 09/21/2020 1:44 PM * Full Code Date Activated Date Inactivated Comments 09/18/2020 6:21 PM 09/19/2020 2:37 PM Care Teams Mountain Services Manager Relationship Specialty Start Date End Date Nikunj Sow DO [address] [facility] [address] [place] [address] PCP - General 06/30/19 [place] [address] [facility] [address] [place] [address] Orthopedic Surgery 06/05/21
--- OUTSIDE RECORDS SUMMARY | 2025-02-04 06:50 | XMS_ITS | Encounter Summary ---
Author Organization [facility] Address [address] [place] [address] Care Team Providers Care School Plant Consultant Name Role Phone Nikunj Sow DO Primary Care Provider [phone] Encounter Details Date Type Department Care Team (Late st Contact Info) Description 12/03/2020 Lab Requisition [facility] [address] [place] [id number] [facility], External Provider [address] [place] [address] Social History Tobacco Use Types Packs/Day Years [...] Description 03/29/2025 10:00 AM CDT Office Visit [facility] Oncology and Hematology - [place] [address] [facility] [address] [place] [address] Mitchel Desai MD [address] [facility] [address] [place] [address] documented as of this encounter Procedures Procedure Name Priority Date/Time Associated Diagnosis Comments VALPROIC ACID LEVEL, TOTAL Stat 12/03/2020 2:59 PM LOOM CHANGER CARBAMAZEPINE LEVEL Stat 12/03/2020 2 :59 PM LOOM CHANGER documented in this encounter Results * CARBAMAZEPINE LEVEL (12/03/2020 2:59 PM LOOM CHANGER) CARBAMAZEPINE LEVEL 9.3 4.0 - 12.0 ug/mL 12/03/2020 7:53 PM LOOM CHANGER [facility] Blood Collection / Unknown 12/03/2020 2:59 PM LOOM CHANGER 12/03/2020 3:00 PM LOOM CHANGER Narrative [facility] - 12/03/2020 7:53 PM LOOM CHANGER Carbamazepine Toxic Level = > 15.0 ug/mL External Provider [facility] CHEMISTRY ORDERABLES Fin al Result [facility]# [id number] [address] [place] [address] * (ABNORMAL) VALPROIC ACID LEVEL, TOTAL (12/03/2020 2:59 PM LOOM CHANGER) VALPROIC ACID TOTAL 112.1(H) 50.0 - 100.0 ug/mL 12/03/2020 7:53 PM LOOM CHANGER [facility] Comment: Valproic Acid Antiepileptic Control = 50 - 100 ug/mL Valproic Acid Manic Episode Control = 50 - 125 ug/mL Valproic Acid Toxic Level = >200 ug/mL Blood Collection / Unknown 12/03/2020 2:59 PM LOOM CHANGER 12/03/2020 3:00 PM LOOM CHANGER External Provider [facility] CHEMISTRY ORDERABLES Fin al Result [facility] CLIA# [id number] [address] [place] [address] documented in this encounter Visit Diagnoses Not on filedocumented in this encounter Care Teams School Plant Consultant Relationship Specialty Start Date End Date Nikunj Sow DO [address] [facility] [address] [place] [address] PCP - General Internal Medicine 03/16/23 documented as of this encounter
--- OUTSIDE RECORDS SUMMARY | 2025-02-04 06:50 | XMS_ITS | Clinical Summary ---
Author Organization [place] [address] [facility] Address [address] [place] [address] Care Team Providers Care Strap Buckler Machine Name Role Phone Nikunj Sow DO Primary Care Provider [phone] Allergies Active Allergy Reactions Criticality Noted Date [...] 3 Active fluticasone propionate (FLONASE) 50 mcg/spray [place], Suspension nasal inhaler Administer 2 Sprays in each nostril daily. 0 Active levothyroxine 50 mcg tablet Take 50 mcg by mouth daily before breakfast. 0 Active loratadine (CLARITIN) 10 mg tablet Take 10 mg by mouth daily. 0 Active MO-8-BIS-EPA-Fi sh Oil-Vit D3 300-1,000-1,000 mg-mg-unit Capsule Take [...] Encounters Date Type Department Care Team Description 01/24/2025 External Device Data STL ABSTRACTION Provider, Abstract 12/28/2024 External Device Data [facility] ABSTRACTION Provider, Abstract 12/17/2024 External Device Data ST[place] ABSTRACTION Provider, [...] Description 03/29/2025 10:00 AM CDT Office Visit [facility] Oncology and Hematology - [place] [address] [place] [address] Mitchel Desai MD [address] [facility] [address] [place] [address] Health Maintenance Due Date Last Done Comments DTAP/TDAP/TD VACCINES (1 - Tdap) 1992 HEPATITIS B VACCINES (1 of 3 - 19+ 3-dose series) 1992 HPV/Cotest (21-29) 1994 CERVICAL CANCER SCREENING 2003 HPV/Cotest (30-65) 2003 PAP SMEAR 2003 BREAST CANCER SCREENING 2013 COLORECTAL SCREENING 2018 Colorectal Cancer Screening 2018 FIT-DNA Q 3 years 2018 FIT/FOBT Q 1 year 2018 Flex Sig/CT Colonography Q 5 years 2018 ZOSTER VACCINE (1 of 2) 2023 INFLUENZA VACCINE (#1) 2024 , 07/06/2019, 07/07/2017, Additional history exists Insurance [place] Subscriber Plan / Payer (Ef fective 2023-Present) Name:Christi Azevedo Relation to Subscriber:Self Name:Christi Azevedo Payer ID:Not on file Group ID:Not on file Type:Medicaid Address: [address] Advance Directives For more information, please contact: [phone] Documents on File Type Date Recorded Patient Job Honer Expl anation Advance Directive POA 03/16/2023 9:26 AM Ad lieberman Directive POA Care Teams Strap Buckler Machine Relationship Specialty Start Date End Date Nikunj Sow DO [address] [facility] [address] [place] [address] PCP - General Internal Medicine 03/16/23
--- OUTSIDE RECORDS SUMMARY | 2025-02-04 06:50 | XMS_ITS | Clinical Summary ---
Author Organization [facility] Address [address] [place] [address] Care Team Providers Care Skin Diving Teacher Name Role Phone Nikunj Sow MD Primary Care Provider [phone] Allergies Active Allergy Reactions Criticality Noted Date [...] Screening with HPV 2003 Mammogram Screening 2013 Pneumococcal Vaccine: 50+ Ye ars (1 of 1 - PCV) 2023 Zoster Vaccines (1 of 2) 2023 COVID-19 Vaccine (1 - 2023-2 5 season) 2024 Meningococcal B Vaccine Aged Out No l onger eligible based on patient's age to complete this topic Meningococcal Vaccine Aged Out No matteo muriel eligible based on patient's age to complete this topic RSV Immunizations Under 20 Months Aged Out No longer eligible based on patient's age to complete this topic Medical Devices Implanted Type Area Train Operator Device Identifier Shelf Expiration Date Model / Serial / Lot Brain Description:Shunt-numerous s urgeries Insurance MEDICAID DEPT OF [place]UMAN [address] Care Teams Skin Diving Teacher Relationship Specialty Start Date End Date Nikunj Sow MD [address] [place], [place] [id number] PCP - General INTERNAL MEDICINE 08/09/20
--- OUTSIDE RECORDS SUMMARY | 2025-02-04 06:51 | XMS_ITS | Referral Summary ---
Author Organization [facility] Address [address] [place] [address] Care Team Providers Care Model Artists' Name Role Phone Nikunj Sow MD Primary Care Provider [phone] Abner Layne MD Unavailable [phone] Allergies Active Allergy Reactions Criticality Noted [...] (1,000 mcg total) by mouth daily Active jq-9-jfd-epa-fi sh oil-vit D3 300-1,000-1,000 mg-mg-unit capsule Take [...] on file Legal Sex Female 7:50 PM VICE PRESIDENT OF NURSING Gender Identity Not on file Sexual Orientation Not on file Last Filed Vital Signs Vital Sign Reading Time Taken Comments Blood Pressure 101/63 01/21/2023 9:58 AM CDT Pulse 88 01/21/2023 9:58 AM CDT Temperature 37 C (98.6 F) 08/20/2020 9:04 AM VICE PRESIDENT OF NURSING Respiratory Rate 16 08/20/2020 3:30 PM VICE PRESIDENT OF NURSING Oxygen Saturation 98% 08/20/2020 3:30 PM VICE PRESIDENT OF NURSING Inhaled Oxygen Concentration - - Weight 49.9 kg (110 lb) 01/21/2023 9:58 AM CDT Height 154.9 cm (5' 1 ) 01/21/2023 9:58 AM CDT Body Mass Index 20.78 01/21/2023 9:58 AM CDT Plan of Treatment Not on file Insurance WELLCARE MEDICARE HMO IDPA [facility] UHC MEDICARE ADVANTAGE MEDICARE ADVANTAGE IDPA Advance Directives For more information, please contact: [phone] Documents on File Type Date Recorded Patient Scouring Machine Tender Expl anation ADVANCE DIRECTIVE 08/20/2020 10:43 AM RENATO Pike OF SOFTWARE CLERK-MEDICAL Healthcare Agents on File Name Relationship Healthcare Agent [facility] Access Hospital[facility] p Communication Lacie Bonds Health Care Agent Care Teams Model Artists' Relationship Specialty Start Date End Date Nikunj Sow MD [address] [facility] [address] [place], [place] [id number] PCP - General Internal Medicine 08/03/20 Abner Layne MD [address] [facility] [address] [place] [address] Surgeon Vascular Surgery 01/19/23
--- OUTSIDE RECORDS SUMMARY | 2025-02-04 06:51 | XMS_ITS | Clinical Summary ---
Author Organization [facility] Address [address] [place] [address] Care Team Providers Care Instructional Technology Coordinator Name Role Phone Nikunj Sow MD Primary Care Provider [phone] Abner Layne MD Unavailable [phone] Allergies Active Allergy Reactions Criticality Noted [...] (1,000 mcg total) by mouth daily Active nd-6-dho-epa-fi sh oil-vit D3 300-1,000-1,000 mg-mg-unit capsule Take by mouth Active cranberry extract 200 mg capsule Take by mouth Active Active Problems Problem Noted Date Diagnosed Date Bilateral lower extremity edema 01/21/2023 Assessment & Plan (01/21/2023 12:43 PM CDT): Patient with chronic lower extremity edema, likely secondary to inactivity, feeding in the dependent position in wheelchair. No concern for DVT as this is a alf issue. Educated patient to utilize compression therapy, [...] on file Legal Sex Female 7:50 PM DYE HOUSE SUPERVISOR Gender Identity Not on file Sexual Orientation Not on file Obstetrics History Last Filed Vital Signs Vital Sign Reading Time Taken Comments Blood Pressure 101/63 01/21/2023 9:58 AM CDT Pulse 88 01/21/2023 9:58 AM CDT Temperature 37 C (98.6 F) 08/20/2020 9:04 AM DYE HOUSE SUPERVISOR Respiratory Rate 16 08/20/2020 3:30 PM DYE HOUSE SUPERVISOR Oxygen Saturation 98% 08/20/2020 3:30 PM DYE HOUSE SUPERVISOR Inhaled Oxygen Concentration - - Weight 49.9 [...] complete this topic Insurance WELLCARE MEDICARE HMO IDKS (Work) [address] [facility] [address] [facility] MEDICARE ADVANTAGE [place] [address] MEDICARE ADVANTAGE IDPA Advance Directives For more information, please contact: [phone] Documents on File Type Date Recorded Patient Juvenile Justice Specialist Expl anation ADVANCE DIRECTIVE 08/20/2020 10:43 AM RENATO Pike OF PROGRAM COORDINATOR EXECUTIVE EDUCATION-MEDICAL Healthcare Agents on File Name Relationship Healthcare Agent Relationshi p Communication Lacie Oconnell [facility] Health Care Agent Care Teams Instructional Technology Coordinator Relationship Specialty Start Date End Date Nikunj Sow MD [address] [facility] [address] [place] [address] [address] [place] [address] PCP - General Internal Medicine 08/03/20 Abner Layne MD [address] [place] [address] Surgeon Vascular Surgery 01/19/23
[2025-02-04 07:31] LABS: Basophils Percent Auto 0.4 % (0.2-1.2); Eosinophils Absolute Auto 0.1 K/mm3 (0-0.3); Eosinophils Percent Auto 1.2 % (0-4.4); Hemoglobin 13.8 g/dL (12.0-15.0); Immature Granulocyte Absolute 0.03 K/mm3 (0.00-0.031); Immature Granulocyte Percent A 0.6 % (0-0.5); Lymphocytes Percent Auto 33.6 % (18.3-44.2); Mean Corpuscular HGB Conc 32.9 g/dl (32-36); Mean Corpuscular Hemoglobin 32.6 pg (26-34); Mean Corpuscular Volume 99.3 fl (80-100); Mean Platelet Volume 9.7 fl (7.4-10.4); Monocytes Absolute Auto 0.5 K/mm3 (0.1-0.6); Monocytes Percent Auto 9.3 % (2.6-8.5); Neutrophils Absolute Auto 2.8 K/mm3 (1.3-6.7); Neutrophils Percent Auto 54.9 % (45.5-73.1); Platelet Count Result 195 k/mm3 (150-375); Red Blood Count 4.23 M/mm3 (4.2-5.4); Red Cell Distribution Width 12.6 % (11.5-14.5); White Blood Count 5.1 K/mm3 (4.5-10.0)
[2025-02-04 07:47] LABS: Alanine Aminotransferase 16 U/L (6-35); Albumin Level 3.8 g/dL (3.5-5.1); Alkaline Phosphatase 60 U/L (38-126); Anion Gap 3 mmol/L (4-12); Aspartate Amino Transferase 28 U/L (14-36); Bilirubin,Total 0.4 mg/dL (0.2-1.3); Blood Urea Nitrogen 25 mg/dL (7-17); Calcium 9.1 mg/dL (8.4-10.2); Carbon Dioxide 35 mmol/L (22-30); Chloride 104 mmol/L (98-107); Cholesterol 217 mg/dL (0-200); Estimated Glomerular Filt Rate > 60; Glucose 85 mg/dL (65-110); HDL Direct 75 mg/dL; Potassium 4.4 mmol/L (3.4-5.0); Sodium 142 mmol/L (137-145); Triglycerides 220 mg/dL (<150)
[2025-02-04 07:52] LABS: Iron 178 ug/dL (37-170)
[2025-02-04 07:58] LABS: LDL Cholesterol Direct 73 mg/dL
[2025-02-04 08:01] LABS: Percent Iron Saturation 91 % (20-50)
[2025-02-04 09:34] LABS: Vitamin D 25 Hydroxy 63.6 ng/mL
[2025-02-04 10:27] LABS: Valproic Acid 52.1 ug/mL (50-120)
[2025-02-08 19:04] LABS: Carbamazepine Tegretol 9.4 mcg/mL (4.0-12.0)
== END 2025-02-04 06:47 | disposition home or self-care (01) ==
LOC: ANHLAB 06:48
PROVIDERS: PCP Internal Medicine; Visit Provider Internal Medicine
DX: D64.9 Anemia, unspecified (principal); G40.909 Epilepsy, unspecified, not intractable, without status epilepticus; D61.818 Other pancytopenia; I95.9 Hypotension, unspecified; E78.00 Pure hypercholesterolemia, unspecified; E78.5 Hyperlipidemia, unspecified; E55.9 Vitamin D deficiency, unspecified
CPT/HCPCS: 36415; 80053; 80061; 80156; 80164; 82306; 82728; 83540; 83550; 85025

== ENCOUNTER 2025-03-29 09:18 | Outpatient (CLI) | payer MEDICARE, MEDICAID, SELFPAY ==
[2025-03-29 09:36] LABS: Basophils Percent Auto 0.2 % (0.2-1.2); Eosinophils Percent Auto 0.5 % (0-4.4); Hematocrit 42.2 % (37.0-47.0); Hemoglobin 13.9 g/dL (12.0-15.0); Immature Granulocyte Absolute 0.01 K/mm3 (0.00-0.031); Immature Granulocyte Percent A 0.2 % (0-0.5); Lymphocytes Absolute Auto 1.07 K/mm3 (0.9-3.2); Lymphocytes Percent Auto 24.5 % (18.3-44.2); Mean Corpuscular HGB Conc 32.9 g/dl (32-36); Mean Corpuscular Hemoglobin 32.9 pg (26-34); Mean Platelet Volume 9.4 fl (7.4-10.4); Monocytes Absolute Auto 0.6 K/mm3 (0.1-0.6); Neutrophils Absolute Auto 2.6 K/mm3 (1.3-6.7); Neutrophils Percent Auto 60.6 % (45.5-73.1); Platelet Count Result 174 k/mm3 (150-375); Red Blood Count 4.22 M/mm3 (4.2-5.4); Red Cell Distribution Width 12.5 % (11.5-14.5); White Blood Count 4.4 K/mm3 (4.5-10.0)
[2025-03-29 09:41] LABS: Blood Urea Nitrogen 24 mg/dL (8-26); Carbon Dioxide 27 mmol/L (22-30); Chloride 104 mmol/L (98-109); Estimated Glomerular Filt Rate > 60; Glucose 83 mg/dL (70-105); Ionized Calcium (POC) 1.24 mmol/L (1.11-1.31); Potassium 4.7 mmol/L (3.5-4.9); Sodium 141 mmol/L (138-146)
--- OUTSIDE RECORDS SUMMARY | 2025-03-29 10:04 | XMS_ITS | Clinical Summary ---
Author Organization [facility] [employer] Address [address] [place] [address] Care Team Providers Care Erecting Crane Operator Name Role Phone Nikunj Sow Primary Care Provider Morris Santana MD Unavailable [phone] [facility],non-owned Affiliates and Associated Physician Practices is amultiple site organization consisting of ambulatory clinics and hospital sitesin [place], [place], [place] and [place]. This disclosure is being madepursuant to the Care Everywhere program and may not contain all information available regarding this patient. Last updated 18.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 shunt 10/08/2020 Abnormal weight loss 09/19/2020 Malfunction [...] Sex Assigned at Female 09/25/2020 10:15 AM CRM ANALYST Legal Sex Female 4:07 AM CDT Gender Identity Female 09/25/2020 10:15 AM CRM ANALYST Sexual Orientation Not on file Last Filed [...] 7:58 AM CDT Height 154.9 cm (5' 1) 06/05/2021 7:58 AM CDT Body Mass Index [...] - COLON CA SCREENING 1973 MAMMOGRAM 1973 HIV SCREENING 1988 HEPATITIS C SCREENING 08/06/1991 DTAP/TDAP/TD VACCINES (1 - Tdap) 1992 HEPATITIS B VACCINE (1 of 3 - 19+ 3-dose series) 1992 PNEUMOCOCCAL VACCINE 50+ (1 of 1 - PCV) 2023 ZOSTER VACCINE (1 of 2) 2023 COVID-19 VACCINE (3 - 2023-2 5 season) 2024 01/20/2021, 12/23/2020 DEPRESSION SCREENING 10/12/2024 INFLUENZA VACCINE (Season Ended) 2025 HIB VACCINE [...] this topic Medical Devices Implanted Type Area Division Traffic Superintendent Device Identifier Shelf Expiration Date Model / Serial / Lot Valve Shnt Rt Ang Bctsl Cath Cdmn Certas Implanted:Qty: 1 on 10/19/2020 by Mariano Cruz MD at [facility] Left: Ventricle Integra Neurosciences 06/11/2021 [id number] / / [id number] Demineralized Bone Matrix Implanted:Qty: 1 on 04/29/2021 by Mariano Cruz MD at [facility] N/A: Spine Cervical 02/11/2023 [id number] / [id number] / [place] Cervical Interbody Implanted:Qty: 1 on 04/29/2021 by Mariano Cruz MD at [facility] N/A: Spine Cervical 07/10/2025 [id number] / / [id number] 3 Description:C6-7 [place] Cervical Interbody Implanted:Qty: 1 on 04/29/2021 by Mariano Cruz MD at [facility] N/A: Spine Cervical 03/28/202516 [id number] / / [id number] 1 Description:C5-6 [place] Cervical Interbody Implanted:Qty: 1 on 04/29/2021 by Mariano Cruz MD at [facility] N/A: Spine Cervical 07/10/202516 [id number] / / [id number] 3 Description:C4-5 Plate 3 Lvl Spne Crv Ant 52.5mm Corey Vs Implanted:Qty: 1 on 04/29/2021 by Mariano Cruz MD at [facility] N/A: Spine Cervical Medtronic Sofamor Danek Inc [id number] / / Screw 4mm 15mm Slf Drnubia Rainey Ant Implanted:Qty: 8 on 04/29/2021 by Mariano Cruz MD at [facility] N/A: Spine Cervical Medtronic Sofamor Danek Inc [id number] / / Explanted Type Area Division Traffic Superintendent Device Identifier Shelf Expiration Date Model / Serial / Lot Shunt Ns Strata Reg 120cm Csf Cath Ba Implanted:Qty: 1 on 09/19/2020 by Mariano Cruz MD at [facility] Explanted:Qty: 1 on 10/09/2020 at [facility] Right: Cranial Medtronic Neurological 10/12/2022 [id number] / / [id number] Medtronic Ventricular Catheter With Extra Length [place] Implanted:Qty: 1 on 09/19/2020 by Mariano Cruz MD at [facility] Explanted:Qty: 1 on 10/09/2020 at [facility] Right: Cranial 02/08/2022 [id number] / / [id number] Insurance MEDICAID - OUT OF STATE Member Subscriber Plan / Payer (Ef fective for All Dates) Name:Christi Morgan Relation to Subscriber:Self Name:CHRISTI MORGAN Payer ID:Not on file Group ID:Not on file Type:Medicaid Address: [address] [place] [address] [facility] MEDICARE ADV [place] [facility] Advance Directives Documents on File Type Date Recorded Patient Manager Communication Expl anation Adv Directive/Living Will/POA 05/02/2021 12:47 AM Adv Directive/Living Will/POA 08/30/2020 Mother POA * Full Code (Latest Code Status on File) Date Activated Date Inactivated Comments 10/09/2020 12:58 AM 10/21/2020 12:34 PM * Full Code Date Activated Date Inactivated Comments 09/19/2020 2:37 PM 09/21/2020 1:44 PM * Full Code Date Activated Date Inactivated Comments 09/18/2020 6:21 PM 09/19/2020 2:37 PM Care Teams Erecting Crane Operator Relationship Specialty Start Date End Date Nikunj Sow DO [address] [facility] [address] [place] [address] PCP - General 06/30/19 [place] [address] [facility] [address] [place] [address] Orthopedic Surgery 06/05/21
--- OUTSIDE RECORDS SUMMARY | 2025-03-29 10:04 | XMS_ITS | Referral Summary ---
Author Organization [facility] Address [address] [place] [address] Care Team Providers Care Garment Parts Cutter Machine Name Role Phone Nikunj Sow MD Primary Care Provider [phone] Abner Layne MD Unavailable [phone] Allergies Active Allergy Reactions Criticality Noted [...] (1,000 mcg total) by mouth daily Active du-3-pde-epa-fi sh oil-vit D3 300-1,000-1,000 mg-mg-unit capsule Take by mouth Active cranberry extract 200 mg capsule Take by mouth Active Active Problems Problem Noted Date Diagnosed Date Bilateral lower extremity edema 01/21/2023 Assessment & Plan (01/21/2023 12:43 PM CDT): Patient with chronic lower extremity edema, likely secondary to inactivity, feeding in the dependent position in wheelchair. No concern for DVT as this is a halfway issue. Educated patient to utilize compression therapy, [...] on file Legal Sex Female 7:50 PM SWIFT TENDER Gender Identity Not on file Sexual Orientation Not on file Last Filed Vital Signs Vital Sign Reading Time Taken Comments Blood Pressure 101/63 01/21/2023 9:58 AM CDT Pulse 88 01/21/2023 9:58 AM CDT Temperature 37 C (98.6 F) 08/20/2020 9:04 AM SWIFT TENDER Respiratory Rate 16 08/20/2020 3:30 PM SWIFT TENDER Oxygen Saturation 98% 08/20/2020 3:30 PM SWIFT TENDER Inhaled Oxygen Concentration - - Weight 49.9 kg (110 lb) 01/21/2023 9:58 AM CDT Height 154.9 cm (5' 1) 01/21/2023 9:58 AM CDT Body Mass Index 20.78 01/21/2023 9:58 AM CDT Plan of Treatment Not on file Insurance WELLC[employer] MEDICARE HMO IDPA [facility] UHC MEDICARE ADVANTAGE MEDICARE ADVANTAGE IDPA Advance Directives For more information, please contact: [phone] Documents on File Type Date Recorded Patient Grinder Tender Expl anation ADVANCE DIRECTIVE 08/20/2020 10:43 AM RENATO Pike OF [employer] HELPER-MEDICAL Healthcare Agents on File Name Relationship [facility] Lacie Bonds Health Care Agent Care Teams Garment Parts Cutter Machine Relationship Specialty Start Date End Date Nikunj Sow MD [address] [facility] [address] [place], [place] [id number] PCP - General Internal Medicine 08/03/20 Abner Layne MD [address] [facility] [address] [facility] [address] [place] [address] Surgeon Vascular Surgery 01/19/23
--- OUTSIDE RECORDS SUMMARY | 2025-03-29 10:04 | XMS_ITS | Clinical Summary ---
Author Organization [facility] [address] [facility] Address [address] [facility] [place] [address] Care Team Providers Care Death Claim Clerk Name Role Phone Elliot Mckeon Primary Care Provider [phone] Allergies Active Allergy Reactions Criticality Noted Date Comments Caffeine Dizziness Low 03/16/2023 Vancomycin Rash Low 03/16/2023 Zonisamide Dizziness Low 03/16/2023 Medications atorvastatin (LIPITOR) 20 mg tablet Take 20 mg by mouth daily at bedtime. 0 Active cyanocobalamin 1,000 mcg Tablet Take 1,000 mcg by mouth daily. Active divalproex (DEPAKOTE) 500 mg delayed release tablet Take 500 mg by mouth. 0 Active fluticasone propionate (FLONASE) 50 mcg/spray [place], Suspension nasal inhaler Administer 2 Sprays in each nostril daily. 0 Active levothyroxine 50 mcg tablet Take 50 mcg by mouth daily before breakfast. 0 Active loratadine (CLARITIN) 10 mg tablet Take 10 mg by mouth daily. 0 Active WR-4-LBY-EPA-Fi sh Oil-Vit D3 300-1,000-1,000 mg-mg-unit Capsule Take by mouth. Activ e omeprazole (PriLOSEC) 40 mg Capsule, Delayed Release(E.C.) 1 Active carBAMazepine (TEGretol) 200 mg tablet Take 600 mg by mouth. 0 Active Cranberry Extract 200 mg Capsule Take by mouth. Activ e Cholecalciferol , Vitamin D3, 50 mcg (2,000 unit) Capsule Take by mouth. A ctive ascorbic acid, vitamin C, (VITAMIN C) 1,000 mg Tablet Take 1,000 mg by mouth daily. Active Active Problems No known active problems Encounters Date Type Department Care Team Description 03/29/2025 10:00 AM CDT Office Visit [facility] Oncology and Hematology [facility] [address] [place] [address] Mitchel Desai MD Arrived 03/29/2025 Orders Only [facility] Oncology and Hematology [facility] [address] [place] [address] Mitchel Desai MD Secondary thrombocytosis (Primary Dx) 03/02/2025 External Device Data STL ABSTRACTION Provider, Abstract 03/01/2025 External Device Data ST[facility] ABSTRACTION Provider, Abstract 02/28/2025 External Device Data [facility] ABSTRACTION Provider, Abstract 01/24/2025 External Device Data [facility] ABSTRACTION Provider, [...] Sign Reading Time Taken Comments Blood Pressure 122/85 03/29/2025 9:49 AM CDT Pulse 86 03/29/2025 9:46 AM CDT Temperature 36.9 C (98.5 F) 03/29/2025 9:46 AM CDT Respiratory Rate 15 03/29/2025 9:46 AM CDT Oxygen Saturation 95% 03/29/2025 9:46 AM CDT Inhaled Oxygen Concentration - - Weight 60.4 kg (133 lb 3.2 oz) 03/29/2025 9:46 A M CDT Height - - Body Mass Index - - Plan of Treatment Health Maintenance Due Date [...] 2024 , 07/06/2019, 07/07/2017, Additional history exists Medicare Advantage ([place]) Preventative Visit/Annual Wellness Visit 10/12/2024 Insurance [place] Advance Directives For more information, please contact: [phone] Documents on File Type Date Recorded Patient Psychiatric Attendant Expl anation Advance Directive POA 03/16/2023 9:26 AM Ad lieberman Directive POA Care Teams Death Claim Clerk Relationship Specialty Start Date End Date Elliot Mckeon DO [address] [facility] [address] [facility] [address] [place] [address] PCP - General Internal Medicine 03/29/25
--- OUTSIDE RECORDS SUMMARY | 2025-03-29 10:04 | XMS_ITS | Encounter Summary ---
Author Organization [facility] RUMA Higgins [facility] Address [address] [place] [address] Care Team Providers Care Press Shop Supervisor Name Role Phone Elliot Mckeon DO Primary Care Provider [phone] Encounter Details Date Type Department Care Team (Late st Contact Info) Description 03/29/2025 Orders Only [facility] Oncology and Hematology - [place] [address] [facility] [address] [place] [address] Mitchel Desai MD [address] [facility] [address] [place] [address] Secondary thrombocytosis (Primary Dx) Social History Tobacco Use Types Packs/Day Years [...] as of this encounter Plan of Treatment Scheduled Orders Name Type Priority Associated Diagnoses Orde r Schedule BASIC METABOLIC PANEL Lab Routine Secondary thrombocytosis Expected: 03/29/2025, Expires: 03/29/2026 CBC WITH DIFFERENTIAL Lab Routine Secondary thrombocytosis Expected: 03/29/2025, Expires: 03/29/2026 documented as of this encounter Visit Diagnoses Diagnosis Secondary thrombocytosis- Primary Essential thrombocythemia documented in this encounter Care Teams Press Shop Supervisor Relationship Specialty Start Date End Date Elliot Mckeon DO [address] [place] [address] PCP - General Internal Medicine 03/29/25 documented as of this encounter
--- OUTSIDE RECORDS SUMMARY | 2025-03-29 10:04 | XMS_ITS | Encounter Summary ---
Author Organization [facility] RUMA Higgins [facility] Address [address] [place] [address] Care Team Providers Care Painter Bottom Name Role Phone Elliot Mckeon DO Primary Care Provider [phone] Encounter Details Date Type Department Care Team (Late st Contact Info) Description 03/29/2025 10:00 AM CDT Office Visit [facility] Oncology and Hematology - [place] [address] [facility] [address] [place] [address] Mitchel Desai MD [address] [facility] [address] [place] [address] Arrived Social History Tobacco Use Types Packs/Day Years [...] on file documented as of this encounter Last Filed Vital Signs Vital Sign Reading [...] - - Body Mass Index - - documented in this encounter Plan of Treatment Not on file documented as of this encounter Visit Diagnoses Not on filedocumented in this encounter Care Teams Painter Bottom Relationship Specialty Start Date End Date Elliot Mckeon DO [address] [facility] [address] [place] [address] PCP - General Internal Medicine 03/29/25 documented as of this encounter
--- OUTSIDE RECORDS SUMMARY | 2025-03-29 10:04 | XMS_ITS | Clinical Summary ---
Author Organization [facility] Address [address] [place] [address] Care Team Providers Care Advisory Application Developer Name Role Phone Nikunj Sow MD Primary Care Provider [phone] Abner Layne MD Unavailable [phone] Allergies Active Allergy Reactions Criticality Noted [...] (1,000 mcg total) by mouth daily Active yj-6-ejg-epa-fi sh oil-vit D3 300-1,000-1,000 mg-mg-unit capsule Take [...] on file Legal Sex Female 7:50 PM DATAPOWER DEVELOPER Gender Identity Not on file Sexual Orientation Not on file Obstetrics History Last Filed Vital Signs Vital Sign Reading Time Taken Comments Blood Pressure 101/63 01/21/2023 9:58 AM CDT Pulse 88 01/21/2023 9:58 AM CDT Temperature 37 C (98.6 F) 08/20/2020 9:04 AM DATAPOWER DEVELOPER Respiratory Rate 16 08/20/2020 3:30 PM DATAPOWER DEVELOPER Oxygen Saturation 98% 08/20/2020 3:30 PM DATAPOWER DEVELOPER Inhaled Oxygen Concentration - - Weight 49.9 [...] - season) 2024 01/20/2021, 12/23/2020 Influenza Vaccine (Season Ended) 2025 07/18/2020, 07/06/2019, 07/21/2018, Additional history exists Pneumococcal vaccine <65 Aged Out No longer eligible based on patient's age to complete this topic Insurance WELLCARE MEDICARE HMO IDPA (Work) [id number] [facility] MEDICARE [facility] Address: [address] [address] [place] [address] (Work) [address] [facility] [address] MEDICARE [facility] Address: [address] [address] [place] [address] IDPA Advance Directives For more information, please contact: [phone] Documents on File Type Date Recorded Patient Shearing Supervisor Expl anation ADVANCE DIRECTIVE 08/20/2020 10:43 AM RENATO Pike OF [employer] Healthcare Agents on File Name Relationship Healthcare Agent Relationshi p Communication Lacie Oconnell [facility] Health Care Agent Care Teams Advisory Application Developer Relationship Specialty Start Date End Date Nikunj Sow MD [address] [facility] [address] [place] [address] PCP - General Internal Medicine 08/03/20 Abner Layne MD [address] [facility] [address] [facility] [address] [place] [address] Surgeon Vascular Surgery 01/19/23
--- OUTSIDE RECORDS SUMMARY | 2025-03-29 10:04 | XMS_ITS | Encounter Summary ---
Author Organization [facility] Address [address] [place] [address] Care Team Providers Care Math And Physics Instructor Name Role Phone Elliot Mckeon DO Primary Care Provider [phone] Encounter Details Date Type Department Care Team (Late st Contact Info) Description 12/03/[address] [facility] [address] [place] [address] [facility], External Provider [address] [place] [address] Social History Tobacco Use Types Packs/Day Years Used Date Smoking Tobacco: Never Assessed Comments Unknown Sex and Gender Information Value Date Recorded Sex Assigned at Not on file Legal Sex Female 1:41 PM CDT Gender Identity Not on file Sexual Orientation Not on file documented as of this encounter Plan of Treatment Not on file documented as of this encounter Procedures Procedure Name Priority Date/Time Associated Diagnosis Comments VALPROIC ACID LEVEL, TOTAL Stat 12/03/2020 2:59 PM APPLICATION SPEC CARBAMAZEPINE LEVEL Stat 12/03/2020 2 :59 PM APPLICATION SPEC documented in this encounter Results * CARBAMAZEPINE LEVEL (12/03/2020 2:59 PM APPLICATION SPEC) CARBAMAZEPINE LEVEL 9.3 4.0 - 12.0 ug/mL 12/03/2020 7:53 PM APPLICATION SPEC [facility] [employer] [facility] Blood Collection / Unknown 12/03/2020 2:59 PM APPLICATION SPEC 12/03/2020 3:00 PM APPLICATION SPEC Narrative [facility] [employer] [facility] - 12/03/2020 7:53 PM APPLICATION SPEC Carbamazepine Toxic Level = > 15.0 ug/mL External Provider [facility] CHEMISTRY ORDERABLES Fin al Result Performing Organization Address [facility]/ZIP Co de Phone Number [facility]# [id number] [address] [place] [address] * (ABNORMAL) VALPROIC ACID LEVEL, TOTAL (12/03/2020 2:59 PM APPLICATION SPEC) VALPROIC ACID TOTAL 112.1(H) 50.0 - 100.0 ug/mL 12/03/2020 7:53 PM APPLICATION SPEC [facility] Comment: Valproic Acid Antiepileptic Control = 50 - 100 ug/mL Valproic Acid Manic Episode Control = 50 - 125 ug/mL Valproic Acid Toxic Level = >200 ug/mL Blood Collection / Unknown 12/03/2020 2:59 PM APPLICATION SPEC 12/03/2020 3:00 PM APPLICATION SPEC External Provider [facility] CHEMISTRY ORDERABLES Fin al Result Performing Organization Address [facility]/ZIP Co de Phone Number [facility]# [id number] [address] [place] [address] documented in this encounter Visit Diagnoses Not on filedocumented in this encounter Care Teams Math And Physics Instructor Relationship Specialty Start Date End Date Elliot Mckeon DO [address] [facility] [address] [place] [address] PCP - General Internal Medicine 03/29/25 documented as of this encounter
== END 2025-03-29 09:19 | disposition home or self-care (01) ==
LOC: ANHLAB 09:19
PROVIDERS: PCP Internal Medicine; Visit Provider Internal Medicine Hematology & Oncology
DX: D75.838 Other thrombocytosis (principal)
CPT/HCPCS: 36415; 80047; 85025

== ENCOUNTER 2025-06-15 16:13 | Emergency (ER) | payer MEDICARE, MEDICAID, SELFPAY ==
--- NOTE | ~2025-06-15 | XR_ITS ---
XR knee LT min 4V 06/15/2025 16:54 INDICATION: Left knee pain after fall PROCEDURE: 5 views left knee COMPARISON: No prior studies for comparison. FINDINGS: Fracture, dislocation or subluxation is not identified. There is osteopenia. Mild diffuse subcutaneous edema. The soft tissues appear within normal limits. No foreign bodies are identified. IMPRESSION: 1: NO ACUTE BONE OR JOINT ABNORMALITY IDENTIFIED. Reviewed, dictated and finalized at location O.
--- NOTE | 2025-06-15 16:23 | ED.LOWEXIN ---
HPI - Extremity Injury (Lower) General Chief Complaint: Extremity Injury, Lower Stated Complaint: Fall / LT Knee Pain Time Seen by Provider: 06/15/25 16:15 Source: patient Mode of arrival: ambulatory Limitations: no limitations History of Present Illness HPI Narrative: Patient is a 49-year-old female who presents with left knee pain after falling out of bed this morning around 3:00 a.m. while tangled in blankets landing on hard floor. Patient has unstated gait at baseline and uses walker. Patient has taken Tylenol in use voltaren cream on the knee. Patient also hit her cheek, mother states she hits that cheek frequently. Denies any LOC. Patient able to ambulate with walker but reports pain with bearing weight. Related Data Home Medications ?Medication ?Instructions ?Recorded ?Confirmed ?Last Taken ?Type omega-3 fatty acids 1,000 mg 1,000 mg PO DAILY 01/15/21 04/10/25 Unknown History capsule (Fish Oil Concentrate) mecobalamin (vitamin B12) 1,000 1,000 mcg PO DAILY 08/22/22 04/10/25 Unknown History mcg chewable tablet (B12 Active) acetaminophen 650 mg tablet 650 mg PO Q6H PRN Pain 10/30/22 04/10/25 Unknown History ascorbate calcium (vitamin C) 500 500 mg PO DAILY 12/19/22 04/10/25 Unknown History mg tablet cranberry fruit 400 mg capsule 400 mg PO BID 12/25/22 04/10/25 Unknown History loratadine 10 mg tablet 10 mg PO DAILY PRN Allergy Symptoms 01/28/23 04/10/25 Unknown History biotin 10,000 mcg chewable tablet mcg PO 06/12/23 04/10/25 Unknown History (Hair, Skin and Nails (biotin)) Allergies Allergy/AdvReac Type Severity Reaction Status Date / Time caffeine Allergy Severe dizzy Verified 06/15/25 17:24 zonisamide Allergy Unknown Unknown Verified 06/15/25 17:24 chocolate flavor Allergy dizzy Verified 06/15/25 17:24 vancomycin Allergy Redness of Verified 06/15/25 17:24 Skin Review of Systems Review of Systems: All systems reviewed & are unremarkable except as noted in HPI and below Constitutional: Constitutional: Denies body ache(s), Denies chills, Denies fatigue, Denies fever(s), Denies headache(s), Denies malaise and Denies weakness Eyes: Eyes: Denies blurry vision, Denies irritation and Denies loss of vision ENT: Denies otalgia, Denies headache(s), Denies nasal discharge, Denies sinus pain and Denies sore throat Cardiovascular: Cardiovascular: Denies chest pain, Denies irregular heart rhythm and Denies dyspnea Respiratory: Respiratory: Denies dyspnea Gastrointestinal: Gastrointestinal: Denies abdominal pain, Denies melena, Denies hematochezia, Denies diarrhea, Denies nausea and Denies vomiting Musculoskeletal: Musculoskeletal: Denies back pain, Denies myalgias and Reports arthralgias Integumentary/Breasts: Skin/Breast: Denies pruritus and Denies rash Neurologic: Denies headache(s), Denies loss of vision and Denies weakness Psychiatric: Psychiatric: Reports no additional psychiatric complaints Endocrine: Endocrine: Denies fatigue [facility] Past Medical History Medical History Gait disorder Positive colorectal cancer screening using Cologuard test Seizure disorder last one 01/14/23 Esophageal reflux disease Agenesis of corpus callosum Congenital hydrocephalus, unspecified Surgical History Surgical History H/O Spinal surgery Hx of brain surgery S/P PARBOILER shunt Family History Family History Father Family history of diabetes mellitus in first degree relative Diabetes mellitus Social History Social History Social History: The patient is disabled. She lives with her mother. She can ambulate with a walker or otherwise uses a wheelchair. Smoking status: Never smoker Second hand tobacco smoke exposure: No Alcohol intake: never Substance use: never Substance use type: does not use Lack of Transportation: No Lack of Food: Sometimes True Current Housing: I Have Housing Concerned About Future Housing: No Difficulty Paying Gas/Electric Bills: YES Difficulty Paying for Meds: No Currently Unemployed: No Education: High School Diploma/GED Difficulty w/ Childcare or Family Care: No Living arrangements: with family Spiritual care concerns: No Comments At time of signature, agree with nursing past medical, surgical, social and family history. There is no relevant family history pertinent to the presenting complaint. Exam Const: General: cooperative, healthy appearing, comfortable, no acute distress and well nourished Nutritional Appearance: well nourished Orientation/consciousness: patient oriented x3 Limitations: no limitations HENMT: Head: normal to inspection, normocephalic and atraumatic Ears: hearing grossly normal bilaterally and external ears normal Face/Nose/Sinus: Normal external nose present, normal facial exam and face symmetric Face and sinus: normal facial exam and face symmetric Mouth: Yes lip normal Eyes: General: appearance normal, both eyes and all related structures Alignment and Position: alignment normal and position normal Periorbital: periorbital findings normal Eyelids: eyelids normal Pupils: Equal, round and reactive pupils present EOM: EOMs intact bilaterally Neck: Neck: normal visual inspection, full ROM and supple Chest: Chest palpation & inspection: normal inspection of the chest Resp: Effort & Inspection: normal respiratory effort and able to speak in complete sentences Auscultation: clear to auscultation bilaterally Cardio: Rate: regular rate Rhythm: regular rhythm Heart sounds: S1 normal heart sound present and S2 normal heart sound present GI: Inspection: normal to inspection Skin: General skin exam: normal color and no rashes or lesions noted Neuro: General: patient oriented x3 and moves all extremities Cranial nerves: Yes Equal, round and reactive pupils present Speech: normal speech Gait exam (Neuro): Normal gait present Extrem: General: normal to inspection, full ROM and no edema Left lower extremity: knee Details: normal to inspection, normal ROM and knee ligament exam normal Details: anterior drawer test normal, posterior drawer test normal, valgus stress test normal and varus stress test normal; no tenderness and no swelling, ankle Details: normal to inspection; no tenderness and no swelling and foot Details: normal capillary refill, normal to inspection and toes with normal ROM; no tenderness Psych: Appearance: grossly normal and well kempt Mental Status: mental status grossly normal Speech and movement: Normal speech and movement present Affect: normal affect Attitude: cooperative Thought process: Normal thought process present Course Course Emergency Course: Patient is aware of diagnosis, understands and agrees to treatment plan. Anticipatory guidance given. Patient agrees to follow-up as directed and is aware of reasons to seek care at the emergency department. Portions of this record may have been created with voice recognition software Level of Care: Express Care Visit Vital Signs Vital signs: Vital Signs Temperature 37.0 C 06/15/25 16:25 Pulse Rate 102 H 06/15/25 16:25 Respiratory Rate 20 06/15/25 16:25 Blood Pressure 143/75 H 06/15/25 16:25 Pulse Oximetry 100 06/15/25 16:25 Oxygen Delivery Room Air 06/15/25 16:25 Temperature 37.0 C 06/15/25 16:25 Pulse Rate 102 H 06/15/25 16:25 Respiratory Rate 20 06/15/25 16:25 Blood Pressure 143/75 H 06/15/25 16:25 Pulse Oximetry 100 06/15/25 16:25 Oxygen Delivery Room Air 06/15/25 16:25 Reviewed MDM - Extremity Injury (Lower) MDM Narrative Medical decision making narrative: Patient is able to bear weight and ambulate with mild pain. No surface of trauma or obvious effusion. No overlying erythema or warmth. The L knee is without obvious asymmetry or deformity when comparing to the R. Patient is able to do a deep knee bend with symmetry., Fully extended knee, internal and external rotation. Nontender to palpate of the patella, no effusion. Nontender over the infrapatellar tendon.. Nontender over the medial or lateral joint line, or medial or lateral tibial plateaus. Nontender over the proximal fibular head. Nontender, fullness, or mass of the popliteal fossa. NO quadriceps tenderness. No laxity of the ACL, PCL, MCL, LCL. Negative Brigida sign. Distal motor and neurovascular status intact. Pt well hydrated appearing, in no respiratory distress, hemodynamically stable. Recommend supportive care. The patient is stable at time of discharge the clinical impression was discussed and the patient was given the opportunity to ask questions, which were addressed as completely as possible given the information available at present. Anticipatory guidance and return to care precautions were discussed and the importance of primary care follow-up was stressed and encouraged. The patient voiced understanding of the plan, indications to return, and the need for follow-up. Exam findings show no acute concerns or changes Patient is appropriate for outpatient treatment and follow-up. Differential Diagnosis Differential diagnosis: Likely acute internal derangement of knee and other (Knee effusion, knee sprain) Medical Records Attestation: I reviewed the patient's medical records. Imaging Data Radiologist's impression: XR knee LT min 4V 06/15/2025 16:54 INDICATION: Left knee pain after fall PROCEDURE: 5 views left knee COMPARISON: No prior studies for comparison. FINDINGS: Fracture, dislocation or subluxation is not identified. There is osteopenia. Mild diffuse subcutaneous edema. The soft tissues appear within normal limits. No foreign bodies are identified. IMPRESSION: 1: NO ACUTE BONE OR JOINT ABNORMALITY IDENTIFIED. Discharge Plan Discharge Clinical Impression: Knee strain Qualifiers: Encounter type: initial encounter Laterality: left Qualified Code(s): S86.912A - Strain of unspecified muscle(s) and tendon(s) at lower leg level, left leg, initial encounter Patient Disposition: Home Condition: Stable Instructions: Knee Pain (ED) Additional Instructions: Xray showed no fracture. Minimize activities that aggravate the condition The RICE protocol. Follow the RICE protocol as soon as possible after your injury: Rest your ankle by not walking on it. Ice should be immediately applied to keep the swelling down. It can be used for 20 to 30 minutes, three or four times daily. Do not apply ice directly to your skin. Compression dressings, bandages or rylan-wraps will immobilize and support your injured knee. Elevate your knee above the level of your heart as often as possible during the first 48 hours. Medication: Nonsteroidal anti-inflammatory drugs (NSAIDs) such as ibuprofen and naproxen can help control pain and swelling. Because they improve function by both reducing swelling and controlling pain, they are a better option for mild sprains than narcotic pain medicines. Please schedule a follow-up visit with your personal physician for further evaluation and treatment within 1week OR If your symptoms persist, change or worsen significantly before you can contact your personal physician then please, without delay, go to the emergency department for further evaluation. Patient Language: Greek Prescriptions: No Action cranberry fruit 400 mg capsule 400 mg PO BID Rx Instructions: administer with meals divalproex [Depakote] 500 mg tablet,delayed release (DR/EC) 2,500 mg PO DIRECTED Qty: 450 4RF Rx Instructions: Take 2,3 as directed: 1630,2130 carbamazepine 200 mg tablet 200 mg PO .COMPLEX Qty: 900 4RF Rx Instructions: 200 mg PO take 5-2-3 as directed; 0630,1630,2130 omega-3 fatty acids [Fish Oil Concentrate] 1,000 mg capsule 1,000 mg PO DAILY mecobalamin (vitamin B12) [B12 Active] 1,000 mcg tablet,chewable 1,000 mcg PO DAILY ascorbate calcium (vitamin C) 500 mg tablet 500 mg PO DAILY Hair, Skin and Nails (biotin) 10,000 mcg tablet,chewable PO loratadine 10 mg tablet 10 mg PO DAILY PRN (Reason: Allergy Symptoms) omeprazole 40 mg capsule,delayed release(DR/EC) 40 mg PO DAILY Qty: 90 3RF atorvastatin 40 mg tablet 40 mg PO DAILY Qty: 90 3RF levothyroxine 50 mcg tablet 50 mcg PO DAILY Qty: 90 3RF acetaminophen 650 mg Tablet 650 mg PO Q6H PRN (Reason: Pain) Follow-up/Referrals: Elliot Mckeon DO [Primary Care Provider, Internal Medicine] - 3 Days Time of Disposition: 17:26
[2025-06-15 16:25] VITALS: BP 143/75; PULSE 102; RESP 20; TEMP 37; O2SAT 100
== END 2025-06-15 17:33 | disposition home or self-care (01) ==
PROVIDERS: Emergency Provider Nurse Practitioner Family; PCP Internal Medicine
DX: S86.912A Strain of unspecified muscle(s) and tendon(s) at lower leg level, left leg, initial encounter (principal); W06.XXXA Fall from bed, initial encounter; K21.9 Gastro-esophageal reflux disease without esophagitis; Q03.9 Congenital hydrocephalus, unspecified
CPT/HCPCS: 73564; 99213; G0463

== ENCOUNTER 2025-08-28 10:51 | Outpatient (CLI) | payer MEDICARE, MEDICAID, SELFPAY ==
--- NOTE | 2025-09-06 20:37 | WPDHOLTEREM ---
Holter/Event Monitor Holter/Event Monitor Date of procedure: 08/28/25 Holter/Event Procedure: 3-7 Day Holter Monitor Indications: Tachycardia Conclusion: 1. 3 days holter monitor on 08/28/25. 2. Underlying rhythm is sinus rhythm. HR range 47-163 bpm; average HR 67 bpm. HR at 47 bpm was on 08/30/25 at 6:14 am. HR at 163 bpm was on 08/31/25 at 10:54 am. 3. There are rare premature supraventricular complexes. No supraventricular tachycardia. 4. There are rare premature ventricular complexes. No ventricular tachycardia. 5. No significant pauses greater than 3 seconds. Underlying right bundle branch block. 6. Patient reports 1 episode of symptom of dizziness which demonstrates sinus tachycardia at 100 bpm.
== END 2025-08-28 10:52 | disposition home or self-care (01) ==
LOC: ANHCARD 10:53
PROVIDERS: PCP Internal Medicine; Visit Provider Internal Medicine
DX: R00.0 Tachycardia, unspecified (principal)
CPT/HCPCS: 93242

== ENCOUNTER 2025-09-15 13:42 | Outpatient (CLI) | payer MEDICARE, MEDICAID, SELFPAY ==
--- NOTE | 2025-09-26 12:01 | WPDHOLTEREM ---
Holter/Event Monitor Holter/Event Monitor Date of procedure: 09/15/25 Holter/Event Procedure: 3-7 Day Holter Monitor Indications: Tachycardia Conclusion: 1. 7 days holter monitor on 09/15/25. 2. Underlying rhythm is sinus rhythm. HR range 46-133 bpm; average HR 70 bpm. HR at 46 bpm was on 09/19/25 at 5:15 am. 3. There are rare premature supraventricular complexes. No supraventricular tachycardia. 4. There are rare premature ventricular complexes. No ventricular tachycardia. 5. No significant pauses greater than 3 seconds. 6. No symptoms available for correlation.
== END 2025-09-15 13:43 | disposition home or self-care (01) ==
LOC: ANHCARD 13:43
PROVIDERS: PCP Internal Medicine; Visit Provider Internal Medicine
DX: I49.1 Atrial premature depolarization (principal); I49.3 Ventricular premature depolarization; R00.0 Tachycardia, unspecified
CPT/HCPCS: 93242